=== PATIENT | male | born 1950 | race African-American/Black ===

== ENCOUNTER 2017-01-03 08:10 | Emergency (ER) | payer OTHER ==
[2017-01-03 08:16] VITALS: BMI 22.4
[2017-01-03] MEDS ORDERED: COREG TAB 12.5 MG PO ONE (08:45)
[2017-01-03] MEDS ORDERED: HYDROCHLOROTHIAZIDE 25 MG TAB PO ONE (08:46)
[2017-01-03] MEDS ORDERED: ZESTRIL TAB 20 MG PO ONE (08:46)
--- NOTE | 2017-01-03 08:58 | DR.GENAD ---
HPI - PCP Primary Care Physician: grant - HPI Comment HPI Comment: BLOOD PRESSURE ELEVATED. OUT OF BP MEDICATION. [employer] MED FOR BP TODAY IN THE DRUG STORE. NO FEVER. COUGH PRODUCTIVE WITH YELLOW SPUTUM. CHEST DISCOMFORT WITH DEEP BREATHING. - Complaint/Symptoms Chief Complaint Doctors Comments: COUGH, CONGESTION AND SOB TIMES 3 DAYS. Chief Complaint:: patient stated he has been hard to breath for the past couple of days . - Nurses notes reviewed Nurses Notes Review: Yes - Source History Provided: Patient - Mode of Arrival Mode of Arrival: Ambulatory - Timing Onset of Chief Complaint: 12/31/16 Came on: Suddenly - Duration Duration: Constant Duration: Days - Severity Severity: Moderate PMH - PMH Past Medical History: Yes Past Medical History: Hypertension Past Surgical History: No Surgical History: Ortho Surgery - Family History History of Family Medical Conditions: Yes Family Medical History: Diabetes Mellitus, Hypertension - Social History Does patient currently use any type of tobacco product: No Have you used tobacco products in the last 12 months: No Type of Tobacco Use: None Does any household member use tobacco: No Alcohol Use: None Do you use any recreational Drugs:: No Lives With: Family Lives Where: Home - infectious screening In the last 2 months have you had wt loss of >10#?: NO Have you had fever, night sweats or hemotysis?: No Have you traveled outside the country in the last 6 months?: No Isolation: Standard ROS - Review of Systems Constitutional: No Symptoms Reported Eyes: No Symptoms Reported ENTM: Nose Congestion. negative: Ear Pain, Nose Discharge Respiratoy: Productive Cough, Short of Breath. negative: Wheezing, Hemoptysis Cardiovascular: Chest Pain (ON DEEP BREATHING.) Gastrointestinal/Abdominal: No Symptoms Reported. negative: Abdominal Pain, Diarrhea, Nausea, Vomiting Genitourinary: No Symptoms Reported. negative: Dysuria, Frequency, Hematuria Neurological: No Symptoms Reported Musculoskeletal: No Symptoms Reported Integumentary: No Symptoms Reported Hematologic/Lymphatic: No Symptoms Reported Endocrine: No Symptoms Reported All Other Systems: Reviewed and Negative PE - Vital Signs Vitals: Temperature 97.7 F Pulse Rate [Left Brachial] 79 Pulse Rate 97 Respiratory Rate 16 Blood Pressure [Left Arm] 160/105 Blood Pressure [Right Arm] 197/115 Blood Pressure 196/117 O2 Sat by Pulse Oximetry 100 - General Limitations: No Limitations General Appearance: Alert - Head Head Exam: Normal Inspection - Eyes Eye exam: Normal Appearance - ENT ENT Exam: Normal External Ear Exam TM/Canal Exam: Bilateral Normal Nose Exam: Normal Nose Exam Throat Exam: Normal Inspection - Neck Neck Exam: Normal Inspection, Trachea Midline - Chest Chest Inspection: Symmetric Chest Wall Rise - Respiratory Respiratory Exam: Normal Lung Sounds Bilat Respiratory Exam: Bilateral Clear to Auscultation - Cardiovascular Cardiovascular Exam: Regular Rate, Normal Rhythm, Normal Heart Sounds - Abdominal Exam Abdominal Exam: Normal Bowel Sounds, Soft. negative: Tenderness - Extremities Extremities Exam: Normal Inspection - Back Back Exam: Normal Inspection - Neurologic Neurological Exam: Alert, Oriented X3 - Psychiatric Psychiatric Exam: Normal Affect, Normal Mood - Skin Skin Exam: Normal Color MDM - Differential Diagnosis Differential Diagnosis: BRONCHITIS, PNEUMONIA, HYPERTENSION Course - Treatment Treatment: SEE ORDERS. - Education/Counseling Education/Counseling: Patient, Education Educated On: Diagnosis, Needs for Follow Up ROR - XRAY XRAY Interpreted by: Radiologist XRAY Findings: REPORT DISCUSS WITH PATIENT. - Diagnosis Discharge Problem: Essential hypertension Acute bronchitis Qualifiers: Bronchitis organism: other organism Qualified Code(s): J20.8 - Acute bronchitis due to other specified organisms - Discharge Plan Disposition: 01 HOME, SELF-CARE Condition: Stable - Follow ups/Referrals Follow ups/Referrals: CAITLIN OBANDO [Primary Care Provider] - 3 days - Instructions Instructions: Acute Bronchitis, [id number], Hypertension, [id number] Additional Instructions: RETURN TO ED IF WORSE.
[2017-01-03] MEDS ORDERED: ATARAX TAB 25 MG PO ONE (10:59)
[2017-01-03] MEDS ORDERED: APRESOLINE TAB 25 MG PO ONE (11:05)
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
[2017-01-03 12:05] VITALS: BP 160/105
[2017-01-04] MEDS ORDERED: NORVASC TAB 10 MG PO ONE (11:00)
== END 2017-01-03 12:12 | disposition home or self-care (01) ==
LOC: ER 08:31
DX: J20.8 Acute bronchitis due to other specified organisms (principal); I10 Essential (primary) hypertension; I51.7 Cardiomegaly; J90 Pleural effusion, not elsewhere classified
CPT/HCPCS: 71010; 99282

== ENCOUNTER 2018-04-30 05:04 | Inpatient (IN) ==
--- NOTE | 2018-04-30 05:18 | DR.SOBA ---
HPI Time Seen Time Seen by Provider: 04/30/18 05:16 HPI Comment HPI Comment: PATIENT HAVE HAD PROGRESSIVE EXERSIONAL DYSPNEA FOR ONE WEEK. HE IS COUGHING BUT NO FEVER.3 DAYS AGO LOWER CHEST SUBSTERNAL AND EPIGASTRIC PAIN STARTED. TOOK IT GAS PAIN BUT IMPROVING. PATIENT IS WEAK AND DRAIN OF ENERGY. Complaints Chief Complaint Doctors Comments: INCREASING SOB AND CHEST PAIN, LOWER STERNUM AND EPIGASTRIC AREA. SOB WORSE THIS AM. HISTORY HYPERTENSION. OUT OF BP MED.IN ED, BP MARKEDLY ELEVATED. Reviewed Nurses Notes Reviewed: Yes Source History Provided: Patient Mode of Arrival Mode of Arrival: Ambulatory Duration Duration: Days Context Onset:: At Rest and With Light Exertion PE Risk Factors:: None History of:: CHF Currently on:: Neither Prehospital Care:: None Modifying Factors Worsens:: Exertion Improves:: Rest Associated Signs and Symptoms Associated Signs and Symptoms: Cough, Chest Pain and Leg Swelling If Chest Pain Quality: Sharp and Pleuritic Location: Right Lower Chest, Left Lower Chest and Substernal If Cough Cough: Productive and Yellow PMH PMH Past Medical History: Hypertension Past Surgical History: No Surgical History: Ortho Surgery Family History Family Medical History: Diabetes Mellitus and Hypertension Social History Do you use any recreational Drugs:: No ROS Review of Systems Constitutional: Weakness and Fatigue Eyes: No Symptoms Reported ENTM: No Symptoms Reported Respiratoy: Moist Cough and Short of Breath Cardiovascular: Chest Pain Gastrointestinal/Abdominal: No Symptoms Reported Genitourinary: No Symptoms Reported Neurological: Weakness Musculoskeletal: No Symptoms Reported Integumentary: No Symptoms Reported Hematologic/Lymphatic: No Symptoms Reported Endocrine: No Symptoms Reported Psychiatric: No Symptoms Reported All Other Systems: Reviewed and Negative PE Vital Signs Vitals: Temperature 97.5 F Pulse Rate [Left] 88 Pulse Rate 103 Respiratory Rate 20 Blood Pressure [Left Arm] 151/87 Blood Pressure [Right Arm] 197/115 Blood Pressure 191/106 O2 Sat by Pulse Oximetry 96 General Limitations: No Limitations General Appearance: Alert and In Distress Head Head Exam: Normal Inspection Eyes Eye exam: Normal Appearance ENT ENT Exam: Normal External Ear Exam Neck Neck Exam: Normal Inspection and Trachea Midline; negative Tenderness, Meningismus and Lymphadenopathy Chest Chest Inspection: Normal Inspection and Symmetric Chest Wall Rise Respiratory Respiratory Exam: Normal Lung Sounds Bilat Respiratory Exam: Bilateral: Clear to Auscultation, Bilateral: Rales and Bilateral: Rhonchi, Right: Rales and Lower: Rales and Lower: Rhonchi Cardiovascular Cardiovascular Exam: Regular Rate and Normal Rhythm Abdominal Exam Abdominal Exam: Normal Inspection, Normal Bowel Sounds and Soft; negative Tenderness Extremities Extremities Exam: Normal Inspection Back Back Exam: Normal Inspection Neurologic Neurological Exam: Alert and Oriented X3 Psychiatric Psychiatric Exam: Normal Affect and Normal Mood Skin Skin Exam: Warm, Dry, Intact and Normal Color MDM Differential Diagnosis Differential Diagnosis: Bronchitis, CHF, COPD, Mycardial Infarction, Pneumonia, Pneumothorax, Pulmonary embolism, Respiratory Insufficiency and URI COURSE Treatment Treatment: SEE ORDERS. Consultation Consultation Comments: DISCUSS PATIENT WITH DR. MENDOZA, HE WILL ADMIT PATIENT. Education/Counseling Education/Counseling: Patient Educated On: Diagnosis ROR Labs Reviewed Laboratory Results Reviewed?: Yes (LAB REPORT ON RECORD NOTED.) Result Diagrams: 04/30/18 05:30 04/30/18 05:30 Laboratory: WBC 6.1 X10^3/uL (3.6-10.0) 04/30/18 05:30 RBC 5.55 X10^6/uL (4.7-6.0) 04/30/18 05:30 Hgb 16.4 g/dL (13.5-18.0) 04/30/18 05:30 Hct 48.1 % (42.0-54.0) 04/30/18 05:30 MCV 86.8 fL (80.0-100.0) 04/30/18 05:30 MCH 29.5 pg (27.0-34.0) 04/30/18 05:30 MCHC 34.0 g/dL (33.0-35.0) 04/30/18 05:30 RDW 13.7 % (11.6-16.5) 04/30/18 05:30 Plt Count 191 X10^3/uL (150.0-450.0) 04/30/18 05:30 MPV 9.3 fL (7.4-11.0) 04/30/18 05:30 Neut % (Auto) 67.8 % (42.0-75.0) 04/30/18 05:30 Lymph % (Auto) 25.0 % (21.0-51.0) 04/30/18 05:30 [place] % (Auto) 5.0 % (0.0-13.0) 04/30/18 05:30 Eos % (Auto) 1.5 % (0.9-2.9) 04/30/18 05:30 Baso % (Auto) 0.7 % (0.2-1.0) 04/30/18 05:30 Neut # (Auto) 4.1 x10^3/uL (2.2-4.8) 04/30/18 05:30 Lymph # (Auto) 1.5 X10^3/uL (1.3-2.9) 04/30/18 05:30 [place] # (Auto) 0.3 x10^3/uL (0.3-0.8) 04/30/18 05:30 Eos # (Auto) 0.1 x10^3/uL (0.0-0.2) 04/30/18 05:30 Baso # (Auto) 0.0 X10^3/uL (0.0-0.1) 04/30/18 05:30 Absolute Nucleated RBC 0.1 /100WBC 04/30/18 05:30 D-Dimer 266 ng/mL (0-400) 04/30/18 05:30 Sample Site Lbra 04/30/18 05:47 ABG pH 7.460 (7.35-7.45) H 04/30/18 05:47 ABG pCO2 35.0 mmHg (35.0-45.0) 04/30/18 05:47 ABG pO2 77.0 mmHg (80.0-100.0) L 04/30/18 05:47 ABG HCO3 24.9 mmol/L (22-26) 04/30/18 05:47 ABG O2 Saturation 96.0 % (90-100) 04/30/18 05:47 ABG Base Excess 1.3 mmol/L (-2.0-2.0) 04/30/18 05:47 Shawn Test Na 04/30/18 05:47 A-a Gradient 29.0 mmHg 04/30/18 05:47 FiO2 21.0 04/30/18 05:47 Blood Gas Comments Andrew abg well-mtf 04/30/18 05:47 Sodium 140 mmol/L (136-145) 04/30/18 05:30 Corrected Sodium 140 mmol/L (136-145) 04/30/18 05:30 Potassium 4.1 mmol/L (3.5-5.1) 04/30/18 05:30 Chloride 106 mmol/L (98-107) 04/30/18 05:30 Carbon Dioxide 26.4 mmol/L (21-32) 04/30/18 05:30 BUN 20 mg/dL (7-18) H 04/30/18 05:30 Creatinine 1.49 mg/dL (0.70-1.30) H 04/30/18 05:30 Est GFR (MDRD) Af Amer > 60 (>60) 04/30/18 05:30 Est GFR (MDRD) Non-Af 50 (>60) L 04/30/18 05:30 Glucose 116 mg/dL (65-99) H 04/30/18 05:30 Lactic Acid 1.4 mmol/L (0.4-2.0) 04/30/18 06:20 Calcium 9.0 mg/dL (8.5-10.1) 04/30/18 05:30 Corrected Calcium 9.8 mg/dL (8.5-10.1) 04/30/18 05:30 Total Bilirubin 0.70 mg/dL (0.2-1.0) 04/30/18 05:30 AST 60 Units/L (15-37) H 04/30/18 05:30 ALT 123 Units/L (12-78) H 04/30/18 05:30 Alkaline Phosphatase 132 Units/L (46-116) H 04/30/18 05:30 Creatine Kinase 97 Units/L (39-308) 04/30/18 05:30 CK-MB (CK-2) 2.7 ng/mL (0-4.0) 04/30/18 05:30 CK/CKMB % Calc 2.8 % (<4) 04/30/18 05:30 Troponin I 0.09 ng/mL (0-1.5) 04/30/18 05:30 B-Natriuretic Peptide 534 pg/mL (0-79) H* 04/30/18 05:30 Total Protein 6.9 g/dL (6.4-8.2) 04/30/18 05:30 Albumin 3.0 g/dL (3.4-5.0) L 04/30/18 05:30 Globulin 3.9 g/dL (2.5-4.5) 04/30/18 05:30 Albumin/Globulin Ratio 0.8 Ratio (1.1-2.1) L 04/30/18 05:30 XRAY XRAY Interpreted by: Radiologist (REPORT NOTED.) XRAY Findings: DISCUSS REPRT ON RECORD WITH PATIENT. EKG Rate: 99 [place]: Normal Rhythm: NSR Hypertrophy: LAE and LVH ST: Lat and Nonsp
[2018-04-30] MEDS ORDERED: LASIX IVP ONE ×2 (05:23→05:29)
[2018-04-30] MEDS ORDERED: DUONEB 0.5 MG/3 MG NEB ONE (05:23)
[2018-04-30] MEDS ORDERED: DUONEB 0.5 MG/3 MG ONE (05:34)
[2018-04-30] MEDS ORDERED: NIFEDIPINE CAP 10 MG PO ONE (05:43)
[2018-04-30] MEDS ORDERED: NIFEDIPINE CAP 10 MG ONE (05:50)
[2018-04-30 05:52] LABS: BASOPHILS % (AUTO) 0.7 % (0.2-1.0); EOSINOPHILS # (AUTO) 0.1 x10^3/uL (0.0-0.2); EOSINOPHILS % (AUTO) 1.5 % (0.9-2.9); HEMATOCRIT 48.1 % (42.0-54.0); HEMOGLOBIN 16.4 g/dL (13.5-18.0); LYMPHOCYTES # (AUTO) 1.5 X10^3/uL (1.3-2.9); MEAN CORPUSCULAR HEMOGLOBIN 29.5 pg (27.0-34.0); MEAN CORPUSCULAR VOLUME 86.8 fL (80.0-100.0); MEAN PLATELET VOLUME 9.3 fL (7.4-11.0); MONOCYTES # (AUTO) 0.3 x10^3/uL (0.3-0.8); NEUTROPHILS # (AUTO) 4.1 x10^3/uL (2.2-4.8); NEUTROPHILS % (AUTO) 67.8 % (42.0-75.0); PLATELET COUNT 191 X10^3/uL (150.0-450.0); RED BLOOD COUNT 5.55 X10^6/uL (4.7-6.0); RED CELL DISTRIBUTION WIDTH 13.7 % (11.6-16.5); WHITE BLOOD COUNT 6.1 X10^3/uL (3.6-10.0)
[2018-04-30 06:00] LABS: ABG BASE EXCESS 1.3 mmol/L (-2.0-2.0); ABG HCO3 24.9 mmol/L (22-26)
[2018-04-30 06:07] LABS: BLOOD UREA NITROGEN 20 mg/dL (7-18); CARBON DIOXIDE 26.4 mmol/L (21-32); CHLORIDE 106 mmol/L (98-107); COR NA(FOR HYPERGLY) 140 mmol/L (136-145); CREATININE 1.49 mg/dL (0.70-1.30); SODIUM 140 mmol/L (136-145); TROPONIN I 0.09 ng/mL (0-1.5); eGFR NON BLACK RACES 50 (>60)
[2018-04-30 06:21] LABS: ALANINE AMINOTRANSFERASE 123 Units/L (12-78); ALKALINE PHOSPHATASE 132 Units/L (46-116); ASPARTATE AMINO TRANSFERASE 60 Units/L (15-37); CKMB % 2.8 % (<4); COR CA(FOR HYPOALB) 9.8 mg/dL (8.5-10.1); CREATINE KINASE 97 Units/L (39-308); CREATINE KINASE MB 2.7 ng/mL (0-4.0); TOTAL PROTEIN 6.9 g/dL (6.4-8.2)
--- NOTE | 2018-04-30 06:22 | RAD ---
History: Shortness of breath Study: Portable AP chest Comparison: January 03, 2017 Findings: The heart is mildly enlarged. The lungs are hyperinflated. The costophrenic angles are blunted. There are increased interstitial lung markings. There is an old fracture of the left mid clavicle. Impression: 1. CHF 2. Probable COPD Reported By:
[2018-04-30] MEDS ORDERED: ROCEPHIN VIAL 1 GRAM IVP ONE (06:29)
[2018-04-30] MEDS ORDERED: ROCEPHIN VIAL 1 GRAM ONE (06:32)
[2018-04-30] MEDS ORDERED: MORPHINE SULFATE INJ 2 MG INJ IVP PRN (07:56)
[2018-04-30] MEDS ORDERED: ZOFRAN INJ 4 MG VIAL IVP PRN (08:01)
[2018-04-30 09:02] LABS: CKMB % 2.6 % (<4); CREATINE KINASE MB 2.4 ng/mL (0-4.0); TROPONIN I 0.09 ng/mL (0-1.5)
[2018-04-30 09:51] LABS: AMYLASE 41 Units/L (25-115); LIPASE 90 Units/L (73-393)
[2018-04-30] MEDS: DUONEB 0.5 MG/3 MG NEB SCH ×4 (09:52→21:04)
[2018-04-30] MEDS: K-DUR TAB 20 MEQ PO SCH (09:55)
[2018-04-30] MEDS: ASPIRIN PO SCH (09:55)
[2018-04-30] MEDS: LOPRESSOR TAB 50 MG PO SCH ×2 (09:56→21:05)
[2018-04-30] MEDS: ZESTRIL TAB 10 MG PO SCH (09:56)
[2018-04-30] MEDS: PEPCID 20 MG IV PREMIX* 20 MG/50 ML BAG IV SCH ×2 (09:57→21:05)
[2018-04-30 10:58] VITALS: BMI 19.3
[2018-04-30 13:35] LABS: BILIRUBIN,URINE NEGATIVE (NEGATIVE); BLOOD/HEMOGLOBIN,URINE 4+ (NEGATIVE); GLUCOSE, URINE NEGATIVE (NEGATIVE); KETONES,URINE NEGATIVE (NEGATIVE); LEUKOCYTE ESTERASE ,URINE 1+ (NEGATIVE); NITRITES,URINE NEGATIVE (NEGATIVE); PROTEIN,URINE 2+ (NEGATIVE); UROBILINOGEN,URINE 2+ (NORMAL)
[2018-04-30 14:02] LABS: APPEARANCE,URINE SLIGHTLY HAZY (CLEAR); BACTERIA,URINE TRACE /HPF (NEGATIVE); COLOR,URINE YELLOW (YELLOW); MUCUS,URINE FEW /HPF (NEGATIVE); SQUAMOUS EPITHELIAL CELL,UR FEW /HPF (NEGATIVE)
[2018-04-30 15:13] LABS: CKMB % 2.4 % (<4); CREATINE KINASE MB 2.5 ng/mL (0-4.0); TROPONIN I 0.1 ng/mL (0-1.5)
[2018-04-30] MEDS ORDERED: APRESOLINE INJ 20 MG VIAL IVP PRN (17:50)
[2018-04-30] MEDS ORDERED: PHARMACY CONSULT - DOSE _____ XX SCH (18:00)
--- NOTE | 2018-04-30 18:10 | DR.H&P ---
H&P - History & Physical for Day of: H&P Date: 04/30/18 - Chief Complaint Chief Complaint: SOB - History of Present Illness History of Present Illness: 68 BM ER ADMISSION AFTER PRESENTING WITH CO UPPER ABDOMINAL PAIN AND SOB, WORSE OVER LAST 1-2 DAYS. PT HAS HX OF HTN, HAS TAKEN ANY MEDICATION IN SEVERAL MONTHS. PT IS OCCASSIONAL SMOKER, DENIES DRUG OR ETOH USE. PT DENIES HAY CARDIAC HISTORY. PT WAS HYPERTENSIVE ON PRESENTATION TO ER. PT CXR IN ER, ADMITTED FOR EVALUATION OF ACUTE ILLNESS [place]. - Past Medical History Past Medical History: Hypertension - Past Surgical History Surgical History: Ortho Surgery - Family History Family Medical History: Diabetes Mellitus, Hypertension - Social History Does patient currently use any type of tobacco product: Yes Have you used tobacco products in the last 12 months: Yes Type of Tobacco Use: Cigars Does any household member use tobacco: No Alcohol Use: Occasionally Drug Use: None - Medications Home Medications: No Known Drug Allergies Allergy (Verified 04/30/18 05:19) CONTINUE taking the following medications NK 04/30/18 [History] - Review of Systems Constitutional: Weakness Eyes: No Symptoms Reported ENT: No Symptoms Reported Respiratory: Shortness of Breath, SOB with Excertion Cardiovascular: denies: Chest Pain, Palpitations Gastrointestinal: Abdominal Pain (POINTING TO UPPER ABDOMEN) Musculoskeletal: No Symptoms Reported Skin: No Symptoms Reported Neurological: No Symptoms Reported. denies: Weakness, Confusion - Physical Exam Vital Signs: Temperature 98.0 F Pulse Rate [Left] 88 Pulse Rate 82 Respiratory Rate 20 Blood Pressure [Left Arm] 160/84 Blood Pressure [Right Arm] 197/115 Blood Pressure 191/106 O2 Sat by Pulse Oximetry 96 Oriented: Normal Eyes: Normal Ear: Normal Nose: Normal Throat: Normal Respiratory: RLL Diminished, LLL Diminished Cardiovascular: Normal : Normal Auscultation: Bowel Sounds: Normal Palpation: Normal Tenderness: Epigastric, Mild Skin: Normal Musculoskeletal: Normal Psychiatric: Normal Mood Description: Calm Speech Pattern: Clear, Appropriate - Assessment/Plan (1) SOB (shortness of breath) Status: Acute Plan: PT ADMITTED FOR SERIAL CE AND EKG. BP CONTROL, CONTINUOUS CARDIAC MONITORING. SUPPLEMENTAL O2, AM FLP. CTA, RESP CONSULT (2) Essential hypertension Status: Acute (3) Degenerative disc disease Status: Acute - Allergies Allergies/Adverse Reactions: Allergies Allergy/AdvReac Type Severity Reaction Status Date / Time No Known Drug Allergies Allergy Verified 04/30/18 05:19
[2018-04-30] MEDS ORDERED: CATAPRES TAB 0.1 MG ONE (18:13)
[2018-04-30] MEDS: CATAPRES TAB 0.1 MG PO SCH (18:15)
[2018-04-30] MEDS ORDERED: NS 500 ML IV 500 ML IV ONE (18:44)
[2018-04-30] MEDS: ATIVAN TAB 1 MG PO PRN (20:42)
[2018-04-30 20:52] LABS: CREATINE KINASE MB 2.1 ng/mL (0-4.0); TROPONIN I 0.1 ng/mL (0-1.5)
--- NOTE | 2018-04-30 23:27 | CT ---
CTA chest Indication: Shortness of breath Comparison: None Technique: CT images of the chest were obtained with contrast. Automatic exposure control was utilized. MIP images provided. Findings: Abdominal findings are reported separately. No acute osseous abnormality. The heart is mildly enlarged. No significant pericardial thickening or pericardial effusion. There is contrast reflux into the intrahepatic IVC and hepatic veins, suggesting right heart dysfunction. The thoracic aorta is not opacified, but grossly unremarkable for technique. No obvious intrathoracic adenopathy observed. No pulmonary arterial filling defect is identified. There are small layering bilateral pleural effusions, with passive atelectasis of the lower lobes. There is minimal ground-glass within the non atelectatic portions of the lower lobes. There is mild upper lobe predominant paraseptal emphysema. Interlobular septal thickening is also noted predominantly within the lung bases. The major airways are patent. Impression: Cardiomegaly with findings of CHF, including small bilateral pleural effusions and basilar septal thickening. Minimal bibasilar ground-glass is likely alveolar edema, but infectious infiltrate cannot be completely excluded. No evidence for PTE. Reported By:
--- NOTE | 2018-04-30 23:34 | CT ---
CT angiogram of the abdomen and pelvis Indication: Hypertension. Renal artery disease. Technique: CT images of the abdomen and pelvis were obtained without and with IV contrast. Automatic exposure control was utilized. MIP images provided. Comparison: None. Findings: CT chest is reported separately. No acute osseous abnormality. There is moderate diffuse aortoiliac atherosclerosis, without aneurysm, dissection, or flow limiting narrowing, aside from multifocal narrowing of the internal iliac artery branches. The celiac axis, SMA, bilateral renal arteries, and [place] are patent. Scattered small hypodensities within the liver cannot be definitively characterized, but are likely benign cysts. The remainder of the liver, gallbladder, spleen, stomach, duodenum, pancreas, adrenals, and kidneys demonstrate no significant abnormality. No bowel thickening or dilatation of the lower GI tract. Normal appendix is noted. The urinary bladder, prostate, and rectum are unremarkable. No free fluid or adenopathy. Impression: Moderate diffuse aortoiliac atherosclerosis, without aneurysm or dissection. Multifocal narrowing of the bilateral internal iliac artery branches. Otherwise, no significant narrowing. Reported By:
[2018-05-01] MEDS: CATAPRES TAB 0.1 MG PO SCH ×3 (00:18→05:12)
[2018-05-01] MEDS: XOPENEX 1.25 MG/3 ML NEBULE NEB SCH ×3 (00:53→18:45)
[2018-05-01] MEDS: ATIVAN TAB 1 MG PO PRN ×2 (05:06→12:52)
[2018-05-01 05:50] LABS: BASOPHILS # (AUTO) 0.1 X10^3/uL (0.0-0.1); BASOPHILS % (AUTO) 0.7 % (0.2-1.0); EOSINOPHILS # (AUTO) 0.1 x10^3/uL (0.0-0.2); EOSINOPHILS % (AUTO) 0.7 % (0.9-2.9); HEMATOCRIT 48.5 % (42.0-54.0); HEMOGLOBIN 16.4 g/dL (13.5-18.0); LYMPHOCYTES # (AUTO) 2.2 X10^3/uL (1.3-2.9); LYMPHOCYTES % (AUTO) 22.3 % (21.0-51.0); MEAN CORPUSCULAR HEMOGLOBIN 29.4 pg (27.0-34.0); MEAN CORPUSCULAR HGB CONC 33.7 g/dL (33.0-35.0); MEAN CORPUSCULAR VOLUME 87.3 fL (80.0-100.0); MEAN PLATELET VOLUME 9.5 fL (7.4-11.0); MONOCYTES # (AUTO) 0.8 x10^3/uL (0.3-0.8); MONOCYTES % (AUTO) 8.1 % (0.0-13.0); NEUTROPHILS # (AUTO) 6.6 x10^3/uL (2.2-4.8); NEUTROPHILS % (AUTO) 68.2 % (42.0-75.0); PLATELET COUNT 180 X10^3/uL (150.0-450.0); RED BLOOD COUNT 5.56 X10^6/uL (4.7-6.0); RED CELL DISTRIBUTION WIDTH 13.5 % (11.6-16.5); WHITE BLOOD COUNT 9.7 X10^3/uL (3.6-10.0)
[2018-05-01 06:11] LABS: ALBUMIN 2.7 g/dL (3.4-5.0); CALCIUM 8.5 mg/dL (8.5-10.1); CARBON DIOXIDE 24.2 mmol/L (21-32); CHOL/HDL RATIO 4.2 (0.0-5.0); COR CA(FOR HYPOALB) 9.5 mg/dL (8.5-10.1); CREATINE KINASE MB 2.1 ng/mL (0-4.0); CREATININE 1.65 mg/dL (0.70-1.30); MAGNESIUM 2.2 mg/dL (1.7-2.9); TOTAL PROTEIN 6.4 g/dL (6.4-8.2); TROPONIN I 0.07 ng/mL (0-1.5)
[2018-05-01] MEDS ORDERED: CATAPRES TAB 0.1 MG PO PRN (07:01)
[2018-05-01] MEDS: LOVENOX INJ 30 MG SYR SC SCH (09:25)
[2018-05-01] MEDS: K-DUR TAB 20 MEQ PO SCH (09:25)
[2018-05-01] MEDS: ASPIRIN PO SCH (09:25)
[2018-05-01] MEDS: PEPCID 20 MG IV PREMIX* 20 MG/50 ML BAG IV SCH (09:26)
[2018-05-01] MEDS: ZESTRIL TAB 10 MG PO SCH (09:26)
[2018-05-01] MEDS: LOPRESSOR TAB 50 MG PO SCH ×2 (09:26→20:38)
[2018-05-01] MEDS ORDERED: LASIX IVP NR (10:30)
[2018-05-01 11:54] LABS: CKMB % 1.7 % (<4); CREATINE KINASE MB 1.9 ng/mL (0-4.0); TROPONIN I 0.09 ng/mL (0-1.5)
--- NOTE | 2018-05-01 13:47 | RAD ---
History: Shortness of breath Exam: Portable chest Comparison: 01/03/2017 Technique: A portable AP chest was obtained Findings: The heart is mildly enlarged and more prominent. The pulmonary vessels are engorged centrally more prominent. There are hazy perihilar and bibasilar opacities which have increased . There is minimal blunting of the costophrenic sulci which is more apparent . There are postop changes seen along the lower cervical spine . There is metallic artifact projecting along the upper chest bilaterally which is unchanged. IMPRESSION: Mild cardiomegaly and mild pulmonary edema which is more prominent Small bibasilar pleural effusions. Reported By:
[2018-05-02] MEDS: XOPENEX 1.25 MG/3 ML NEBULE NEB SCH ×3 (00:45→11:32)
[2018-05-02] MEDS: ATIVAN TAB 1 MG PO PRN ×2 (01:39→09:00)
[2018-05-02 06:10] LABS: BASOPHILS % (AUTO) 0.4 % (0.2-1.0); EOSINOPHILS % (AUTO) 0.1 % (0.9-2.9); HEMATOCRIT 50.5 % (42.0-54.0); LYMPHOCYTES # (AUTO) 1.4 X10^3/uL (1.3-2.9); LYMPHOCYTES % (AUTO) 15.5 % (21.0-51.0); MEAN CORPUSCULAR HEMOGLOBIN 29.6 pg (27.0-34.0); MEAN CORPUSCULAR HGB CONC 33.8 g/dL (33.0-35.0); MEAN CORPUSCULAR VOLUME 87.7 fL (80.0-100.0); MEAN PLATELET VOLUME 9.9 fL (7.4-11.0); MONOCYTES # (AUTO) 0.8 x10^3/uL (0.3-0.8); MONOCYTES % (AUTO) 8.4 % (0.0-13.0); NEUTROPHILS # (AUTO) 6.9 x10^3/uL (2.2-4.8); NEUTROPHILS % (AUTO) 75.6 % (42.0-75.0); PLATELET COUNT 195 X10^3/uL (150.0-450.0); RED BLOOD COUNT 5.76 X10^6/uL (4.7-6.0); RED CELL DISTRIBUTION WIDTH 13.5 % (11.6-16.5); WHITE BLOOD COUNT 9.1 X10^3/uL (3.6-10.0)
[2018-05-02 06:18] LABS: ALBUMIN 2.9 g/dL (3.4-5.0); CALCIUM 9.2 mg/dL (8.5-10.1); CARBON DIOXIDE 25.3 mmol/L (21-32); COR CA(FOR HYPOALB) 10.1 mg/dL (8.5-10.1); CREATININE 1.59 mg/dL (0.70-1.30); TOTAL PROTEIN 6.8 g/dL (6.4-8.2)
[2018-05-02] MEDS: LOVENOX INJ 30 MG SYR SC SCH (08:29)
[2018-05-02] MEDS: LOPRESSOR TAB 50 MG PO SCH (08:30)
[2018-05-02] MEDS: ZESTRIL TAB 10 MG PO SCH (08:30)
[2018-05-02] MEDS: ASPIRIN PO SCH (08:31)
[2018-05-02] MEDS: K-DUR TAB 20 MEQ PO SCH (08:34)
[2018-05-02] MEDS ORDERED: PEPCID 20 MG IV PREMIX* 20 MG/50 ML BAG IV SCH (09:00)
[2018-05-02] MEDS ORDERED: LASIX IVP ONE (12:05)
[2018-05-02 13:22] VITALS: BP 164/88
== END 2018-05-02 14:20 | disposition short-term general hospital (02) | DRG 188 ==
LOC: MED/SURG 05:06 → ER 05:06 → OBSVTOIN 07:42 → MED/SURG 09:21
PROVIDERS: ADMIT Internal Medicine; ATTEND Internal Medicine
DX: I11.0 Hypertensive heart disease with heart failure; I50.9 Heart failure, unspecified; R10.13 Epigastric pain; R94.31 Abnormal electrocardiogram [ECG] [EKG]; R06.02 Shortness of breath; R60.0 Localized edema; R10.84 Generalized abdominal pain; R94.4 Abnormal results of kidney function studies; R07.89 Other chest pain; J90 Pleural effusion, not elsewhere classified; E78.2 Mixed hyperlipidemia
CPT/HCPCS: 36415; 36600; 71010; 71045; 71275; 74174; 80053; 80061; 81001; 82150; 82550; 82553; 82803; 83605; 83690; 83735; 83880; 84484; 85025; 85378; 87040; 93005; 94640; 94760; 96365; 96374; 96375; 99282; 99284; A4216; A4222; S0028; J0696; J1650; J1940; J2270; J2405; J7040; J7620

== ENCOUNTER 2018-05-25 10:07 | Observation (INO) ==
[2018-05-25 10:14] VITALS: BMI 20.3
--- NOTE | 2018-05-25 10:27 | DR.SOBA ---
HPI Time Seen Time Seen by Provider: 05/25/18 10:26 Primary Care Physician Primary Care Physician: KELLY HPI Comment HPI Comment: SYMPTOMS WORSE TODAY. HE IS WEAK AND FATIGUE. BP ELEVATED IN ED. HISTORY HYPERTENSION ON MEDICATION. COUGH NON PRODUCTIVE AND SOB EVEN AT REST. NO FEVER. Complaints Chief Complaint Doctors Comments: COUGH, SOB TIMES ONE WEEK. RECENT CARDIAC STENT (3 WEEKS AGO), Chief Complaint:: PT. C/O SHORTNESS OF BREATH X 1 WEEK. PT. HAS A NON PRODUCTIVE COUGH. DENIES PAIN. PT. STATES HE HAD A CARDIAC STENT PLACED IN [place], [place] ABOUT 2-3 WEEKS AGO. Reviewed Nurses Notes Reviewed: Yes Source History Provided: Patient Mode of Arrival Mode of Arrival: Ambulatory Timing Onset of Chief Complaint: 05/18/18 Duration Duration: Days Context Onset:: At Rest PE Risk Factors:: Recent Surgery (RECENT CARDIAC STENT.) History of:: None Currently on:: Neither Prehospital Care:: None Modifying Factors Worsens:: Exertion and Lying Flat Improves:: Sitting Up Associated Signs and Symptoms Associated Signs and Symptoms: Cough and Leg Swelling (LOWER EXT. EDEMA.) If Chest Pain Quality: Pleuritic If Cough Cough: Nonproductive PMH PMH Past Medical History: Yes Past Medical History: Hypertension Past Surgical History: Yes Surgical History: Angioplasty/Stents and Ortho Surgery Family History History of Family Medical Conditions: Yes Family Medical History: Diabetes Mellitus and Hypertension Social History Does patient currently use any type of tobacco product: Yes Have you used tobacco products in the last 12 months: Yes Type of Tobacco Use: Cigarettes Does any household member use tobacco: Yes Alcohol Use: None Do you use any recreational Drugs:: No Lives With: Alone Lives Where: Home infectious screening In the last 2 months have you had wt loss of >10#?: NO Have you had fever, night sweats or hemotysis?: No Have you traveled outside the country in the last 6 months?: No Isolation: Standard ROS Review of Systems Constitutional: Weakness and Fatigue Eyes: No Symptoms Reported ENTM: No Symptoms Reported Respiratoy: Non-Productive Cough and Short of Breath Cardiovascular: Edema and Other (PLEURITIC CHEST PAIN.) Gastrointestinal/Abdominal: No Symptoms Reported Genitourinary: No Symptoms Reported Neurological: No Symptoms Reported Musculoskeletal: No Symptoms Reported Integumentary: Other (LOWER EXT. EDEMA.) Hematologic/Lymphatic: No Symptoms Reported Endocrine: No Symptoms Reported Psychiatric: No Symptoms Reported All Other Systems: Reviewed and Negative PE Vital Signs Vitals: Temperature 98.0 F Pulse Rate [Right Brachial] 82 Pulse Rate [Left Brachial] 88 Pulse Rate [Apical] 70 Pulse Rate 92 Respiratory Rate 20 Blood Pressure [Left Arm] 159/108 Blood Pressure [Right Arm] 137/78 Blood Pressure 113/89 O2 Sat by Pulse Oximetry 100 General Limitations: No Limitations General Appearance: Alert and In Distress Head Head Exam: Normal Inspection Eyes Eye exam: Normal Appearance ENT ENT Exam: Normal External Ear Exam Neck Neck Exam: Normal Inspection Chest Chest Inspection: Normal Inspection Respiratory Respiratory Exam: Respiratory Distress Respiratory Exam: Bilateral: Clear to Auscultation, Bilateral: Wheezing and Bilateral: Rhonchi and Lower: Wheezing and Lower: Rhonchi Cardiovascular Cardiovascular Exam: Regular Rate and Normal Rhythm Abdominal Exam Abdominal Exam: Normal Inspection, Normal Bowel Sounds and Soft Extremities Extremities Exam: Normal Inspection and Edema Back Back Exam: Normal Inspection Neurologic Neurological Exam: Alert, Oriented X3 and CN II-XII Intact; negative Motor Sensory Deficit Psychiatric Psychiatric Exam: Normal Affect and Normal Mood Skin Skin Exam: Warm, Dry, Intact and Normal Color MDM Differential Diagnosis Differential Diagnosis: Bronchitis, CHF, COPD, Hypertensive Emergency, Mycardial Infarction, Pneumonia, Pneumothorax, Pulmonary embolism, Respiratory Insufficiency, Sinusitis and URI COURSE Treatment Treatment: SEE ORDERS. Consultation Consultation Comments: DISCUSS PATIENT WITH DR. DAIGLE. HE WILL ADMIT PATIENT. Education/Counseling Education/Counseling: Patient Educated On: Diagnosis ROR Labs Reviewed Laboratory Results Reviewed?: Yes Result Diagrams: 05/27/18 02:59 05/27/18 02:59 Laboratory: WBC 8.3 X10^3/uL (3.6-10.0) 05/27/18 02:59 RBC 5.40 X10^6/uL (4.7-6.0) 05/27/18 02:59 Hgb 15.7 g/dL (13.5-18.0) 05/27/18 02:59 Hct 46.2 % (42.0-54.0) 05/27/18 02:59 MCV 85.6 fL (80.0-100.0) 05/27/18 02:59 MCH 29.0 pg (27.0-34.0) 05/27/18 02:59 MCHC 33.9 g/dL (33.0-35.0) 05/27/18 02:59 RDW 13.5 % (11.6-16.5) 05/27/18 02:59 Plt Count 174 X10^3/uL (150.0-450.0) 05/27/18 02:59 MPV 9.0 fL (7.4-11.0) 05/27/18 02:59 Neut % (Auto) 67.3 % (42.0-75.0) 05/27/18 02:59 Lymph % (Auto) 21.9 % (21.0-51.0) 05/27/18 02:59 [place] % (Auto) 7.7 % (0.0-13.0) 05/27/18 02:59 Eos % (Auto) 2.0 % (0.9-2.9) 05/27/18 02:59 Baso % (Auto) 1.1 % (0.2-1.0) H 05/27/18 02:59 Neut # (Auto) 5.6 x10^3/uL (2.2-4.8) H 05/27/18 02:59 Lymph # (Auto) 1.8 X10^3/uL (1.3-2.9) 05/27/18 02:59 [place] # (Auto) 0.6 x10^3/uL (0.3-0.8) 05/27/18 02:59 Eos # (Auto) 0.2 x10^3/uL (0.0-0.2) 05/27/18 02:59 Baso # (Auto) 0.1 X10^3/uL (0.0-0.1) 05/27/18 02:59 Absolute Nucleated RBC 0.0 /100WBC 05/27/18 02:59 Sodium 141 mmol/L (136-145) 05/27/18 02:59 Corrected Sodium TNP 05/27/18 02:59 Potassium 3.8 mmol/L (3.5-5.1) 05/27/18 02:59 Chloride 104 mmol/L (98-107) 05/27/18 02:59 Carbon Dioxide 30.0 mmol/L (21-32) 05/27/18 02:59 BUN 24 mg/dL (7-18) H 05/27/18 02:59 Creatinine 1.75 mg/dL (0.70-1.30) H 05/27/18 02:59 Est GFR (MDRD) Af Amer 50 (>60) L 05/27/18 02:59 Est GFR (MDRD) Non-Af 42 (>60) L 05/27/18 02:59 Glucose 98 mg/dL (65-99) 05/27/18 02:59 Calcium 8.8 mg/dL (8.5-10.1) 05/27/18 02:59 Corrected Calcium 10.0 mg/dL (8.5-10.1) 05/27/18 02:59 Magnesium 2.0 mg/dL (1.7-2.9) 05/26/18 04:15 Total Bilirubin 1.10 mg/dL (0.2-1.0) H 05/27/18 02:59 AST 16 Units/L (15-37) 05/27/18 02:59 ALT 28 Units/L (12-78) 05/27/18 02:59 Alkaline Phosphatase 97 Units/L (46-116) 05/27/18 02:59 Creatine Kinase 134 Units/L (39-308) 05/27/18 08:37 CK-MB (CK-2) 1.0 ng/mL (0-4.0) 05/27/18 08:37 CK/CKMB % Calc 0.8 % (<4) 05/27/18 08:37 Troponin I 0.08 ng/mL (0-1.5) 05/27/18 08:37 B-Natriuretic Peptide 972 pg/mL (0-79) H* 05/25/18 10:35 Total Protein 6.3 g/dL (6.4-8.2) L 05/27/18 02:59 Albumin 2.5 g/dL (3.4-5.0) L 05/27/18 02:59 Globulin 3.8 g/dL (2.5-4.5) 05/27/18 02:59 Albumin/Globulin Ratio 0.7 Ratio (1.1-2.1) L 05/27/18 02:59 Triglycerides 60 mg/dL (0-150) 05/26/18 04:15 Cholesterol 142 mg/dL (0-200) 05/26/18 04:15 LDL Cholesterol, Calc 97 mg/dL (0-100) 05/26/18 04:15 HDL Cholesterol 33 mg/dL (40-60) L 05/26/18 04:15 Cholesterol/HDL Ratio 4.3 (0.0-5.0) 05/26/18 04:15 Specimen Type Clean catch urine 05/25/18 18:00 Urine Color Yellow (YELLOW) 05/25/18 18:00 Urine Appearance Clear (CLEAR) 05/25/18 18:00 Urine pH 7.0 (5.0 - 8.0) 05/25/18 18:00 Ur Specific [place] 1.005 (1.000-1.030) 05/25/18 18:00 Urine Protein Negative (NEGATIVE) 05/25/18 18:00 Urine Glucose (UA) Negative (NEGATIVE) 05/25/18 18:00 Urine Ketones Negative (NEGATIVE) 05/25/18 18:00 Urine Occult Blood 2+ (NEGATIVE) 05/25/18 18:00 Urine Nitrite Negative (NEGATIVE) 05/25/18 18:00 Urine Bilirubin Negative (NEGATIVE) 05/25/18 18:00 Urine Urobilinogen Normal (NORMAL) 05/25/18 18:00 Ur Leukocyte Esterase Negative (NEGATIVE) 05/25/18 18:00 Urine RBC 5-10 /HPF (NONE SEEN) 05/25/18 18:00 Urine WBC 0-2 /HPF (NONE SEEN) 05/25/18 18:00 Ur Squamous Epith Cells Rare /HPF (NEGATIVE) 05/25/18 18:00 Urine Bacteria Negative /HPF (NEGATIVE) 05/25/18 18:00 Ur Culture Indicated? No/not indicated 05/25/18 18:00 XRAY XRAY Interpreted by: Radiologist XRAY Findings: REPORT ON RECORD NOTED AND DISCUSS WITH PATIENT. EKG Rate: 69 [place]: Normal Rhythm: NSR Block: None Hypertrophy: LAE and LVH ST: Normal Diagnosis Discharge Problem: Chest pain, Shortness of breath Instructions Instructions: Personal Hygiene How to Take Your Blood Pressure, [id number] Bleeding Precautions When on Anticoagulant Therapy, Pediatric Form - Blood Pressure Record Sheet Hand Washing, [id number] Hypertension, [id number] Physical Activity With Heart Disease Heart Failure, [id number] Preventing Heart Failure Living With Heart Failure Heart Failure Exacerbation Managing Your Hypertension Cooking With Less Salt Chest Wall Pain
[2018-05-25] MEDS ORDERED: CATAPRES TAB 0.1 MG PO ONE ×2 (10:32→12:13)
[2018-05-25] MEDS ORDERED: PEPCID 20 MG IV PREMIX* 20 MG/50 ML BAG IV ONE ×2 (10:35→10:55)
[2018-05-25] MEDS ORDERED: ASPIRIN 81 MG CHEWTAB PO ONE (10:35)
[2018-05-25 10:45] LABS: BASOPHILS % (AUTO) 0.6 % (0.2-1.0); EOSINOPHILS # (AUTO) 0.2 x10^3/uL (0.0-0.2); EOSINOPHILS % (AUTO) 2.7 % (0.9-2.9); HEMATOCRIT 47.8 % (42.0-54.0); HEMOGLOBIN 16.1 g/dL (13.5-18.0); LYMPHOCYTES # (AUTO) 1.6 X10^3/uL (1.3-2.9); LYMPHOCYTES % (AUTO) 24.8 % (21.0-51.0); MEAN CORPUSCULAR HEMOGLOBIN 29.1 pg (27.0-34.0); MEAN CORPUSCULAR HGB CONC 33.8 g/dL (33.0-35.0); MEAN CORPUSCULAR VOLUME 86.2 fL (80.0-100.0); MEAN PLATELET VOLUME 9.1 fL (7.4-11.0); MONOCYTES # (AUTO) 0.3 x10^3/uL (0.3-0.8); MONOCYTES % (AUTO) 5.4 % (0.0-13.0); NEUTROPHILS # (AUTO) 4.2 x10^3/uL (2.2-4.8); NEUTROPHILS % (AUTO) 66.5 % (42.0-75.0); PLATELET COUNT 194 X10^3/uL (150.0-450.0); RED BLOOD COUNT 5.54 X10^6/uL (4.7-6.0); RED CELL DISTRIBUTION WIDTH 13.7 % (11.6-16.5); WHITE BLOOD COUNT 6.3 X10^3/uL (3.6-10.0)
[2018-05-25] MEDS ORDERED: ASPIRIN 81 MG CHEWTAB ONE (10:55)
[2018-05-25] MEDS ORDERED: CATAPRES TAB 0.1 MG ONE ×2 (10:55→12:14)
[2018-05-25 11:04] LABS: BLOOD UREA NITROGEN 20 mg/dL (7-18); CALCIUM 8.9 mg/dL (8.5-10.1); CARBON DIOXIDE 27.3 mmol/L (21-32); CHLORIDE 104 mmol/L (98-107); COR NA(FOR HYPERGLY) 140 mmol/L (136-145); CREATININE 1.46 mg/dL (0.70-1.30); SODIUM 140 mmol/L (136-145); TROPONIN I 0.07 ng/mL (0-1.5); eGFR NON BLACK RACES 51 (>60)
[2018-05-25 11:09] LABS: ALANINE AMINOTRANSFERASE 44 Units/L (12-78); ALKALINE PHOSPHATASE 117 Units/L (46-116); ASPARTATE AMINO TRANSFERASE 17 Units/L (15-37); CKMB % 3.4 % (<4); COR CA(FOR HYPOALB) 9.7 mg/dL (8.5-10.1); CREATINE KINASE 70 Units/L (39-308); CREATINE KINASE MB 2.4 ng/mL (0-4.0); TOTAL PROTEIN 7.1 g/dL (6.4-8.2)
[2018-05-25] MEDS ORDERED: LASIX IVP ONE ×2 (11:27→11:33)
--- NOTE | 2018-05-25 13:21 | RAD ---
Examination: AP chest History: Recent heart catheterization, SOB Comparison 05/21/2018 Findings: Continued cardiac enlargement of moderate degree. Central pulmonary vascular congestion with diffuse interstitial prominence throughout the lungs. There is no focal consolidation, pneumothorax or large pleural effusion. Impression: Stable cardiac enlargement. Improved aeration of the lungs with decreasing pulmonary edema. The lungs are not yet completely clear. Continued follow-up suggested to establish baseline. Reported By:
[2018-05-25 13:36] LABS: CKMB % 2.6 % (<4); CREATINE KINASE MB 2.2 ng/mL (0-4.0); TROPONIN I 0.08 ng/mL (0-1.5)
[2018-05-25 18:12] LABS: BILIRUBIN,URINE NEGATIVE (NEGATIVE); BLOOD/HEMOGLOBIN,URINE 2+ (NEGATIVE); GLUCOSE, URINE NEGATIVE (NEGATIVE); KETONES,URINE NEGATIVE (NEGATIVE); LEUKOCYTE ESTERASE ,URINE NEGATIVE (NEGATIVE); NITRITES,URINE NEGATIVE (NEGATIVE); PROTEIN,URINE NEGATIVE (NEGATIVE); UROBILINOGEN,URINE NORMAL (NORMAL)
[2018-05-25 18:18] LABS: APPEARANCE,URINE CLEAR (CLEAR); COLOR,URINE YELLOW (YELLOW)
[2018-05-25 18:19] LABS: BACTERIA,URINE NEGATIVE /HPF (NEGATIVE); SQUAMOUS EPITHELIAL CELL,UR RARE /HPF (NEGATIVE)
[2018-05-25 18:41] LABS: CKMB % 2.9 % (<4); TROPONIN I 0.09 ng/mL (0-1.5)
[2018-05-25] MEDS ORDERED: ZESTRIL TAB 20 MG ONE (20:05)
[2018-05-25] MEDS: ZESTRIL TAB 20 MG PO SCH (20:10)
[2018-05-25] MEDS: ZANAFLEX PO SCH (20:11)
[2018-05-25] MEDS: PRAVACHOL PO SCH (20:11)
[2018-05-25] MEDS: NEURONTIN CAP 300 MG PO SCH (21:03)
[2018-05-26 00:24] LABS: CKMB % 2.5 % (<4); CREATINE KINASE MB 1.7 ng/mL (0-4.0); TROPONIN I 0.09 ng/mL (0-1.5)
[2018-05-26] MEDS ORDERED: CATAPRES TAB 0.1 MG ONE (03:49)
[2018-05-26] MEDS: CATAPRES TAB 0.1 MG PO PRN ×2 (03:59→11:30)
[2018-05-26] MEDS ORDERED: MILK OF MAGNESIA PO PRN (04:36)
[2018-05-26] MEDS ORDERED: COLACE CAP 100 MG PO PRN (04:36)
[2018-05-26] MEDS ORDERED: MILK OF MAGNESIA ONE (04:38)
[2018-05-26] MEDS ORDERED: COLACE CAP 100 MG PO ONE (04:39)
[2018-05-26 05:18] LABS: BASOPHILS % (AUTO) 0.6 % (0.2-1.0); EOSINOPHILS # (AUTO) 0.3 x10^3/uL (0.0-0.2); EOSINOPHILS % (AUTO) 3.4 % (0.9-2.9); HEMATOCRIT 47.7 % (42.0-54.0); LYMPHOCYTES # (AUTO) 1.8 X10^3/uL (1.3-2.9); LYMPHOCYTES % (AUTO) 24.8 % (21.0-51.0); MEAN CORPUSCULAR HEMOGLOBIN 29.2 pg (27.0-34.0); MEAN CORPUSCULAR HGB CONC 33.5 g/dL (33.0-35.0); MEAN PLATELET VOLUME 9.3 fL (7.4-11.0); MONOCYTES # (AUTO) 0.4 x10^3/uL (0.3-0.8); MONOCYTES % (AUTO) 5.5 % (0.0-13.0); NEUTROPHILS # (AUTO) 4.8 x10^3/uL (2.2-4.8); NEUTROPHILS % (AUTO) 65.7 % (42.0-75.0); PLATELET COUNT 193 X10^3/uL (150.0-450.0); RED BLOOD COUNT 5.48 X10^6/uL (4.7-6.0); RED CELL DISTRIBUTION WIDTH 13.6 % (11.6-16.5); WHITE BLOOD COUNT 7.4 X10^3/uL (3.6-10.0)
[2018-05-26 05:33] LABS: ALANINE AMINOTRANSFERASE 40 Units/L (12-78); ALBUMIN 2.8 g/dL (3.4-5.0); ALKALINE PHOSPHATASE 108 Units/L (46-116); ASPARTATE AMINO TRANSFERASE 20 Units/L (15-37); BLOOD UREA NITROGEN 20 mg/dL (7-18); CALCIUM 8.9 mg/dL (8.5-10.1); CARBON DIOXIDE 27.6 mmol/L (21-32); CHLORIDE 106 mmol/L (98-107); CHOL/HDL RATIO 4.3 (0.0-5.0); CHOLESTEROL 142 mg/dL (0-200); COR CA(FOR HYPOALB) 9.9 mg/dL (8.5-10.1); COR NA(FOR HYPERGLY) 142 mmol/L (136-145); CREATININE 1.49 mg/dL (0.70-1.30); HDL CHOLESTEROL 33 mg/dL (40-60); SODIUM 142 mmol/L (136-145); TOTAL PROTEIN 6.6 g/dL (6.4-8.2); TRIGLYCERIDES 60 mg/dL (0-150); eGFR NON BLACK RACES 50 (>60)
[2018-05-26] MEDS ORDERED: MORPHINE SULFATE INJ 2 MG INJ ONE (06:00)
[2018-05-26] MEDS: MORPHINE SULFATE INJ 2 MG INJ IVP ONE ×2 (06:01→06:10)
[2018-05-26] MEDS: NEURONTIN CAP 300 MG PO SCH ×3 (06:02→21:28)
[2018-05-26] MEDS ORDERED: VALIUM PO PRN (06:42)
[2018-05-26] MEDS ORDERED: APRESOLINE INJ 20 MG VIAL IVP PRN (06:42)
--- NOTE | 2018-05-26 06:47 | RAD ---
HISTORY: Shortness of breath Study: Chest AP portable Comparison: 05/25/2018, 05/01/2018 Findings: The heart is enlarged. The nataliia are prominent and now indistinct and the interstitium has become more prominent compared to the prior examinations. This suggests on set of congestive heart failure in the form of interstitial edema. No alveolar edema, alveolar infiltrates, or pleural effusions are identified. The bony thorax is unremarkable. IMPRESSION: Moderate cardiomegaly now with recurrent interstitial pulmonary edema Reported By:
[2018-05-26] MEDS ORDERED: VALIUM ONE (06:48)
[2018-05-26] MEDS ORDERED: APRESOLINE INJ 20 MG VIAL ONE (06:49)
[2018-05-26] MEDS ORDERED: ZESTRIL TAB 20 MG ONE ×2 (09:16→19:26)
[2018-05-26] MEDS: LASIX IVP SCH ×2 (09:24→20:03)
[2018-05-26] MEDS: ZESTRIL TAB 20 MG PO SCH ×2 (09:25→20:03)
[2018-05-26] MEDS: PLAVIX PO SCH (09:26)
[2018-05-26] MEDS: ZANAFLEX PO SCH ×2 (09:26→20:04)
[2018-05-26 09:37] LABS: CREATINE KINASE MB 1.7 ng/mL (0-4.0); TROPONIN I 0.08 ng/mL (0-1.5)
[2018-05-26 15:25] LABS: CKMB % 1.3 % (<4); CREATINE KINASE MB 1.3 ng/mL (0-4.0); TROPONIN I 0.13 ng/mL (0-1.5)
[2018-05-26] MEDS: PRAVACHOL PO SCH (20:03)
[2018-05-26 21:27] LABS: CKMB % 0.9 % (<4); TROPONIN I 0.13 ng/mL (0-1.5)
[2018-05-27 03:14] LABS: BASOPHILS # (AUTO) 0.1 X10^3/uL (0.0-0.1); BASOPHILS % (AUTO) 1.1 % (0.2-1.0); EOSINOPHILS # (AUTO) 0.2 x10^3/uL (0.0-0.2); HEMATOCRIT 46.2 % (42.0-54.0); HEMOGLOBIN 15.7 g/dL (13.5-18.0); LYMPHOCYTES # (AUTO) 1.8 X10^3/uL (1.3-2.9); LYMPHOCYTES % (AUTO) 21.9 % (21.0-51.0); MEAN CORPUSCULAR HGB CONC 33.9 g/dL (33.0-35.0); MEAN CORPUSCULAR VOLUME 85.6 fL (80.0-100.0); MONOCYTES # (AUTO) 0.6 x10^3/uL (0.3-0.8); MONOCYTES % (AUTO) 7.7 % (0.0-13.0); NEUTROPHILS # (AUTO) 5.6 x10^3/uL (2.2-4.8); NEUTROPHILS % (AUTO) 67.3 % (42.0-75.0); PLATELET COUNT 174 X10^3/uL (150.0-450.0); RED CELL DISTRIBUTION WIDTH 13.5 % (11.6-16.5); WHITE BLOOD COUNT 8.3 X10^3/uL (3.6-10.0)
[2018-05-27 03:21] LABS: ALANINE AMINOTRANSFERASE 28 Units/L (12-78); ALBUMIN 2.5 g/dL (3.4-5.0); ALKALINE PHOSPHATASE 97 Units/L (46-116); ASPARTATE AMINO TRANSFERASE 16 Units/L (15-37); BLOOD UREA NITROGEN 24 mg/dL (7-18); CALCIUM 8.8 mg/dL (8.5-10.1); CHLORIDE 104 mmol/L (98-107); CREATININE 1.75 mg/dL (0.70-1.30); SODIUM 141 mmol/L (136-145); TOTAL PROTEIN 6.3 g/dL (6.4-8.2); eGFR NON BLACK RACES 42 (>60)
[2018-05-27 03:36] LABS: CKMB % 0.8 % (<4); TROPONIN I 0.1 ng/mL (0-1.5)
[2018-05-27] MEDS: NEURONTIN CAP 300 MG PO SCH ×2 (05:01→14:30)
[2018-05-27] MEDS ORDERED: ZESTRIL TAB 20 MG ONE (08:51)
--- NOTE | 2018-05-27 08:55 | RAD ---
History: Shortness of breath Study: AP chest Comparison: Yesterday Findings: The heart remains mildly enlarged with a tortuous aorta. Since yesterday there has been resolution of interstitial pulmonary edema. The lungs are hyperinflated overall. There is no significant effusion. Impression: Resolution of interstitial pulmonary edema and vascular congestion with unchanged mild cardiomegaly Reported By:
[2018-05-27 09:10] LABS: CKMB % 0.8 % (<4); TROPONIN I 0.08 ng/mL (0-1.5)
[2018-05-27] MEDS: ZESTRIL TAB 20 MG PO SCH (09:54)
[2018-05-27] MEDS: ZANAFLEX PO SCH (09:54)
[2018-05-27] MEDS: PLAVIX PO SCH (09:55)
[2018-05-27 15:38] LABS: CKMB % 1.1 % (<4); CREATINE KINASE MB 1.3 ng/mL (0-4.0); TROPONIN I 0.08 ng/mL (0-1.5)
[2018-05-27 17:14] VITALS: BP 134/78
--- NOTE | 2018-06-18 18:46 | DR.H&P ---
H&P - History & Physical for Day of: H&P Date: 05/25/18 - Chief Complaint Chief Complaint: SOB - History of Present Illness History of Present Illness: 68BM ER ADMISSION AFTER PRESENTING WITH CO SOB, SYMPTOMS WORSE TODAY. HE IS WEAK AND FATIGUE. BP ELEVATED IN ED. HISTORY HYPERTENSION ON MEDICATION. COUGH NON PRODUCTIVE AND SOB EVEN AT REST. NO FEVER. - Past Medical History Past Medical History: Hypertension - Past Surgical History Surgical History: Angioplasty/Stents, Ortho Surgery - Family History Family Medical History: Diabetes Mellitus, Hypertension - Social History Does patient currently use any type of tobacco product: Yes Have you used tobacco products in the last 12 months: Yes Type of Tobacco Use: Cigarettes Does any household member use tobacco: Yes Alcohol Use: None Drug Use: None - Medications Home Medications: No Known Drug Allergies Allergy (Verified 05/25/18 15:54) CONTINUE taking the following medications clopidogrel 75 mg PO DAILY 05/25/18 [History] gabapentin 300 mg PO TID 05/25/18 [History] tizanidine 4 mg PO BID 05/25/18 [History] New Prescriptions metoprolol tartrate 25 mg PO BID #60 tab 05/27/18 [Rx] - Review of Systems Constitutional: Weakness Eyes: No Symptoms Reported ENT: No Symptoms Reported Respiratory: Cough, Shortness of Breath Cardiovascular: No Symptoms Reported Gastrointestinal: No Symptoms Reported Genitourinary: No Symptoms Reported Musculoskeletal: Back Pain Skin: No Symptoms Reported Neurological: No Symptoms Reported - Physical Exam Vital Signs: Temperature 97.9 F Pulse Rate [Right Brachial] 79 Pulse Rate [Left Brachial] 88 Pulse Rate [Apical] 70 Pulse Rate 92 Respiratory Rate 18 Blood Pressure [Left Arm] 159/108 Blood Pressure [Right Arm] 134/78 Blood Pressure 113/89 O2 Sat by Pulse Oximetry 98 Oriented: Normal Eyes: Normal Ear: Normal Nose: Normal Throat: Normal Respiratory: Rhonchi Throughout, RLL Diminished, LLL Diminished Cardiovascular: Normal : Normal Auscultation: Bowel Sounds: Normal Palpation: Normal Tenderness: Normal Skin: Normal Musculoskeletal: Back:Lumbar Psychiatric: Normal Affect: Anxious Speech Pattern: Clear, Appropriate - Assessment/Plan (1) Congestive heart failure Status: Chronic Plan: ADMIT, CE AND EKG. IV LASIX, BP CONTROL. ASPIRIN, PLAVIX. VERIFY HOME MEDICATION (2) CAD (coronary artery disease) Status: Acute (3) COPD (chronic obstructive pulmonary disease) with chronic bronchitis Status: Chronic (4) Degenerative disc disease Status: Chronic (5) Essential hypertension Status: Chronic - Allergies Allergies/Adverse Reactions: Allergies Allergy/AdvReac Type Severity Reaction Status Date / Time No Known Drug Allergies Allergy Verified 05/25/18 15:54
--- NOTE | 2018-06-18 18:49 | PCM.PROG ---
Progress Note - Progress Note for Day of Date of Exam: 05/26/18 - Subjective Subjective: 68BM ADMITTED ON 05/25 WITH SOB DUE TO CHF EXACERBATION. PT RECENTLY HAD STENT PLACEMENT AND STARTED ON PLAVIX AND STATIN. PT CO INCREASED SOB OVER LAST WEEK. PT HAD IV LASIX WITH STRICT I&OS AND SUPPEMENTAL O2, BP CONTROL XRAY THIS AM -Moderate cardiomegaly now with recurrent interstitial pulmonary edema. PLAN TO CONTINUE DIURETICS, REPEAT AM LABS CXR - Past Medical Family Social History Past Med/Fam/Surg Hx: No changes since H&P Allergies: Allergies No Known Drug Allergies Allergy (Verified 05/25/18 15:54) - Review of Systems ROS: No change since H&P - Vital Signs and I&O's Vital Signs: Temperature 97.9 F Pulse Rate [Right Brachial] 79 Pulse Rate [Left Brachial] 88 Pulse Rate [Apical] 70 Pulse Rate 92 Respiratory Rate 18 Blood Pressure [Left Arm] 159/108 Blood Pressure [Right Arm] 134/78 Blood Pressure 113/89 O2 Sat by Pulse Oximetry 98 - Physical Exam Oriented: Normal Eyes: Normal Ear: Normal Nose: Normal Throat: Normal Respiratory: Diminished Cardiovascular: Normal : Normal Auscultation: Bowel Sounds: Normal Tenderness: Normal Skin: Normal Musculoskeletal: Back:Lumbar Psychiatric: Normal Affect: Anxious Speech Pattern: Clear, Appropriate - Laboratory and Diagnostics Result Diagrams: 05/27/18 02:59 05/27/18 02:59 Labs: Laboratory WBC 8.3 X10^3/uL (3.6-10.0) 05/27/18 02:59 RBC 5.40 X10^6/uL (4.7-6.0) 05/27/18 02:59 Hgb 15.7 g/dL (13.5-18.0) 05/27/18 02:59 Hct 46.2 % (42.0-54.0) 05/27/18 02:59 MCV 85.6 fL (80.0-100.0) 05/27/18 02:59 MCH 29.0 pg (27.0-34.0) 05/27/18 02:59 MCHC 33.9 g/dL (33.0-35.0) 05/27/18 02:59 RDW 13.5 % (11.6-16.5) 05/27/18 02:59 Plt Count 174 X10^3/uL (150.0-450.0) 05/27/18 02:59 MPV 9.0 fL (7.4-11.0) 05/27/18 02:59 Neut % (Auto) 67.3 % (42.0-75.0) 05/27/18 02:59 Lymph % (Auto) 21.9 % (21.0-51.0) 05/27/18 02:59 [place] % (Auto) 7.7 % (0.0-13.0) 05/27/18 02:59 Eos % (Auto) 2.0 % (0.9-2.9) 05/27/18 02:59 Baso % (Auto) 1.1 % (0.2-1.0) H 05/27/18 02:59 Neut # (Auto) 5.6 x10^3/uL (2.2-4.8) H 05/27/18 02:59 Lymph # (Auto) 1.8 X10^3/uL (1.3-2.9) 05/27/18 02:59 [place] # (Auto) 0.6 x10^3/uL (0.3-0.8) 05/27/18 02:59 Eos # (Auto) 0.2 x10^3/uL (0.0-0.2) 05/27/18 02:59 Baso # (Auto) 0.1 X10^3/uL (0.0-0.1) 05/27/18 02:59 Absolute Nucleated RBC 0.0 /100WBC 05/27/18 02:59 Sodium 141 mmol/L (136-145) 05/27/18 02:59 Corrected Sodium TNP 05/27/18 02:59 Potassium 3.8 mmol/L (3.5-5.1) 05/27/18 02:59 Chloride 104 mmol/L (98-107) 05/27/18 02:59 Carbon Dioxide 30.0 mmol/L (21-32) 05/27/18 02:59 BUN 24 mg/dL (7-18) H 05/27/18 02:59 Creatinine 1.75 mg/dL (0.70-1.30) H 05/27/18 02:59 Est GFR (MDRD) Af Amer 50 (>60) L 05/27/18 02:59 Est GFR (MDRD) Non-Af 42 (>60) L 05/27/18 02:59 Glucose 98 mg/dL (65-99) 05/27/18 02:59 Calcium 8.8 mg/dL (8.5-10.1) 05/27/18 02:59 Corrected Calcium 10.0 mg/dL (8.5-10.1) 05/27/18 02:59 Magnesium 2.0 mg/dL (1.7-2.9) 05/26/18 04:15 Total Bilirubin 1.10 mg/dL (0.2-1.0) H 05/27/18 02:59 AST 16 Units/L (15-37) 05/27/18 02:59 ALT 28 Units/L (12-78) 05/27/18 02:59 Alkaline Phosphatase 97 Units/L (46-116) 05/27/18 02:59 Creatine Kinase 124 Units/L (39-308) 05/27/18 14:49 CK-MB (CK-2) 1.3 ng/mL (0-4.0) 05/27/18 14:49 CK/CKMB % Calc 1.1 % (<4) 05/27/18 14:49 Troponin I 0.08 ng/mL (0-1.5) 05/27/18 14:49 B-Natriuretic Peptide 972 pg/mL (0-79) H* 05/25/18 10:35 Total Protein 6.3 g/dL (6.4-8.2) L 05/27/18 02:59 Albumin 2.5 g/dL (3.4-5.0) L 05/27/18 02:59 Globulin 3.8 g/dL (2.5-4.5) 05/27/18 02:59 Albumin/Globulin Ratio 0.7 Ratio (1.1-2.1) L 05/27/18 02:59 Triglycerides 60 mg/dL (0-150) 05/26/18 04:15 Cholesterol 142 mg/dL (0-200) 05/26/18 04:15 LDL Cholesterol, Calc 97 mg/dL (0-100) 05/26/18 04:15 HDL Cholesterol 33 mg/dL (40-60) L 05/26/18 04:15 Cholesterol/HDL Ratio 4.3 (0.0-5.0) 05/26/18 04:15 Specimen Type Clean catch urine 05/25/18 18:00 Urine Color Yellow (YELLOW) 05/25/18 18:00 Urine Appearance Clear (CLEAR) 05/25/18 18:00 Urine pH 7.0 (5.0 - 8.0) 05/25/18 18:00 Ur Specific [place] 1.005 (1.000-1.030) 05/25/18 18:00 Urine Protein Negative (NEGATIVE) 05/25/18 18:00 Urine Glucose (UA) Negative (NEGATIVE) 05/25/18 18:00 Urine Ketones Negative (NEGATIVE) 05/25/18 18:00 Urine Occult Blood 2+ (NEGATIVE) 05/25/18 18:00 Urine Nitrite Negative (NEGATIVE) 05/25/18 18:00 Urine Bilirubin Negative (NEGATIVE) 05/25/18 18:00 Urine Urobilinogen Normal (NORMAL) 05/25/18 18:00 Ur Leukocyte Esterase Negative (NEGATIVE) 05/25/18 18:00 Urine RBC 5-10 /HPF (NONE SEEN) 05/25/18 18:00 Urine WBC 0-2 /HPF (NONE SEEN) 05/25/18 18:00 Ur Squamous Epith Cells Rare /HPF (NEGATIVE) 05/25/18 18:00 Urine Bacteria Negative /HPF (NEGATIVE) 05/25/18 18:00 Ur Culture Indicated? No/not indicated 05/25/18 18:00 - Plan (1) Congestive heart failure Status: Chronic Plan: CE AND EKG, SUPPLEMENTAL O2, RESP THERAPY. IV LASIX, BP CONTROL. ASPIRIN, PLAVIX. VERIFY HOME MEDICATION (2) CAD (coronary artery disease) Status: Acute (3) COPD (chronic obstructive pulmonary disease) with chronic bronchitis Status: Chronic (4) Degenerative disc disease Status: Chronic (5) Essential hypertension Status: Chronic
== END 2018-05-27 16:20 | disposition home or self-care (01) ==
LOC: ER 10:11 → MED/SURG 10:11
PROVIDERS: ADMIT Internal Medicine; ATTEND Internal Medicine
DX: I50.9 Heart failure, unspecified; J44.9 Chronic obstructive pulmonary disease, unspecified; R94.31 Abnormal electrocardiogram [ECG] [EKG]; R94.4 Abnormal results of kidney function studies; R06.02 Shortness of breath; Z95.818 Presence of other cardiac implants and grafts; R26.89 Other abnormalities of gait and mobility; I25.10 Atherosclerotic heart disease of native coronary artery without angina pectoris; I11.0 Hypertensive heart disease with heart failure; Z98.890 Other specified postprocedural states; R53.83 Other fatigue; R10.13 Epigastric pain; R53.1 Weakness
CPT/HCPCS: 36415; 71010; 71045; 80053; 80061; 81001; 82550; 82553; 83735; 83880; 84484; 85025; 93005; 94760; 96374; 96375; 97116; 97163; 97166; 99284; A4216; A4222; S0028; G0378; J0360; J1940; J2270

== ENCOUNTER 2018-06-04 05:13 | Inpatient (IN) ==
[2018-06-04] MEDS ORDERED: ATIVAN TAB 0.5 MG PO ONE (06:03)
[2018-06-04] MEDS ORDERED: ATIVAN TAB 0.5 MG ONE (06:07)
[2018-06-04 06:18] LABS: BASOPHILS # (AUTO) 0.1 X10^3/uL (0.0-0.1); BASOPHILS % (AUTO) 0.8 % (0.2-1.0); EOSINOPHILS # (AUTO) 0.1 x10^3/uL (0.0-0.2); EOSINOPHILS % (AUTO) 1.6 % (0.9-2.9); HEMATOCRIT 48.8 % (42.0-54.0); LYMPHOCYTES # (AUTO) 1.7 X10^3/uL (1.3-2.9); LYMPHOCYTES % (AUTO) 20.5 % (21.0-51.0); MEAN CORPUSCULAR HEMOGLOBIN 28.9 pg (27.0-34.0); MEAN CORPUSCULAR HGB CONC 32.8 g/dL (33.0-35.0); MEAN CORPUSCULAR VOLUME 88.1 fL (80.0-100.0); MEAN PLATELET VOLUME 9.1 fL (7.4-11.0); MONOCYTES # (AUTO) 0.6 x10^3/uL (0.3-0.8); NEUTROPHILS # (AUTO) 5.7 x10^3/uL (2.2-4.8); NEUTROPHILS % (AUTO) 70.1 % (42.0-75.0); PLATELET COUNT 216 X10^3/uL (150.0-450.0); RED BLOOD COUNT 5.53 X10^6/uL (4.7-6.0); RED CELL DISTRIBUTION WIDTH 13.8 % (11.6-16.5); WHITE BLOOD COUNT 8.1 X10^3/uL (3.6-10.0)
[2018-06-04 06:34] LABS: BLOOD UREA NITROGEN 24 mg/dL (7-18); CALCIUM 8.7 mg/dL (8.5-10.1); CARBON DIOXIDE 27.8 mmol/L (21-32); CHLORIDE 106 mmol/L (98-107); COR NA(FOR HYPERGLY) 141 mmol/L (136-145); CREATININE 1.48 mg/dL (0.70-1.30); SODIUM 140 mmol/L (136-145); TROPONIN I 0.08 ng/mL (0-1.5); eGFR NON BLACK RACES 51 (>60)
[2018-06-04 06:38] LABS: ALANINE AMINOTRANSFERASE 196 Units/L (12-78); ALBUMIN 2.9 g/dL (3.4-5.0); ALKALINE PHOSPHATASE 152 Units/L (46-116); ASPARTATE AMINO TRANSFERASE 96 Units/L (15-37); CKMB % 3.7 % (<4); COR CA(FOR HYPOALB) 9.6 mg/dL (8.5-10.1); CREATINE KINASE 57 Units/L (39-308); CREATINE KINASE MB 2.1 ng/mL (0-4.0); TOTAL PROTEIN 6.7 g/dL (6.4-8.2)
--- NOTE | 2018-06-04 06:44 | DR.SOBA ---
HPI Time Seen Time Seen by Provider: 06/04/18 05:48 Primary Care Physician Primary Care Physician: DR. PAK Complaints Chief Complaint Doctors Comments: Patient presents with complaint of dyspnea, just can not get his breath. He is very anxious. Admits to having a stent place two weeks ago. Denies prior history of heart disease. Denies cigarettes. Chief Complaint:: PT STATES HE IS HAVING A HARD TIME BREATHING. STATES HE FEELS TIGHT. PT STATES HE WAS JUST HERE IN THE HOSPITAL ABOUT A WEEK AGO WITH THIS SAME THING. STATES HE GOT BETTER BUT WAS NEVER TOLD WHAT WAS WRONG. Source History Provided: Patient Mode of Arrival Mode of Arrival: Ambulatory Timing Onset of Chief Complaint: 06/04/18 PMH PMH Past Medical History: Yes Past Medical History: Hypertension Past Surgical History: Yes Surgical History: Angioplasty/Stents and Ortho Surgery Past Surgical History Comment: NECK SURGERY Family History History of Family Medical Conditions: Yes Family Medical History: Diabetes Mellitus and Hypertension Social History Type of Tobacco Use: Cigarettes Alcohol Use: None Do you use any recreational Drugs:: No Lives With: Alone Lives Where: Home infectious screening In the last 2 months have you had wt loss of >10#?: NO Have you had fever, night sweats or hemotysis?: No Have you traveled outside the country in the last 6 months?: No Isolation: Standard PE Vital Signs Vitals: Temperature 97.6 F Pulse Rate [Left Brachial] 59 Pulse Rate 80 Respiratory Rate 20 Blood Pressure [Left Arm] 109/66 Blood Pressure [Right Arm] 175/105 Blood Pressure 169/94 O2 Sat by Pulse Oximetry 100 General Limitations: No Limitations General Appearance: Alert, In No Apparent Distress and Anxious Head Head Exam: Normal Inspection, Atraumatic and Normocephalic Eyes Eye exam: Normal Appearance, PERRL and EOMI ENT ENT Exam: Normal Exam, Normal Oropharynx and Normal External Ear Exam Neck Neck Exam: Normal Inspection and Full ROM Chest Chest Inspection: Normal Inspection and Symmetric Chest Wall Rise Respiratory Respiratory Exam: Normal Lung Sounds Bilat Respiratory Exam: Bilateral: Clear to Auscultation Cardiovascular Cardiovascular Exam: Regular Rate and Normal Rhythm Abdominal Exam Abdominal Exam: Normal Inspection and Normal Bowel Sounds Extremities Extremities Exam: Normal Inspection and Full ROM Back Back Exam: Normal Inspection and Full ROM Neurologic Neurological Exam: Alert, Oriented X3 and CN II-XII Intact Psychiatric Psychiatric Exam: Normal Affect and Normal Mood Skin Skin Exam: Warm, Dry and Intact COURSE Consultation Called: 07:00 Consultation Comments: Dr. Pak agreed to admit for further evaluation and treatment ROR Labs Reviewed Result Diagrams: 06/06/18 04:46 06/06/18 04:46 Laboratory: 06/04/18 07:29 Blood Blood Culture - Preliminary 06/04/18 07:23 Blood Blood Culture - Preliminary 06/04/18 07:33 Sputum - Expectorated Sputum Sputum Culture - Final 06/04/18 07:33 Sputum - Expectorated Sputum - Final WBC 14.9 X10^3/uL (3.6-10.0) H 06/06/18 04:46 RBC 5.01 X10^6/uL (4.7-6.0) 06/06/18 04:46 Hgb 14.4 g/dL (13.5-18.0) 06/06/18 04:46 Hct 43.6 % (42.0-54.0) 06/06/18 04:46 MCV 87.1 fL (80.0-100.0) 06/06/18 04:46 MCH 28.7 pg (27.0-34.0) 06/06/18 04:46 MCHC 32.9 g/dL (33.0-35.0) L 06/06/18 04:46 RDW 13.6 % (11.6-16.5) 06/06/18 04:46 Plt Count 222 X10^3/uL (150.0-450.0) 06/06/18 04:46 MPV 9.5 fL (7.4-11.0) 06/06/18 04:46 Neut % (Auto) 83.3 % (42.0-75.0) H 06/06/18 04:46 Lymph % (Auto) 9.6 % (21.0-51.0) L 06/06/18 04:46 [place] % (Auto) 6.5 % (0.0-13.0) 06/06/18 04:46 Eos % (Auto) 0.1 % (0.9-2.9) L 06/06/18 04:46 Baso % (Auto) 0.5 % (0.2-1.0) 06/06/18 04:46 Neut # (Auto) 12.4 x10^3/uL (2.2-4.8) H 06/06/18 04:46 Lymph # (Auto) 1.4 X10^3/uL (1.3-2.9) 06/06/18 04:46 [place] # (Auto) 1.0 x10^3/uL (0.3-0.8) H 06/06/18 04:46 Eos # (Auto) 0.0 x10^3/uL (0.0-0.2) 06/06/18 04:46 Baso # (Auto) 0.1 X10^3/uL (0.0-0.1) 06/06/18 04:46 Absolute Nucleated RBC 0.0 /100WBC 06/06/18 04:46 D-Dimer 347 ng/mL (0-400) 06/04/18 06:10 Sample Site Lr 06/05/18 04:45 ABG pH 7.510 (7.35-7.45) H 06/05/18 04:45 ABG pCO2 26.0 mmHg (35.0-45.0) L 06/05/18 04:45 ABG pO2 89.0 mmHg (80.0-100.0) 06/05/18 04:45 ABG HCO3 20.7 mmol/L (22-26) L 06/05/18 04:45 ABG O2 Saturation 98.0 % (90-100) 06/05/18 04:45 ABG Base Excess -1.1 mmol/L (-2.0-2.0) 06/05/18 04:45 Shawn Test Pos 06/05/18 04:45 A-a Gradient 164.0 mmHg 06/05/18 04:45 FiO2 40.0 06/05/18 04:45 Blood Gas Comments Andrew well ae 06/05/18 04:45 Sodium 142 mmol/L (136-145) 06/06/18 04:46 Corrected Sodium 143 mmol/L (136-145) 06/06/18 04:46 Potassium 4.0 mmol/L (3.5-5.1) 06/06/18 04:46 Chloride 107 mmol/L (98-107) 06/06/18 04:46 Carbon Dioxide 27.7 mmol/L (21-32) 06/06/18 04:46 BUN 35 mg/dL (7-18) H 06/06/18 04:46 Creatinine 1.57 mg/dL (0.70-1.30) H 06/06/18 04:46 Est GFR (MDRD) Af Amer 57 (>60) L 06/06/18 04:46 Est GFR (MDRD) Non-Af 47 (>60) L 06/06/18 04:46 Glucose 129 mg/dL (65-99) H 06/06/18 04:46 Lactic Acid 1.8 mmol/L (0.4-2.0) 06/04/18 07:23 Calcium 8.3 mg/dL (8.5-10.1) L 06/06/18 04:46 Corrected Calcium 9.7 mg/dL (8.5-10.1) 06/06/18 04:46 Total Bilirubin 1.30 mg/dL (0.2-1.0) H 06/06/18 04:46 AST 25 Units/L (15-37) 06/06/18 04:46 ALT 103 Units/L (12-78) H 06/06/18 04:46 Alkaline Phosphatase 101 Units/L (46-116) 06/06/18 04:46 Creatine Kinase 57 Units/L (39-308) 06/04/18 06:10 CK-MB (CK-2) 2.1 ng/mL (0-4.0) 06/04/18 06:10 CK/CKMB % Calc 3.7 % (<4) 06/04/18 06:10 Troponin I 0.08 ng/mL (0-1.5) 06/04/18 06:10 Total Protein 5.8 g/dL (6.4-8.2) L 06/06/18 04:46 Albumin 2.3 g/dL (3.4-5.0) L 06/06/18 04:46 Globulin 3.5 g/dL (2.5-4.5) 06/06/18 04:46 Albumin/Globulin Ratio 0.7 Ratio (1.1-2.1) L 06/06/18 04:46 Amylase 35 Units/L (25-115) 06/04/18 06:10 Lipase 93 Units/L (73-393) 06/04/18 06:10 Specimen Type Clean catch urine 06/04/18 07:03 Urine Color Yellow (YELLOW) 06/04/18 07:03 Urine Appearance Slightly hazy (CLEAR) 06/04/18 07:03 Urine pH 5.0 (5.0 - 8.0) 06/04/18 07:03 Ur Specific [place] 1.015 (1.000-1.030) 06/04/18 07:03 Urine Protein 3+ (NEGATIVE) 06/04/18 07:03 Urine Glucose (UA) Negative (NEGATIVE) 06/04/18 07:03 Urine Ketones Negative (NEGATIVE) 06/04/18 07:03 Urine Occult Blood 3+ (NEGATIVE) 06/04/18 07:03 Urine Nitrite Negative (NEGATIVE) 06/04/18 07:03 Urine Bilirubin Negative (NEGATIVE) 06/04/18 07:03 Urine Urobilinogen 2+ (NORMAL) 06/04/18 07:03 Ur Leukocyte Esterase 1+ (NEGATIVE) 06/04/18 07:03 Urine RBC 5-10 /HPF (NONE SEEN) 06/04/18 07:03 Urine WBC 5-10 /HPF (NONE SEEN) 06/04/18 07:03 Ur Squamous Epith Cells Few /HPF (NEGATIVE) 06/04/18 07:03 Urine Bacteria Trace /HPF (NEGATIVE) 06/04/18 07:03 Hyaline Casts Few /LPF (NEGATIVE) 06/04/18 07:03 Ur Culture Indicated? No/not indicated 06/04/18 07:03 Diagnosis Discharge Problem: RLL pneumonia Qualifiers: Pneumonia type: due to unspecified organism Qualified Code(s): J18.1 - Lobar pneumonia, unspecified organism ADDITIONAL NOTES Additional Notes Additional Notes: Patient admitted with Dx of RLL pneumonia to Dr. Pak
--- NOTE | 2018-06-04 06:48 | RAD ---
HISTORY: Shortness of breath Study: Chest AP portable Comparison: 05/27/2018 Findings: The heart remains enlarged. No definite congestive heart failure is noted. The lungs are mildly hyperinflated. Right lower lobe infiltrate is present consistent with pneumonia. The remainder of the lung mike appear clear. Mild interstitial lung changes are present diffusely. No pleural effusions are identified. The bony thorax is unremarkable. IMPRESSION: Right lower lobe infiltrate consistent with pneumonia Continued cardiomegaly without congestive heart failure Interstitial lung changes Reported By:
[2018-06-04 07:36] LABS: BILIRUBIN,URINE NEGATIVE (NEGATIVE); BLOOD/HEMOGLOBIN,URINE 3+ (NEGATIVE); GLUCOSE, URINE NEGATIVE (NEGATIVE); KETONES,URINE NEGATIVE (NEGATIVE); LEUKOCYTE ESTERASE ,URINE 1+ (NEGATIVE); NITRITES,URINE NEGATIVE (NEGATIVE); PROTEIN,URINE 3+ (NEGATIVE); UROBILINOGEN,URINE 2+ (NORMAL)
[2018-06-04] MEDS ORDERED: TUSSIONEX PENNKINETIC SUSP PO PRN ×2 (07:43)
[2018-06-04] MEDS ORDERED: TYGACIL 50 MG VIAL 100 MG in NS 100 ML IV 100 ML IV ONE (07:43)
[2018-06-04 07:45] LABS: COLOR,URINE YELLOW (YELLOW)
[2018-06-04] MEDS ORDERED: NS 1/2 1000 ML IV 1,000 ML IV ONE ×2 (07:46→19:35)
[2018-06-04] MEDS ORDERED: NS 1/2 1000 ML IV 1,000 ML IV SCH (08:00)
[2018-06-04 08:05] LABS: APPEARANCE,URINE SLIGHTLY HAZY (CLEAR); BACTERIA,URINE TRACE /HPF (NEGATIVE); SQUAMOUS EPITHELIAL CELL,UR FEW /HPF (NEGATIVE)
[2018-06-04 08:06] LABS: HYALINE CASTS, URINE FEW /LPF (NEGATIVE)
[2018-06-04] MEDS: NS 1/2 1000 ML IV 1,000 ML IV SCH ×3 (08:07→21:44)
[2018-06-04] MEDS: PULMICORT NEB TX 0.5 MG NEB SCH ×2 (08:45→20:41)
[2018-06-04] MEDS: ROBITUSSIN DM PO SCH ×4 (10:31→20:04)
[2018-06-04 10:48] VITALS: BMI 19.0
[2018-06-04] MEDS ORDERED: ZESTRIL TAB 20 MG ONE (10:58)
[2018-06-04] MEDS: ZANAFLEX PO SCH ×2 (11:14→20:04)
[2018-06-04] MEDS: LOPRESSOR TAB 25 MG PO SCH ×2 (11:14→20:04)
[2018-06-04] MEDS: PRAVACHOL PO SCH ×2 (11:14→20:04)
[2018-06-04] MEDS: ZESTRIL TAB 20 MG PO SCH (11:16)
[2018-06-04] MEDS: PLAVIX PO SCH (11:16)
[2018-06-04] MEDS: ASPIRIN 81 MG CHEWTAB PO SCH (11:17)
[2018-06-04] MEDS: DUONEB 0.5 MG/3 MG NEB SCH ×3 (11:59→20:41)
--- NOTE | 2018-06-04 13:34 | DR.H&P ---
H&P - History & Physical for Day of: H&P Date: 06/04/18 - Chief Complaint Chief Complaint: SOB, COUGH - History of Present Illness History of Present Illness: 68BM ER ADMISSION AFTER PRESENTING WITH CO SOB AND COUGH. PT HAD CXR IN ER WITH POSSIBLE PNEUMONIA. PT HAS PMH OF CAD AND CHF, PT WAS RECENTLY IN [facility] WITH CHF EXACERBATION. PT STATES HE HAD NOT HAD HOSPITAL FOLLOW UP AT THIS TIME. PT ADMITTED FOR TREATMENT AND EVALUATION OF SOB, PNEU MONIA VS CHF - Past Medical History Past Medical History: Arthritis, CHF, Coronary Artery Disease, Hypertension - Past Surgical History Surgical History: Angioplasty/Stents, Ortho Surgery - Family History Family Medical History: Diabetes Mellitus, Hypertension - Social History Does patient currently use any type of tobacco product: Yes Have you used tobacco products in the last 12 months: Yes Type of Tobacco Use: Cigarettes Alcohol Use: Occasionally Drug Use: None - Medications Home Medications: No Known Drug Allergies Allergy (Verified 05/25/18 15:54) CONTINUE taking the following medications aspirin 81 mg PO DAILY 06/04/18 [History] lisinopril 20 mg PO DAILY 06/04/18 [History] pravastatin 40 mg PO QHS 06/04/18 [History] - Review of Systems Constitutional: Weakness Eyes: No Symptoms Reported ENT: No Symptoms Reported Respiratory: Cough, Shortness of Breath, SOB with Excertion Cardiovascular: No Symptoms Reported Gastrointestinal: No Symptoms Reported Genitourinary: No Symptoms Reported Musculoskeletal: No Symptoms Reported Skin: No Symptoms Reported Neurological: No Symptoms Reported - Physical Exam Vital Signs: Temperature 97.6 F Pulse Rate [Left Brachial] 86 Pulse Rate 86 Respiratory Rate 20 Blood Pressure [Left Arm] 198/122 Blood Pressure [Right Arm] 175/105 Blood Pressure 169/94 O2 Sat by Pulse Oximetry 97 Oriented: Normal Eyes: Normal Ear: Normal Nose: Normal Throat: Normal Respiratory: RLL Diminished, LLL Diminished Cardiovascular: Normal Auscultation: Bowel Sounds: Normal Palpation: Normal Tenderness: Normal Skin: Normal Musculoskeletal: Back:Lumbar Psychiatric: Anxiety Affect: Anxious Speech Pattern: Clear, Appropriate - Assessment/Plan (1) RLL pneumonia Qualifiers: Pneumonia type: due to unspecified organism Qualified Code(s): J18.1 - Lobar pneumonia, unspecified organism Status: Acute Plan: ADMIT, PNEUMONIA PROTOCOL, GENTLE HYDRATION. ENCOURAGE RESP THERAPY, SUPPLEMENTAL O2. CT CHEST WITH CONTRAST IN THE AM, ELEVATED LFT'S WILL OBTAIN LIVER US. RESUME STATIN, PLAVIX, BP CONTROL. BLOOD AND SPUTUM CULTURES ON ADMISSION. 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
[2018-06-04] MEDS: NEURONTIN CAP 300 MG PO SCH ×2 (13:38→21:43)
[2018-06-04] MEDS: MORPHINE SULFATE INJ 2 MG INJ IVP PRN ×2 (13:38→20:05)
[2018-06-04 13:46] LABS: AMYLASE 35 Units/L (25-115); LIPASE 93 Units/L (73-393)
--- NOTE | 2018-06-04 15:37 | US ---
Exam: Limited abdominal ultrasound History: 68-year-old male with abdominal pain and abnormal liver function tests. Comparison: CT of the abdomen/pelvis from 04/30/2018. Findings: Liver is normal in size and echotexture with no focal intrahepatic abnormality seen. Portal vein is patent with normal hepatopetal flow. Gallbladder is normal with no cholelithiasis, gallbladder wall thickening, or localized tenderness. Common bile duct measures 2 mm in diameter. The right kidney is 10.2 cm in length. No hydronephrosis, echogenic calculi, or renal mass is seen on the right. Abdominal aorta is unremarkable. Impression: Unremarkable ultrasound of the right upper abdominal quadrant. Specifically, no evidence of cholelithiasis Reported By:
[2018-06-04] MEDS ORDERED: APRESOLINE INJ 20 MG VIAL IVP PRN (17:29)
[2018-06-04 17:55] LABS: ABG BASE EXCESS -2.2 mmol/L (-2.0-2.0); ABG HCO3 20.1 mmol/L (22-26)
[2018-06-04 17:57] LABS: ABG ALLEN TEST POS
[2018-06-04] MEDS: TYGACIL 50 MG VIAL 50 MG in NS 100 ML IV 100 ML IV SCH (17:58)
[2018-06-04] MEDS: NORVASC TAB 5 MG PO SCH (20:03)
[2018-06-04] MEDS: LOVENOX INJ 40 MG SYR SC SCH (20:04)
[2018-06-04] MEDS: MILK OF MAGNESIA PO SCH (20:04)
[2018-06-04 21:09] LABS: ABG BASE EXCESS -2.8 mmol/L (-2.0-2.0); ABG HCO3 19.9 mmol/L (22-26)
[2018-06-04 21:10] LABS: ABG ALLEN TEST POS
[2018-06-05] MEDS: TYGACIL 50 MG VIAL 50 MG in NS 100 ML IV 100 ML IV SCH ×2 (04:47→17:13)
[2018-06-05 04:53] LABS: ABG ALLEN TEST POS; ABG BASE EXCESS -1.1 mmol/L (-2.0-2.0); ABG HCO3 20.7 mmol/L (22-26)
[2018-06-05] MEDS: MILK OF MAGNESIA PO SCH ×3 (04:58→20:20)
[2018-06-05] MEDS: ROBITUSSIN DM PO SCH ×5 (04:59→20:20)
[2018-06-05 05:21] LABS: BASOPHILS % (AUTO) 0.2 % (0.2-1.0); HEMATOCRIT 47.6 % (42.0-54.0); LYMPHOCYTES % (AUTO) 6.1 % (21.0-51.0); MEAN CORPUSCULAR HEMOGLOBIN 29.1 pg (27.0-34.0); MEAN CORPUSCULAR HGB CONC 33.7 g/dL (33.0-35.0); MEAN CORPUSCULAR VOLUME 86.4 fL (80.0-100.0); MEAN PLATELET VOLUME 9.8 fL (7.4-11.0); MONOCYTES # (AUTO) 0.9 x10^3/uL (0.3-0.8); MONOCYTES % (AUTO) 5.3 % (0.0-13.0); NEUTROPHILS # (AUTO) 14.9 x10^3/uL (2.2-4.8); NEUTROPHILS % (AUTO) 88.4 % (42.0-75.0); PLATELET COUNT 237 X10^3/uL (150.0-450.0); RED BLOOD COUNT 5.52 X10^6/uL (4.7-6.0); RED CELL DISTRIBUTION WIDTH 13.6 % (11.6-16.5); WHITE BLOOD COUNT 16.9 X10^3/uL (3.6-10.0)
[2018-06-05 05:43] LABS: ALANINE AMINOTRANSFERASE 169 Units/L (12-78); ALBUMIN 2.7 g/dL (3.4-5.0); ALKALINE PHOSPHATASE 129 Units/L (46-116); ASPARTATE AMINO TRANSFERASE 49 Units/L (15-37); BLOOD UREA NITROGEN 29 mg/dL (7-18); CALCIUM 8.7 mg/dL (8.5-10.1); CARBON DIOXIDE 21.3 mmol/L (21-32); CHLORIDE 108 mmol/L (98-107); COR CA(FOR HYPOALB) 9.7 mg/dL (8.5-10.1); COR NA(FOR HYPERGLY) 144 mmol/L (136-145); CREATININE 1.43 mg/dL (0.70-1.30); SODIUM 143 mmol/L (136-145); TOTAL PROTEIN 6.4 g/dL (6.4-8.2); eGFR NON BLACK RACES 53 (>60)
[2018-06-05] MEDS: NEURONTIN CAP 300 MG PO SCH ×3 (06:39→21:09)
[2018-06-05] MEDS ORDERED: ZESTRIL TAB 20 MG ONE (07:21)
[2018-06-05] MEDS ORDERED: NS 250 ML IV 250 ML IV ONE (08:22)
[2018-06-05] MEDS: PLAVIX PO SCH (08:48)
[2018-06-05] MEDS: ASPIRIN 81 MG CHEWTAB PO SCH (08:48)
[2018-06-05] MEDS: NORVASC TAB 5 MG PO SCH (08:49)
[2018-06-05] MEDS: ZANAFLEX PO SCH ×2 (08:49→20:20)
[2018-06-05] MEDS: LOPRESSOR TAB 25 MG PO SCH ×2 (08:49→20:20)
[2018-06-05] MEDS: ZESTRIL TAB 20 MG PO SCH (08:49)
[2018-06-05] MEDS: PULMICORT NEB TX 0.5 MG NEB SCH ×2 (08:53→20:29)
[2018-06-05] MEDS: DUONEB 0.5 MG/3 MG NEB SCH ×4 (08:53→20:29)
[2018-06-05] MEDS: LOVENOX INJ 40 MG SYR SC SCH (09:20)
--- NOTE | 2018-06-05 09:38 | CT ---
HISTORY: Pneumonia, shortness of breath Study: CT chest with contrast Comparison: 04/30/2018 Technique: Axial post-contrast images with coronal and sagittal reformats. Dose reduction procedures were used with mA/kv adjusted for body size. Findings: Examination of the mediastinum demonstrated no definite evidence for mediastinal masses, enlarged mediastinal adenopathy, enlarged hilar adenopathy., or aortic abnormality. Bilateral small pleural effusions are present. The heart is enlarged. No chest wall or axillary abnormality is identified. Those portions of the upper abdominal organs visualized were within normal limits. Examination of the lung mike demonstrated patchy ground-glass infiltrates i involving to some extent all lung mike. Findings would seem most consistent with multifocal bronchopneumonia. The infiltrates are better demonstrated on CT than on the recent chest x-ray. No definite nodules, masses, bronchiectasis or peribronchial thickening is identified. IMPRESSION: Findings most consistent with multifocal bronchopneumonia with some involvement of all lung mike but most prominent in the right upper and right lower lobes. Mild cardiomegaly Bilateral small pleural effusions Reported By:
[2018-06-05] MEDS: NS 1/2 1000 ML IV 1,000 ML IV SCH (12:36)
[2018-06-05] MEDS: LASIX IVP SCH ×2 (14:03→20:19)
[2018-06-05] MEDS ORDERED: LEVAQUIN PREMIX IV 500 MG 500 MG/100 ML BAG IV ONE (18:06)
--- NOTE | 2018-06-05 18:13 | PCM.PROG ---
Progress Note - Progress Note for Day of Date of Exam: 06/05/18 - Subjective Subjective: 68BM ER ADMISSION ON 06/04 WITH SOB, PT HAD CT CHEST THIS AM WITH MULTI-FOCAL PNEUMONIA. PT CURRENTLY ON RESPIRATORY TREATMENTS, SUPPLEMENTAL O2, STARTED ON LEVAQUIN AND ROCEPHIN. PT HAD SMALL PLEURAL EFFUSION ON CT, GIVEN LASIX 20MG IV BID X2. SPUTUM COLLECTED IS PENDING, WILL CONTINUE AM LABS AND BP CONTROL - Past Medical Family Social History Past Med/Fam/Surg Hx: No changes since H&P Allergies: Allergies No Known Drug Allergies Allergy (Verified 05/25/18 15:54) - Review of Systems ROS: No change since H&P - Vital Signs and I&O's Vital Signs: Temperature 98.2 F Pulse Rate [Left Brachial] 89 Pulse Rate 76 Respiratory Rate 20 Blood Pressure [Left Arm] 143/80 Blood Pressure [Right Arm] 175/105 Blood Pressure 169/94 O2 Sat by Pulse Oximetry 98 Intake and Output: Intake & Output 06/03/18 06/04/18 06/05/18 06/06/18 11:59 11:59 11:59 11:59 Intake Total 360 / 360 360 / 360 Output Total 900 / 900 400 / 400 Balance -540 / -540 -40 / -40 - Physical Exam Oriented: Normal Eyes: Normal Ear: Normal Nose: Normal Throat: Normal Respiratory: Diminished, Rhonchi Cardiovascular: Normal Auscultation: Bowel Sounds: Normal Tenderness: Normal Skin: Normal Musculoskeletal: Back:Lumbar Psychiatric: Anxiety Affect: Anxious Speech Pattern: Delayed - Laboratory and Diagnostics Result Diagrams: 06/05/18 04:25 06/05/18 04:25 Labs: 06/04/18 07:33 Sputum - Expectorated Sputum Sputum Culture - Preliminary 06/04/18 07:33 Sputum - Expectorated Sputum - Final Laboratory WBC 16.9 X10^3/uL (3.6-10.0) H D 06/05/18 04:25 RBC 5.52 X10^6/uL (4.7-6.0) 06/05/18 04:25 Hgb 16.0 g/dL (13.5-18.0) 06/05/18 04:25 Hct 47.6 % (42.0-54.0) 06/05/18 04:25 MCV 86.4 fL (80.0-100.0) 06/05/18 04:25 MCH 29.1 pg (27.0-34.0) 06/05/18 04:25 MCHC 33.7 g/dL (33.0-35.0) 06/05/18 04:25 RDW 13.6 % (11.6-16.5) 06/05/18 04:25 Plt Count 237 X10^3/uL (150.0-450.0) 06/05/18 04:25 MPV 9.8 fL (7.4-11.0) 06/05/18 04:25 Neut % (Auto) 88.4 % (42.0-75.0) H 06/05/18 04:25 Lymph % (Auto) 6.1 % (21.0-51.0) L 06/05/18 04:25 [place] % (Auto) 5.3 % (0.0-13.0) 06/05/18 04:25 Eos % (Auto) 0.0 % (0.9-2.9) L 06/05/18 04:25 Baso % (Auto) 0.2 % (0.2-1.0) 06/05/18 04:25 Neut # (Auto) 14.9 x10^3/uL (2.2-4.8) H 06/05/18 04:25 Lymph # (Auto) 1.0 X10^3/uL (1.3-2.9) L 06/05/18 04:25 [place] # (Auto) 0.9 x10^3/uL (0.3-0.8) H 06/05/18 04:25 Eos # (Auto) 0.0 x10^3/uL (0.0-0.2) 06/05/18 04:25 Baso # (Auto) 0.0 X10^3/uL (0.0-0.1) 06/05/18 04:25 Absolute Nucleated RBC 0.1 /100WBC 06/05/18 04:25 D-Dimer 347 ng/mL (0-400) 06/04/18 06:10 Sample Site Lr 06/05/18 04:45 ABG pH 7.510 (7.35-7.45) H 06/05/18 04:45 ABG pCO2 26.0 mmHg (35.0-45.0) L 06/05/18 04:45 ABG pO2 89.0 mmHg (80.0-100.0) 06/05/18 04:45 ABG HCO3 20.7 mmol/L (22-26) L 06/05/18 04:45 ABG O2 Saturation 98.0 % (90-100) 06/05/18 04:45 ABG Base Excess -1.1 mmol/L (-2.0-2.0) 06/05/18 04:45 Shawn Test Pos 06/05/18 04:45 A-a Gradient 164.0 mmHg 06/05/18 04:45 FiO2 40.0 06/05/18 04:45 Blood Gas Comments Andrew well ae 06/05/18 04:45 Sodium 143 mmol/L (136-145) 06/05/18 04:25 Corrected Sodium 144 mmol/L (136-145) 06/05/18 04:25 Potassium 4.0 mmol/L (3.5-5.1) 06/05/18 04:25 Chloride 108 mmol/L (98-107) H 06/05/18 04:25 Carbon Dioxide 21.3 mmol/L (21-32) 06/05/18 04:25 BUN 29 mg/dL (7-18) H 06/05/18 04:25 Creatinine 1.43 mg/dL (0.70-1.30) H 06/05/18 04:25 Est GFR (MDRD) Af Amer > 60 (>60) 06/05/18 04:25 Est GFR (MDRD) Non-Af 53 (>60) L 06/05/18 04:25 Glucose 153 mg/dL (65-99) H 06/05/18 04:25 Lactic Acid 1.8 mmol/L (0.4-2.0) 06/04/18 07:23 Calcium 8.7 mg/dL (8.5-10.1) 06/05/18 04:25 Corrected Calcium 9.7 mg/dL (8.5-10.1) 06/05/18 04:25 Total Bilirubin 1.30 mg/dL (0.2-1.0) H 06/05/18 04:25 AST 49 Units/L (15-37) H 06/05/18 04:25 ALT 169 Units/L (12-78) H 06/05/18 04:25 Alkaline Phosphatase 129 Units/L (46-116) H 06/05/18 04:25 Creatine Kinase 57 Units/L (39-308) 06/04/18 06:10 CK-MB (CK-2) 2.1 ng/mL (0-4.0) 06/04/18 06:10 CK/CKMB % Calc 3.7 % (<4) 06/04/18 06:10 Troponin I 0.08 ng/mL (0-1.5) 06/04/18 06:10 Total Protein 6.4 g/dL (6.4-8.2) 06/05/18 04:25 Albumin 2.7 g/dL (3.4-5.0) L 06/05/18 04:25 Globulin 3.7 g/dL (2.5-4.5) 06/05/18 04:25 Albumin/Globulin Ratio 0.7 Ratio (1.1-2.1) L 06/05/18 04:25 Amylase 35 Units/L (25-115) 06/04/18 06:10 Lipase 93 Units/L (73-393) 06/04/18 06:10 Specimen Type Clean catch urine 06/04/18 07:03 Urine Color Yellow (YELLOW) 06/04/18 07:03 Urine Appearance Slightly hazy (CLEAR) 06/04/18 07:03 Urine pH 5.0 (5.0 - 8.0) 06/04/18 07:03 Ur Specific [place] 1.015 (1.000-1.030) 06/04/18 07:03 Urine Protein 3+ (NEGATIVE) 06/04/18 07:03 Urine Glucose (UA) Negative (NEGATIVE) 06/04/18 07:03 Urine Ketones Negative (NEGATIVE) 06/04/18 07:03 Urine Occult Blood 3+ (NEGATIVE) 06/04/18 07:03 Urine Nitrite Negative (NEGATIVE) 06/04/18 07:03 Urine Bilirubin Negative (NEGATIVE) 06/04/18 07:03 Urine Urobilinogen 2+ (NORMAL) 06/04/18 07:03 Ur Leukocyte Esterase 1+ (NEGATIVE) 06/04/18 07:03 Urine RBC 5-10 /HPF (NONE SEEN) 06/04/18 07:03 Urine WBC 5-10 /HPF (NONE SEEN) 06/04/18 07:03 Ur Squamous Epith Cells Few /HPF (NEGATIVE) 06/04/18 07:03 Urine Bacteria Trace /HPF (NEGATIVE) 06/04/18 07:03 Hyaline Casts Few /LPF (NEGATIVE) 06/04/18 07:03 Ur Culture Indicated? No/not indicated 06/04/18 07:03 - Plan (1) RLL pneumonia Status: Acute Qualifiers: Pneumonia type: due to unspecified organism Qualified Code(s): J18.1 - Lobar pneumonia, unspecified organism Plan: CONTINUE PNEUMONIA PROTOCOL, GENTLE HYDRATION. ENCOURAGE RESP THERAPY, SUPPLEMENTAL O2. CT CHEST THIS AM, ON LEVAQUIN AND ROCEPHIN IV. CONTINUE STATIN, PLAVIX, BP CONTROL. LIVER US WITHOUT ACUTE FINDINGS. BLOOD AND SPUTUM CULTURES ON ADMISSION. (2) CAD (coronary artery disease) Status: Acute (3) Shortness of breath Status: Acute (4) COPD (chronic obstructive pulmonary disease) with chronic bronchitis Status: Chronic (5) Congestive heart failure Status: Chronic (6) Degenerative disc disease Status: Chronic (7) Essential hypertension Status: Chronic
[2018-06-05] MEDS: ROCEPHIN VIAL 1 GRAM IVP SCH (18:25)
[2018-06-05] MEDS: PRAVACHOL PO SCH (20:19)
[2018-06-06] MEDS: NS 1/2 1000 ML IV 1,000 ML IV SCH ×2 (03:10→17:17)
[2018-06-06] MEDS: NEURONTIN CAP 300 MG PO SCH ×3 (05:03→21:00)
[2018-06-06] MEDS: TYGACIL 50 MG VIAL 50 MG in NS 100 ML IV 100 ML IV SCH ×2 (05:03→17:17)
[2018-06-06 05:19] LABS: BASOPHILS # (AUTO) 0.1 X10^3/uL (0.0-0.1); BASOPHILS % (AUTO) 0.5 % (0.2-1.0); EOSINOPHILS % (AUTO) 0.1 % (0.9-2.9); HEMATOCRIT 43.6 % (42.0-54.0); HEMOGLOBIN 14.4 g/dL (13.5-18.0); LYMPHOCYTES # (AUTO) 1.4 X10^3/uL (1.3-2.9); LYMPHOCYTES % (AUTO) 9.6 % (21.0-51.0); MEAN CORPUSCULAR HEMOGLOBIN 28.7 pg (27.0-34.0); MEAN CORPUSCULAR HGB CONC 32.9 g/dL (33.0-35.0); MEAN CORPUSCULAR VOLUME 87.1 fL (80.0-100.0); MEAN PLATELET VOLUME 9.5 fL (7.4-11.0); MONOCYTES % (AUTO) 6.5 % (0.0-13.0); NEUTROPHILS # (AUTO) 12.4 x10^3/uL (2.2-4.8); NEUTROPHILS % (AUTO) 83.3 % (42.0-75.0); PLATELET COUNT 222 X10^3/uL (150.0-450.0); RED BLOOD COUNT 5.01 X10^6/uL (4.7-6.0); RED CELL DISTRIBUTION WIDTH 13.6 % (11.6-16.5); WHITE BLOOD COUNT 14.9 X10^3/uL (3.6-10.0)
[2018-06-06 05:33] LABS: ALBUMIN 2.3 g/dL (3.4-5.0); CALCIUM 8.3 mg/dL (8.5-10.1); CARBON DIOXIDE 27.7 mmol/L (21-32); COR CA(FOR HYPOALB) 9.7 mg/dL (8.5-10.1); CREATININE 1.57 mg/dL (0.70-1.30); TOTAL PROTEIN 5.8 g/dL (6.4-8.2)
[2018-06-06] MEDS ORDERED: ZESTRIL TAB 20 MG ONE (08:09)
[2018-06-06] MEDS: PULMICORT NEB TX 0.5 MG NEB SCH ×2 (08:47→20:29)
[2018-06-06] MEDS: DUONEB 0.5 MG/3 MG NEB SCH ×4 (08:47→20:29)
[2018-06-06] MEDS: LOVENOX INJ 40 MG SYR SC SCH (08:56)
[2018-06-06] MEDS: NORVASC TAB 5 MG PO SCH (08:57)
[2018-06-06] MEDS: ROCEPHIN VIAL 1 GRAM IVP SCH (08:57)
[2018-06-06] MEDS: ZANAFLEX PO SCH ×2 (08:57→20:35)
[2018-06-06] MEDS: ZESTRIL TAB 20 MG PO SCH (08:57)
[2018-06-06] MEDS: LOPRESSOR TAB 25 MG PO SCH ×2 (08:57→20:35)
[2018-06-06] MEDS: ASPIRIN 81 MG CHEWTAB PO SCH (08:57)
[2018-06-06] MEDS: PLAVIX PO SCH (08:57)
[2018-06-06] MEDS: MILK OF MAGNESIA PO SCH ×2 (08:57→20:35)
[2018-06-06] MEDS: ROBITUSSIN DM PO SCH ×4 (08:57→20:36)
[2018-06-06] MEDS: DIFLUCAN 200 MG IV PREMIX* 200 MG/100 ML BAG IV SCH (10:59)
[2018-06-06] MEDS: PROTONIX INJ 40 MG VIAL IVP SCH (10:59)
--- NOTE | 2018-06-06 13:37 | PCM.PROG ---
Progress Note - Progress Note for Day of Date of Exam: 06/06/18 - Subjective Subjective: 68BM ER ADMISSION ON 06/04 WITH SOB, PT HAD CT CHEST THIS AM WITH MULTI-FOCAL PNEUMONIA. PT CURRENTLY ON RESPIRATORY TREATMENTS, SUPPLEMENTAL O2, ON LEVAQUIN AND ROCEPHIN. PT HAD SMALL PLEURAL EFFUSION ON CT, GIVEN LASIX 20MG IV BID X2, WITH INCREASED URINE OUTPT AND REPORTS IMPROVING SOB THIS AM.SPUTUM COLLECTED ON ADMISSION, WILL CONTINUE AM LABS, CXR AND BP CONTROL - Past Medical Family Social History Past Med/Fam/Surg Hx: No changes since H&P Allergies: Allergies No Known Drug Allergies Allergy (Verified 05/25/18 15:54) - Review of Systems ROS: No change since H&P - Vital Signs and I&O's Vital Signs: Temperature 97.7 F Pulse Rate [Left Brachial] 62 Pulse Rate 55 Respiratory Rate 20 Blood Pressure [Left Arm] 106/63 Blood Pressure [Right Arm] 175/105 Blood Pressure 169/94 O2 Sat by Pulse Oximetry 98 Intake and Output: Intake & Output 06/04/18 06/05/18 06/06/18 06/07/18 11:59 11:59 11:59 11:59 Intake Total 360 / 360 1200 / 1200 Output Total 900 / 900 2550 / 2550 Balance -540 / -540 -1350 / -1350 - Physical Exam Oriented: Normal Eyes: Normal Ear: Normal Nose: Normal Throat: Normal Respiratory: Diminished, Rhonchi Cardiovascular: Normal Auscultation: Bowel Sounds: Normal Tenderness: Normal Skin: Normal Musculoskeletal: Back:Lumbar Psychiatric: Anxiety Affect: Anxious Speech Pattern: Delayed - Laboratory and Diagnostics Result Diagrams: 06/06/18 04:46 06/06/18 04:46 Labs: 06/04/18 07:29 Blood Blood Culture - Preliminary 06/04/18 07:23 Blood Blood Culture - Preliminary 06/04/18 07:33 Sputum - Expectorated Sputum Sputum Culture - Final 06/04/18 07:33 Sputum - Expectorated Sputum - Final Laboratory WBC 14.9 X10^3/uL (3.6-10.0) H 06/06/18 04:46 RBC 5.01 X10^6/uL (4.7-6.0) 06/06/18 04:46 Hgb 14.4 g/dL (13.5-18.0) 06/06/18 04:46 Hct 43.6 % (42.0-54.0) 06/06/18 04:46 MCV 87.1 fL (80.0-100.0) 06/06/18 04:46 MCH 28.7 pg (27.0-34.0) 06/06/18 04:46 MCHC 32.9 g/dL (33.0-35.0) L 06/06/18 04:46 RDW 13.6 % (11.6-16.5) 06/06/18 04:46 Plt Count 222 X10^3/uL (150.0-450.0) 06/06/18 04:46 MPV 9.5 fL (7.4-11.0) 06/06/18 04:46 Neut % (Auto) 83.3 % (42.0-75.0) H 06/06/18 04:46 Lymph % (Auto) 9.6 % (21.0-51.0) L 06/06/18 04:46 [place] % (Auto) 6.5 % (0.0-13.0) 06/06/18 04:46 Eos % (Auto) 0.1 % (0.9-2.9) L 06/06/18 04:46 Baso % (Auto) 0.5 % (0.2-1.0) 06/06/18 04:46 Neut # (Auto) 12.4 x10^3/uL (2.2-4.8) H 06/06/18 04:46 Lymph # (Auto) 1.4 X10^3/uL (1.3-2.9) 06/06/18 04:46 [place] # (Auto) 1.0 x10^3/uL (0.3-0.8) H 06/06/18 04:46 Eos # (Auto) 0.0 x10^3/uL (0.0-0.2) 06/06/18 04:46 Baso # (Auto) 0.1 X10^3/uL (0.0-0.1) 06/06/18 04:46 Absolute Nucleated RBC 0.0 /100WBC 06/06/18 04:46 D-Dimer 347 ng/mL (0-400) 06/04/18 06:10 Sample Site Lr 03/14/19 04:45 ABG pH 7.510 (7.35-7.45) H 06/05/18 04:45 ABG pCO2 26.0 mmHg (35.0-45.0) L 06/05/18 04:45 ABG pO2 89.0 mmHg (80.0-100.0) 06/05/18 04:45 ABG HCO3 20.7 mmol/L (22-26) L 06/05/18 04:45 ABG O2 Saturation 98.0 % (90-100) 06/05/18 04:45 ABG Base Excess -1.1 mmol/L (-2.0-2.0) 06/05/18 04:45 Shawn Test Pos 06/05/18 04:45 A-a Gradient 164.0 mmHg 06/05/18 04:45 FiO2 40.0 06/05/18 04:45 Blood Gas Comments Andrew well ae 06/05/18 04:45 Sodium 142 mmol/L (136-145) 06/06/18 04:46 Corrected Sodium 143 mmol/L (136-145) 06/06/18 04:46 Potassium 4.0 mmol/L (3.5-5.1) 06/06/18 04:46 Chloride 107 mmol/L (98-107) 06/06/18 04:46 Carbon Dioxide 27.7 mmol/L (21-32) 06/06/18 04:46 BUN 35 mg/dL (7-18) H 06/06/18 04:46 Creatinine 1.57 mg/dL (0.70-1.30) H 06/06/18 04:46 Est GFR (MDRD) Af Amer 57 (>60) L 06/06/18 04:46 Est GFR (MDRD) Non-Af 47 (>60) L 06/06/18 04:46 Glucose 129 mg/dL (65-99) H 06/06/18 04:46 Lactic Acid 1.8 mmol/L (0.4-2.0) 06/04/18 07:23 Calcium 8.3 mg/dL (8.5-10.1) L 06/06/18 04:46 Corrected Calcium 9.7 mg/dL (8.5-10.1) 06/06/18 04:46 Total Bilirubin 1.30 mg/dL (0.2-1.0) H 06/06/18 04:46 AST 25 Units/L (15-37) 06/06/18 04:46 ALT 103 Units/L (12-78) H 06/06/18 04:46 Alkaline Phosphatase 101 Units/L (46-116) 06/06/18 04:46 Creatine Kinase 57 Units/L (39-308) 06/04/18 06:10 CK-MB (CK-2) 2.1 ng/mL (0-4.0) 06/04/18 06:10 CK/CKMB % Calc 3.7 % (<4) 06/04/18 06:10 Troponin I 0.08 ng/mL (0-1.5) 06/04/18 06:10 Total Protein 5.8 g/dL (6.4-8.2) L 06/06/18 04:46 Albumin 2.3 g/dL (3.4-5.0) L 06/06/18 04:46 Globulin 3.5 g/dL (2.5-4.5) 06/06/18 04:46 Albumin/Globulin Ratio 0.7 Ratio (1.1-2.1) L 06/06/18 04:46 Amylase 35 Units/L (25-115) 06/04/18 06:10 Lipase 93 Units/L (73-393) 06/04/18 06:10 Specimen Type Clean catch urine 06/04/18 07:03 Urine Color Yellow (YELLOW) 06/04/18 07:03 Urine Appearance Slightly hazy (CLEAR) 06/04/18 07:03 Urine pH 5.0 (5.0 - 8.0) 06/04/18 07:03 Ur Specific [place] 1.015 (1.000-1.030) 06/04/18 07:03 Urine Protein 3+ (NEGATIVE) 06/04/18 07:03 Urine Glucose (UA) Negative (NEGATIVE) 06/04/18 07:03 Urine Ketones Negative (NEGATIVE) 06/04/18 07:03 Urine Occult Blood 3+ (NEGATIVE) 06/04/18 07:03 Urine Nitrite Negative (NEGATIVE) 06/04/18 07:03 Urine Bilirubin Negative (NEGATIVE) 06/04/18 07:03 Urine Urobilinogen 2+ (NORMAL) 06/04/18 07:03 Ur Leukocyte Esterase 1+ (NEGATIVE) 06/04/18 07:03 Urine RBC 5-10 /HPF (NONE SEEN) 06/04/18 07:03 Urine WBC 5-10 /HPF (NONE SEEN) 06/04/18 07:03 Ur Squamous Epith Cells Few /HPF (NEGATIVE) 06/04/18 07:03 Urine Bacteria Trace /HPF (NEGATIVE) 06/04/18 07:03 Hyaline Casts Few /LPF (NEGATIVE) 06/04/18 07:03 Ur Culture Indicated? No/not indicated 06/04/18 07:03 - Plan (1) RLL pneumonia Status: Acute Qualifiers: Pneumonia type: due to unspecified organism Qualified Code(s): J18.1 - Lobar pneumonia, unspecified organism Plan: CONTINUE PNEUMONIA PROTOCOL, GENTLE HYDRATION. ENCOURAGE RESP THERAPY, SUPPLEMENTAL O2. CT CHEST ON 06/05, ON LEVAQUIN AND ROCEPHIN IV. CONTINUE STATIN, PLAVIX, BP CONTROL. LIVER US WITHOUT ACUTE FINDINGS. BLOOD AND SPUTUM CULTURES ON ADMISSION. (2) CAD (coronary artery disease) Status: Acute (3) Shortness of breath Status: Acute (4) COPD (chronic obstructive pulmonary disease) with chronic bronchitis Status: Chronic (5) Congestive heart failure Status: Chronic (6) Degenerative disc disease Status: Chronic (7) Essential hypertension Status: Chronic
[2018-06-06] MEDS ORDERED: NS 1/2 1000 ML IV 1,000 ML ONE (17:04)
[2018-06-06] MEDS: PRAVACHOL PO SCH (20:35)
[2018-06-07 05:32] LABS: BASOPHILS % (AUTO) 0.3 % (0.2-1.0); EOSINOPHILS # (AUTO) 0.1 x10^3/uL (0.0-0.2); EOSINOPHILS % (AUTO) 0.9 % (0.9-2.9); HEMATOCRIT 44.1 % (42.0-54.0); HEMOGLOBIN 14.6 g/dL (13.5-18.0); LYMPHOCYTES # (AUTO) 1.4 X10^3/uL (1.3-2.9); LYMPHOCYTES % (AUTO) 13.7 % (21.0-51.0); MEAN CORPUSCULAR HEMOGLOBIN 28.9 pg (27.0-34.0); MEAN CORPUSCULAR HGB CONC 33.1 g/dL (33.0-35.0); MEAN CORPUSCULAR VOLUME 87.4 fL (80.0-100.0); MEAN PLATELET VOLUME 9.7 fL (7.4-11.0); MONOCYTES # (AUTO) 0.5 x10^3/uL (0.3-0.8); MONOCYTES % (AUTO) 5.1 % (0.0-13.0); NEUTROPHILS # (AUTO) 8.2 x10^3/uL (2.2-4.8); PLATELET COUNT 215 X10^3/uL (150.0-450.0); RED BLOOD COUNT 5.05 X10^6/uL (4.7-6.0); RED CELL DISTRIBUTION WIDTH 13.6 % (11.6-16.5); WHITE BLOOD COUNT 10.2 X10^3/uL (3.6-10.0)
[2018-06-07 05:43] LABS: ALANINE AMINOTRANSFERASE 83 Units/L (12-78); ALBUMIN 2.3 g/dL (3.4-5.0); ALKALINE PHOSPHATASE 106 Units/L (46-116); ASPARTATE AMINO TRANSFERASE 22 Units/L (15-37); BLOOD UREA NITROGEN 35 mg/dL (7-18); CALCIUM 8.5 mg/dL (8.5-10.1); CARBON DIOXIDE 28.3 mmol/L (21-32); CHLORIDE 106 mmol/L (98-107); COR CA(FOR HYPOALB) 9.9 mg/dL (8.5-10.1); SODIUM 141 mmol/L (136-145); TOTAL PROTEIN 5.9 g/dL (6.4-8.2); eGFR NON BLACK RACES 50 (>60)
[2018-06-07] MEDS: TYGACIL 50 MG VIAL 50 MG in NS 100 ML IV 100 ML IV SCH ×2 (06:29→17:34)
[2018-06-07] MEDS: NEURONTIN CAP 300 MG PO SCH ×3 (06:29→21:14)
[2018-06-07] MEDS: NS 1/2 1000 ML IV 1,000 ML IV SCH ×2 (06:30→20:00)
[2018-06-07] MEDS ORDERED: ZESTRIL TAB 20 MG ONE (08:18)
[2018-06-07] MEDS: ASPIRIN 81 MG CHEWTAB PO SCH (08:38)
[2018-06-07] MEDS: DIFLUCAN 200 MG IV PREMIX* 200 MG/100 ML BAG IV SCH (08:39)
[2018-06-07] MEDS: LOVENOX INJ 40 MG SYR SC SCH (08:40)
[2018-06-07] MEDS: MILK OF MAGNESIA PO SCH ×3 (08:40→21:15)
[2018-06-07] MEDS: PLAVIX PO SCH (08:40)
[2018-06-07] MEDS: LOPRESSOR TAB 25 MG PO SCH ×2 (08:40→21:14)
[2018-06-07] MEDS: ZESTRIL TAB 20 MG PO SCH (08:41)
[2018-06-07] MEDS: ROBITUSSIN DM PO SCH ×4 (08:41→21:14)
[2018-06-07] MEDS: PROTONIX INJ 40 MG VIAL IVP SCH (08:41)
[2018-06-07] MEDS: ZANAFLEX PO SCH ×2 (08:41→21:14)
[2018-06-07] MEDS: ROCEPHIN VIAL 1 GRAM IVP SCH (08:41)
[2018-06-07] MEDS: NORVASC TAB 5 MG PO SCH (08:41)
[2018-06-07] MEDS: DUONEB 0.5 MG/3 MG NEB SCH ×4 (09:55→20:25)
[2018-06-07] MEDS: PULMICORT NEB TX 0.5 MG NEB SCH ×2 (09:55→20:25)
--- NOTE | 2018-06-07 17:59 | RAD ---
Examination: Portable AP chest History: Pneumonia Comparison 06/04/2018 Findings: Continued cardiomegaly. Improved aeration of the lungs with decreasing infiltrates and congestion. Increased linear densities remain in the left lower lobe consistent with residual infiltrate or atelectasis. No new abnormality is demonstrated. Impression: Significant improvement since 06/04/2018. Residual cardiac enlargement and small areas of residual infiltrate left lower lobe. Reported By:
[2018-06-07] MEDS: PRAVACHOL PO SCH (21:14)
[2018-06-08 04:53] LABS: BASOPHILS # (AUTO) 0.1 X10^3/uL (0.0-0.1); BASOPHILS % (AUTO) 0.6 % (0.2-1.0); EOSINOPHILS # (AUTO) 0.1 x10^3/uL (0.0-0.2); EOSINOPHILS % (AUTO) 1.2 % (0.9-2.9); HEMATOCRIT 43.8 % (42.0-54.0); HEMOGLOBIN 14.7 g/dL (13.5-18.0); LYMPHOCYTES # (AUTO) 1.4 X10^3/uL (1.3-2.9); MEAN CORPUSCULAR HGB CONC 33.6 g/dL (33.0-35.0); MEAN CORPUSCULAR VOLUME 86.3 fL (80.0-100.0); MEAN PLATELET VOLUME 9.8 fL (7.4-11.0); MONOCYTES # (AUTO) 0.4 x10^3/uL (0.3-0.8); MONOCYTES % (AUTO) 4.5 % (0.0-13.0); NEUTROPHILS # (AUTO) 6.7 x10^3/uL (2.2-4.8); NEUTROPHILS % (AUTO) 77.7 % (42.0-75.0); PLATELET COUNT 219 X10^3/uL (150.0-450.0); RED BLOOD COUNT 5.07 X10^6/uL (4.7-6.0); RED CELL DISTRIBUTION WIDTH 13.6 % (11.6-16.5); WHITE BLOOD COUNT 8.6 X10^3/uL (3.6-10.0)
[2018-06-08 05:05] LABS: ALANINE AMINOTRANSFERASE 65 Units/L (12-78); ALBUMIN 2.2 g/dL (3.4-5.0); ALKALINE PHOSPHATASE 100 Units/L (46-116); ASPARTATE AMINO TRANSFERASE 16 Units/L (15-37); BLOOD UREA NITROGEN 32 mg/dL (7-18); CALCIUM 8.4 mg/dL (8.5-10.1); CARBON DIOXIDE 25.9 mmol/L (21-32); CHLORIDE 105 mmol/L (98-107); COR CA(FOR HYPOALB) 9.8 mg/dL (8.5-10.1); CREATININE 1.51 mg/dL (0.70-1.30); SODIUM 139 mmol/L (136-145); TOTAL PROTEIN 5.8 g/dL (6.4-8.2); eGFR NON BLACK RACES 49 (>60)
[2018-06-08] MEDS: TYGACIL 50 MG VIAL 50 MG in NS 100 ML IV 100 ML IV SCH ×2 (05:41→17:42)
[2018-06-08] MEDS: NEURONTIN CAP 300 MG PO SCH ×3 (05:41→21:00)
--- NOTE | 2018-06-08 07:43 | RAD ---
HISTORY: No bone Study: Single-view chest Comparison: Yesterday Findings: The trachea is midline. The cardiac silhouette is stable. The lungs demonstrate interval development of airspace disease in the right upper lobe. The remainder of the lungs appear clear on today's exam.. The bony thorax is unremarkable. IMPRESSION: 1. Developing right upper lobe infiltrate as above. Remainder of the lungs are clear on today's exam. Reported By:
[2018-06-08] MEDS: DUONEB 0.5 MG/3 MG NEB SCH ×4 (08:07→21:04)
[2018-06-08] MEDS: PULMICORT NEB TX 0.5 MG NEB SCH ×2 (08:07→21:04)
[2018-06-08] MEDS ORDERED: NS 1/2 1000 ML IV 1,000 ML ONE (09:17)
[2018-06-08] MEDS ORDERED: ZESTRIL TAB 20 MG ONE (09:20)
[2018-06-08] MEDS: ASPIRIN 81 MG CHEWTAB PO SCH (10:02)
[2018-06-08] MEDS: DIFLUCAN 200 MG IV PREMIX* 200 MG/100 ML BAG IV SCH (10:02)
[2018-06-08] MEDS: LOPRESSOR TAB 25 MG PO SCH ×2 (10:03→20:54)
[2018-06-08] MEDS: LOVENOX INJ 40 MG SYR SC SCH (10:03)
[2018-06-08] MEDS: MILK OF MAGNESIA PO SCH ×2 (10:03→20:54)
[2018-06-08] MEDS: NORVASC TAB 5 MG PO SCH (10:04)
[2018-06-08] MEDS: PLAVIX PO SCH (10:04)
[2018-06-08] MEDS: PROTONIX INJ 40 MG VIAL IVP SCH (10:04)
[2018-06-08] MEDS: ROBITUSSIN DM PO SCH ×4 (10:05→20:55)
[2018-06-08] MEDS: ROCEPHIN VIAL 1 GRAM IVP SCH (10:05)
[2018-06-08] MEDS: ZESTRIL TAB 20 MG PO SCH (10:05)
[2018-06-08] MEDS: ZANAFLEX PO SCH ×2 (10:05→20:53)
[2018-06-08] MEDS: NS 1/2 1000 ML IV 1,000 ML IV SCH (10:05)
[2018-06-08] MEDS: PRAVACHOL PO SCH (20:53)
[2018-06-09 05:16] LABS: BASOPHILS # (AUTO) 0.1 X10^3/uL (0.0-0.1); BASOPHILS % (AUTO) 1.1 % (0.2-1.0); EOSINOPHILS # (AUTO) 0.1 x10^3/uL (0.0-0.2); EOSINOPHILS % (AUTO) 1.9 % (0.9-2.9); HEMATOCRIT 44.1 % (42.0-54.0); HEMOGLOBIN 14.8 g/dL (13.5-18.0); LYMPHOCYTES # (AUTO) 1.7 X10^3/uL (1.3-2.9); LYMPHOCYTES % (AUTO) 25.1 % (21.0-51.0); MEAN CORPUSCULAR HGB CONC 33.6 g/dL (33.0-35.0); MEAN CORPUSCULAR VOLUME 86.4 fL (80.0-100.0); MEAN PLATELET VOLUME 9.8 fL (7.4-11.0); MONOCYTES # (AUTO) 0.4 x10^3/uL (0.3-0.8); MONOCYTES % (AUTO) 5.1 % (0.0-13.0); NEUTROPHILS # (AUTO) 4.5 x10^3/uL (2.2-4.8); NEUTROPHILS % (AUTO) 66.8 % (42.0-75.0); PLATELET COUNT 220 X10^3/uL (150.0-450.0); RED BLOOD COUNT 5.11 X10^6/uL (4.7-6.0); RED CELL DISTRIBUTION WIDTH 13.6 % (11.6-16.5); WHITE BLOOD COUNT 6.8 X10^3/uL (3.6-10.0)
[2018-06-09 05:34] LABS: ALANINE AMINOTRANSFERASE 53 Units/L (12-78); ALBUMIN 2.2 g/dL (3.4-5.0); ALKALINE PHOSPHATASE 98 Units/L (46-116); ASPARTATE AMINO TRANSFERASE 15 Units/L (15-37); BLOOD UREA NITROGEN 30 mg/dL (7-18); CALCIUM 8.1 mg/dL (8.5-10.1); CARBON DIOXIDE 25.3 mmol/L (21-32); CHLORIDE 105 mmol/L (98-107); COR CA(FOR HYPOALB) 9.5 mg/dL (8.5-10.1); CREATININE 1.39 mg/dL (0.70-1.30); SODIUM 138 mmol/L (136-145); TOTAL PROTEIN 5.8 g/dL (6.4-8.2); eGFR NON BLACK RACES 54 (>60)
[2018-06-09] MEDS: TYGACIL 50 MG VIAL 50 MG in NS 100 ML IV 100 ML IV SCH (05:46)
[2018-06-09] MEDS: NEURONTIN CAP 300 MG PO SCH ×2 (05:46→14:25)
[2018-06-09] MEDS: PULMICORT NEB TX 0.5 MG NEB SCH (08:06)
[2018-06-09] MEDS: DUONEB 0.5 MG/3 MG NEB SCH ×2 (08:06→12:13)
[2018-06-09] MEDS ORDERED: ZESTRIL TAB 20 MG ONE (08:33)
[2018-06-09] MEDS: DIFLUCAN 200 MG IV PREMIX* 200 MG/100 ML BAG IV SCH (08:37)
[2018-06-09] MEDS: NORVASC TAB 5 MG PO SCH (08:38)
[2018-06-09] MEDS: ROBITUSSIN DM PO SCH ×3 (08:38→14:20)
[2018-06-09] MEDS: LOPRESSOR TAB 25 MG PO SCH (08:38)
[2018-06-09] MEDS: ZANAFLEX PO SCH (08:38)
[2018-06-09] MEDS: PROTONIX INJ 40 MG VIAL IVP SCH (08:38)
[2018-06-09] MEDS: ROCEPHIN VIAL 1 GRAM IVP SCH (08:39)
[2018-06-09] MEDS: MILK OF MAGNESIA PO SCH ×2 (08:39→08:49)
[2018-06-09] MEDS: ZESTRIL TAB 20 MG PO SCH (08:39)
[2018-06-09] MEDS: ASPIRIN 81 MG CHEWTAB PO SCH (08:39)
[2018-06-09] MEDS: PLAVIX PO SCH (08:43)
[2018-06-09] MEDS: LOVENOX INJ 40 MG SYR SC SCH (08:43)
[2018-06-09] MEDS: NS 1/2 1000 ML IV 1,000 ML IV SCH (08:46)
--- NOTE | 2018-06-09 11:15 | RAD ---
History: Shortness of breath and chest tightness for 2 weeks Study: PA and lateral chest Comparison: Yesterday Findings: There is mild airspace disease persistent in the right upper lobe. The left lung overall is clear. The heart is prominent and the aorta is tortuous. The costophrenic angles are blunted. Impression: 1. Mild cardiomegaly and tiny bilateral pleural effusions 2. Persistent mild infiltrate in the right upper lobe Reported By:
[2018-06-09 12:50] VITALS: BP 132/80
== END 2018-06-09 14:55 | disposition home or self-care (01) | DRG 195 ==
LOC: ER 05:15 → MED/SURG 05:15 → OBSVTOIN 07:48 → MED/SURG 08:38
PROVIDERS: ADMIT Internal Medicine; ATTEND Internal Medicine
DX: R53.1 Weakness; E87.6 Hypokalemia; R06.02 Shortness of breath; E11.65 Type 2 diabetes mellitus with hyperglycemia; E86.0 Dehydration; J44.9 Chronic obstructive pulmonary disease, unspecified; R94.31 Abnormal electrocardiogram [ECG] [EKG]; I11.0 Hypertensive heart disease with heart failure; J18.8 Other pneumonia, unspecified organism; R94.4 Abnormal results of kidney function studies; I25.10 Atherosclerotic heart disease of native coronary artery without angina pectoris; I50.9 Heart failure, unspecified
CPT/HCPCS: 36415; 36600; 71010; 71020; 71045; 71046; 71260; 76705; 80053; 81001; 82150; 82550; 82553; 82803; 83605; 83690; 84484; 85025; 85378; 87040; 87070; 87205; 93005; 94640; 94760; 96365; 99231; 99284; A4222; C9113; J0360; J0696; J1450; J1650; J1940; J1956; J2270; J3243; J7050; J7620; J7626

== ENCOUNTER 2018-08-29 14:37 | Inpatient (IN) ==
[2018-08-29] MEDS ORDERED: DUONEB 0.5 MG/3 MG ONE ×2 (14:59→17:14)
[2018-08-29] MEDS ORDERED: DUONEB 0.5 MG/3 MG NEB ONE ×2 (15:00→17:14)
[2018-08-29 15:57] LABS: ABG ALLEN TEST POS; ABG BASE EXCESS 0.2 mmol/L (-2.0-2.0); ABG HCO3 22.3 mmol/L (22-26)
[2018-08-29 16:05] LABS: BASOPHILS # (AUTO) 0.1 X10^3/uL (0.0-0.1); BASOPHILS % (AUTO) 0.7 % (0.2-1.0); EOSINOPHILS % (AUTO) 0.6 % (0.9-2.9); HEMATOCRIT 45.7 % (42.0-54.0); HEMOGLOBIN 15.2 g/dL (13.5-18.0); LYMPHOCYTES # (AUTO) 1.9 X10^3/uL (1.3-2.9); LYMPHOCYTES % (AUTO) 23.7 % (21.0-51.0); MEAN CORPUSCULAR HEMOGLOBIN 28.4 pg (27.0-34.0); MEAN CORPUSCULAR HGB CONC 33.4 g/dL (33.0-35.0); MONOCYTES # (AUTO) 0.5 x10^3/uL (0.3-0.8); MONOCYTES % (AUTO) 6.6 % (0.0-13.0); NEUTROPHILS # (AUTO) 5.5 x10^3/uL (2.2-4.8); NEUTROPHILS % (AUTO) 68.4 % (42.0-75.0); PLATELET COUNT 189 X10^3/uL (150.0-450.0); RED BLOOD COUNT 5.38 X10^6/uL (4.7-6.0); RED CELL DISTRIBUTION WIDTH 15.3 % (11.6-16.5); WHITE BLOOD COUNT 8.1 X10^3/uL (3.6-10.0)
[2018-08-29 16:07] LABS: ALANINE AMINOTRANSFERASE 43 Units/L (12-78); ALBUMIN 2.9 g/dL (3.4-5.0); ALKALINE PHOSPHATASE 102 Units/L (46-116); ASPARTATE AMINO TRANSFERASE 21 Units/L (15-37); BLOOD UREA NITROGEN 19 mg/dL (7-18); CALCIUM 9.1 mg/dL (8.5-10.1); CARBON DIOXIDE 24.9 mmol/L (21-32); CHLORIDE 105 mmol/L (98-107); COR NA(FOR HYPERGLY) 140 mmol/L (136-145); CREATININE 1.28 mg/dL (0.70-1.30); SODIUM 139 mmol/L (136-145); TOTAL PROTEIN 6.7 g/dL (6.4-8.2); eGFR NON BLACK RACES 60 (>60)
[2018-08-29] MEDS ORDERED: CATAPRES TAB 0.1 MG PO ONE ×2 (16:18→18:17)
[2018-08-29] MEDS ORDERED: CATAPRES TAB 0.1 MG ONE ×2 (16:19→18:18)
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
[2018-08-29 16:49] LABS: BILIRUBIN,URINE NEGATIVE (NEGATIVE); BLOOD/HEMOGLOBIN,URINE 3+ (NEGATIVE); GLUCOSE, URINE NEGATIVE (NEGATIVE); KETONES,URINE NEGATIVE (NEGATIVE); LEUKOCYTE ESTERASE ,URINE 2+ (NEGATIVE); NITRITES,URINE NEGATIVE (NEGATIVE); PROTEIN,URINE 4+ (NEGATIVE); UROBILINOGEN,URINE 1+ (NORMAL)
[2018-08-29 16:51] LABS: APPEARANCE,URINE CLEAR (CLEAR); COLOR,URINE YELLOW (YELLOW)
[2018-08-29 17:13] LABS: BACTERIA,URINE NEGATIVE /HPF (NEGATIVE); RBC,URINE 0-2 /HPF (NONE SEEN); SQUAMOUS EPITHELIAL CELL,UR RARE /HPF (NEGATIVE)
[2018-08-29 17:24] LABS: CKMB % 2.8 % (<4); CREATINE KINASE MB 1.9 ng/mL (0-4.0); TROPONIN I 0.09 ng/mL (0-1.5)
--- NOTE | 2018-08-29 18:01 | CT ---
Exam: CTA of the chest History: 68-year-old male with shortness of breath. Comparison: Previous chest CT with contrast from 06/05/2018. Technique: Axial imaging was performed through the thorax following administration of intravenous contrast. Sagittal and coronal reformations were generated. In addition, MIPS imaging was also performed. Automated exposure control techniques were used for this exam. Findings: The pulmonary arteries opacify in a homogeneous manner with no evidence of intraluminal filling defects or obstruction to flow of contrast to suggest the presence of pulmonary emboli. The heart is enlarged. No pericardial effusion is seen. Thoracic aorta is normal with no aneurysmal dilatation identified. No hilar or mediastinal lymphadenopathy. Small bilateral pleural effusions are again seen. Patchy ground-glass infiltrates are again seen in the right middle lobe and lower lobes bilaterally. However the involvement is less extensive than was noted on the study from 06/05/2018. No definite pulmonary nodules are identified though the right lower lobe infiltrate has a reticular nodular appearance. Scattered bullous changes are noted bilaterally. Hyperinflation is present consistent with underlying COPD. Visualized aspect of the upper abdomen is unremarkable. On the bone windows, no specific abnormality is seen. Impression: 1. No CT evidence of pulmonary emboli. 2. Findings consistent with multifocal pneumonia, primarily involving the right middle lobe and lower lobes bilaterally. Overall however these findings appear less extensive than was noted on the study from 06/05/2018. 3. Small bilateral pleural effusions Reported By:
--- NOTE | 2018-08-29 18:30 | DR.GENAD ---
HPI Time Seen Time Seen by Provider: 08/29/18 15:23 PCP Primary Care Physician: anna HPI Comment HPI Comment: History of COPD worse today. Uses duo nebs. Complaint/Symptoms Chief Complaint Doctors Comments: Dyspnea, worse today, history of COPD, Mild Pulmonary edema, Chronic cardiomegaly Chief Complaint:: patient stated he has been short of breatn for several months but today it has been worse. Self Treatment fo Chief Complaint: pt out of his meds Source History Provided: Patient Mode of Arrival Mode of Arrival: Wheelchair Timing Onset of Chief Complaint: 06/24/18 PMH PMH Past Medical History: Yes Past Medical History: Hypertension Past Surgical History: Yes Surgical History: Angioplasty/Stents and Ortho Surgery Family History History of Family Medical Conditions: Yes Family Medical History: Diabetes Mellitus and Hypertension Social History Does patient currently use any type of tobacco product: No Have you used tobacco products in the last 12 months: No Type of Tobacco Use: None Does any household member use tobacco: No Alcohol Use: None Do you use any recreational Drugs:: No Lives With: Family Lives Where: Home infectious screening In the last 2 months have you had wt loss of >10#?: NO Have you had fever, night sweats or hemotysis?: No Have you traveled outside the country in the last 6 months?: No Isolation: Standard ROS Review of Systems Constitutional: No Symptoms Reported Eyes: No Symptoms Reported ENTM: No Symptoms Reported Respiratoy: See HPI, Non-Productive Cough and Short of Breath Cardiovascular: No Symptoms Reported Gastrointestinal/Abdominal: No Symptoms Reported Neurological: No Symptoms Reported Musculoskeletal: No Symptoms Reported Integumentary: No Symptoms Reported Hematologic/Lymphatic: No Symptoms Reported Endocrine: No Symptoms Reported All Other Systems: Reviewed and Negative PE Vital Signs Vitals: Temperature 97.7 F Pulse Rate [Left Radial] 107 Pulse Rate 72 Respiratory Rate 31 Blood Pressure [Left Arm] 179/103 Blood Pressure [Right Arm] 153/85 Blood Pressure 141/90 O2 Sat by Pulse Oximetry 100 General Limitations: No Limitations General Appearance: Alert and Anxious Head Head Exam: Normal Inspection, Atraumatic and Normocephalic Eyes Eye exam: Normal Appearance, PERRL and EOMI ENT ENT Exam: Normal Exam, Normal Oropharynx and Normal External Ear Exam External Ear Exam: Normal External Inspection TM/Canal Exam: Bilateral: Normal Nose Exam: Normal Nose Exam Mouth Exam: Normal Inspection Throat Exam: Normal Inspection Neck Neck Exam: Normal Inspection and Full ROM Chest Chest Inspection: Normal Inspection and Symmetric Chest Wall Rise Respiratory Respiratory Exam: Accessory Muscle Use and Prolonged Expiratory Phase Respiratory Exam: Bilateral: Wheezing, Bilateral: Rhonchi and Bilateral: Decreased Breath Sounds Cardiovascular Cardiovascular Exam: Regular Rate Abdominal Exam Abdominal Exam: Normal Inspection, Normal Bowel Sounds and Soft Extremities Extremities Exam: Normal Inspection and Full ROM Back Back Exam: Normal Inspection Neurologic Neurological Exam: Alert, Oriented X3 and CN II-XII Intact Psychiatric Psychiatric Exam: Normal Affect and Normal Mood Skin Skin Exam: Warm, Dry and Intact MDM Differential Diagnosis Differential Diagnosis: copd, pneumonia,Pulmnary embolus COURSE Treatment Treatment: Duo Neb, normal saline, solu medrol Consultation Called: 18:20 Consultation Comments: Dr. Thurston agreed to admit for further treatment and evaluztion ROR Labs Reviewed Laboratory Results Reviewed?: Yes Result Diagrams: 08/31/18 03:10 08/31/18 03:10 Laboratory: 08/29/18 19:04 Blood Blood Culture - Preliminary 08/29/18 18:58 Blood Blood Culture - Preliminary WBC 9.4 X10^3/uL (3.6-10.0) 08/31/18 03:10 RBC 5.27 X10^6/uL (4.7-6.0) 08/31/18 03:10 Hgb 15.1 g/dL (13.5-18.0) 08/31/18 03:10 Hct 45.3 % (42.0-54.0) 08/31/18 03:10 MCV 85.9 fL (80.0-100.0) 08/31/18 03:10 MCH 28.6 pg (27.0-34.0) 08/31/18 03:10 MCHC 33.3 g/dL (33.0-35.0) 08/31/18 03:10 RDW 15.4 % (11.6-16.5) 08/31/18 03:10 Plt Count 198 X10^3/uL (150.0-450.0) 08/31/18 03:10 Plt Count Comment Adequate (ADEQUATE) 08/31/18 03:10 MPV 9.3 fL (7.4-11.0) 08/31/18 03:10 Neut % (Auto) 93.1 % (42.0-75.0) H 08/31/18 03:10 Lymph % (Auto) 4.7 % (21.0-51.0) L 08/31/18 03:10 [place] % (Auto) 2.0 % (0.0-13.0) 08/31/18 03:10 Eos % (Auto) 0.1 % (0.9-2.9) L 08/31/18 03:10 Baso % (Auto) 0.1 % (0.2-1.0) L 08/31/18 03:10 Neut # (Auto) 8.7 x10^3/uL (2.2-4.8) H 08/31/18 03:10 Lymph # (Auto) 0.4 X10^3/uL (1.3-2.9) L 08/31/18 03:10 [place] # (Auto) 0.2 x10^3/uL (0.3-0.8) L 08/31/18 03:10 Eos # (Auto) 0.0 x10^3/uL (0.0-0.2) 08/31/18 03:10 Baso # (Auto) 0.0 X10^3/uL (0.0-0.1) 08/31/18 03:10 Absolute Nucleated RBC 0.1 /100WBC 08/31/18 03:10 Total Counted 100 08/31/18 03:10 Neutrophils % (Manual) 93 % (39-76) H 08/31/18 03:10 Lymphocytes % (Manual) 6 % (13-43) L 08/31/18 03:10 Monocytes % (Manual) 1 % (4-9) L 08/31/18 03:10 Plt Morphology Comment Normal (NORMAL) 08/31/18 03:10 RBC Morphology Normal (NORMAL) 08/31/18 03:10 D-Dimer 574 ng/mL (0-400) H* 08/29/18 15:45 Sample Site Rr 08/29/18 15:47 ABG pH 7.510 (7.35-7.45) H 08/29/18 15:47 ABG pCO2 28.0 mmHg (35.0-45.0) L 08/29/18 15:47 ABG pO2 84.0 mmHg (80.0-100.0) 08/29/18 15:47 ABG HCO3 22.3 mmol/L (22-26) 08/29/18 15:47 ABG O2 Saturation 97.0 % (90-100) 08/29/18 15:47 ABG Base Excess 0.2 mmol/L (-2.0-2.0) 08/29/18 15:47 Shawn Test Pos 08/29/18 15:47 A-a Gradient 81.0 mmHg 08/29/18 15:47 FiO2 28.0 08/29/18 15:47 Blood Gas Comments Andrew well cb 08/29/18 15:47 Sodium 140 mmol/L (136-145) 08/31/18 03:10 Corrected Sodium 141 mmol/L (136-145) 08/31/18 03:10 Potassium 4.0 mmol/L (3.5-5.1) 08/31/18 03:10 Chloride 104 mmol/L (98-107) 08/31/18 03:10 Carbon Dioxide 29.8 mmol/L (21-32) 08/31/18 03:10 BUN 25 mg/dL (7-18) H 08/31/18 03:10 Creatinine 1.49 mg/dL (0.70-1.30) H 08/31/18 03:10 Est GFR (MDRD) Af Amer > 60 (>60) 08/31/18 03:10 Est GFR (MDRD) Non-Af 50 (>60) L 08/31/18 03:10 Glucose 131 mg/dL (65-99) H 08/31/18 03:10 Calcium 8.8 mg/dL (8.5-10.1) 08/31/18 03:10 Corrected Calcium 9.9 mg/dL (8.5-10.1) 08/31/18 03:10 Total Bilirubin 0.60 mg/dL (0.2-1.0) 08/31/18 03:10 AST 18 Units/L (15-37) 08/31/18 03:10 ALT 33 Units/L (12-78) 08/31/18 03:10 Alkaline Phosphatase 86 Units/L (46-116) 08/31/18 03:10 Creatine Kinase 88 Units/L (39-308) 08/31/18 03:10 CK-MB (CK-2) 1.4 ng/mL (0-4.0) 08/31/18 03:10 CK/CKMB % Calc 1.6 % (<4) 08/31/18 03:10 Troponin I 0.07 ng/mL (0-1.5) 08/31/18 03:10 Total Protein 6.3 g/dL (6.4-8.2) L 08/31/18 03:10 Albumin 2.6 g/dL (3.4-5.0) L 08/31/18 03:10 Globulin 3.7 g/dL (2.5-4.5) 08/31/18 03:10 Albumin/Globulin Ratio 0.7 Ratio (1.1-2.1) L 08/31/18 03:10 Specimen Type Catherized urine 08/29/18 22:00 Urine Color Pale yellow (YELLOW) 08/29/18 22:00 Urine Appearance Clear (CLEAR) 08/29/18 22:00 Urine pH 8.0 (5.0 - 8.0) 08/29/18 22:00 Ur Specific White 1.010 (1.000-1.030) 08/29/18 22:00 Urine Protein 2+ (NEGATIVE) 08/29/18 22:00 Urine Glucose (UA) Negative (NEGATIVE) 08/29/18 22:00 Urine Ketones 1+ (NEGATIVE) 08/29/18 22:00 Urine Occult Blood 3+ (NEGATIVE) 08/29/18 22:00 Urine Nitrite Negative (NEGATIVE) 08/29/18 22:00 Urine Bilirubin Negative (NEGATIVE) 08/29/18 22:00 Urine Urobilinogen Normal (NORMAL) 08/29/18 22:00 Ur Leukocyte Esterase 1+ (NEGATIVE) 08/29/18 22:00 Urine RBC 5-10 /HPF (NONE SEEN) 08/29/18 22:00 Urine WBC 0-2 /HPF (NONE SEEN) 08/29/18 22:00 Ur Squamous Epith Cells Rare /HPF (NEGATIVE) 08/29/18 22:00 Urine Bacteria Negative /HPF (NEGATIVE) 08/29/18 22:00 Ur Culture Indicated? No/not indicated 08/29/18 22:00 Other Results Comments: Acute abdomen: PA chest radiograph demonstrates chronic cardiomegaly with chronic prominence interstitium and perihilar lung markings with mild pulmonary edema and small bilateral effusions, left greater than right. No pneumothorax. Pulmonary vascularity is normal. Gas and stool are seen throughout the colon. CTA: Findings consistent with multifocal pneumonia, primarily involving the right middle lobe and lower lobes bilaterally. Overall however, these findings appear less extensive than was noted on the study from 06/05/18. XRAY XRAY Interpreted by: Radiologist Opioid Opioid Risk Tool Total: 0 Total Score Risk Category: Low Risk Copyright: Ron HANKS predicting aberrant behaviors Diagnosis Discharge Problem: Right lower lobe pneumonia
[2018-08-29] MEDS ORDERED: NS 1/2 1000 ML IV 1,000 ML ONE (18:38)
[2018-08-29] MEDS: LEVAQUIN PREMIX IV 750 MG 750 MG/150 ML BAG IV SCH (18:40)
[2018-08-29] MEDS: NS 1/2 1000 ML IV 1,000 ML IV SCH (18:40)
[2018-08-29] MEDS ORDERED: TUSSIONEX PENNKINETIC SUSP PO PRN (18:40)
[2018-08-29] MEDS ORDERED: PROVENTIL NEB TX 0.083% 2.5MG/ 3ML IN PRN (18:46)
[2018-08-29] MEDS ORDERED: [UNRECOGNIZED DRUG - OTHER] NEB PRN (18:49)
[2018-08-29] MEDS ORDERED: PRAVACHOL PO SCH (19:00)
[2018-08-29] MEDS ORDERED: NS 1/2 1000 ML IV 1,000 ML IV SCH (19:00)
[2018-08-29] MEDS ORDERED: HYDROCHLOROTHIAZIDE 12.5 MG CAP PO SCH (19:00)
[2018-08-29] MEDS ORDERED: APRESOLINE INJ 20 MG VIAL IVP PRN (19:21)
[2018-08-29] MEDS: PROVENTIL NEB TX 0.083% 2.5MG/ 3ML IN PRN (20:40)
[2018-08-29] MEDS ORDERED: SALINE 3% 15 ML NEB TX NEB ONE (20:41)
[2018-08-29] MEDS ORDERED: ROBITUSSIN DM PO SCH (21:00)
[2018-08-29] MEDS ORDERED: LOPRESSOR TAB 25 MG PO SCH (21:00)
[2018-08-29] MEDS ORDERED: ZANAFLEX PO SCH (21:00)
[2018-08-29 21:41] LABS: CKMB % 2.6 % (<4); CREATINE KINASE MB 2.1 ng/mL (0-4.0); TROPONIN I 0.11 ng/mL (0-1.5)
[2018-08-29] MEDS ORDERED: CATAPRES TAB 0.1 MG PO PRN (21:51)
[2018-08-29] MEDS ORDERED: NEURONTIN CAP 300 MG PO SCH (22:00)
[2018-08-29] MEDS: MORPHINE SULFATE INJ 2 MG INJ IVP PRN (22:15)
[2018-08-29 22:35] LABS: BILIRUBIN,URINE NEGATIVE (NEGATIVE); BLOOD/HEMOGLOBIN,URINE 3+ (NEGATIVE); GLUCOSE, URINE NEGATIVE (NEGATIVE); KETONES,URINE 1+ (NEGATIVE); LEUKOCYTE ESTERASE ,URINE 1+ (NEGATIVE); NITRITES,URINE NEGATIVE (NEGATIVE); PROTEIN,URINE 2+ (NEGATIVE); UROBILINOGEN,URINE NORMAL (NORMAL)
[2018-08-29 22:43] LABS: APPEARANCE,URINE CLEAR (CLEAR); COLOR,URINE PALE YELLOW (YELLOW)
[2018-08-29 22:44] LABS: BACTERIA,URINE NEGATIVE /HPF (NEGATIVE); SQUAMOUS EPITHELIAL CELL,UR RARE /HPF (NEGATIVE)
[2018-08-29 22:45] VITALS: BMI 18.3
[2018-08-30] MEDS: PROVENTIL NEB TX 0.083% 2.5MG/ 3ML IN PRN ×4 (01:47→20:41)
[2018-08-30 03:23] LABS: CKMB % 2.5 % (<4); CREATINE KINASE MB 2.1 ng/mL (0-4.0); TROPONIN I 0.11 ng/mL (0-1.5)
[2018-08-30] MEDS: MORPHINE SULFATE INJ 2 MG INJ IVP PRN (07:51)
[2018-08-30] MEDS: LEVAQUIN PREMIX IV 750 MG 750 MG/150 ML BAG IV SCH ×2 (08:01→21:32)
[2018-08-30] MEDS: VSL#3 PO SCH (08:01)
[2018-08-30] MEDS ORDERED: PLAVIX PO SCH (09:00)
[2018-08-30] MEDS ORDERED: ZESTRIL TAB 20 MG PO SCH (09:00)
[2018-08-30] MEDS ORDERED: ASPIRIN 81 MG CHEWTAB PO SCH (09:00)
[2018-08-30] MEDS ORDERED: LASIX IVP ONE (09:56)
[2018-08-30] MEDS ORDERED: PEPCID 20 MG IV PREMIX* 20 MG/50 ML BAG ONE (09:57)
[2018-08-30] MEDS ORDERED: PLAVIX ONE (09:57)
[2018-08-30] MEDS ORDERED: SOLU-Medrol 40 MG VIAL ONE (09:57)
[2018-08-30] MEDS: PEPCID 20 MG IV PREMIX* 20 MG/50 ML BAG IV SCH ×2 (10:09→21:34)
[2018-08-30] MEDS: SOLU-Medrol 125 MG VIAL IVP SCH ×3 (10:09→23:08)
[2018-08-30] MEDS: LASIX IVP SCH ×2 (10:10→21:33)
[2018-08-30] MEDS: PLAVIX PO SCH (10:10)
[2018-08-30 10:31] LABS: CKMB % 2.1 % (<4); CREATINE KINASE MB 1.7 ng/mL (0-4.0); TROPONIN I 0.11 ng/mL (0-1.5)
--- NOTE | 2018-08-30 11:14 | DR.H&P ---
H&P - History & Physical for Day of: H&P Date: 08/29/18 - Chief Complaint Chief Complaint: SOB, COUGH, WHEEZING - History of Present Illness History of Present Illness: 68 WM ER ADMISSION WITH CO INCREASED SOB, WHEEZING WORSE OVER THIS PAST WEEK. PT HAS HX OF COPD, CHF, CAD WITH STENT PLACEMENT ~5 MOS AGO. PT DENIES ANY CHEST PAIN OR LOWER EXTREMITY SWELLING. PT CO MILDLY PRODUCTIVE COUGH. PT HAD CT CHEST IN ER REVEALING BILATERAL PNEUMONIA AND PLEURAL EFFUSION. PT ADMITTED TO ICU SERIAL CE, EKGS AND RESP TREATMENT. - Past Medical History Past Medical History: CHF, COPD, Coronary Artery Disease, Hypertension - Past Surgical History Surgical History: Angioplasty/Stents, Ortho Surgery - Family History Family Medical History: Diabetes Mellitus, Cancer, Hypertension - Social History Does patient currently use any type of tobacco product: No Have you used tobacco products in the last 12 months: No Type of Tobacco Use: Cigarettes How many years tobacco product used: 20 Does any household member use tobacco: No Alcohol Use: Occasionally Drug Use: None - Medications Home Medications: No Known Drug Allergies Allergy (Verified 08/29/18 14:49) CONTINUE taking the following medications NK 08/29/18 [History] - Review of Systems Constitutional: Weakness Eyes: No Symptoms Reported ENT: No Symptoms Reported Respiratory: Cough, Shortness of Breath, SOB with Excertion, Wheezing Cardiovascular: denies: Chest Pain, Edema Gastrointestinal: No Symptoms Reported Musculoskeletal: Back Pain Skin: No Symptoms Reported Neurological: No Symptoms Reported - Physical Exam Vital Signs: Temperature 98.0 F Pulse Rate [Left Radial] 107 Pulse Rate 95 Respiratory Rate 26 Blood Pressure [Left Arm] 179/103 Blood Pressure [Right Arm] 153/85 Blood Pressure 146/79 O2 Sat by Pulse Oximetry 98 Oriented: Normal Eyes: Normal Ear: Normal Nose: Normal Throat: Normal Respiratory: Wheezes Throughout (EXPIRATORY WHEEZES), RLL Diminished, LLL Diminished Cardiovascular: Normal. negative: Edema : Normal Auscultation: Bowel Sounds: Normal Palpation: Normal Tenderness: Normal Skin: Normal Musculoskeletal: Back:Lumbar Psychiatric: Anxiety Affect: Anxious Speech Pattern: Clear, Appropriate - Assessment/Plan (1) Bilateral pneumonia Status: Acute Plan: ADMIT ICU, SERIAL CE AND EKG. CTA CHEST IN ER PRIOR TO ADMISSION, HTN CONTROL. SUPPLEMENTAL O2, RESP THERAPY, ALEXANDER WITH STRICT I&OS. IV ATBX THERAPY, REPEAT AM CXR, VERIFY HOME MEDICATIONS. ABG ON ADMISSION (2) CAD (coronary artery disease) Status: Acute (3) Congestive heart failure Status: Chronic (4) Degenerative disc disease Status: Chronic (5) COPD (chronic obstructive pulmonary disease) with chronic bronchitis Status: Chronic - Allergies Allergies/Adverse Reactions: Allergies Allergy/AdvReac Type Severity Reaction Status Date / Time No Known Drug Allergies Allergy Verified 08/29/18 14:49
--- NOTE | 2018-08-30 11:21 | PCM.PROG ---
Progress Note - Progress Note for Day of Date of Exam: 08/30/18 - Subjective Subjective: 68WM ER ADMISSION ON 08/29 WITH INCREASED SOB, COPD EXACERBATION, PNEUMONIA AND PLEURAL EFFUSIONS. PT HAD HAD SERIAL CE AND EKG. PT DENIES ANY CHEST PAIN NOW OR PRIOR TO ADMISSION. PT BP STABLE THIS AM, CURRENTLY ON IV ATBX THERAPY. WE ADDED LASIX IV, SOLU MEDROL AND RESUMED LISINOPRIL, PLAVIX AND METOPROLOL. PT CONTINUES WITH BILATERAL DIMINISHED LUNG BASES AND DIFFUSE EXPIRATORY WHEEZES. PT ENCOURAGE TO HYDRATION AND PULMONARY TOILETING. - Past Medical Family Social History Past Med/Fam/Surg Hx: No changes since H&P Allergies: Allergies No Known Drug Allergies Allergy (Verified 08/29/18 14:49) - Review of Systems ROS: No change since H&P - Vital Signs and I&O's Vital Signs: Temperature 98.0 F Pulse Rate [Left Radial] 107 Pulse Rate 97 Respiratory Rate 36 Blood Pressure [Left Arm] 179/103 Blood Pressure [Right Arm] 153/85 Blood Pressure 146/79 O2 Sat by Pulse Oximetry 97 Intake and Output: Intake & Output 08/27/18 08/28/18 08/29/18 08/30/18 11:59 11:59 11:59 11:59 Intake Total 1499 / 1499 Output Total 1050 / 1050 Balance 449 / 449 - Physical Exam Oriented: Normal Eyes: Normal Ear: Normal Nose: Normal Throat: Normal Respiratory: Diminished, Wheezes Cardiovascular: Normal. negative: Edema : Normal Auscultation: Bowel Sounds: Normal Tenderness: Normal Skin: Normal Musculoskeletal: Back:Lumbar Psychiatric: Anxiety Affect: Anxious Speech Pattern: Clear, Appropriate - Laboratory and Diagnostics Result Diagrams: 08/29/18 15:45 08/29/18 15:45 Labs: Laboratory WBC 8.1 X10^3/uL (3.6-10.0) 08/29/18 15:45 RBC 5.38 X10^6/uL (4.7-6.0) 08/29/18 15:45 Hgb 15.2 g/dL (13.5-18.0) 08/29/18 15:45 Hct 45.7 % (42.0-54.0) 08/29/18 15:45 MCV 85.0 fL (80.0-100.0) 08/29/18 15:45 MCH 28.4 pg (27.0-34.0) 08/29/18 15:45 MCHC 33.4 g/dL (33.0-35.0) 08/29/18 15:45 RDW 15.3 % (11.6-16.5) 08/29/18 15:45 Plt Count 189 X10^3/uL (150.0-450.0) 08/29/18 15:45 MPV 9.0 fL (7.4-11.0) 08/29/18 15:45 Neut % (Auto) 68.4 % (42.0-75.0) 08/29/18 15:45 Lymph % (Auto) 23.7 % (21.0-51.0) 08/29/18 15:45 [place] % (Auto) 6.6 % (0.0-13.0) 08/29/18 15:45 Eos % (Auto) 0.6 % (0.9-2.9) L 08/29/18 15:45 Baso % (Auto) 0.7 % (0.2-1.0) 08/29/18 15:45 Neut # (Auto) 5.5 x10^3/uL (2.2-4.8) H 08/29/18 15:45 Lymph # (Auto) 1.9 X10^3/uL (1.3-2.9) 08/29/18 15:45 [place] # (Auto) 0.5 x10^3/uL (0.3-0.8) 08/29/18 15:45 Eos # (Auto) 0.0 x10^3/uL (0.0-0.2) 08/29/18 15:45 Baso # (Auto) 0.1 X10^3/uL (0.0-0.1) 08/29/18 15:45 Absolute Nucleated RBC 0.0 /100WBC 08/29/18 15:45 D-Dimer 574 ng/mL (0-400) H* 08/29/18 15:45 Sample Site Rr 08/29/18 15:47 ABG pH 7.510 (7.35-7.45) H 08/29/18 15:47 ABG pCO2 28.0 mmHg (35.0-45.0) L 08/29/18 15:47 ABG pO2 84.0 mmHg (80.0-100.0) 08/29/18 15:47 ABG HCO3 22.3 mmol/L (22-26) 08/29/18 15:47 ABG O2 Saturation 97.0 % (90-100) 08/29/18 15:47 ABG Base Excess 0.2 mmol/L (-2.0-2.0) 08/29/18 15:47 Shawn Test Pos 08/29/18 15:47 A-a Gradient 81.0 mmHg 08/29/18 15:47 FiO2 28.0 08/29/18 15:47 Blood Gas Comments Andrew well cb 08/29/18 15:47 Sodium 139 mmol/L (136-145) 08/29/18 15:45 Corrected Sodium 140 mmol/L (136-145) 08/29/18 15:45 Potassium 4.5 mmol/L (3.5-5.1) 08/29/18 15:45 Chloride 105 mmol/L (98-107) 08/29/18 15:45 Carbon Dioxide 24.9 mmol/L (21-32) 08/29/18 15:45 BUN 19 mg/dL (7-18) H 08/29/18 15:45 Creatinine 1.28 mg/dL (0.70-1.30) 08/29/18 15:45 Est GFR (MDRD) Af Amer > 60 (>60) 08/29/18 15:45 Est GFR (MDRD) Non-Af 60 (>60) 08/29/18 15:45 Glucose 135 mg/dL (65-99) H 08/29/18 15:45 Calcium 9.1 mg/dL (8.5-10.1) 08/29/18 15:45 Corrected Calcium 10.0 mg/dL (8.5-10.1) 08/29/18 15:45 Total Bilirubin 0.80 mg/dL (0.2-1.0) 08/29/18 15:45 AST 21 Units/L (15-37) 08/29/18 15:45 ALT 43 Units/L (12-78) 08/29/18 15:45 Alkaline Phosphatase 102 Units/L (46-116) 08/29/18 15:45 Creatine Kinase 83 Units/L (39-308) 08/30/18 09:29 CK-MB (CK-2) 1.7 ng/mL (0-4.0) 08/30/18 09:29 CK/CKMB % Calc 2.1 % (<4) 08/30/18 09:29 Troponin I 0.11 ng/mL (0-1.5) 08/30/18 09:29 Total Protein 6.7 g/dL (6.4-8.2) 08/29/18 15:45 Albumin 2.9 g/dL (3.4-5.0) L 08/29/18 15:45 Globulin 3.8 g/dL (2.5-4.5) 08/29/18 15:45 Albumin/Globulin Ratio 0.8 Ratio (1.1-2.1) L 08/29/18 15:45 Specimen Type Catherized urine 08/29/18 22:00 Urine Color Pale yellow (YELLOW) 08/29/18 22:00 Urine Appearance Clear (CLEAR) 08/29/18 22:00 Urine pH 8.0 (5.0 - 8.0) 08/29/18 22:00 Ur Specific [place] 1.010 (1.000-1.030) 08/29/18 22:00 Urine Protein 2+ (NEGATIVE) 08/29/18 22:00 Urine Glucose (UA) Negative (NEGATIVE) 08/29/18 22:00 Urine Ketones 1+ (NEGATIVE) 08/29/18 22:00 Urine Occult Blood 3+ (NEGATIVE) 08/29/18 22:00 Urine Nitrite Negative (NEGATIVE) 08/29/18 22:00 Urine Bilirubin Negative (NEGATIVE) 08/29/18 22:00 Urine Urobilinogen Normal (NORMAL) 08/29/18 22:00 Ur Leukocyte Esterase 1+ (NEGATIVE) 08/29/18 22:00 Urine RBC 5-10 /HPF (NONE SEEN) 08/29/18 22:00 Urine WBC 0-2 /HPF (NONE SEEN) 08/29/18 22:00 Ur Squamous Epith Cells Rare /HPF (NEGATIVE) 08/29/18 22:00 Urine Bacteria Negative /HPF (NEGATIVE) 08/29/18 22:00 Ur Culture Indicated? No/not indicated 08/29/18 22:00 - Plan (1) Bilateral pneumonia Status: Acute Plan: ICU, SERIAL CE AND EKG. CTA CHEST IN ER PRIOR TO ADMISSION, HTN CONTROL. SUPPLEMENTAL O2, RESP THERAPY, ALEXANDER WITH STRICT I&OS. IV ATBX THERAPY, REPEAT AM CXR, RESUME HOME MEDICATION INCLUDING PLAVIX AND STATIN THERAPY (2) CAD (coronary artery disease) Status: Acute Plan: CE, EKG, SUPPLEMENTAL O2. BP CONTROL, STRICT I&OS. IV LASIX (3) Congestive heart failure Status: Chronic (4) Degenerative disc disease Status: Chronic (5) COPD (chronic obstructive pulmonary disease) with chronic bronchitis Status: Chronic
[2018-08-30] MEDS: LOPRESSOR TAB 25 MG PO SCH ×2 (11:49→21:33)
[2018-08-30] MEDS: ZESTRIL TAB 10 MG PO SCH (11:49)
[2018-08-30] MEDS: NEURONTIN CAP 100 MG PO SCH ×2 (13:00→23:07)
[2018-08-30 15:57] LABS: CKMB % 1.8 % (<4); CREATINE KINASE MB 1.7 ng/mL (0-4.0); TROPONIN I 0.09 ng/mL (0-1.5)
[2018-08-30] MEDS ORDERED: MAALOX or MYLANTA PO PRN (19:13)
[2018-08-30] MEDS: NS 1/2 1000 ML IV 1,000 ML IV SCH ×2 (19:45→23:00)
[2018-08-30] MEDS: CRESTOR TAB 10 MG PO SCH (21:33)
[2018-08-30 22:21] LABS: CKMB % 1.8 % (<4); CREATINE KINASE MB 1.7 ng/mL (0-4.0); TROPONIN I 0.08 ng/mL (0-1.5)
[2018-08-31] MEDS: PROVENTIL NEB TX 0.083% 2.5MG/ 3ML IN PRN ×6 (02:15→23:30)
[2018-08-31 03:25] LABS: BASOPHILS % (AUTO) 0.1 % (0.2-1.0); EOSINOPHILS % (AUTO) 0.1 % (0.9-2.9); HEMATOCRIT 45.3 % (42.0-54.0); HEMOGLOBIN 15.1 g/dL (13.5-18.0); LYMPHOCYTES # (AUTO) 0.4 X10^3/uL (1.3-2.9); LYMPHOCYTES % (AUTO) 4.7 % (21.0-51.0); MEAN CORPUSCULAR HEMOGLOBIN 28.6 pg (27.0-34.0); MEAN CORPUSCULAR HGB CONC 33.3 g/dL (33.0-35.0); MEAN CORPUSCULAR VOLUME 85.9 fL (80.0-100.0); MEAN PLATELET VOLUME 9.3 fL (7.4-11.0); MONOCYTES # (AUTO) 0.2 x10^3/uL (0.3-0.8); NEUTROPHILS # (AUTO) 8.7 x10^3/uL (2.2-4.8); NEUTROPHILS % (AUTO) 93.1 % (42.0-75.0); PLATELET COUNT 198 X10^3/uL (150.0-450.0); RED BLOOD COUNT 5.27 X10^6/uL (4.7-6.0); RED CELL DISTRIBUTION WIDTH 15.4 % (11.6-16.5); WHITE BLOOD COUNT 9.4 X10^3/uL (3.6-10.0)
[2018-08-31 03:44] LABS: ALANINE AMINOTRANSFERASE 33 Units/L (12-78); ALBUMIN 2.6 g/dL (3.4-5.0); ALKALINE PHOSPHATASE 86 Units/L (46-116); ASPARTATE AMINO TRANSFERASE 18 Units/L (15-37); BLOOD UREA NITROGEN 25 mg/dL (7-18); CALCIUM 8.8 mg/dL (8.5-10.1); CARBON DIOXIDE 29.8 mmol/L (21-32); CHLORIDE 104 mmol/L (98-107); CKMB % 1.6 % (<4); COR CA(FOR HYPOALB) 9.9 mg/dL (8.5-10.1); COR NA(FOR HYPERGLY) 141 mmol/L (136-145); CREATINE KINASE 88 Units/L (39-308); CREATINE KINASE MB 1.4 ng/mL (0-4.0); CREATININE 1.49 mg/dL (0.70-1.30); SODIUM 140 mmol/L (136-145); TOTAL PROTEIN 6.3 g/dL (6.4-8.2); TROPONIN I 0.07 ng/mL (0-1.5); eGFR NON BLACK RACES 50 (>60)
[2018-08-31 04:08] LABS: PLATELET MORPHOLOGY COMMENT NORMAL (NORMAL)
[2018-08-31] MEDS: NS 1/2 1000 ML IV 1,000 ML IV SCH ×2 (05:05→21:29)
[2018-08-31] MEDS ORDERED: NS 1/2 1000 ML IV 1,000 ML ONE ×2 (05:10→20:03)
[2018-08-31] MEDS: NEURONTIN CAP 100 MG PO SCH ×3 (06:04→21:31)
[2018-08-31] MEDS: SOLU-Medrol 125 MG VIAL IVP SCH ×3 (06:04→21:33)
[2018-08-31] MEDS: VSL#3 PO SCH (08:45)
[2018-08-31] MEDS: LEVAQUIN PREMIX IV 750 MG 750 MG/150 ML BAG IV SCH (08:45)
[2018-08-31] MEDS: PEPCID 20 MG IV PREMIX* 20 MG/50 ML BAG IV SCH ×2 (08:45→21:33)
[2018-08-31] MEDS: PLAVIX PO SCH (08:45)
[2018-08-31] MEDS: LOPRESSOR TAB 25 MG PO SCH ×2 (08:45→21:37)
[2018-08-31] MEDS: ZESTRIL TAB 10 MG PO SCH (08:46)
[2018-08-31] MEDS: COLACE CAP 100 MG PO SCH (21:32)
[2018-08-31] MEDS: CRESTOR TAB 10 MG PO SCH (21:32)
[2018-08-31] MEDS: MILK OF MAGNESIA PO SCH (21:33)
[2018-08-31] MEDS ORDERED: PHARMACY CONSULT - DOSE _____ XX SCH (23:00)
[2018-08-31] MEDS: LOVENOX INJ 40 MG SYR SC SCH (23:06)
[2018-09-01] MEDS: NS 1/2 1000 ML IV 1,000 ML IV SCH (04:42)
[2018-09-01 05:18] LABS: BASOPHILS # (AUTO) 0.1 X10^3/uL (0.0-0.1); BASOPHILS % (AUTO) 0.4 % (0.2-1.0); HEMATOCRIT 42.4 % (42.0-54.0); HEMOGLOBIN 13.9 g/dL (13.5-18.0); LYMPHOCYTES # (AUTO) 0.7 X10^3/uL (1.3-2.9); LYMPHOCYTES % (AUTO) 4.9 % (21.0-51.0); MEAN CORPUSCULAR HEMOGLOBIN 28.4 pg (27.0-34.0); MEAN CORPUSCULAR HGB CONC 32.8 g/dL (33.0-35.0); MEAN CORPUSCULAR VOLUME 86.3 fL (80.0-100.0); MEAN PLATELET VOLUME 9.7 fL (7.4-11.0); MONOCYTES # (AUTO) 0.3 x10^3/uL (0.3-0.8); MONOCYTES % (AUTO) 2.5 % (0.0-13.0); NEUTROPHILS # (AUTO) 12.6 x10^3/uL (2.2-4.8); NEUTROPHILS % (AUTO) 92.2 % (42.0-75.0); PLATELET COUNT 210 X10^3/uL (150.0-450.0); RED BLOOD COUNT 4.91 X10^6/uL (4.7-6.0); RED CELL DISTRIBUTION WIDTH 15.2 % (11.6-16.5); WHITE BLOOD COUNT 13.6 X10^3/uL (3.6-10.0)
[2018-09-01 05:30] LABS: ALANINE AMINOTRANSFERASE 40 Units/L (12-78); ALBUMIN 2.4 g/dL (3.4-5.0); ALKALINE PHOSPHATASE 84 Units/L (46-116); ASPARTATE AMINO TRANSFERASE 33 Units/L (15-37); BLOOD UREA NITROGEN 27 mg/dL (7-18); CALCIUM 8.7 mg/dL (8.5-10.1); CARBON DIOXIDE 27.6 mmol/L (21-32); CHLORIDE 106 mmol/L (98-107); COR NA(FOR HYPERGLY) 142 mmol/L (136-145); CREATININE 1.37 mg/dL (0.70-1.30); SODIUM 141 mmol/L (136-145); TOTAL PROTEIN 5.8 g/dL (6.4-8.2); eGFR NON BLACK RACES 55 (>60)
[2018-09-01 05:38] LABS: BAND NEUTROPHILS % 2 % (0-10); PLATELET MORPHOLOGY COMMENT NORMAL (NORMAL)
[2018-09-01] MEDS: PROVENTIL NEB TX 0.083% 2.5MG/ 3ML IN PRN ×5 (05:39→20:11)
--- NOTE | 2018-09-01 06:10 | RAD ---
HISTORY: Follow-up pneumonia Study: Chest PA and lateral Comparison: 06/09/2018, 08/29/2018 CT chest Findings: The heart is mildly enlarged. No congestive heart failure is noted. The nataliia are normal. The aorta is calcified. The lungs are hyperinflated. No acute infiltrates are identified. No definite pleural effusions are identified. The bony thorax is unremarkable. IMPRESSION: Continued cardiomegaly without congestive heart failure Lungs hyperinflated but clear Reported By:
[2018-09-01] MEDS: SOLU-Medrol 125 MG VIAL IVP SCH (06:17)
[2018-09-01] MEDS: NEURONTIN CAP 100 MG PO SCH ×3 (06:17→21:16)
[2018-09-01] MEDS: PEPCID 20 MG IV PREMIX* 20 MG/50 ML BAG IV SCH ×2 (09:36→20:49)
[2018-09-01] MEDS: LEVAQUIN PREMIX IV 750 MG 750 MG/150 ML BAG IV SCH (09:36)
[2018-09-01] MEDS: PLAVIX PO SCH (09:37)
[2018-09-01] MEDS: LOPRESSOR TAB 25 MG PO SCH ×2 (09:37→20:49)
[2018-09-01] MEDS: MILK OF MAGNESIA PO SCH ×3 (09:38→20:57)
[2018-09-01] MEDS: ZESTRIL TAB 10 MG PO SCH (09:38)
[2018-09-01] MEDS: VSL#3 PO SCH (10:26)
--- NOTE | 2018-09-01 17:33 | PCM.PROG ---
Progress Note - Progress Note for Day of Date of Exam: 08/31/18 - Subjective Subjective: 68WM ER ADMISSION ON 08/29 WITH INCREASED SOB, COPD EXACERBATION, PNEUMONIA AND PLEURAL EFFUSIONS. PT HAD HAD SERIAL CE AND EKG. PT DENIES ANY CHEST PAIN NOW OR PRIOR TO ADMISSION. PT BP STABLE THIS AM, CURRENTLY ON IV ATBX THERAPY. TROPONIN 0.07, BUN 25, CREAT 1.49. DC IV LASIX WITH REPEAT CXR IN THE AM. - Past Medical Family Social History Past Med/Fam/Surg Hx: No changes since H&P Allergies: Allergies No Known Drug Allergies Allergy (Verified 08/29/18 14:49) - Review of Systems ROS: No change since H&P - Vital Signs and I&O's Vital Signs: Temperature 98.4 F Pulse Rate [Left Radial] 83 Pulse Rate 79 Respiratory Rate 20 Blood Pressure [Left Arm] 119/62 Blood Pressure [Right Arm] 145/85 Blood Pressure 141/90 O2 Sat by Pulse Oximetry 98 Intake and Output: Intake & Output 08/30/18 08/31/18 09/01/18 09/02/18 11:59 11:59 11:59 11:59 Intake Total 1499 / 1499 3042 / 3042 1460 / 1460 840 / 840 Output Total 1050 / 1050 3850 / 3850 1350 / 1350 Balance 449 / 449 -808 / -808 110 / 110 840 / 840 - Physical Exam Oriented: Normal Eyes: Normal Ear: Normal Nose: Normal Throat: Normal Respiratory: Diminished, Wheezes Cardiovascular: Normal. negative: Edema : Normal Auscultation: Bowel Sounds: Normal Tenderness: Normal Skin: Normal Musculoskeletal: Back:Lumbar Psychiatric: Anxiety Affect: Anxious Speech Pattern: Clear, Appropriate - Laboratory and Diagnostics Result Diagrams: 09/01/18 04:33 09/01/18 04:33 Labs: 08/29/18 19:04 Blood Blood Culture - Preliminary 08/29/18 18:58 Blood Blood Culture - Preliminary Laboratory WBC 13.6 X10^3/uL (3.6-10.0) H 09/01/18 04:33 RBC 4.91 X10^6/uL (4.7-6.0) 09/01/18 04:33 Hgb 13.9 g/dL (13.5-18.0) 09/01/18 04:33 Hct 42.4 % (42.0-54.0) 09/01/18 04:33 MCV 86.3 fL (80.0-100.0) 09/01/18 04:33 MCH 28.4 pg (27.0-34.0) 09/01/18 04:33 MCHC 32.8 g/dL (33.0-35.0) L 09/01/18 04:33 RDW 15.2 % (11.6-16.5) 09/01/18 04:33 Plt Count 210 X10^3/uL (150.0-450.0) 09/01/18 04:33 Plt Count Comment Adequate (ADEQUATE) 09/01/18 04:33 MPV 9.7 fL (7.4-11.0) 09/01/18 04:33 Neut % (Auto) 92.2 % (42.0-75.0) H 09/01/18 04:33 Lymph % (Auto) 4.9 % (21.0-51.0) L 09/01/18 04:33 [place] % (Auto) 2.5 % (0.0-13.0) 09/01/18 04:33 Eos % (Auto) 0.0 % (0.9-2.9) L 09/01/18 04:33 Baso % (Auto) 0.4 % (0.2-1.0) 09/01/18 04:33 Neut # (Auto) 12.6 x10^3/uL (2.2-4.8) H 09/01/18 04:33 Lymph # (Auto) 0.7 X10^3/uL (1.3-2.9) L 09/01/18 04:33 [place] # (Auto) 0.3 x10^3/uL (0.3-0.8) 09/01/18 04:33 Eos # (Auto) 0.0 x10^3/uL (0.0-0.2) 09/01/18 04:33 Baso # (Auto) 0.1 X10^3/uL (0.0-0.1) 09/01/18 04:33 Absolute Nucleated RBC 0.0 /100WBC 09/01/18 04:33 Total Counted 100 09/01/18 04:33 Neutrophils % (Manual) 90 % (39-76) H 09/01/18 04:33 Band Neutrophils % 2 % (0-10) 09/01/18 04:33 Lymphocytes % (Manual) 6 % (13-43) L 09/01/18 04:33 Monocytes % (Manual) 2 % (4-9) L 09/01/18 04:33 Plt Morphology Comment Normal (NORMAL) 09/01/18 04:33 RBC Morphology Normal (NORMAL) 09/01/18 04:33 D-Dimer 574 ng/mL (0-400) H* 08/29/18 15:45 Sample Site Rr 08/29/18 15:47 ABG pH 7.510 (7.35-7.45) H 08/29/18 15:47 ABG pCO2 28.0 mmHg (35.0-45.0) L 08/29/18 15:47 ABG pO2 84.0 mmHg (80.0-100.0) 08/29/18 15:47 ABG HCO3 22.3 mmol/L (22-26) 08/29/18 15:47 ABG O2 Saturation 97.0 % (90-100) 08/29/18 15:47 ABG Base Excess 0.2 mmol/L (-2.0-2.0) 08/29/18 15:47 Shawn Test Pos 08/29/18 15:47 A-a Gradient 81.0 mmHg 08/29/18 15:47 FiO2 28.0 08/29/18 15:47 Blood Gas Comments Andrew well cb 08/29/18 15:47 Sodium 141 mmol/L (136-145) 09/01/18 04:33 Corrected Sodium 142 mmol/L (136-145) 09/01/18 04:33 Potassium 3.9 mmol/L (3.5-5.1) 09/01/18 04:33 Chloride 106 mmol/L (98-107) 09/01/18 04:33 Carbon Dioxide 27.6 mmol/L (21-32) 09/01/18 04:33 BUN 27 mg/dL (7-18) H 09/01/18 04:33 Creatinine 1.37 mg/dL (0.70-1.30) H 09/01/18 04:33 Est GFR (MDRD) Af Amer > 60 (>60) 09/01/18 04:33 Est GFR (MDRD) Non-Af 55 (>60) L 09/01/18 04:33 Glucose 123 mg/dL (65-99) H 09/01/18 04:33 Calcium 8.7 mg/dL (8.5-10.1) 09/01/18 04:33 Corrected Calcium 10.0 mg/dL (8.5-10.1) 09/01/18 04:33 Total Bilirubin 0.40 mg/dL (0.2-1.0) 09/01/18 04:33 AST 33 Units/L (15-37) 09/01/18 04:33 ALT 40 Units/L (12-78) 09/01/18 04:33 Alkaline Phosphatase 84 Units/L (46-116) 09/01/18 04:33 Creatine Kinase 88 Units/L (39-308) 08/31/18 03:10 CK-MB (CK-2) 1.4 ng/mL (0-4.0) 08/31/18 03:10 CK/CKMB % Calc 1.6 % (<4) 08/31/18 03:10 Troponin I 0.07 ng/mL (0-1.5) 08/31/18 03:10 Total Protein 5.8 g/dL (6.4-8.2) L 09/01/18 04:33 Albumin 2.4 g/dL (3.4-5.0) L 09/01/18 04:33 Globulin 3.4 g/dL (2.5-4.5) 09/01/18 04:33 Albumin/Globulin Ratio 0.7 Ratio (1.1-2.1) L 09/01/18 04:33 Specimen Type Catherized urine 08/29/18 22:00 Urine Color Pale yellow (YELLOW) 08/29/18 22:00 Urine Appearance Clear (CLEAR) 08/29/18 22:00 Urine pH 8.0 (5.0 - 8.0) 08/29/18 22:00 Ur Specific [place] 1.010 (1.000-1.030) 08/29/18 22:00 Urine Protein 2+ (NEGATIVE) 08/29/18 22:00 Urine Glucose (UA) Negative (NEGATIVE) 08/29/18 22:00 Urine Ketones 1+ (NEGATIVE) 08/29/18 22:00 Urine Occult Blood 3+ (NEGATIVE) 08/29/18 22:00 Urine Nitrite Negative (NEGATIVE) 08/29/18 22:00 Urine Bilirubin Negative (NEGATIVE) 08/29/18 22:00 Urine Urobilinogen Normal (NORMAL) 08/29/18 22:00 Ur Leukocyte Esterase 1+ (NEGATIVE) 08/29/18 22:00 Urine RBC 5-10 /HPF (NONE SEEN) 08/29/18 22:00 Urine WBC 0-2 /HPF (NONE SEEN) 08/29/18 22:00 Ur Squamous Epith Cells Rare /HPF (NEGATIVE) 08/29/18 22:00 Urine Bacteria Negative /HPF (NEGATIVE) 08/29/18 22:00 Ur Culture Indicated? No/not indicated 08/29/18 22:00 - Plan (1) Bilateral pneumonia Status: Acute Plan: SERIAL CE AND EKG WITH IMPROVING TROPONIN. CTA CHEST IN ER PRIOR TO ADMISSION WITHOUT PE, HTN CONTROL. SUPPLEMENTAL O2, RESP THERAPY, ALEXANDER WITH STRICT I&OS. IMPROVED SOB WITH LASIX TREATMENT. IV ATBX THERAPY, REPEAT AM CXR, RESUME HOME MEDICATION INCLUDING PLAVIX AND STATIN THERAPY (2) CAD (coronary artery disease) Status: Acute Plan: CE, EKG, SUPPLEMENTAL O2. BP CONTROL, STRICT I&OS. IV LASIX (3) Congestive heart failure Status: Chronic (4) Degenerative disc disease Status: Chronic (5) COPD (chronic obstructive pulmonary disease) with chronic bronchitis Status: Chronic
--- NOTE | 2018-09-01 17:36 | PCM.PROG ---
Progress Note - Progress Note for Day of Date of Exam: 09/01/18 - Subjective Subjective: 68WM ER ADMISSION ON 08/29 WITH INCREASED SOB, COPD EXACERBATION, PNEUMONIA AND PLEURAL EFFUSIONS. PT HAD HAD SERIAL CE AND EKG. PT DENIES ANY CHEST PAIN NOW OR PRIOR TO ADMISSION. PT BP STABLE THIS AM, CURRENTLY ON IV ATBX THERAPY. BUN 27, CREAT 1.37. STARTED ON PO LASIX THIS AM. PT CHEST XRAY WITH IMPROVING VASCULAR CONGESTION. - Past Medical Family Social History Past Med/Fam/Surg Hx: No changes since H&P Allergies: Allergies No Known Drug Allergies Allergy (Verified 08/29/18 14:49) - Review of Systems ROS: No change since H&P - Vital Signs and I&O's Vital Signs: Temperature 98.4 F Pulse Rate [Left Radial] 83 Pulse Rate 79 Respiratory Rate 20 Blood Pressure [Left Arm] 119/62 Blood Pressure [Right Arm] 145/85 Blood Pressure 141/90 O2 Sat by Pulse Oximetry 98 Intake and Output: Intake & Output 08/30/18 08/31/18 09/01/18 09/02/18 11:59 11:59 11:59 11:59 Intake Total 1499 / 1499 3042 / 3042 1460 / 1460 840 / 840 Output Total 1050 / 1050 3850 / 3850 1350 / 1350 Balance 449 / 449 -808 / -808 110 / 110 840 / 840 - Physical Exam Oriented: Normal Eyes: Normal Ear: Normal Nose: Normal Throat: Normal Respiratory: Diminished, Wheezes Cardiovascular: Normal. negative: Edema : Normal Auscultation: Bowel Sounds: Normal Tenderness: Normal Skin: Normal Musculoskeletal: Back:Lumbar Psychiatric: Anxiety Affect: Anxious Speech Pattern: Clear, Appropriate - Laboratory and Diagnostics Result Diagrams: 09/01/18 04:33 09/01/18 04:33 Labs: 08/29/18 19:04 Blood Blood Culture - Preliminary 08/29/18 18:58 Blood Blood Culture - Preliminary Laboratory WBC 13.6 X10^3/uL (3.6-10.0) H 09/01/18 04:33 RBC 4.91 X10^6/uL (4.7-6.0) 09/01/18 04:33 Hgb 13.9 g/dL (13.5-18.0) 09/01/18 04:33 Hct 42.4 % (42.0-54.0) 09/01/18 04:33 MCV 86.3 fL (80.0-100.0) 09/01/18 04:33 MCH 28.4 pg (27.0-34.0) 09/01/18 04:33 MCHC 32.8 g/dL (33.0-35.0) L 09/01/18 04:33 RDW 15.2 % (11.6-16.5) 09/01/18 04:33 Plt Count 210 X10^3/uL (150.0-450.0) 09/01/18 04:33 Plt Count Comment Adequate (ADEQUATE) 09/01/18 04:33 MPV 9.7 fL (7.4-11.0) 09/01/18 04:33 Neut % (Auto) 92.2 % (42.0-75.0) H 09/01/18 04:33 Lymph % (Auto) 4.9 % (21.0-51.0) L 09/01/18 04:33 [place] % (Auto) 2.5 % (0.0-13.0) 09/01/18 04:33 Eos % (Auto) 0.0 % (0.9-2.9) L 09/01/18 04:33 Baso % (Auto) 0.4 % (0.2-1.0) 09/01/18 04:33 Neut # (Auto) 12.6 x10^3/uL (2.2-4.8) H 09/01/18 04:33 Lymph # (Auto) 0.7 X10^3/uL (1.3-2.9) L 09/01/18 04:33 [place] # (Auto) 0.3 x10^3/uL (0.3-0.8) 09/01/18 04:33 Eos # (Auto) 0.0 x10^3/uL (0.0-0.2) 09/01/18 04:33 Baso # (Auto) 0.1 X10^3/uL (0.0-0.1) 09/01/18 04:33 Absolute Nucleated RBC 0.0 /100WBC 09/01/18 04:33 Total Counted 100 09/01/18 04:33 Neutrophils % (Manual) 90 % (39-76) H 09/01/18 04:33 Band Neutrophils % 2 % (0-10) 09/01/18 04:33 Lymphocytes % (Manual) 6 % (13-43) L 09/01/18 04:33 Monocytes % (Manual) 2 % (4-9) L 09/01/18 04:33 Plt Morphology Comment Normal (NORMAL) 09/01/18 04:33 RBC Morphology Normal (NORMAL) 09/01/18 04:33 D-Dimer 574 ng/mL (0-400) H* 08/29/18 15:45 Sample Site Rr 08/29/18 15:47 ABG pH 7.510 (7.35-7.45) H 08/29/18 15:47 ABG pCO2 28.0 mmHg (35.0-45.0) L 08/29/18 15:47 ABG pO2 84.0 mmHg (80.0-100.0) 08/29/18 15:47 ABG HCO3 22.3 mmol/L (22-26) 08/29/18 15:47 ABG O2 Saturation 97.0 % (90-100) 08/29/18 15:47 ABG Base Excess 0.2 mmol/L (-2.0-2.0) 08/29/18 15:47 Shawn Test Pos 08/29/18 15:47 A-a Gradient 81.0 mmHg 08/29/18 15:47 FiO2 28.0 08/29/18 15:47 Blood Gas Comments Andrew well cb 08/29/18 15:47 Sodium 141 mmol/L (136-145) 09/01/18 04:33 Corrected Sodium 142 mmol/L (136-145) 09/01/18 04:33 Potassium 3.9 mmol/L (3.5-5.1) 09/01/18 04:33 Chloride 106 mmol/L (98-107) 09/01/18 04:33 Carbon Dioxide 27.6 mmol/L (21-32) 09/01/18 04:33 BUN 27 mg/dL (7-18) H 09/01/18 04:33 Creatinine 1.37 mg/dL (0.70-1.30) H 09/01/18 04:33 Est GFR (MDRD) Af Amer > 60 (>60) 09/01/18 04:33 Est GFR (MDRD) Non-Af 55 (>60) L 09/01/18 04:33 Glucose 123 mg/dL (65-99) H 09/01/18 04:33 Calcium 8.7 mg/dL (8.5-10.1) 09/01/18 04:33 Corrected Calcium 10.0 mg/dL (8.5-10.1) 09/01/18 04:33 Total Bilirubin 0.40 mg/dL (0.2-1.0) 09/01/18 04:33 AST 33 Units/L (15-37) 09/01/18 04:33 ALT 40 Units/L (12-78) 09/01/18 04:33 Alkaline Phosphatase 84 Units/L (46-116) 09/01/18 04:33 Creatine Kinase 88 Units/L (39-308) 08/31/18 03:10 CK-MB (CK-2) 1.4 ng/mL (0-4.0) 08/31/18 03:10 CK/CKMB % Calc 1.6 % (<4) 08/31/18 03:10 Troponin I 0.07 ng/mL (0-1.5) 08/31/18 03:10 Total Protein 5.8 g/dL (6.4-8.2) L 09/01/18 04:33 Albumin 2.4 g/dL (3.4-5.0) L 09/01/18 04:33 Globulin 3.4 g/dL (2.5-4.5) 09/01/18 04:33 Albumin/Globulin Ratio 0.7 Ratio (1.1-2.1) L 09/01/18 04:33 Specimen Type Catherized urine 08/29/18 22:00 Urine Color Pale yellow (YELLOW) 08/29/18 22:00 Urine Appearance Clear (CLEAR) 08/29/18 22:00 Urine pH 8.0 (5.0 - 8.0) 08/29/18 22:00 Ur Specific [place] 1.010 (1.000-1.030) 08/29/18 22:00 Urine Protein 2+ (NEGATIVE) 08/29/18 22:00 Urine Glucose (UA) Negative (NEGATIVE) 08/29/18 22:00 Urine Ketones 1+ (NEGATIVE) 08/29/18 22:00 Urine Occult Blood 3+ (NEGATIVE) 08/29/18 22:00 Urine Nitrite Negative (NEGATIVE) 08/29/18 22:00 Urine Bilirubin Negative (NEGATIVE) 08/29/18 22:00 Urine Urobilinogen Normal (NORMAL) 08/29/18 22:00 Ur Leukocyte Esterase 1+ (NEGATIVE) 08/29/18 22:00 Urine RBC 5-10 /HPF (NONE SEEN) 08/29/18 22:00 Urine WBC 0-2 /HPF (NONE SEEN) 08/29/18 22:00 Ur Squamous Epith Cells Rare /HPF (NEGATIVE) 08/29/18 22:00 Urine Bacteria Negative /HPF (NEGATIVE) 08/29/18 22:00 Ur Culture Indicated? No/not indicated 08/29/18 22:00 - Plan (1) Bilateral pneumonia Status: Acute Plan: SERIAL CE AND EKG WITH IMPROVING TROPONIN. CTA CHEST IN ER PRIOR TO ADMISSION WITHOUT PE, HTN CONTROL. SUPPLEMENTAL O2, RESP THERAPY, ALEXANDER WITH STRICT I&OS. IMPROVED SOB WITH LASIX TREATMENT. IV ATBX THERAPY, REPEAT AM CXR, RESUME HOME MEDICATION INCLUDING PLAVIX AND STATIN THERAPY (2) CAD (coronary artery disease) Status: Acute Plan: CE, EKG, SUPPLEMENTAL O2. BP CONTROL, STRICT I&OS. LASIX (3) Congestive heart failure Status: Chronic (4) Degenerative disc disease Status: Chronic (5) COPD (chronic obstructive pulmonary disease) with chronic bronchitis Status: Chronic
[2018-09-01] MEDS: CRESTOR TAB 10 MG PO SCH (20:48)
[2018-09-01] MEDS: COLACE CAP 100 MG PO SCH (20:48)
[2018-09-01] MEDS: LOVENOX INJ 40 MG SYR SC SCH (20:57)
[2018-09-02 05:20] LABS: BASOPHILS % (AUTO) 0.2 % (0.2-1.0); EOSINOPHILS % (AUTO) 0.1 % (0.9-2.9); HEMATOCRIT 44.9 % (42.0-54.0); HEMOGLOBIN 14.8 g/dL (13.5-18.0); LYMPHOCYTES # (AUTO) 1.6 X10^3/uL (1.3-2.9); LYMPHOCYTES % (AUTO) 14.5 % (21.0-51.0); MEAN CORPUSCULAR HEMOGLOBIN 28.6 pg (27.0-34.0); MEAN CORPUSCULAR VOLUME 86.5 fL (80.0-100.0); MEAN PLATELET VOLUME 9.1 fL (7.4-11.0); MONOCYTES # (AUTO) 0.5 x10^3/uL (0.3-0.8); MONOCYTES % (AUTO) 4.9 % (0.0-13.0); NEUTROPHILS # (AUTO) 8.9 x10^3/uL (2.2-4.8); NEUTROPHILS % (AUTO) 80.3 % (42.0-75.0); PLATELET COUNT 234 X10^3/uL (150.0-450.0); RED BLOOD COUNT 5.19 X10^6/uL (4.7-6.0); RED CELL DISTRIBUTION WIDTH 15.6 % (11.6-16.5); WHITE BLOOD COUNT 11.1 X10^3/uL (3.6-10.0)
[2018-09-02] MEDS ORDERED: NS 1/2 1000 ML IV 1,000 ML ONE (05:24)
[2018-09-02 05:27] LABS: ALANINE AMINOTRANSFERASE 76 Units/L (12-78); ALBUMIN 2.4 g/dL (3.4-5.0); ALKALINE PHOSPHATASE 80 Units/L (46-116); ASPARTATE AMINO TRANSFERASE 46 Units/L (15-37); BLOOD UREA NITROGEN 24 mg/dL (7-18); CALCIUM 8.6 mg/dL (8.5-10.1); CARBON DIOXIDE 28.6 mmol/L (21-32); CHLORIDE 107 mmol/L (98-107); COR CA(FOR HYPOALB) 9.9 mg/dL (8.5-10.1); COR NA(FOR HYPERGLY) 142 mmol/L (136-145); CREATININE 1.37 mg/dL (0.70-1.30); SODIUM 142 mmol/L (136-145); TOTAL PROTEIN 5.8 g/dL (6.4-8.2); eGFR NON BLACK RACES 55 (>60)
[2018-09-02] MEDS: NEURONTIN CAP 100 MG PO SCH ×2 (05:33→14:44)
[2018-09-02] MEDS: NS 1/2 1000 ML IV 1,000 ML IV SCH ×2 (05:33→07:18)
[2018-09-02] MEDS ORDERED: POTASSIUM CHL 40 MEQ/NS 0.45% 500 ML IV PRN (05:48)
[2018-09-02] MEDS ORDERED: POTASSIUM CHL 60 MEQ/NS 0.45% 500 ML IV PRN (05:48)
[2018-09-02] MEDS ORDERED: MAGNESIUM SULFATE 1 GRAM/100 mL PREMIX 1 GM/100 ML BAG IV PRN (05:48)
[2018-09-02] MEDS ORDERED: KLOR-CON PO PRN (05:48)
[2018-09-02] MEDS ORDERED: MICRO K EXTEN CAP 10 MEQ PO PRN (05:48)
[2018-09-02] MEDS ORDERED: K-DUR TAB 20 MEQ PO PRN (05:48)
[2018-09-02] MEDS ORDERED: POTASSIUM CHLORIDE LIQ 20 MEQ UDC PO PRN (05:48)
[2018-09-02] MEDS ORDERED: K-RIDER 10 MEQ/NS 100 ML 10 MEQ/100 ML BAG IV PRN (05:48)
[2018-09-02] MEDS ORDERED: LASIX PO SCH (09:00)
[2018-09-02] MEDS: LEVAQUIN PREMIX IV 750 MG 750 MG/150 ML BAG IV SCH (09:24)
[2018-09-02] MEDS: PEPCID 20 MG IV PREMIX* 20 MG/50 ML BAG IV SCH (09:25)
[2018-09-02] MEDS: MILK OF MAGNESIA PO SCH (09:25)
[2018-09-02] MEDS: LOPRESSOR TAB 25 MG PO SCH (09:25)
[2018-09-02] MEDS: PLAVIX PO SCH (09:25)
[2018-09-02] MEDS: VSL#3 PO SCH (09:26)
[2018-09-02] MEDS: ZESTRIL TAB 10 MG PO SCH (09:26)
[2018-09-02] MEDS ORDERED: LASIX IVP SCH (10:00)
[2018-09-02] MEDS: PROVENTIL NEB TX 0.083% 2.5MG/ 3ML IN PRN (11:16)
[2018-09-02 14:48] VITALS: BP 139/68
== END 2018-09-02 15:45 | disposition home or self-care (01) | DRG 194 ==
LOC: ER 14:49 → ICU 18:33 → MED/SURG 08-31 09:50
PROVIDERS: ADMIT Obstetrics & Gynecology Obstetrics; ATTEND Internal Medicine
DX: R94.31 Abnormal electrocardiogram [ECG] [EKG]; R26.9 Unspecified abnormalities of gait and mobility; M19.90 Unspecified osteoarthritis, unspecified site; J90 Pleural effusion, not elsewhere classified; I10 Essential (primary) hypertension; R94.39 Abnormal result of other cardiovascular function study; J18.9 Pneumonia, unspecified organism; J44.1 Chronic obstructive pulmonary disease with (acute) exacerbation; I25.10 Atherosclerotic heart disease of native coronary artery without angina pectoris; K59.00 Constipation, unspecified; R82.998 Other abnormal findings in urine
CPT/HCPCS: 36415; 36600; 71020; 71046; 71275; 74022; 80053; 81001; 82550; 82553; 82803; 83735; 84484; 85025; 85378; 87040; 93005; 93306; 94640; 97162; 97165; 99284; A4222; S0028; J0360; J1650; J1940; J1956; J2270; J2920; J2930; J7613; J7620

== ENCOUNTER 2018-12-09 17:07 | Inpatient (IN) ==
--- NOTE | 2018-12-09 17:21 | DR.SOBA ---
HPI Time Seen Time Seen by Provider: 12/09/18 17:19 HPI Comment HPI Comment: PATIENT IS 68YR OLD MALE IN THE MERGENCY ROOM WITH INCREASE SOB, LOWER EXTREMITY EDEMA ND CHEST PAIN TIGHTNESS TIMES 2 DAYS. WORSE TODAYCHEST TIGHTNESS NON RADIATING. SYMTOMS WORSE WITH EXERTION. NO FEVER. SAW JUNIOR ACCOUNTANT MARIYA. TOLD TO COME TO ER F ENERGY.IF SYMPTOMS GOT WORSE. TODAY, HE WAS NOT ABLE TO SLEEP IN THE RECLINNER AT HOME. HE IS WEAK AND DRAIN OF ENERGY. Complaints Chief Complaint Doctors Comments: INCREASING SOB, LOWER EXTREMITY TIMES 2 DAYS. Reviewed Nurses Notes Reviewed: Yes Source History Provided: Patient Mode of Arrival Mode of Arrival: Wheelchair Duration Duration: Days Context Onset:: At Rest PE Risk Factors:: None History of:: CHF Currently on:: Neither Prehospital Care:: None Modifying Factors Worsens:: Exertion Improves:: Sitting Up Associated Signs and Symptoms Associated Signs and Symptoms: Cough and Chest Pain If Chest Pain Quality: Sharp Location: Substernal (SHARP PAIN.) If Cough Cough: Productive Other History Other History: CAD, S/P STENT. PMH PMH Past Medical History: Hypertension Past Surgical History: Yes Surgical History: Angioplasty/Stents and Ortho Surgery Family History Family Medical History: Diabetes Mellitus and Hypertension Social History Do you use any recreational Drugs:: No ROS Review of Systems Constitutional: See HPI, Weakness and Fatigue; negative Fever Eyes: No Symptoms Reported and See HPI; negative Eye Pain, Blurred Vision, Tearing, Photophobia and Diplopia ENTM: See HPI and Nose Congestion; negative Ear Pain, Nose Discharge and Throat Pain Respiratoy: See HPI, Productive Cough, Short of Breath and Wheezing Cardiovascular: See HPI, Chest Pain and Edema Gastrointestinal/Abdominal: See HPI and Nausea; negative Abdominal Pain, C onstipation, Diarrhea and Vomiting Genitourinary: No Symptoms Reported and See HPI; negative Dysuria, Frequency and Hematuria Neurological: No Symptoms Reported, See HPI, Headache, Weakness and Dizziness Musculoskeletal: No Symptoms Reported and See HPI; negative Back Pain and Muscle Pain Integumentary: No Symptoms Reported and See HPI; negative Change in Color, Rash and Juandice Hematologic/Lymphatic: See HPI, Easy Bleeding and Easy Bruising; negative Swollen Glands Endocrine: See HPI; negative Increased Thirst, Increased Urine and Decreased Appetite Psychiatric: No Symptoms Reported and See HPI All Other Systems: Reviewed and Negative PE Vital Signs Vitals: Temperature 97.9 F Pulse Rate [Apical] 88 Pulse Rate 76 Respiratory Rate 24 Blood Pressure [Left Arm] 133/88 Blood Pressure [Right Arm] 145/78 Blood Pressure 169/98 O2 Sat by Pulse Oximetry 100 General Limitations: No Limitations General Appearance: Alert and In No Apparent Distress Head Head Exam: Normal Inspection Eyes Eye exam: Normal Appearance ENT ENT Exam: Normal Exam Neck Neck Exam: Normal Inspection Chest Chest Inspection: Normal Inspection Respiratory Respiratory Exam: Normal Lung Sounds Bilat Respiratory Exam: Bilateral: Clear to Auscultation Cardiovascular Cardiovascular Exam: Regular Rate and Normal Rhythm Abdominal Exam Abdominal Exam: Normal Inspection, Normal Bowel Sounds and Soft Extremities Extremities Exam: Normal Inspection Back Back Exam: Normal Inspection Neurologic Neurological Exam: Alert and Oriented X3 Psychiatric Psychiatric Exam: Normal Affect and Normal Mood Skin Skin Exam: Warm, Dry, Intact and Normal Color MDM Differential Diagnosis Differential Diagnosis: CHF, Dysrhythmia, Hypertensive Emergency, Hyponatremia, Mycardial Infarction, Pneumonia, Pneumothorax, Pulmonary embolism and Respiratory Insufficiency COURSE Treatment Treatment: SEE ORDERS. DUO NEB 0.5MG/3MG, LASIX 40MG IV. Reevaluation 1st: Improved (SOB SLIGHTLY DECREASE. ) Consultation Consultation Comments: DISCUSSED PATIENT WITH DR. MENDOZA, HE WILL ADMIT PATIENT. Education/Counseling Education/Counseling: Patient Educated On: Diagnosis and Needs for Follow Up ROR Labs Reviewed Laboratory Results Reviewed?: Yes Result Diagrams: 12/10/18 05:31 12/10/18 05:31 Laboratory: WBC 6.6 X10^3/uL (3.6-10.0) 12/10/18 05:31 RBC 5.16 X10^6/uL (4.7-6.0) 12/10/18 05:31 Hgb 14.1 g/dL (13.5-18.0) 12/10/18 05:31 Hct 42.9 % (42.0-54.0) 12/10/18 05:31 MCV 83.1 fL (80.0-100.0) 12/10/18 05:31 MCH 27.4 pg (27.0-34.0) 12/10/18 05:31 MCHC 32.9 g/dL (33.0-35.0) L 12/10/18 05:31 RDW 15.2 % (11.6-16.5) 12/10/18 05:31 Plt Count 205 X10^3/uL (150.0-450.0) 12/10/18 05:31 MPV 9.0 fL (7.4-11.0) 12/10/18 05:31 Neut % (Auto) 64.1 % (42.0-75.0) 12/10/18 05:31 Lymph % (Auto) 25.1 % (21.0-51.0) 12/10/18 05:31 [place] % (Auto) 8.9 % (0.0-13.0) 12/10/18 05:31 Eos % (Auto) 1.2 % (0.9-2.9) 12/10/18 05:31 Baso % (Auto) 0.7 % (0.2-1.0) 12/10/18 05:31 Neut # (Auto) 4.2 x10^3/uL (2.2-4.8) 12/10/18 05:31 Lymph # (Auto) 1.7 X10^3/uL (1.3-2.9) 12/10/18 05:31 [place] # (Auto) 0.6 x10^3/uL (0.3-0.8) 12/10/18 05:31 Eos # (Auto) 0.1 x10^3/uL (0.0-0.2) 12/10/18 05:31 Baso # (Auto) 0.0 X10^3/uL (0.0-0.1) 12/10/18 05:31 Absolute Nucleated RBC 0.0 /100WBC 12/10/18 05:31 PT 15.0 SECONDS (11.8-14.3) 12/10/18 05:31 INR Target Range - 12/10/18 05:31 INR 1.23 (0.8-1.3) 12/10/18 05:31 APTT 31.2 SECONDS (22.9-36.5) 12/10/18 05:31 PTT Comment - 12/10/18 05:31 D-Dimer 398 ng/mL (0-400) 12/09/18 17:38 Sample Site Rrad 12/10/18 05:59 ABG pH 7.410 (7.35-7.45) 12/10/18 05:59 ABG pCO2 48.0 mmHg (35.0-45.0) H 12/10/18 05:59 ABG pO2 167.0 mmHg (80.0-100.0) H 12/10/18 05:59 ABG HCO3 30.4 mmol/L (22-26) H* 12/10/18 05:59 ABG O2 Saturation 100.0 % (90-100) 12/10/18 05:59 ABG Base Excess 4.8 mmol/L (-2.0-2.0) H 12/10/18 05:59 Shawn Test Pos 12/10/18 05:59 A-a Gradient Not Reportable 12/10/18 05:59 FiO2 28 12/10/18 05:59 Blood Gas Comments Andrew abg well-mtf 12/10/18 05:59 Sodium 143 mmol/L (136-145) 12/10/18 05:31 Corrected Sodium TNP 12/10/18 05:31 Potassium 3.8 mmol/L (3.5-5.1) 12/10/18 05:31 Chloride 106 mmol/L (98-107) 12/10/18 05:31 Carbon Dioxide 29.1 mmol/L (21-32) 12/10/18 05:31 BUN 26 mg/dL (7-18) H 12/10/18 05:31 Creatinine 1.81 mg/dL (0.70-1.30) H 12/10/18 05:31 Est GFR (MDRD) Af Amer 48 (>60) L 12/10/18 05:31 Est GFR (MDRD) Non-Af 40 (>60) L 12/10/18 05:31 Glucose 95 mg/dL (65-99) 12/10/18 05:31 Calcium 8.7 mg/dL (8.5-10.1) 12/10/18 05:31 Corrected Calcium 9.7 mg/dL (8.5-10.1) 12/10/18 05:31 Magnesium 2.1 mg/dL (1.7-2.9) 12/10/18 05:31 Total Bilirubin 1.20 mg/dL (0.2-1.0) H 12/10/18 05:31 AST 17 Units/L (15-37) 12/10/18 05:31 ALT 37 Units/L (12-78) 12/10/18 05:31 Alkaline Phosphatase 102 Units/L (46-116) 12/10/18 05:31 Creatine Kinase 59 Units/L (39-308) 12/10/18 05:31 CK-MB (CK-2) 1.1 ng/mL (0-4.0) 12/10/18 05:31 CK/CKMB % Calc 1.9 % (<4) 12/10/18 05:31 Troponin I 0.06 ng/mL (0-1.5) 12/10/18 05:31 B-Natriuretic Peptide 1850 pg/mL (0-79) H* 12/09/18 17:38 Total Protein 6.4 g/dL (6.4-8.2) 12/10/18 05:31 Albumin 2.8 g/dL (3.4-5.0) L 12/10/18 05:31 Globulin 3.6 g/dL (2.5-4.5) 12/10/18 05:31 Albumin/Globulin Ratio 0.8 Ratio (1.1-2.1) L 12/10/18 05:31 Specimen Type Random urine 12/09/18 19:58 Urine Color Yellow (YELLOW) 12/09/18 19:58 Urine Appearance Clear (CLEAR) 12/09/18 19:58 Urine pH 6.5 (5.0 - 8.0) 12/09/18 19:58 Ur Specific [place] 1.010 (1.000-1.030) 12/09/18 19:58 Urine Protein Negative (NEGATIVE) 12/09/18 19:58 Urine Glucose (UA) Negative (NEGATIVE) 12/09/18 19:58 Urine Ketones Negative (NEGATIVE) 12/09/18 19:58 Urine Occult Blood 1+ (NEGATIVE) 12/09/18 19:58 Urine Nitrite Negative (NEGATIVE) 12/09/18 19:58 Urine Bilirubin Negative (NEGATIVE) 12/09/18 19:58 Urine Urobilinogen Normal (NORMAL) 12/09/18 19:58 Ur Leukocyte Esterase Negative (NEGATIVE) 12/09/18 19:58 Urine RBC 0-2 /HPF (0-3) 12/09/18 19:58 Urine WBC None seen /HPF (0-5) 12/09/18 19:58 Ur Squamous Epith Cells Negative /HPF (NEGATIVE) 12/09/18 19:58 Urine Bacteria Negative /HPF (NEGATIVE) 12/09/18 19:58 Ur Culture Indicated? No/not indicated 12/09/18 19:58 XRAY XRAY Interpreted by: Radiologist XRAY Findings: REPORT NOTED AND DISCUSSED WITH PATIENT. EKG Rate: 79 [place]: Normal Rhythm: NSR and PVCs Block: None Hypertrophy: LAE and LVH ST: Nonsp Opioid Opioid Risk Tool Age (Gil box if 16-45): No History of Preadolescent Sexual Abuse: No Total: 0 Total Score Risk Category: Low Risk Copyright: [facility] predicting aberrant behaviors Diagnosis Discharge Problem: Acute respiratory distress, Chest tightness CHF (congestive heart failure) Qualifiers: Heart failure type: combined systolic and diastolic Heart failure chronicity: acute on chronic Qualified Code(s): I50.43 - Acute on chronic combined systolic (congestive) and diastolic (congestive) heart failure Edema Qualifiers: Edema type: localized Qualified Code(s): R60.0 - Localized edema Instructions Forms: Excuse From Work
[2018-12-09] MEDS ORDERED: DUONEB 0.5 MG/3 MG NEB ONE (17:28)
[2018-12-09] MEDS ORDERED: DUONEB 0.5 MG/3 MG ONE (17:28)
[2018-12-09 17:47] LABS: BASOPHILS # (AUTO) 0.1 X10^3/uL (0.0-0.1); EOSINOPHILS % (AUTO) 0.6 % (0.9-2.9); HEMATOCRIT 39.1 % (42.0-54.0); LYMPHOCYTES # (AUTO) 1.2 X10^3/uL (1.3-2.9); LYMPHOCYTES % (AUTO) 17.2 % (21.0-51.0); MEAN CORPUSCULAR HEMOGLOBIN 27.5 pg (27.0-34.0); MEAN CORPUSCULAR HGB CONC 33.3 g/dL (33.0-35.0); MEAN CORPUSCULAR VOLUME 82.5 fL (80.0-100.0); MEAN PLATELET VOLUME 8.7 fL (7.4-11.0); MONOCYTES # (AUTO) 0.5 x10^3/uL (0.3-0.8); MONOCYTES % (AUTO) 7.1 % (0.0-13.0); NEUTROPHILS # (AUTO) 5.3 x10^3/uL (2.2-4.8); NEUTROPHILS % (AUTO) 74.1 % (42.0-75.0); PLATELET COUNT 196 X10^3/uL (150.0-450.0); RED BLOOD COUNT 4.74 X10^6/uL (4.7-6.0); RED CELL DISTRIBUTION WIDTH 15.1 % (11.6-16.5); WHITE BLOOD COUNT 7.1 X10^3/uL (3.6-10.0)
--- NOTE | 2018-12-09 17:54 | RAD ---
Exam: Portable chest History: 68-year-old male with shortness of breath. Comparison: Previous chest radiograph from 11/12/2018. Findings: Mild cardiomegaly is again seen. No significant vascular congestion however. Lungs are clear with no infiltrate or significant effusion on either side. Metallic artifact projects over the right upper chest. Bony thorax is unremarkable. Impression: Mild cardiomegaly. However no acute superimposed abnormality is seen on this exam Reported By:
[2018-12-09 18:04] LABS: CALCIUM 8.4 mg/dL (8.5-10.1); CARBON DIOXIDE 24.4 mmol/L (21-32); CREATININE 1.71 mg/dL (0.70-1.30); TROPONIN I 0.06 ng/mL (0-1.5)
[2018-12-09 18:08] LABS: ALBUMIN 2.7 g/dL (3.4-5.0); CKMB % 2.4 % (<4); COR CA(FOR HYPOALB) 9.4 mg/dL (8.5-10.1); CREATINE KINASE MB 1.5 ng/mL (0-4.0); TOTAL PROTEIN 6.1 g/dL (6.4-8.2)
[2018-12-09] MEDS ORDERED: LASIX IVP ONE ×2 (18:40→18:52)
[2018-12-09 20:11] LABS: BILIRUBIN,URINE NEGATIVE (NEGATIVE); BLOOD/HEMOGLOBIN,URINE 1+ (NEGATIVE); GLUCOSE, URINE NEGATIVE (NEGATIVE); KETONES,URINE NEGATIVE (NEGATIVE); LEUKOCYTE ESTERASE ,URINE NEGATIVE (NEGATIVE); NITRITES,URINE NEGATIVE (NEGATIVE); PH,URINE 6.5 (5.0 - 8.0); PROTEIN,URINE NEGATIVE (NEGATIVE); UROBILINOGEN,URINE NORMAL (NORMAL)
[2018-12-09 20:14] LABS: ABG BASE EXCESS 3.5 mmol/L (-2.0-2.0); ABG HCO3 24.7 mmol/L (22-26)
[2018-12-09 20:15] LABS: ABG ALLEN TEST POS
[2018-12-09 20:18] LABS: APPEARANCE,URINE CLEAR (CLEAR); BACTERIA,URINE NEGATIVE /HPF (NEGATIVE); COLOR,URINE YELLOW (YELLOW); RBC,URINE 0-2 /HPF (0-3); SQUAMOUS EPITHELIAL CELL,UR NEGATIVE /HPF (NEGATIVE)
[2018-12-09] MEDS ORDERED: LASIX IVP SCH (21:00)
[2018-12-09] MEDS ORDERED: LASIX ONE (21:10)
[2018-12-09] MEDS: ZANAFLEX PO SCH (22:30)
[2018-12-09] MEDS: LASIX IVP SCH (22:49)
[2018-12-09 23:18] VITALS: BMI 19.5
[2018-12-09] MEDS ORDERED: DUONEB 0.5 MG/3 MG NEB PRN (23:34)
[2018-12-10 06:02] LABS: ABG BASE EXCESS 4.8 mmol/L (-2.0-2.0)
[2018-12-10 06:03] LABS: ABG ALLEN TEST POS; ABG HCO3 30.4 mmol/L (22-26); FRACTIONATED INSPIRED OXYGEN 28
[2018-12-10 06:16] LABS: BASOPHILS % (AUTO) 0.7 % (0.2-1.0); EOSINOPHILS # (AUTO) 0.1 x10^3/uL (0.0-0.2); EOSINOPHILS % (AUTO) 1.2 % (0.9-2.9); HEMATOCRIT 42.9 % (42.0-54.0); HEMOGLOBIN 14.1 g/dL (13.5-18.0); LYMPHOCYTES # (AUTO) 1.7 X10^3/uL (1.3-2.9); LYMPHOCYTES % (AUTO) 25.1 % (21.0-51.0); MEAN CORPUSCULAR HEMOGLOBIN 27.4 pg (27.0-34.0); MEAN CORPUSCULAR HGB CONC 32.9 g/dL (33.0-35.0); MEAN CORPUSCULAR VOLUME 83.1 fL (80.0-100.0); MONOCYTES # (AUTO) 0.6 x10^3/uL (0.3-0.8); MONOCYTES % (AUTO) 8.9 % (0.0-13.0); NEUTROPHILS # (AUTO) 4.2 x10^3/uL (2.2-4.8); NEUTROPHILS % (AUTO) 64.1 % (42.0-75.0); PLATELET COUNT 205 X10^3/uL (150.0-450.0); RED BLOOD COUNT 5.16 X10^6/uL (4.7-6.0); RED CELL DISTRIBUTION WIDTH 15.2 % (11.6-16.5); WHITE BLOOD COUNT 6.6 X10^3/uL (3.6-10.0)
[2018-12-10 06:41] LABS: ALANINE AMINOTRANSFERASE 37 Units/L (12-78); ALBUMIN 2.8 g/dL (3.4-5.0); ALKALINE PHOSPHATASE 102 Units/L (46-116); ASPARTATE AMINO TRANSFERASE 17 Units/L (15-37); BLOOD UREA NITROGEN 26 mg/dL (7-18); CALCIUM 8.7 mg/dL (8.5-10.1); CARBON DIOXIDE 29.1 mmol/L (21-32); CHLORIDE 106 mmol/L (98-107); CKMB % 2.6 % (<4); COR CA(FOR HYPOALB) 9.7 mg/dL (8.5-10.1); CREATINE KINASE 55 Units/L (39-308); CREATINE KINASE MB 1.4 ng/mL (0-4.0); CREATININE 1.81 mg/dL (0.70-1.30); MAGNESIUM 2.1 mg/dL (1.7-2.9); SODIUM 143 mmol/L (136-145); TOTAL PROTEIN 6.4 g/dL (6.4-8.2); TROPONIN I 0.06 ng/mL (0-1.5); eGFR NON BLACK RACES 40 (>60)
[2018-12-10] MEDS ORDERED: PHARMACY CONSULT - DOSE _____ XX SCH (08:00)
[2018-12-10] MEDS: ASPIRIN EC 81 MG PO SCH (08:23)
[2018-12-10] MEDS: K-DUR TAB 20 MEQ PO SCH (08:23)
[2018-12-10] MEDS: PLAVIX PO SCH (08:25)
[2018-12-10] MEDS: ZANAFLEX PO SCH ×2 (08:37→21:05)
[2018-12-10 08:41] LABS: CKMB % 1.9 % (<4); CREATINE KINASE MB 1.1 ng/mL (0-4.0); TROPONIN I 0.06 ng/mL (0-1.5)
[2018-12-10] MEDS: COREG TAB 6.25 MG PO SCH ×2 (08:45→21:05)
[2018-12-10] MEDS: NS 1000 ML 1,000 ML IV SCH (08:48)
[2018-12-10] MEDS ORDERED: FLUTICASONE FUROATE 100 MCG IN SCH (09:00)
[2018-12-10] MEDS: PULMICORT NEB TX 0.5 MG NEB SCH ×2 (09:15→21:36)
[2018-12-10] MEDS: FLOMAX PO SCH (10:34)
[2018-12-10] MEDS: LOVENOX INJ 30 MG SYR SC SCH (10:35)
[2018-12-10] MEDS: PROTONIX INJ 40 MG VIAL IVP SCH (10:35)
[2018-12-10] MEDS: SOLU-Medrol 125 MG VIAL IVP SCH ×3 (11:13→21:07)
[2018-12-10] MEDS: LASIX IVP SCH ×2 (11:13→21:07)
--- NOTE | 2018-12-10 15:57 | DR.H&P ---
H&P - History & Physical for Day of: H&P Date: 12/09/18 - Chief Complaint Chief Complaint: SOB, LEG SWELLING - History of Present Illness History of Present Illness: PATIENT IS 68YR OLD MALE IN THE MERGENCY ROOM WITH INCREASE SOB, LOWER EXTREMITY EDEMA ND CHEST PAIN TIGHTNESS TIMES 2 DAYS. WORSE TODAYCHEST TIGHTNESS NON RADIATING. SYMTOMS WORSE WITH EXERTION. NO FEVER. 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 TOLD TO COME TO ER F ENERGY.IF SYMPTOMS GOT WORSE. TODAY, HE WAS NOT ABLE TO SLEEP IN THE RECLINNER AT HOME. HE IS WEAK AND DRAIN OF ENERGY. - Past Medical History Past Medical History: Hypertension - Past Surgical History Surgical History: Angioplasty/Stents, Ortho Surgery - Family History Family Medical History: Diabetes Mellitus, Hypertension - Social History Does patient currently use any type of tobacco product: Yes Have you used tobacco products in the last 12 months: Yes Type of Tobacco Use: Cigarettes Does any household member use tobacco: No Alcohol Use: Occasionally Drug Use: Marijuana - Medications Home Medications: No Known Drug Allergies Allergy (Verified 08/29/18 14:49) CONTINUE taking the following medications fluticasone furoate [Arnuity Ellipta] 100 mcg INHALATION DAILY 12/09/18 [History] tizanidine 4 mg PO BID 12/09/18 [History] - Review of Systems Constitutional: Weakness Eyes: No Symptoms Reported ENT: No Symptoms Reported Respiratory: Shortness of Breath, SOB with Excertion Gastrointestinal: No Symptoms Reported Genitourinary: No Symptoms Reported Musculoskeletal: Leg Pain Skin: No Symptoms Reported Neurological: No Symptoms Reported - Physical Exam Vital Signs: Temperature 97.9 F Pulse Rate [Apical] 80 Pulse Rate 76 Respiratory Rate 24 Blood Pressure [Left Arm] 157/98 Blood Pressure [Right Arm] 145/78 Blood Pressure 169/98 O2 Sat by Pulse Oximetry 100 Oriented: Normal Eyes: Normal Ear: Normal Nose: Normal Throat: Normal Respiratory: RML Diminished, RLL Diminished, LML Diminished, LLL Diminished Cardiovascular: Normal, Edema : Normal Auscultation: Bowel Sounds: Normal Palpation: Normal Tenderness: Normal Skin: Normal Musculoskeletal: Right, Left, Leg, Back:Lumbar, Tender Psychiatric: Anxiety Affect: Anxious Speech Pattern: Clear, Appropriate - Assessment/Plan (1) Acute respiratory distress Status: Acute Plan: ADMIT ICU, SERIAL CE AND EKG. CHEST XRAY ON ADMISSION, STRICT I & OS. ADMISSION LABS CBC CMP UA, ABG. IV LASIX, SUPPLEMENTAL O2, IV ATBX (2) CHF (congestive heart failure) Qualifiers: Heart failure type: combined systolic and diastolic Heart failure chronicity: acute on chronic Qualified Code(s): I50.43 - Acute on chronic combined systolic (congestive) and diastolic (congestive) heart failure Status: Acute (3) CAD (coronary artery disease) Status: Acute (4) Essential hypertension Status: Chronic (5) Degenerative disc disease Status: Chronic (6) COPD (chronic obstructive pulmonary disease) with chronic bronchitis Status: Chronic - Allergies Allergies/Adverse Reactions: Allergies Allergy/AdvReac Type Severity Reaction Status Date / Time No Known Drug Allergies Allergy Verified 08/29/18 14:49
[2018-12-11 06:07] LABS: BASOPHILS % (AUTO) 0.2 % (0.2-1.0); LYMPHOCYTES # (AUTO) 0.6 X10^3/uL (1.3-2.9); LYMPHOCYTES % (AUTO) 11.7 % (21.0-51.0); MEAN CORPUSCULAR HEMOGLOBIN 27.4 pg (27.0-34.0); MEAN CORPUSCULAR HGB CONC 33.3 g/dL (33.0-35.0); MEAN CORPUSCULAR VOLUME 82.2 fL (80.0-100.0); MEAN PLATELET VOLUME 9.2 fL (7.4-11.0); MONOCYTES # (AUTO) 0.1 x10^3/uL (0.3-0.8); MONOCYTES % (AUTO) 1.4 % (0.0-13.0); NEUTROPHILS # (AUTO) 4.2 x10^3/uL (2.2-4.8); NEUTROPHILS % (AUTO) 86.7 % (42.0-75.0); PLATELET COUNT 203 X10^3/uL (150.0-450.0); RED BLOOD COUNT 4.74 X10^6/uL (4.7-6.0); WHITE BLOOD COUNT 4.9 X10^3/uL (3.6-10.0)
[2018-12-11 07:05] LABS: ALANINE AMINOTRANSFERASE 27 Units/L (12-78); ALBUMIN 2.6 g/dL (3.4-5.0); ALKALINE PHOSPHATASE 92 Units/L (46-116); ASPARTATE AMINO TRANSFERASE 13 Units/L (15-37); BLOOD UREA NITROGEN 27 mg/dL (7-18); CALCIUM 8.4 mg/dL (8.5-10.1); CARBON DIOXIDE 25.3 mmol/L (21-32); COR CA(FOR HYPOALB) 9.5 mg/dL (8.5-10.1); CREATININE 1.49 mg/dL (0.70-1.30); eGFR NON BLACK RACES 50 (>60)
[2018-12-11 07:28] LABS: CHLORIDE 104 mmol/L (98-107); COR NA(FOR HYPERGLY) 140 mmol/L (136-145); SODIUM 139 mmol/L (136-145)
[2018-12-11] MEDS: PULMICORT NEB TX 0.5 MG NEB SCH ×2 (08:27→20:09)
[2018-12-11] MEDS: ZANAFLEX PO SCH ×2 (08:53→20:37)
[2018-12-11] MEDS: PLAVIX PO SCH (08:53)
[2018-12-11] MEDS: LOVENOX INJ 30 MG SYR SC SCH (08:53)
[2018-12-11] MEDS: COREG TAB 6.25 MG PO SCH (08:54)
[2018-12-11] MEDS: FLOMAX PO SCH (08:54)
[2018-12-11] MEDS: ASPIRIN EC 81 MG PO SCH (08:55)
[2018-12-11] MEDS: K-DUR TAB 20 MEQ PO SCH ×2 (08:57→10:08)
[2018-12-11] MEDS: K-DUR TAB 20 MEQ PO PRN (09:00)
[2018-12-11] MEDS: PROTONIX INJ 40 MG VIAL IVP SCH (09:02)
[2018-12-11] MEDS: LASIX IVP SCH ×2 (09:02→20:43)
--- NOTE | 2018-12-11 09:17 | RAD ---
History: Shortness of breath Study: Portable AP chest Comparison: December 09, 2018 Findings: There is unchanged mild to moderate cardiomegaly with a tortuous aorta. The lungs are hyper inflated. There is no edema or effusion. Impression: Cardiomegaly and COPD Reported By:
[2018-12-11] MEDS ORDERED: MICRO K EXTEN CAP 10 MEQ PO PRN (10:07)
[2018-12-11] MEDS ORDERED: K-RIDER 10 MEQ/NS 100 ML 10 MEQ/100 ML BAG IV PRN (10:07)
[2018-12-11] MEDS ORDERED: POTASSIUM CHLORIDE LIQ 20 MEQ UDC PO PRN (10:07)
[2018-12-11] MEDS ORDERED: POTASSIUM CHL 60 MEQ/NS 0.45% 500 ML IV PRN (10:07)
[2018-12-11] MEDS ORDERED: KLOR-CON PO PRN (10:07)
[2018-12-11] MEDS ORDERED: POTASSIUM CHL 40 MEQ/NS 0.45% 500 ML IV PRN (10:07)
[2018-12-11 10:45] LABS: CKMB % 2.4 % (<4); CREATINE KINASE MB 1.2 ng/mL (0-4.0); TROPONIN I 0.04 ng/mL (0-1.5)
[2018-12-11] MEDS: NS 1000 ML 1,000 ML IV SCH (12:45)
--- NOTE | 2018-12-11 13:18 | PCM.PROG ---
Progress Note - Progress Note for Day of Date of Exam: 12/10/18 - Subjective Subjective: 68BM ER ADMISSION AFTER PRESENTING WITH CO BILATERAL LOWER LEG SWELLING AND INCREASES SOB. PT HAS PMH OF CAD AND CHF. PT REPORTS HE WAS TAKING PRESCRIPTION MEDICATIONS BUT RAN OUT. PT HAD STENT PLACEMENT PER DR SERVIN AT [facility] LESS THAN ONE YEAR AGO. PT WAS STARTED ON IV LASIX ON ADMISSION WITH BP AND ANTICOAGULANT THERAPY. PT BUN 26. CREAT 1.81 THIS AM. PT CE STABLE, WILL REPEAT AM ABG AND 4TH SET CE. PT REPORTS FEELING SOME IMPROVEMENT IN SOB, BUT CONTINUES WITH BILATERAL LOWER EXTREMITY EDEMA, IVF INCREASED TO 50CC/HR AND PT ENCOURAGED TO KEEP LOWER EXTREMITIES ELEVATED. - Past Medical Family Social History Allergies: Allergies No Known Drug Allergies Allergy (Verified 08/29/18 14:49) - Review of Systems ROS: No change since H&P - Vital Signs and I&O's Vital Signs: Temperature 98.6 F Pulse Rate [Apical] 78 Pulse Rate 82 Respiratory Rate 21 Blood Pressure [Left Arm] 166/93 Blood Pressure [Right Arm] 145/78 Blood Pressure 169/98 O2 Sat by Pulse Oximetry 99 Intake and Output: Intake & Output 12/09/18 12/10/18 12/11/18 12/12/18 11:59 11:59 11:59 11:59 Intake Total 2345 / 2345 Output Total 1775 / 1775 2280 / 2280 800 / 800 Balance -1775 / -1775 65 / 65 -800 / -800 - Physical Exam Oriented: Normal Eyes: Normal Ear: Normal Nose: Normal Throat: Normal Respiratory: Diminished, Wheezes Cardiovascular: Normal, Edema : Normal Auscultation: Bowel Sounds: Normal Tenderness: Normal Skin: Normal Musculoskeletal: Right, Left, Leg, Back:Lumbar, Tender Psychiatric: Anxiety Affect: Anxious Speech Pattern: Clear, Appropriate - Laboratory and Diagnostics Result Diagrams: 12/11/18 04:42 12/11/18 04:42 Labs: Laboratory WBC 4.9 X10^3/uL (3.6-10.0) 12/11/18 04:42 RBC 4.74 X10^6/uL (4.7-6.0) 12/11/18 04:42 Hgb 13.0 g/dL (13.5-18.0) L 12/11/18 04:42 Hct 39.0 % (42.0-54.0) L 12/11/18 04:42 MCV 82.2 fL (80.0-100.0) 12/11/18 04:42 MCH 27.4 pg (27.0-34.0) 12/11/18 04:42 MCHC 33.3 g/dL (33.0-35.0) 12/11/18 04:42 RDW 15.0 % (11.6-16.5) 12/11/18 04:42 Plt Count 203 X10^3/uL (150.0-450.0) 12/11/18 04:42 MPV 9.2 fL (7.4-11.0) 12/11/18 04:42 Neut % (Auto) 86.7 % (42.0-75.0) H 12/11/18 04:42 Lymph % (Auto) 11.7 % (21.0-51.0) L 12/11/18 04:42 [place] % (Auto) 1.4 % (0.0-13.0) 12/11/18 04:42 Eos % (Auto) 0.0 % (0.9-2.9) L 12/11/18 04:42 Baso % (Auto) 0.2 % (0.2-1.0) 12/11/18 04:42 Neut # (Auto) 4.2 x10^3/uL (2.2-4.8) 12/11/18 04:42 Lymph # (Auto) 0.6 X10^3/uL (1.3-2.9) L 12/11/18 04:42 [place] # (Auto) 0.1 x10^3/uL (0.3-0.8) L 12/11/18 04:42 Eos # (Auto) 0.0 x10^3/uL (0.0-0.2) 12/11/18 04:42 Baso # (Auto) 0.0 X10^3/uL (0.0-0.1) 12/11/18 04:42 Absolute Nucleated RBC 0.0 /100WBC 12/11/18 04:42 PT 15.0 SECONDS (11.8-14.3) 12/10/18 05:31 INR Target Range - 12/10/18 05:31 INR 1.23 (0.8-1.3) 12/10/18 05:31 APTT 31.2 SECONDS (22.9-36.5) 12/10/18 05:31 PTT Comment - 12/10/18 05:31 D-Dimer 398 ng/mL (0-400) 12/09/18 17:38 Sample Site Rrad 12/10/18 05:59 ABG pH 7.410 (7.35-7.45) 12/10/18 05:59 ABG pCO2 48.0 mmHg (35.0-45.0) H 12/10/18 05:59 ABG pO2 167.0 mmHg (80.0-100.0) H 12/10/18 05:59 ABG HCO3 30.4 mmol/L (22-26) H* 12/10/18 05:59 ABG O2 Saturation 100.0 % (90-100) 12/10/18 05:59 ABG Base Excess 4.8 mmol/L (-2.0-2.0) H 12/10/18 05:59 Shawn Test Pos 12/10/18 05:59 A-a Gradient Not Reportable 12/10/18 05:59 FiO2 28 12/10/18 05:59 Blood Gas Comments Andrew abg well-mtf 12/10/18 05:59 Sodium 139 mmol/L (136-145) 12/11/18 04:42 Corrected Sodium 140 mmol/L (136-145) 12/11/18 04:42 Potassium 3.4 mmol/L (3.5-5.1) L 12/11/18 04:42 Chloride 104 mmol/L (98-107) 12/11/18 04:42 Carbon Dioxide 25.3 mmol/L (21-32) 12/11/18 04:42 BUN 27 mg/dL (7-18) H 12/11/18 04:42 Creatinine 1.49 mg/dL (0.70-1.30) H 12/11/18 04:42 Est GFR (MDRD) Af Amer > 60 (>60) 12/11/18 04:42 Est GFR (MDRD) Non-Af 50 (>60) L 12/11/18 04:42 Glucose 121 mg/dL (65-99) H 12/11/18 04:42 Calcium 8.4 mg/dL (8.5-10.1) L 12/11/18 04:42 Corrected Calcium 9.5 mg/dL (8.5-10.1) 12/11/18 04:42 Magnesium 2.0 mg/dL (1.7-2.9) 12/11/18 09:55 Total Bilirubin 0.60 mg/dL (0.2-1.0) 12/11/18 04:42 AST 13 Units/L (15-37) L 12/11/18 04:42 ALT 27 Units/L (12-78) 12/11/18 04:42 Alkaline Phosphatase 92 Units/L (46-116) 12/11/18 04:42 Creatine Kinase 50 Units/L (39-308) 12/11/18 09:55 CK-MB (CK-2) 1.2 ng/mL (0-4.0) 12/11/18 09:55 CK/CKMB % Calc 2.4 % (<4) 12/11/18 09:55 Troponin I 0.04 ng/mL (0-1.5) 12/11/18 09:55 B-Natriuretic Peptide 1850 pg/mL (0-79) H* 12/09/18 17:38 Total Protein 6.0 g/dL (6.4-8.2) L 12/11/18 04:42 Albumin 2.6 g/dL (3.4-5.0) L 12/11/18 04:42 Globulin 3.4 g/dL (2.5-4.5) 12/11/18 04:42 Albumin/Globulin Ratio 0.8 Ratio (1.1-2.1) L 12/11/18 04:42 Specimen Type Random urine 12/09/18 19:58 Urine Color Yellow (YELLOW) 12/09/18 19:58 Urine Appearance Clear (CLEAR) 12/09/18 19:58 Urine pH 6.5 (5.0 - 8.0) 12/09/18 19:58 Ur Specific [place] 1.010 (1.000-1.030) 12/09/18 19:58 Urine Protein Negative (NEGATIVE) 12/09/18 19:58 Urine Glucose (UA) Negative (NEGATIVE) 12/09/18 19:58 Urine Ketones Negative (NEGATIVE) 12/09/18 19:58 Urine Occult Blood 1+ (NEGATIVE) 12/09/18 19:58 Urine Nitrite Negative (NEGATIVE) 12/09/18 19:58 Urine Bilirubin Negative (NEGATIVE) 12/09/18 19:58 Urine Urobilinogen Normal (NORMAL) 12/09/18 19:58 Ur Leukocyte Esterase Negative (NEGATIVE) 12/09/18 19:58 Urine RBC 0-2 /HPF (0-3) 12/09/18 19:58 Urine WBC None seen /HPF (0-5) 12/09/18 19:58 Ur Squamous Epith Cells Negative /HPF (NEGATIVE) 12/09/18 19:58 Urine Bacteria Negative /HPF (NEGATIVE) 12/09/18 19:58 Ur Culture Indicated? No/not indicated 12/09/18 19:58 - Plan (1) Acute respiratory distress Status: Acute Plan: SERIAL CE AND EKG ON ADMISSION. REPEAT AM CXR, STRICT I & OS. AM LABS, ABG. IV LASIX, SUPPLEMENTAL O2, IV ATBX (2) CHF (congestive heart failure) Status: Acute Qualifiers: Heart failure type: combined systolic and diastolic Heart failure chronicity: acute on chronic Qualified Code(s): I50.43 - Acute on chronic combined systolic (congestive) and diastolic (congestive) heart failure (3) CAD (coronary artery disease) Status: Acute (4) Essential hypertension Status: Chronic (5) Degenerative disc disease Status: Chronic (6) COPD (chronic obstructive pulmonary disease) with chronic bronchitis Status: Chronic
--- NOTE | 2018-12-11 13:26 | PCM.PROG ---
Progress Note - Progress Note for Day of Date of Exam: 12/11/18 - Subjective Subjective: 68BM ER ADMISSION AFTER PRESENTING WITH CO BILATERAL LOWER LEG SWELLING AND INCREASES SOB. PT HAS PMH OF CAD AND CHF. PT REPORTS HE WAS TAKING PRESCRIPTION MEDICATIONS BUT RAN OUT. PT HAD STENT PLACEMENT PER DR SERVIN AT [facility] LESS THAN ONE YEAR AGO. PT WAS STARTED ON IV LASIX ON ADMISSION WITH BP AND ANTICOAGULANT THERAPY. PT CONTINUES WITH SOB, WORSE ON EXERTION. PT CONTINUES WITH BILATERAL LOWER EXTREMITY EDEMA. PT CO CHEST PAIN THIS AM STATES FEELS LIKE INDIGESTION FROM [place]UEL AT BREAKFAST. GI COCKTAIL ORDERED WITH REPEAT SET CE. PT HAS HAD INCREASED URINE OUTPUT WITH IV LASIX. BUN 27, CREAT 1.49. - Past Medical Family Social History Past Med/Fam/Surg Hx: No changes since H&P Allergies: Allergies No Known Drug Allergies Allergy (Verified 08/29/18 14:49) - Review of Systems ROS: No change since H&P - Vital Signs and I&O's Vital Signs: Temperature 98.6 F Pulse Rate [Apical] 78 Pulse Rate 82 Respiratory Rate 21 Blood Pressure [Left Arm] 166/93 Blood Pressure [Right Arm] 145/78 Blood Pressure 169/98 O2 Sat by Pulse Oximetry 99 Intake and Output: Intake & Output 12/09/18 12/10/18 12/11/18 12/12/18 11:59 11:59 11:59 11:59 Intake Total 2345 / 2345 Output Total 1775 / 1775 2280 / 2280 800 / 800 Balance -1775 / -1775 65 / 65 -800 / -800 - Physical Exam Oriented: Normal Eyes: Normal Ear: Normal Nose: Normal Throat: Normal Respiratory: Diminished, Wheezes Cardiovascular: Normal, Edema : Normal Auscultation: Bowel Sounds: Normal Tenderness: Normal Skin: Normal Musculoskeletal: Right, Left, Leg, Back:Lumbar, Tender Psychiatric: Anxiety Affect: Anxious Speech Pattern: Clear, Appropriate - Laboratory and Diagnostics Result Diagrams: 12/11/18 04:42 12/11/18 04:42 Labs: Laboratory WBC 4.9 X10^3/uL (3.6-10.0) 12/11/18 04:42 RBC 4.74 X10^6/uL (4.7-6.0) 12/11/18 04:42 Hgb 13.0 g/dL (13.5-18.0) L 12/11/18 04:42 Hct 39.0 % (42.0-54.0) L 12/11/18 04:42 MCV 82.2 fL (80.0-100.0) 12/11/18 04:42 MCH 27.4 pg (27.0-34.0) 12/11/18 04:42 MCHC 33.3 g/dL (33.0-35.0) 12/11/18 04:42 RDW 15.0 % (11.6-16.5) 12/11/18 04:42 Plt Count 203 X10^3/uL (150.0-450.0) 12/11/18 04:42 MPV 9.2 fL (7.4-11.0) 12/11/18 04:42 Neut % (Auto) 86.7 % (42.0-75.0) H 12/11/18 04:42 Lymph % (Auto) 11.7 % (21.0-51.0) L 12/11/18 04:42 [place] % (Auto) 1.4 % (0.0-13.0) 12/11/18 04:42 Eos % (Auto) 0.0 % (0.9-2.9) L 12/11/18 04:42 Baso % (Auto) 0.2 % (0.2-1.0) 12/11/18 04:42 Neut # (Auto) 4.2 x10^3/uL (2.2-4.8) 12/11/18 04:42 Lymph # (Auto) 0.6 X10^3/uL (1.3-2.9) L 12/11/18 04:42 [place] # (Auto) 0.1 x10^3/uL (0.3-0.8) L 12/11/18 04:42 Eos # (Auto) 0.0 x10^3/uL (0.0-0.2) 12/11/18 04:42 Baso # (Auto) 0.0 X10^3/uL (0.0-0.1) 12/11/18 04:42 Absolute Nucleated RBC 0.0 /100WBC 12/11/18 04:42 PT 15.0 SECONDS (11.8-14.3) 12/10/18 05:31 INR Target Range - 12/10/18 05:31 INR 1.23 (0.8-1.3) 12/10/18 05:31 APTT 31.2 SECONDS (22.9-36.5) 12/10/18 05:31 PTT Comment - 12/10/18 05:31 D-Dimer 398 ng/mL (0-400) 12/09/18 17:38 Sample Site Rrad 12/10/18 05:59 ABG pH 7.410 (7.35-7.45) 12/10/18 05:59 ABG pCO2 48.0 mmHg (35.0-45.0) H 12/10/18 05:59 ABG pO2 167.0 mmHg (80.0-100.0) H 12/10/18 05:59 ABG HCO3 30.4 mmol/L (22-26) H* 12/10/18 05:59 ABG O2 Saturation 100.0 % (90-100) 12/10/18 05:59 ABG Base Excess 4.8 mmol/L (-2.0-2.0) H 12/10/18 05:59 Shawn Test Pos 12/10/18 05:59 A-a Gradient Not Reportable 12/10/18 05:59 FiO2 28 12/10/18 05:59 Blood Gas Comments Andrew abg well-mtf 12/10/18 05:59 Sodium 139 mmol/L (136-145) 12/11/18 04:42 Corrected Sodium 140 mmol/L (136-145) 12/11/18 04:42 Potassium 3.4 mmol/L (3.5-5.1) L 12/11/18 04:42 Chloride 104 mmol/L (98-107) 12/11/18 04:42 Carbon Dioxide 25.3 mmol/L (21-32) 12/11/18 04:42 BUN 27 mg/dL (7-18) H 12/11/18 04:42 Creatinine 1.49 mg/dL (0.70-1.30) H 12/11/18 04:42 Est GFR (MDRD) Af Amer > 60 (>60) 12/11/18 04:42 Est GFR (MDRD) Non-Af 50 (>60) L 12/11/18 04:42 Glucose 121 mg/dL (65-99) H 12/11/18 04:42 Calcium 8.4 mg/dL (8.5-10.1) L 12/11/18 04:42 Corrected Calcium 9.5 mg/dL (8.5-10.1) 12/11/18 04:42 Magnesium 2.0 mg/dL (1.7-2.9) 12/11/18 09:55 Total Bilirubin 0.60 mg/dL (0.2-1.0) 12/11/18 04:42 AST 13 Units/L (15-37) L 12/11/18 04:42 ALT 27 Units/L (12-78) 12/11/18 04:42 Alkaline Phosphatase 92 Units/L (46-116) 12/11/18 04:42 Creatine Kinase 50 Units/L (39-308) 12/11/18 09:55 CK-MB (CK-2) 1.2 ng/mL (0-4.0) 12/11/18 09:55 CK/CKMB % Calc 2.4 % (<4) 12/11/18 09:55 Troponin I 0.04 ng/mL (0-1.5) 12/11/18 09:55 B-Natriuretic Peptide 1850 pg/mL (0-79) H* 12/09/18 17:38 Total Protein 6.0 g/dL (6.4-8.2) L 12/11/18 04:42 Albumin 2.6 g/dL (3.4-5.0) L 12/11/18 04:42 Globulin 3.4 g/dL (2.5-4.5) 12/11/18 04:42 Albumin/Globulin Ratio 0.8 Ratio (1.1-2.1) L 12/11/18 04:42 Specimen Type Random urine 12/09/18 19:58 Urine Color Yellow (YELLOW) 12/09/18 19:58 Urine Appearance Clear (CLEAR) 12/09/18 19:58 Urine pH 6.5 (5.0 - 8.0) 12/09/18 19:58 Ur Specific [place] 1.010 (1.000-1.030) 12/09/18 19:58 Urine Protein Negative (NEGATIVE) 12/09/18 19:58 Urine Glucose (UA) Negative (NEGATIVE) 12/09/18 19:58 Urine Ketones Negative (NEGATIVE) 12/09/18 19:58 Urine Occult Blood 1+ (NEGATIVE) 12/09/18 19:58 Urine Nitrite Negative (NEGATIVE) 12/09/18 19:58 Urine Bilirubin Negative (NEGATIVE) 12/09/18 19:58 Urine Urobilinogen Normal (NORMAL) 12/09/18 19:58 Ur Leukocyte Esterase Negative (NEGATIVE) 12/09/18 19:58 Urine RBC 0-2 /HPF (0-3) 12/09/18 19:58 Urine WBC None seen /HPF (0-5) 12/09/18 19:58 Ur Squamous Epith Cells Negative /HPF (NEGATIVE) 12/09/18 19:58 Urine Bacteria Negative /HPF (NEGATIVE) 12/09/18 19:58 Ur Culture Indicated? No/not indicated 12/09/18 19:58 - Plan (1) Acute respiratory distress Status: Acute Plan: SERIAL CE AND EKG ON ADMISSION, REPEAT CE THIS AM. REPEAT CXR THIS AM, STRICT I & OS. AM LABS, ABG. IV LASIX, SUPPLEMENTAL O2, IV ATBX (2) CHF (congestive heart failure) Status: Acute Qualifiers: Heart failure type: combined systolic and diastolic Heart failure chronicity: acute on chronic Qualified Code(s): I50.43 - Acute on chronic combined systolic (congestive) and diastolic (congestive) heart failure (3) CAD (coronary artery disease) Status: Acute (4) Essential hypertension Status: Chronic (5) Degenerative disc disease Status: Chronic (6) COPD (chronic obstructive pulmonary disease) with chronic bronchitis Status: Chronic (7) GERD (gastroesophageal reflux disease) Status: Acute Plan: GI COCKTAIL PRN
[2018-12-11] MEDS: NEURONTIN CAP 300 MG PO SCH ×2 (17:59→23:12)
[2018-12-11] MEDS ORDERED: COLACE CAP 100 MG PO PRN (20:04)
[2018-12-11] MEDS: COREG TAB 12.5 MG PO SCH (20:38)
[2018-12-11] MEDS: ENTRESTO 24/26 MG TAB PO SCH (20:46)
[2018-12-12 05:25] LABS: BASOPHILS % (AUTO) 0.3 % (0.2-1.0); EOSINOPHILS # (AUTO) 0.1 x10^3/uL (0.0-0.2); EOSINOPHILS % (AUTO) 0.8 % (0.9-2.9); HEMATOCRIT 41.4 % (42.0-54.0); HEMOGLOBIN 13.9 g/dL (13.5-18.0); LYMPHOCYTES # (AUTO) 1.9 X10^3/uL (1.3-2.9); LYMPHOCYTES % (AUTO) 19.3 % (21.0-51.0); MEAN CORPUSCULAR HEMOGLOBIN 27.5 pg (27.0-34.0); MEAN CORPUSCULAR HGB CONC 33.5 g/dL (33.0-35.0); MEAN CORPUSCULAR VOLUME 82.2 fL (80.0-100.0); MEAN PLATELET VOLUME 9.1 fL (7.4-11.0); MONOCYTES # (AUTO) 0.6 x10^3/uL (0.3-0.8); MONOCYTES % (AUTO) 5.9 % (0.0-13.0); NEUTROPHILS # (AUTO) 7.4 x10^3/uL (2.2-4.8); NEUTROPHILS % (AUTO) 73.7 % (42.0-75.0); PLATELET COUNT 224 X10^3/uL (150.0-450.0); RED BLOOD COUNT 5.04 X10^6/uL (4.7-6.0)
[2018-12-12] MEDS: NS 1000 ML 1,000 ML IV SCH ×2 (05:26→17:39)
[2018-12-12] MEDS: NEURONTIN CAP 300 MG PO SCH ×3 (05:30→22:48)
[2018-12-12 05:38] LABS: ALANINE AMINOTRANSFERASE 25 Units/L (12-78); ALBUMIN 2.7 g/dL (3.4-5.0); ALKALINE PHOSPHATASE 98 Units/L (46-116); ASPARTATE AMINO TRANSFERASE 14 Units/L (15-37); BLOOD UREA NITROGEN 28 mg/dL (7-18); CALCIUM 8.4 mg/dL (8.5-10.1); CARBON DIOXIDE 25.3 mmol/L (21-32); CHLORIDE 105 mmol/L (98-107); COR CA(FOR HYPOALB) 9.4 mg/dL (8.5-10.1); COR NA(FOR HYPERGLY) 141 mmol/L (136-145); CREATININE 1.44 mg/dL (0.70-1.30); SODIUM 141 mmol/L (136-145); TOTAL PROTEIN 6.4 g/dL (6.4-8.2); eGFR NON BLACK RACES 52 (>60)
[2018-12-12] MEDS: PULMICORT NEB TX 0.5 MG NEB SCH ×2 (08:14→20:36)
[2018-12-12] MEDS: ASPIRIN EC 81 MG PO SCH (09:06)
[2018-12-12] MEDS: PLAVIX PO SCH (09:07)
[2018-12-12] MEDS: ZANAFLEX PO SCH ×2 (09:07→20:03)
[2018-12-12] MEDS: FLOMAX PO SCH (09:07)
[2018-12-12] MEDS: COREG TAB 12.5 MG PO SCH ×2 (09:08→20:02)
[2018-12-12] MEDS: K-DUR TAB 20 MEQ PO SCH ×2 (09:08→15:21)
[2018-12-12] MEDS: PROTONIX INJ 40 MG VIAL IVP SCH (09:14)
[2018-12-12] MEDS: LASIX IVP SCH ×2 (09:14→20:03)
[2018-12-12] MEDS: LOVENOX INJ 30 MG SYR SC SCH (09:15)
[2018-12-12] MEDS: ENTRESTO 24/26 MG TAB PO SCH ×2 (10:00→20:03)
[2018-12-12] MEDS: K-DUR TAB 20 MEQ PO PRN (15:22)
[2018-12-12 15:50] LABS: ABG ALLEN TEST POS; ABG BASE EXCESS 6.3 mmol/L (-2.0-2.0); ABG HCO3 30.6 mmol/L (22-26)
[2018-12-13 05:31] LABS: BASOPHILS % (AUTO) 0.6 % (0.2-1.0); EOSINOPHILS # (AUTO) 0.3 x10^3/uL (0.0-0.2); EOSINOPHILS % (AUTO) 4.6 % (0.9-2.9); HEMATOCRIT 39.8 % (42.0-54.0); HEMOGLOBIN 13.3 g/dL (13.5-18.0); LYMPHOCYTES % (AUTO) 31.7 % (21.0-51.0); MEAN CORPUSCULAR HEMOGLOBIN 27.6 pg (27.0-34.0); MEAN CORPUSCULAR HGB CONC 33.5 g/dL (33.0-35.0); MEAN CORPUSCULAR VOLUME 82.3 fL (80.0-100.0); MEAN PLATELET VOLUME 8.9 fL (7.4-11.0); MONOCYTES # (AUTO) 0.4 x10^3/uL (0.3-0.8); MONOCYTES % (AUTO) 6.3 % (0.0-13.0); NEUTROPHILS # (AUTO) 3.5 x10^3/uL (2.2-4.8); NEUTROPHILS % (AUTO) 56.8 % (42.0-75.0); PLATELET COUNT 217 X10^3/uL (150.0-450.0); RED BLOOD COUNT 4.83 X10^6/uL (4.7-6.0); WHITE BLOOD COUNT 6.2 X10^3/uL (3.6-10.0)
[2018-12-13 05:48] LABS: ALANINE AMINOTRANSFERASE 19 Units/L (12-78); ALBUMIN 2.3 g/dL (3.4-5.0); ALKALINE PHOSPHATASE 89 Units/L (46-116); ASPARTATE AMINO TRANSFERASE 9 Units/L (15-37); BLOOD UREA NITROGEN 22 mg/dL (7-18); CALCIUM 7.8 mg/dL (8.5-10.1); CARBON DIOXIDE 30.8 mmol/L (21-32); CHLORIDE 105 mmol/L (98-107); COR CA(FOR HYPOALB) 9.2 mg/dL (8.5-10.1); CREATININE 1.38 mg/dL (0.70-1.30); SODIUM 142 mmol/L (136-145); TOTAL PROTEIN 5.7 g/dL (6.4-8.2); eGFR NON BLACK RACES 55 (>60)
[2018-12-13] MEDS: NEURONTIN CAP 300 MG PO SCH ×3 (06:47→21:10)
[2018-12-13] MEDS: PULMICORT NEB TX 0.5 MG NEB SCH ×2 (08:07→20:56)
[2018-12-13] MEDS: ENTRESTO 24/26 MG TAB PO SCH ×2 (08:28→20:41)
[2018-12-13] MEDS: ASPIRIN EC 81 MG PO SCH (08:35)
[2018-12-13] MEDS: ZANAFLEX PO SCH ×2 (08:35→20:40)
[2018-12-13] MEDS: FLOMAX PO SCH (08:36)
[2018-12-13] MEDS: COREG TAB 12.5 MG PO SCH ×2 (08:36→20:41)
[2018-12-13] MEDS: LOVENOX INJ 30 MG SYR SC SCH (08:46)
[2018-12-13] MEDS: PLAVIX PO SCH (08:47)
[2018-12-13] MEDS: LASIX IVP SCH ×3 (08:48→20:43)
[2018-12-13] MEDS: PROTONIX INJ 40 MG VIAL IVP SCH (08:49)
[2018-12-13] MEDS: K-DUR TAB 20 MEQ PO SCH (09:42)
[2018-12-13] MEDS: K-DUR TAB 20 MEQ PO PRN ×2 (09:43→20:39)
[2018-12-13] MEDS ORDERED: COREG TAB 12.5 MG PO ONE (10:20)
[2018-12-13] MEDS: ALBUMIN HUMAN 25%- 100 ML 100 ML IV SCH ×3 (10:39→20:45)
[2018-12-13] MEDS: NS 1000 ML 1,000 ML IV SCH ×2 (13:50→21:00)
[2018-12-13] MEDS: MAGNESIUM SULFATE 1 GRAM/100 mL PREMIX 1 GM/100 ML BAG IV PRN (23:58)
[2018-12-14] MEDS: MAGNESIUM SULFATE 1 GRAM/100 mL PREMIX 1 GM/100 ML BAG IV PRN (02:44)
--- NOTE | 2018-12-14 04:55 | RAD ---
Chest, 1 view Indication: CHF, respiratory distress Comparison: 12/11/2018 Findings: The right lung base is partially obscured by overlying EKG leads. Cardiac silhouette enlargement is unchanged. There is mild bibasilar predominant edema with small left-sided pleural effusion. No dense infiltrates. Stable metallic densities overlie the upper chest. Impression: Cardiomegaly with mild edema, small left pleural effusion. Reported By:
[2018-12-14 05:21] LABS: BASOPHILS % (AUTO) 0.4 % (0.2-1.0); EOSINOPHILS # (AUTO) 0.2 x10^3/uL (0.0-0.2); EOSINOPHILS % (AUTO) 3.9 % (0.9-2.9); HEMATOCRIT 38.3 % (42.0-54.0); HEMOGLOBIN 12.7 g/dL (13.5-18.0); LYMPHOCYTES # (AUTO) 2.2 X10^3/uL (1.3-2.9); LYMPHOCYTES % (AUTO) 34.9 % (21.0-51.0); MEAN CORPUSCULAR HEMOGLOBIN 27.4 pg (27.0-34.0); MEAN CORPUSCULAR HGB CONC 33.1 g/dL (33.0-35.0); MEAN CORPUSCULAR VOLUME 82.8 fL (80.0-100.0); MONOCYTES # (AUTO) 0.5 x10^3/uL (0.3-0.8); MONOCYTES % (AUTO) 8.6 % (0.0-13.0); NEUTROPHILS # (AUTO) 3.2 x10^3/uL (2.2-4.8); NEUTROPHILS % (AUTO) 52.2 % (42.0-75.0); PLATELET COUNT 210 X10^3/uL (150.0-450.0); RED BLOOD COUNT 4.62 X10^6/uL (4.7-6.0); RED CELL DISTRIBUTION WIDTH 14.9 % (11.6-16.5); WHITE BLOOD COUNT 6.2 X10^3/uL (3.6-10.0)
[2018-12-14] MEDS: NEURONTIN CAP 300 MG PO SCH ×3 (05:21→21:05)
[2018-12-14 05:34] LABS: ALANINE AMINOTRANSFERASE 15 Units/L (12-78); ALBUMIN 3.2 g/dL (3.4-5.0); ALKALINE PHOSPHATASE 90 Units/L (46-116); ASPARTATE AMINO TRANSFERASE 8 Units/L (15-37); BLOOD UREA NITROGEN 19 mg/dL (7-18); CALCIUM 8.2 mg/dL (8.5-10.1); CARBON DIOXIDE 33.3 mmol/L (21-32); CHLORIDE 104 mmol/L (98-107); COR CA(FOR HYPOALB) 8.8 mg/dL (8.5-10.1); CREATININE 1.44 mg/dL (0.70-1.30); MAGNESIUM 2.4 mg/dL (1.7-2.9); SODIUM 142 mmol/L (136-145); eGFR NON BLACK RACES 52 (>60)
[2018-12-14] MEDS: PULMICORT NEB TX 0.5 MG NEB SCH ×2 (08:30→21:00)
[2018-12-14] MEDS: ALBUMIN HUMAN 25%- 100 ML 100 ML IV SCH ×2 (09:01→20:53)
[2018-12-14] MEDS: K-DUR TAB 20 MEQ PO SCH (09:20)
[2018-12-14] MEDS: K-DUR TAB 20 MEQ PO PRN ×3 (09:20→17:00)
[2018-12-14] MEDS: ASPIRIN EC 81 MG PO SCH (09:28)
[2018-12-14] MEDS: PLAVIX PO SCH (09:29)
[2018-12-14] MEDS: FLOMAX PO SCH (09:29)
[2018-12-14] MEDS: COREG TAB 12.5 MG PO SCH ×2 (09:29→20:54)
[2018-12-14] MEDS: ZANAFLEX PO SCH ×2 (09:29→20:55)
[2018-12-14] MEDS: LASIX IVP SCH ×2 (09:32→20:55)
[2018-12-14] MEDS: PROTONIX INJ 40 MG VIAL IVP SCH (09:32)
[2018-12-14] MEDS: LOVENOX INJ 30 MG SYR SC SCH (09:32)
[2018-12-14] MEDS: ENTRESTO 24/26 MG TAB PO SCH ×2 (09:32→20:55)
[2018-12-15] MEDS: NS 1000 ML 1,000 ML IV SCH ×3 (04:32→20:16)
[2018-12-15 04:37] LABS: BASOPHILS # (AUTO) 0.1 X10^3/uL (0.0-0.1); BASOPHILS % (AUTO) 1.1 % (0.2-1.0); EOSINOPHILS # (AUTO) 0.3 x10^3/uL (0.0-0.2); EOSINOPHILS % (AUTO) 4.6 % (0.9-2.9); HEMATOCRIT 36.8 % (42.0-54.0); LYMPHOCYTES # (AUTO) 1.8 X10^3/uL (1.3-2.9); LYMPHOCYTES % (AUTO) 31.7 % (21.0-51.0); MEAN CORPUSCULAR HEMOGLOBIN 27.2 pg (27.0-34.0); MEAN CORPUSCULAR HGB CONC 32.6 g/dL (33.0-35.0); MEAN CORPUSCULAR VOLUME 83.3 fL (80.0-100.0); MONOCYTES # (AUTO) 0.5 x10^3/uL (0.3-0.8); MONOCYTES % (AUTO) 8.2 % (0.0-13.0); NEUTROPHILS # (AUTO) 3.2 x10^3/uL (2.2-4.8); NEUTROPHILS % (AUTO) 54.4 % (42.0-75.0); PLATELET COUNT 191 X10^3/uL (150.0-450.0); RED BLOOD COUNT 4.42 X10^6/uL (4.7-6.0); RED CELL DISTRIBUTION WIDTH 14.7 % (11.6-16.5); WHITE BLOOD COUNT 5.8 X10^3/uL (3.6-10.0)
[2018-12-15 04:49] LABS: ALANINE AMINOTRANSFERASE 13 Units/L (12-78); ALBUMIN 3.6 g/dL (3.4-5.0); ALKALINE PHOSPHATASE 76 Units/L (46-116); ASPARTATE AMINO TRANSFERASE 7 Units/L (15-37); BLOOD UREA NITROGEN 23 mg/dL (7-18); CALCIUM 8.5 mg/dL (8.5-10.1); CARBON DIOXIDE 32.1 mmol/L (21-32); CHLORIDE 105 mmol/L (98-107); COR NA(FOR HYPERGLY) 141 mmol/L (136-145); CREATININE 1.33 mg/dL (0.70-1.30); SODIUM 141 mmol/L (136-145); TOTAL PROTEIN 6.3 g/dL (6.4-8.2); eGFR NON BLACK RACES 57 (>60)
[2018-12-15] MEDS: NEURONTIN CAP 300 MG PO SCH ×3 (05:43→21:50)
[2018-12-15] MEDS: K-DUR TAB 20 MEQ PO PRN (05:44)
[2018-12-15] MEDS: ALBUMIN HUMAN 25%- 100 ML 100 ML IV SCH (08:02)
[2018-12-15] MEDS: COREG TAB 12.5 MG PO SCH ×2 (08:03→21:50)
[2018-12-15] MEDS: ASPIRIN EC 81 MG PO SCH (08:03)
[2018-12-15] MEDS: FLOMAX PO SCH (08:04)
[2018-12-15] MEDS: ENTRESTO 24/26 MG TAB PO SCH ×2 (08:04→21:50)
[2018-12-15] MEDS: LASIX IVP SCH ×2 (08:05→21:50)
[2018-12-15] MEDS: K-DUR TAB 20 MEQ PO SCH (08:05)
[2018-12-15] MEDS: PROTONIX INJ 40 MG VIAL IVP SCH (08:06)
[2018-12-15] MEDS: LOVENOX INJ 30 MG SYR SC SCH (08:06)
[2018-12-15] MEDS: PLAVIX PO SCH (08:06)
[2018-12-15] MEDS: ZANAFLEX PO SCH ×2 (08:07→21:50)
[2018-12-15 09:29] LABS: AMYLASE 67 Units/L (25-115); LIPASE 174 Units/L (73-393)
[2018-12-15] MEDS: CARAFATE ORAL SUSP PO SCH ×3 (10:57→21:51)
[2018-12-15] MEDS: DUONEB 0.5 MG/3 MG NEB SCH ×4 (11:30→20:05)
[2018-12-15] MEDS: PULMICORT NEB TX 0.5 MG NEB SCH ×2 (11:30→20:05)
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
[2018-12-16 04:54] LABS: BASOPHILS # (AUTO) 0.1 X10^3/uL (0.0-0.1); BASOPHILS % (AUTO) 1.4 % (0.2-1.0); EOSINOPHILS # (AUTO) 0.3 x10^3/uL (0.0-0.2); EOSINOPHILS % (AUTO) 5.5 % (0.9-2.9); HEMATOCRIT 37.9 % (42.0-54.0); HEMOGLOBIN 12.4 g/dL (13.5-18.0); LYMPHOCYTES # (AUTO) 2.1 X10^3/uL (1.3-2.9); LYMPHOCYTES % (AUTO) 34.9 % (21.0-51.0); MEAN CORPUSCULAR HGB CONC 32.7 g/dL (33.0-35.0); MEAN CORPUSCULAR VOLUME 82.4 fL (80.0-100.0); MEAN PLATELET VOLUME 8.9 fL (7.4-11.0); MONOCYTES # (AUTO) 0.5 x10^3/uL (0.3-0.8); MONOCYTES % (AUTO) 8.7 % (0.0-13.0); NEUTROPHILS # (AUTO) 2.9 x10^3/uL (2.2-4.8); NEUTROPHILS % (AUTO) 49.5 % (42.0-75.0); PLATELET COUNT 213 X10^3/uL (150.0-450.0); RED CELL DISTRIBUTION WIDTH 15.1 % (11.6-16.5); WHITE BLOOD COUNT 5.9 X10^3/uL (3.6-10.0)
[2018-12-16] MEDS: NS 1000 ML 1,000 ML IV SCH (05:05)
[2018-12-16 05:07] LABS: ALANINE AMINOTRANSFERASE 12 Units/L (12-78); ALBUMIN 3.8 g/dL (3.4-5.0); ALKALINE PHOSPHATASE 74 Units/L (46-116); ASPARTATE AMINO TRANSFERASE 8 Units/L (15-37); BLOOD UREA NITROGEN 27 mg/dL (7-18); CALCIUM 8.9 mg/dL (8.5-10.1); CHLORIDE 104 mmol/L (98-107); CREATININE 1.38 mg/dL (0.70-1.30); SODIUM 140 mmol/L (136-145); TOTAL PROTEIN 6.5 g/dL (6.4-8.2); eGFR NON BLACK RACES 55 (>60)
[2018-12-16] MEDS: NEURONTIN CAP 300 MG PO SCH (05:33)
[2018-12-16] MEDS: CARAFATE ORAL SUSP PO SCH (05:33)
[2018-12-16] MEDS: PULMICORT NEB TX 0.5 MG NEB SCH (08:51)
[2018-12-16] MEDS: DUONEB 0.5 MG/3 MG NEB SCH (08:51)
[2018-12-16] MEDS: ASPIRIN EC 81 MG PO SCH (09:22)
[2018-12-16] MEDS: COREG TAB 12.5 MG PO SCH (09:23)
[2018-12-16] MEDS: LASIX IVP SCH (09:23)
[2018-12-16] MEDS: ENTRESTO 24/26 MG TAB PO SCH (09:23)
[2018-12-16] MEDS: FLOMAX PO SCH (09:23)
[2018-12-16] MEDS: K-DUR TAB 20 MEQ PO SCH (09:23)
[2018-12-16] MEDS: LOVENOX INJ 30 MG SYR SC SCH (09:24)
[2018-12-16] MEDS: PLAVIX PO SCH (09:24)
[2018-12-16] MEDS: ZANAFLEX PO SCH (09:25)
[2018-12-16] MEDS: PROTONIX INJ 40 MG VIAL IVP SCH (09:25)
[2018-12-16 10:36] VITALS: BP 146/69
== END 2018-12-16 11:13 | disposition home or self-care (01) | DRG 293 ==
LOC: ER 17:08 → ICU 20:39
PROVIDERS: ADMIT Internal Medicine; ATTEND Internal Medicine
DX: I25.10 Atherosclerotic heart disease of native coronary artery without angina pectoris; R07.89 Other chest pain; I11.0 Hypertensive heart disease with heart failure; J44.9 Chronic obstructive pulmonary disease, unspecified; R06.03 Acute respiratory distress; I50.43 Acute on chronic combined systolic (congestive) and diastolic (congestive) heart failure; R26.89 Other abnormalities of gait and mobility; R60.0 Localized edema; K21.9 Gastro-esophageal reflux disease without esophagitis
CPT/HCPCS: 36415; 36600; 71010; 71045; 71250; 80053; 81001; 82150; 82550; 82553; 82803; 83690; 83735; 83880; 84132; 84484; 85025; 85378; 85610; 85730; 87338; 93005; 94640; 96365; 96374; 97110; 97116; 97162; 97165; 97535; 99285; A4222; C9113; P9047; J1650; J1940; J2930; J3475; J7030; J7620; J7626

== ENCOUNTER 2018-12-31 16:47 | Observation (INO) ==
[2018-12-31] MEDS ORDERED: DUONEB 0.5 MG/3 MG NEB ONE (17:14)
[2018-12-31] MEDS ORDERED: LASIX IVP ONE ×2 (17:15→17:42)
[2018-12-31 17:22] LABS: BASOPHILS # (AUTO) 0.1 X10^3/uL (0.0-0.1); BASOPHILS % (AUTO) 0.9 % (0.2-1.0); EOSINOPHILS # (AUTO) 0.1 x10^3/uL (0.0-0.2); EOSINOPHILS % (AUTO) 1.1 % (0.9-2.9); HEMATOCRIT 39.9 % (42.0-54.0); HEMOGLOBIN 13.3 g/dL (13.5-18.0); LYMPHOCYTES # (AUTO) 1.6 X10^3/uL (1.3-2.9); MEAN CORPUSCULAR HEMOGLOBIN 27.1 pg (27.0-34.0); MEAN CORPUSCULAR HGB CONC 33.2 g/dL (33.0-35.0); MEAN CORPUSCULAR VOLUME 81.6 fL (80.0-100.0); MEAN PLATELET VOLUME 8.7 fL (7.4-11.0); MONOCYTES # (AUTO) 0.4 x10^3/uL (0.3-0.8); NEUTROPHILS # (AUTO) 4.3 x10^3/uL (2.2-4.8); PLATELET COUNT 199 X10^3/uL (150.0-450.0); RED CELL DISTRIBUTION WIDTH 15.6 % (11.6-16.5); WHITE BLOOD COUNT 6.4 X10^3/uL (3.6-10.0)
--- NOTE | 2018-12-31 17:23 | DR.SOBA ---
HPI Time Seen Time Seen by Provider: 12/31/18 17:02 Primary Care Physician Primary Care Physician: KELLY GERBER Complaints Chief Complaint Doctors Comments: 68yo male presented for SOB. Pt reports having intermittent episodes of SOB for the past 6mo and has had similar episodes of LE swelling. Today pt reports worsening LE swelling and ROY and orthopnea. He reports CP and heaviness that radiates to his back. His pain is 4/10. Denies any shearing pain, n/v/diaphoresis. Pt is on HCTZ. Chief Complaint:: PT STATES " I HAVE BEEN SOB FOR 6 MONTHS AND MY FEET IS SWELLING ".BR Self Treatment fo Chief Complaint: PT C/O DYPSNEA ON EXERTION, LUNGS CLEAR , NON-PITTING EDEMA NOTED TO PTS LOWER EXT'S ..BR Reviewed Nurses Notes Reviewed: Yes Source History Provided: Patient Mode of Arrival Mode of Arrival: Wheelchair Timing Onset of Chief Complaint: 07/22/18 Duration Duration: Days Context Onset:: At Rest and With Light Exertion History of:: COPD and CHF Modifying Factors Worsens:: Exertion Improves:: Sitting Up Associated Signs and Symptoms Associated Signs and Symptoms: Chest Pain and Anxiety; denies Fever, Wheeze and Cough If Chest Pain Quality: Heavy Location: Substernal If Cough Cough: None PMH PMH Past Medical History: Yes Past Medical History: Hypertension Past Medical History Comment: COPD, CHF, Past Surgical History: Yes Surgical History: Angioplasty/Stents and Ortho Surgery Family History History of Family Medical Conditions: Yes Family Medical History: Diabetes Mellitus and Hypertension Social History Does patient currently use any type of tobacco product: No Have you used tobacco products in the last 12 months: No Type of Tobacco Use: None Does any household member use tobacco: No Alcohol Use: None Do you use any recreational Drugs:: No Lives With: Family Lives Where: Home infectious screening In the last 2 months have you had wt loss of >10#?: NO Have you had fever, night sweats or hemotysis?: No Have you traveled outside the country in the last 6 months?: No Isolation: Standard ROS Review of Systems Constitutional: negative Chills, Fever, Weakness and Loss of Appetite Eyes: negative Blurred Vision ENTM: negative Nose Congestion Respiratoy: Short of Breath; negative Non-Productive Cough and Wheezing Cardiovascular: Chest Pain and Edema; negative Palpitations Gastrointestinal/Abdominal: negative Abdominal Pain, Nausea and Vomiting Genitourinary: negative Dysuria and Hematuria Neurological: negative Numbness and Weakness Musculoskeletal: Back Pain; negative Joint Swelling and Muscle Pain Integumentary: negative Rash Hematologic/Lymphatic: negative Blood Clots Endocrine: negative Decreased Appetite Psychiatric: Anxiety All Other Systems: Reviewed and Negative PE Vital Signs Vitals: Temperature 98.0 F Pulse Rate 76 Respiratory Rate 18 Blood Pressure [Left Arm] 147/83 Blood Pressure [Right Arm] 145/78 Blood Pressure 166/94 O2 Sat by Pulse Oximetry 98 General Limitations: No Limitations Head Head Exam: Normal Inspection, Atraumatic and Normocephalic Eyes Eye exam: Normal Appearance, PERRL and EOMI; negative Scleral Icterus ENT ENT Exam: Normal Exam, Normal Oropharynx, Normal External Ear Exam and Mucous Membranes Moist Neck Neck Exam: Normal Inspection and Full ROM; negative Tenderness Chest Chest Inspection: Normal Inspection and Symmetric Chest Wall Rise; negative Tenderness Respiratory Respiratory Exam: Normal Lung Sounds Bilat; negative Prolonged Expiratory Phase and Respiratory Distress Respiratory Exam: Bilateral: Clear to Auscultation Cardiovascular Cardiovascular Exam: Regular Rate, Normal Rhythm and Tachycardia Abdominal Exam Abdominal Exam: Soft; negative Tenderness Extremities Extremities Exam: Normal Inspection, Full ROM, Normal Capillary Refill and Edema (BLE 1+); negative Tenderness and Joint Swelling Neurologic Neurological Exam: Alert, Oriented X3, Normal Gait and Reflexes Normal; negative Motor Sensory Deficit Psychiatric Psychiatric Exam: Anxious Skin Skin Exam: Warm, Dry, Intact and Normal Color; negative Rash MDM Additional Information Obtained Additional Information Obtained From: Old Records Differential Diagnosis Differential Diagnosis: Anxiety, CHF and COPD Differential Diagnosis Comment:: SOB COURSE Reevaluation 1st: Unchanged (Pt still sob and roy. d/w pt lab and imaging results. Will consult hospitalist for admission.) Consultation Consultation Comments: Spoke to Dr. Thurston and will admit and see in hospital. Education/Counseling Education/Counseling: Patient, Education and Counseling Educated On: Treatment, Diagnosis, Prognosis and Needs for Follow Up ROR Labs Reviewed Laboratory Results Reviewed?: Yes Result Diagrams: 12/31/18 17:12 12/31/18 17:12 Laboratory: WBC 6.4 X10^3/uL (3.6-10.0) 12/31/18 17:12 RBC 4.90 X10^6/uL (4.7-6.0) 12/31/18 17:12 Hgb 13.3 g/dL (13.5-18.0) L 12/31/18 17:12 Hct 39.9 % (42.0-54.0) L 12/31/18 17:12 MCV 81.6 fL (80.0-100.0) 12/31/18 17:12 MCH 27.1 pg (27.0-34.0) 12/31/18 17:12 MCHC 33.2 g/dL (33.0-35.0) 12/31/18 17:12 RDW 15.6 % (11.6-16.5) 12/31/18 17:12 Plt Count 199 X10^3/uL (150.0-450.0) 12/31/18 17:12 MPV 8.7 fL (7.4-11.0) 12/31/18 17:12 Neut % (Auto) 67.0 % (42.0-75.0) 12/31/18 17:12 Lymph % (Auto) 25.0 % (21.0-51.0) 12/31/18 17:12 [place] % (Auto) 6.0 % (0.0-13.0) 12/31/18 17:12 Eos % (Auto) 1.1 % (0.9-2.9) 12/31/18 17:12 Baso % (Auto) 0.9 % (0.2-1.0) 12/31/18 17:12 Neut # (Auto) 4.3 x10^3/uL (2.2-4.8) 12/31/18 17:12 Lymph # (Auto) 1.6 X10^3/uL (1.3-2.9) 12/31/18 17:12 [place] # (Auto) 0.4 x10^3/uL (0.3-0.8) 12/31/18 17:12 Eos # (Auto) 0.1 x10^3/uL (0.0-0.2) 12/31/18 17:12 Baso # (Auto) 0.1 X10^3/uL (0.0-0.1) 12/31/18 17:12 Absolute Nucleated RBC 0.1 /100WBC 12/31/18 17:12 Sodium 142 mmol/L (136-145) 12/31/18 17:12 Corrected Sodium TNP 12/31/18 17:12 Potassium 3.6 mmol/L (3.5-5.1) 12/31/18 17:12 Chloride 106 mmol/L (98-107) 12/31/18 17:12 Carbon Dioxide 28.8 mmol/L (21-32) 12/31/18 17:12 BUN 23 mg/dL (7-18) H 12/31/18 17:12 Creatinine 1.42 mg/dL (0.70-1.30) H 12/31/18 17:12 Est GFR (MDRD) Af Amer > 60 (>60) 12/31/18 17:12 Est GFR (MDRD) Non-Af 53 (>60) L 12/31/18 17:12 Glucose 92 mg/dL (65-99) 12/31/18 17:12 Calcium 8.8 mg/dL (8.5-10.1) 12/31/18 17:12 Troponin I 0.03 ng/mL (0-1.5) 12/31/18 17:12 B-Natriuretic Peptide 3060 pg/mL (0-79) H* 12/31/18 17:12 Other Results Comments: CBC Hb 13.3 BMP Cr 1.42 BUN 23 BNP 3060 XRAY XRAY Interpreted by: Radiologist XRAY Findings: CXR: CM, pulmonary edema EKG Rate: 71 [place]: Normal Rhythm: NSR Block: None Hypertrophy: LVH ST: Normal Opioid Opioid Risk Tool Age (Gil box if 16-45): No History of Preadolescent Sexual Abuse: No Total: 0 Total Score Risk Category: Low Risk Copyright: [facility] predicting aberrant behaviors Diagnosis Discharge Problem: CKD (chronic kidney disease) stage 3, GFR 30-59 ml/min Acute exacerbation of congestive heart failure Qualifiers: Heart failure type: combined systolic and diastolic Qualified Code(s): I50.43 - Acute on chronic combined systolic (congestive) and diastolic (congestive) heart failure COPD (chronic obstructive pulmonary disease) Qualifiers: COPD type: unspecified COPD Qualified Code(s): J44.9 - Chronic obstructive pulmonary disease, unspecified Instructions Forms: Excuse From Work Patient Portal ADDITIONAL NOTES Additional Notes Additional Notes: I have personally reviewed your medications, lab results, imaging and time was spent discussion results. Patient educated on their health issue. They verbalized their understanding and agreed with plan of care. Condition: Fair Disposition: Admission
[2018-12-31 17:26] LABS: BLOOD UREA NITROGEN 23 mg/dL (7-18); CALCIUM 8.8 mg/dL (8.5-10.1); CARBON DIOXIDE 28.8 mmol/L (21-32); CHLORIDE 106 mmol/L (98-107); CREATININE 1.42 mg/dL (0.70-1.30); SODIUM 142 mmol/L (136-145); eGFR NON BLACK RACES 53 (>60)
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
[2018-12-31] MEDS ORDERED: DUONEB 0.5 MG/3 MG ONE (17:40)
[2018-12-31] MEDS ORDERED: RESTORIL CAP 15 MG PO PRN (20:16)
[2018-12-31 20:44] VITALS: BMI 18.8
[2018-12-31] MEDS: LOPRESSOR TAB 25 MG PO SCH (21:31)
[2018-12-31] MEDS: NEURONTIN CAP 300 MG PO SCH (21:31)
[2018-12-31] MEDS: LASIX IVP SCH (21:32)
[2018-12-31] MEDS: PRAVACHOL PO SCH (21:32)
[2019-01-01 05:17] LABS: BASOPHILS # (AUTO) 0.1 X10^3/uL (0.0-0.1); EOSINOPHILS # (AUTO) 0.1 x10^3/uL (0.0-0.2); EOSINOPHILS % (AUTO) 1.9 % (0.9-2.9); HEMATOCRIT 43.7 % (42.0-54.0); HEMOGLOBIN 14.5 g/dL (13.5-18.0); LYMPHOCYTES # (AUTO) 1.6 X10^3/uL (1.3-2.9); LYMPHOCYTES % (AUTO) 21.9 % (21.0-51.0); MEAN CORPUSCULAR HEMOGLOBIN 27.3 pg (27.0-34.0); MEAN CORPUSCULAR HGB CONC 33.2 g/dL (33.0-35.0); MEAN CORPUSCULAR VOLUME 82.1 fL (80.0-100.0); MEAN PLATELET VOLUME 9.6 fL (7.4-11.0); MONOCYTES # (AUTO) 0.6 x10^3/uL (0.3-0.8); MONOCYTES % (AUTO) 8.2 % (0.0-13.0); PLATELET COUNT 185 X10^3/uL (150.0-450.0); RED BLOOD COUNT 5.31 X10^6/uL (4.7-6.0); RED CELL DISTRIBUTION WIDTH 15.1 % (11.6-16.5); WHITE BLOOD COUNT 7.5 X10^3/uL (3.6-10.0)
[2019-01-01 05:33] LABS: ALANINE AMINOTRANSFERASE 42 Units/L (12-78); ALBUMIN 3.5 g/dL (3.4-5.0); ALKALINE PHOSPHATASE 114 Units/L (46-116); ASPARTATE AMINO TRANSFERASE 22 Units/L (15-37); BLOOD UREA NITROGEN 21 mg/dL (7-18); CARBON DIOXIDE 32.5 mmol/L (21-32); CHLORIDE 106 mmol/L (98-107); CREATININE 1.49 mg/dL (0.70-1.30); SODIUM 145 mmol/L (136-145); eGFR NON BLACK RACES 50 (>60)
[2019-01-01] MEDS ORDERED: K-DUR TAB 20 MEQ PO PRN (05:44)
[2019-01-01] MEDS ORDERED: POTASSIUM CHLORIDE LIQ 20 MEQ UDC PO PRN (05:44)
[2019-01-01] MEDS ORDERED: POTASSIUM CHL 40 MEQ/NS 0.45% 500 ML IV PRN (05:44)
[2019-01-01] MEDS ORDERED: POTASSIUM CHL 60 MEQ/NS 0.45% 500 ML IV PRN (05:44)
[2019-01-01] MEDS ORDERED: MICRO K EXTEN CAP 10 MEQ PO PRN (05:44)
[2019-01-01] MEDS ORDERED: K-RIDER 10 MEQ/NS 100 ML 10 MEQ/100 ML BAG IV PRN (05:44)
[2019-01-01] MEDS: NEURONTIN CAP 300 MG PO SCH ×3 (06:06→21:00)
[2019-01-01] MEDS ORDERED: LASIX IVP ONE (06:12)
[2019-01-01] MEDS: KLOR-CON PO PRN (06:27)
[2019-01-01] MEDS ORDERED: LASIX IVP SCH (07:00)
[2019-01-01] MEDS ORDERED: ZESTRIL TAB 20 MG PO SCH (09:00)
[2019-01-01] MEDS: ASPIRIN EC 81 MG PO SCH (09:11)
[2019-01-01] MEDS: HYDROCHLOROTHIAZIDE 25 MG TAB PO SCH (09:11)
[2019-01-01] MEDS: LASIX IVP SCH ×2 (09:12→20:55)
[2019-01-01] MEDS: LOPRESSOR TAB 25 MG PO SCH ×2 (09:12→20:55)
[2019-01-01] MEDS ORDERED: NS 250 ML IV 250 ML IV ONE (09:18)
[2019-01-01] MEDS: MAGNESIUM SULFATE 1 GRAM/100 mL PREMIX 1 GM/100 ML BAG IV PRN ×2 (09:23→10:51)
[2019-01-01 10:05] LABS: CKMB % 1.6 % (<4); CREATINE KINASE MB < 1.0 ng/mL (0-4.0); TROPONIN I 0.03 ng/mL (0-1.5)
[2019-01-01 10:28] LABS: CREATINE KINASE 61 Units/L (39-308)
[2019-01-01] MEDS: LOVENOX INJ 40 MG SYR SC SCH (10:51)
[2019-01-01] MEDS: DUONEB 0.5 MG/3 MG NEB PRN (11:55)
[2019-01-01 15:54] LABS: CKMB % 2.6 % (<4); CREATINE KINASE 39 Units/L (39-308); CREATINE KINASE MB < 1.0 ng/mL (0-4.0); TROPONIN I 0.06 ng/mL (0-1.5)
--- NOTE | 2019-01-01 17:53 | DR.H&P ---
H&P - History & Physical for Day of: H&P Date: 12/31/18 - History of Present Illness History of Present Illness: 68yo male presented for SOB. Pt reports having intermittent episodes of SOB for the past 6mo and has had similar episodes of LE swelling. Today pt reports worsening LE swelling and LEDESMA and orthopnea. He reports CP and heaviness that radiates to his back. His pain is 4/10. Denies any shearing pain, n/v/diaphoresis. Pt is on HCTZ. - Past Medical History Past Medical History: CHF, COPD, Coronary Artery Disease, Hypertension - Past Surgical History Surgical History: Angioplasty/Stents, Ortho Surgery - Family History Family Medical History: Diabetes Mellitus, Hypertension - Social History Does patient currently use any type of tobacco product: Yes Have you used tobacco products in the last 12 months: Yes Type of Tobacco Use: Cigarettes Does any household member use tobacco: No Alcohol Use: Occasionally Drug Use: Marijuana - Medications Home Medications: No Known Drug Allergies Allergy (Verified 12/31/18 16:56) CONTINUE taking the following medications aspirin [Aspir-81] 81 mg PO DAILY 12/31/18 [History] gabapentin [Neurontin] 300 mg PO TID 12/31/18 [History] hydrochlorothiazide 25 mg PO DAILY 12/31/18 [History] lisinopril 20 mg PO DAILY 12/31/18 [History] metoprolol tartrate 25 mg PO BID 12/31/18 [History] pravastatin 40 mg PO HS 12/31/18 [History] sumatriptan succinate 50 mg PO PRN PRN 12/31/18 [History] tizanidine 4 mg PO PRN PRN 12/31/18 [History] - Review of Systems Constitutional: Weakness Eyes: No Symptoms Reported ENT: No Symptoms Reported Respiratory: Shortness of Breath, SOB with Excertion Cardiovascular: No Symptoms Reported Gastrointestinal: No Symptoms Reported Genitourinary: No Symptoms Reported Musculoskeletal: Back Pain Skin: No Symptoms Reported Neurological: Weakness - Physical Exam Vital Signs: Temperature 97.6 F Pulse Rate [Left Brachial] 71 Pulse Rate 63 Respiratory Rate 20 Blood Pressure [Left Arm] 154/98 Blood Pressure [Right Arm] 145/78 Blood Pressure 166/94 O2 Sat by Pulse Oximetry 99 Oriented: Normal Eyes: Normal Ear: Normal Nose: Normal Throat: Normal Respiratory: Wheezes Throughout, RML Diminished, RLL Diminished, LML Diminished, LLL Diminished Cardiovascular: Edema (+2 BILATERAL LOWER EXTREMITY EDEMA) Auscultation: Bowel Sounds: Normal Palpation: Normal Tenderness: Epigastric, Mild Skin: Normal Musculoskeletal: Back:Lumbar Psychiatric: Anxiety Affect: Anxious Speech Pattern: Clear, Appropriate - Assessment/Plan (1) CHF (congestive heart failure) Status: Acute Plan: ADMIT, SERIAL CE. EKG, STRICT I&OS. SUPPLEMENTAL O2, RESP CONSULT. BP CONTROL, IV LASIX, BB (2) COPD (chronic obstructive pulmonary disease) Qualifiers: COPD type: unspecified COPD Qualified Code(s): J44.9 - Chronic obstructive pulmonary disease, unspecified Status: Acute (3) CAD (coronary artery disease) Status: Acute (4) Essential hypertension Status: Chronic - Allergies Allergies/Adverse Reactions: Allergies Allergy/AdvReac Type Severity Reaction Status Date / Time No Known Drug Allergies Allergy Verified 12/31/18 16:56
--- NOTE | 2019-01-01 17:56 | PCM.PROG ---
Progress Note - Progress Note for Day of Date of Exam: 01/01/19 - Subjective Subjective: 68 BM ER ADMISSION WITH DX OF SOB, LOWER EXTREMITY EDEMA. PT HAD CXR REVEALING VASCULAR CONGESTION, CHF. PT WAS GIVEN IV LASIX AND ADMISSION, SERIAL CE AND EKGS. PT CONTINUES WITH +2BILATER LE EDEMA AND BILATERAL DIMINISHED LUNG SOUNDS. PT BUN 21, CREAT 1.45, K+3.3. PT WAS PREVIOUSLY ON ENTRESTO FOR CHF MANAGEMENT AND DID NOT REPORT TAKING ON HOME MEDICATION, WE D/C LISINOPRIL AND ORDERED RESTART DATE ON ENTRESTO. PLAN REPEAT AM LABS AND CXR, REPEAT CE. - Past Medical Family Social History Past Med/Fam/Surg Hx: No changes since H&P Allergies: Allergies No Known Drug Allergies Allergy (Verified 12/31/18 16:56) - Review of Systems ROS: No change since H&P - Vital Signs and I&O's Vital Signs: Temperature 97.6 F Pulse Rate [Left Brachial] 71 Pulse Rate 63 Respiratory Rate 20 Blood Pressure [Left Arm] 154/98 Blood Pressure [Right Arm] 145/78 Blood Pressure 166/94 O2 Sat by Pulse Oximetry 99 Intake and Output: Intake & Output 12/30/18 12/31/18 01/01/19 01/02/19 11:59 11:59 11:59 11:59 Intake Total 360 / 360 480 / 480 Output Total 2950 / 2950 1950 / 1950 Balance -2590 / -2590 -1470 / -1470 - Physical Exam Oriented: Normal Eyes: Normal Ear: Normal Nose: Normal Throat: Normal Respiratory: Diminished, Wheezes Cardiovascular: Edema (+2 BILATERAL LOWER EXTREMITY EDEMA) Auscultation: Bowel Sounds: Normal Tenderness: Epigastric, Mild Skin: Normal Musculoskeletal: Back:Lumbar Psychiatric: Anxiety Affect: Anxious Speech Pattern: Clear, Appropriate - Laboratory and Diagnostics Result Diagrams: 01/01/19 04:48 01/01/19 08:45 Labs: Laboratory WBC 7.5 X10^3/uL (3.6-10.0) 01/01/19 04:48 RBC 5.31 X10^6/uL (4.7-6.0) 01/01/19 04:48 Hgb 14.5 g/dL (13.5-18.0) 01/01/19 04:48 Hct 43.7 % (42.0-54.0) 01/01/19 04:48 MCV 82.1 fL (80.0-100.0) 01/01/19 04:48 MCH 27.3 pg (27.0-34.0) 01/01/19 04:48 MCHC 33.2 g/dL (33.0-35.0) 01/01/19 04:48 RDW 15.1 % (11.6-16.5) 01/01/19 04:48 Plt Count 185 X10^3/uL (150.0-450.0) 01/01/19 04:48 MPV 9.6 fL (7.4-11.0) 01/01/19 04:48 Neut % (Auto) 67.0 % (42.0-75.0) 01/01/19 04:48 Lymph % (Auto) 21.9 % (21.0-51.0) 01/01/19 04:48 [place] % (Auto) 8.2 % (0.0-13.0) 01/01/19 04:48 Eos % (Auto) 1.9 % (0.9-2.9) 01/01/19 04:48 Baso % (Auto) 1.0 % (0.2-1.0) 01/01/19 04:48 Neut # (Auto) 5.0 x10^3/uL (2.2-4.8) H 01/01/19 04:48 Lymph # (Auto) 1.6 X10^3/uL (1.3-2.9) 01/01/19 04:48 [place] # (Auto) 0.6 x10^3/uL (0.3-0.8) 01/01/19 04:48 Eos # (Auto) 0.1 x10^3/uL (0.0-0.2) 01/01/19 04:48 Baso # (Auto) 0.1 X10^3/uL (0.0-0.1) 01/01/19 04:48 Absolute Nucleated RBC 0.1 /100WBC 01/01/19 04:48 Sodium 145 mmol/L (136-145) 01/01/19 04:48 Corrected Sodium TNP 01/01/19 04:48 Potassium 3.6 mmol/L (3.5-5.1) 01/01/19 08:45 Chloride 106 mmol/L (98-107) 01/01/19 04:48 Carbon Dioxide 32.5 mmol/L (21-32) H 01/01/19 04:48 BUN 21 mg/dL (7-18) H 01/01/19 04:48 Creatinine 1.49 mg/dL (0.70-1.30) H 01/01/19 04:48 Est GFR (MDRD) Af Amer > 60 (>60) 01/01/19 04:48 Est GFR (MDRD) Non-Af 50 (>60) L 01/01/19 04:48 Glucose 87 mg/dL (65-99) 01/01/19 04:48 Calcium 9.0 mg/dL (8.5-10.1) 01/01/19 04:48 Corrected Calcium TNP 01/01/19 04:48 Magnesium 1.8 mg/dL (1.7-2.9) 01/01/19 04:48 Total Bilirubin 1.50 mg/dL (0.2-1.0) H 01/01/19 04:48 AST 22 Units/L (15-37) 01/01/19 04:48 ALT 42 Units/L (12-78) 01/01/19 04:48 Alkaline Phosphatase 114 Units/L (46-116) 01/01/19 04:48 Creatine Kinase 39 Units/L (39-308) 01/01/19 15:27 CK-MB (CK-2) < 1.0 ng/mL (0-4.0) 01/01/19 15:27 CK/CKMB % Calc 2.6 % (<4) 01/01/19 15:27 Troponin I 0.06 ng/mL (0-1.5) 01/01/19 15:27 B-Natriuretic Peptide 3060 pg/mL (0-79) H* 12/31/18 17:12 Total Protein 7.0 g/dL (6.4-8.2) 01/01/19 04:48 Albumin 3.5 g/dL (3.4-5.0) 01/01/19 04:48 Globulin 3.5 g/dL (2.5-4.5) 01/01/19 04:48 Albumin/Globulin Ratio 1.0 Ratio (1.1-2.1) L 01/01/19 04:48 - Plan (1) CHF (congestive heart failure) Status: Acute Plan: SERIAL CE. EKG, STRICT I&OS. SUPPLEMENTAL O2, RESP CONSULT. BP CONTROL, IV LASIX, BB (2) COPD (chronic obstructive pulmonary disease) Status: Acute Qualifiers: COPD type: unspecified COPD Qualified Code(s): J44.9 - Chronic obstructive pulmonary disease, unspecified (3) CAD (coronary artery disease) Status: Acute (4) Essential hypertension Status: Chronic
[2019-01-01] MEDS: PRAVACHOL PO SCH (20:56)
[2019-01-01 22:00] LABS: CKMB % 2.7 % (<4); CREATINE KINASE 37 Units/L (39-308); CREATINE KINASE MB < 1.0 ng/mL (0-4.0); TROPONIN I 0.08 ng/mL (0-1.5)
[2019-01-02 05:16] LABS: BASOPHILS % (AUTO) 0.7 % (0.2-1.0); EOSINOPHILS # (AUTO) 0.2 x10^3/uL (0.0-0.2); EOSINOPHILS % (AUTO) 3.6 % (0.9-2.9); HEMATOCRIT 43.2 % (42.0-54.0); HEMOGLOBIN 14.3 g/dL (13.5-18.0); LYMPHOCYTES # (AUTO) 1.9 X10^3/uL (1.3-2.9); LYMPHOCYTES % (AUTO) 29.8 % (21.0-51.0); MEAN CORPUSCULAR HEMOGLOBIN 26.9 pg (27.0-34.0); MEAN CORPUSCULAR VOLUME 81.4 fL (80.0-100.0); MEAN PLATELET VOLUME 9.3 fL (7.4-11.0); MONOCYTES # (AUTO) 0.6 x10^3/uL (0.3-0.8); MONOCYTES % (AUTO) 10.1 % (0.0-13.0); NEUTROPHILS # (AUTO) 3.5 x10^3/uL (2.2-4.8); NEUTROPHILS % (AUTO) 55.8 % (42.0-75.0); PLATELET COUNT 217 X10^3/uL (150.0-450.0); RED BLOOD COUNT 5.31 X10^6/uL (4.7-6.0); RED CELL DISTRIBUTION WIDTH 15.6 % (11.6-16.5); WHITE BLOOD COUNT 6.3 X10^3/uL (3.6-10.0)
[2019-01-02 05:28] LABS: ALANINE AMINOTRANSFERASE 31 Units/L (12-78); ALBUMIN 3.3 g/dL (3.4-5.0); ALKALINE PHOSPHATASE 104 Units/L (46-116); ASPARTATE AMINO TRANSFERASE 11 Units/L (15-37); BLOOD UREA NITROGEN 24 mg/dL (7-18); CHLORIDE 104 mmol/L (98-107); COR CA(FOR HYPOALB) 9.6 mg/dL (8.5-10.1); CREATININE 1.77 mg/dL (0.70-1.30); MAGNESIUM 2.1 mg/dL (1.7-2.9); SODIUM 146 mmol/L (136-145); TOTAL PROTEIN 6.8 g/dL (6.4-8.2); eGFR NON BLACK RACES 41 (>60)
[2019-01-02] MEDS: NEURONTIN CAP 300 MG PO SCH ×2 (05:36→15:15)
[2019-01-02] MEDS: KLOR-CON PO PRN (06:25)
[2019-01-02] MEDS: DUONEB 0.5 MG/3 MG NEB PRN (07:00)
[2019-01-02] MEDS ORDERED: ENTRESTO 24/26 MG TAB PO SCH (09:00)
[2019-01-02] MEDS: ASPIRIN EC 81 MG PO SCH (09:47)
[2019-01-02] MEDS: LOVENOX INJ 40 MG SYR SC SCH (09:47)
[2019-01-02] MEDS: HYDROCHLOROTHIAZIDE 25 MG TAB PO SCH (09:48)
[2019-01-02] MEDS: LOPRESSOR TAB 25 MG PO SCH (09:48)
[2019-01-02] MEDS: LASIX IVP SCH (09:51)
[2019-01-02] MEDS ORDERED: NS 1000 ML 1,000 ML IV SCH (10:00)
[2019-01-02 10:02] LABS: CKMB % 2.4 % (<4); CREATINE KINASE 42 Units/L (39-308); CREATINE KINASE MB < 1.0 ng/mL (0-4.0); TROPONIN I 0.04 ng/mL (0-1.5)
[2019-01-02 12:27] LABS: ABG BASE EXCESS 12.1 mmol/L (-2.0-2.0)
--- NOTE | 2019-01-02 12:27 | RAD ---
Examination: Portable AP chest History: SOB Comparison 12/31/2018 Findings: Continued cardiomegaly/LVH. The lungs are clear. There is no evidence for CHF or pneumonia. There are postsurgical and posttraumatic changes in the neck and left clavicle. Impression: No acute disease. Reported By:
[2019-01-02 12:28] LABS: ABG ALLEN TEST POS; ABG HCO3 33.9 mmol/L (22-26)
[2019-01-02 16:03] VITALS: BP 152/85
[2019-01-02] MEDS ORDERED: LASIX IVP SCH (21:00)
== END 2019-01-02 16:15 | disposition home or self-care (01) ==
LOC: MED/SURG 16:47 → ER 16:47 → MED/SURG 19:13
PROVIDERS: ADMIT Obstetrics & Gynecology Obstetrics; ATTEND Internal Medicine
DX: E11.22 Type 2 diabetes mellitus with diabetic chronic kidney disease; R94.4 Abnormal results of kidney function studies; R60.0 Localized edema; R07.89 Other chest pain; R06.02 Shortness of breath; I13.0 Hypertensive heart and chronic kidney disease with heart failure and stage 1 through stage 4 chronic kidney disease, or unspecified chronic kidney disease; I25.10 Atherosclerotic heart disease of native coronary artery without angina pectoris; I50.43 Acute on chronic combined systolic (congestive) and diastolic (congestive) heart failure; J44.9 Chronic obstructive pulmonary disease, unspecified; N18.3 Chronic kidney disease, stage 3 (moderate); E26.89 Other hyperaldosteronism
CPT/HCPCS: 36415; 36600; 71010; 71045; 80048; 80053; 82550; 82553; 82803; 83735; 83880; 84132; 84484; 85025; 93005; 94640; 94760; 96365; 96367; 96372; 96374; 97110; 97116; 97162; 97165; 99284; A4222; G0378; J1650; J1940; J3475; J7030; J7050; J7620

== ENCOUNTER 2019-03-19 11:30 | Observation (INO) ==
[2019-03-19] MEDS ORDERED: LASIX IVP ONE ×2 (13:05→13:44)
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
[2019-03-19 13:16] LABS: BASOPHILS % (AUTO) 0.8 % (0.2-1.0); EOSINOPHILS # (AUTO) 0.2 x10^3/uL (0.0-0.2); EOSINOPHILS % (AUTO) 2.8 % (0.9-2.9); HEMATOCRIT 44.4 % (42.0-54.0); HEMOGLOBIN 14.7 g/dL (13.5-18.0); LYMPHOCYTES # (AUTO) 1.9 X10^3/uL (1.3-2.9); LYMPHOCYTES % (AUTO) 31.7 % (21.0-51.0); MEAN CORPUSCULAR HEMOGLOBIN 26.6 pg (27.0-34.0); MEAN CORPUSCULAR HGB CONC 33.2 g/dL (33.0-35.0); MEAN PLATELET VOLUME 8.7 fL (7.4-11.0); MONOCYTES # (AUTO) 0.5 x10^3/uL (0.3-0.8); MONOCYTES % (AUTO) 7.5 % (0.0-13.0); NEUTROPHILS # (AUTO) 3.5 x10^3/uL (2.2-4.8); NEUTROPHILS % (AUTO) 57.2 % (42.0-75.0); PLATELET COUNT 200 X10^3/uL (150.0-450.0); RED BLOOD COUNT 5.54 X10^6/uL (4.7-6.0); RED CELL DISTRIBUTION WIDTH 18.5 % (11.6-16.5); WHITE BLOOD COUNT 6.1 X10^3/uL (3.6-10.0)
--- NOTE | 2019-03-19 13:28 | RAD ---
HISTORYShortness of breathSTUDYPortable upright AP chestCOMPARISONSeptember 2018 and December 31FINDINGSThe lungs are hyperinflated and grossly clear. The heart is enlarged as before. There is no edema or effusion evident. No significant bony abnormality is demonstrated.IMPRESSIONProbable COPD. Chronic cardiomegaly. No definite acute disease.Electronically signed by: MARCIN MERA (Mar 19, 2019 13:26:46)
[2019-03-19 13:32] LABS: BLOOD UREA NITROGEN 25 mg/dL (7-18); CALCIUM 8.9 mg/dL (8.5-10.1); CARBON DIOXIDE 29.3 mmol/L (21-32); CHLORIDE 105 mmol/L (98-107); CREATININE 1.45 mg/dL (0.70-1.30); SODIUM 141 mmol/L (136-145); TROPONIN I 0.09 ng/mL (0-1.5); eGFR NON BLACK RACES 52 (>60)
[2019-03-19 13:37] LABS: ALANINE AMINOTRANSFERASE 58 Units/L (12-78); ALBUMIN 3.3 g/dL (3.4-5.0); ALKALINE PHOSPHATASE 115 Units/L (46-116); ASPARTATE AMINO TRANSFERASE 31 Units/L (15-37); CKMB % 3.6 % (<4); COR CA(FOR HYPOALB) 9.5 mg/dL (8.5-10.1); CREATINE KINASE 59 Units/L (39-308); CREATINE KINASE MB 2.1 ng/mL (0-4.0); TOTAL PROTEIN 7.4 g/dL (6.4-8.2)
[2019-03-19 18:37] LABS: CKMB % 2.9 % (<4); CREATINE KINASE MB 1.6 ng/mL (0-4.0); TROPONIN I 0.09 ng/mL (0-1.5)
[2019-03-19] MEDS ORDERED: ZANAFLEX PO PRN ×2 (19:28→20:59)
[2019-03-19] MEDS: ENTRESTO 24/26 MG TAB PO SCH (20:23)
[2019-03-19] MEDS: MICRO K EXTEN CAP 10 MEQ PO SCH (20:23)
[2019-03-19] MEDS: PRAVACHOL PO SCH (20:23)
[2019-03-19] MEDS: LOPRESSOR TAB 25 MG PO SCH (20:23)
[2019-03-19] MEDS: NEURONTIN CAP 300 MG PO SCH (21:13)
[2019-03-19 21:23] VITALS: BMI 18.4
[2019-03-19 23:17] LABS: CKMB % 2.4 % (<4); CREATINE KINASE MB 1.7 ng/mL (0-4.0); TROPONIN I 0.09 ng/mL (0-1.5)
[2019-03-20 00:36] LABS: BILIRUBIN,URINE NEGATIVE (NEGATIVE); BLOOD/HEMOGLOBIN,URINE 2+ (NEGATIVE); GLUCOSE, URINE NEGATIVE (NEGATIVE); KETONES,URINE NEGATIVE (NEGATIVE); LEUKOCYTE ESTERASE ,URINE 1+ (NEGATIVE); NITRITES,URINE NEGATIVE (NEGATIVE); PH,URINE 6.5 (5.0 - 8.0); PROTEIN,URINE 2+ (NEGATIVE); UROBILINOGEN,URINE 2+ (NORMAL)
[2019-03-20 00:40] LABS: APPEARANCE,URINE CLEAR (CLEAR); COLOR,URINE YELLOW (YELLOW)
[2019-03-20 00:41] LABS: BACTERIA,URINE NEGATIVE /HPF (NEGATIVE); SQUAMOUS EPITHELIAL CELL,UR FEW /HPF (NEGATIVE)
[2019-03-20] MEDS: NEURONTIN CAP 300 MG PO SCH ×3 (05:03→21:11)
[2019-03-20 05:21] LABS: BASOPHILS % (AUTO) 0.9 % (0.2-1.0); EOSINOPHILS # (AUTO) 0.2 x10^3/uL (0.0-0.2); EOSINOPHILS % (AUTO) 4.4 % (0.9-2.9); HEMATOCRIT 42.4 % (42.0-54.0); HEMOGLOBIN 14.1 g/dL (13.5-18.0); LYMPHOCYTES # (AUTO) 1.9 X10^3/uL (1.3-2.9); LYMPHOCYTES % (AUTO) 39.9 % (21.0-51.0); MEAN CORPUSCULAR HEMOGLOBIN 26.7 pg (27.0-34.0); MEAN CORPUSCULAR HGB CONC 33.3 g/dL (33.0-35.0); MEAN CORPUSCULAR VOLUME 80.2 fL (80.0-100.0); MEAN PLATELET VOLUME 9.5 fL (7.4-11.0); MONOCYTES # (AUTO) 0.3 x10^3/uL (0.3-0.8); MONOCYTES % (AUTO) 7.3 % (0.0-13.0); NEUTROPHILS # (AUTO) 2.3 x10^3/uL (2.2-4.8); NEUTROPHILS % (AUTO) 47.5 % (42.0-75.0); PLATELET COUNT 186 X10^3/uL (150.0-450.0); RED BLOOD COUNT 5.28 X10^6/uL (4.7-6.0); RED CELL DISTRIBUTION WIDTH 18.7 % (11.6-16.5); WHITE BLOOD COUNT 4.8 X10^3/uL (3.6-10.0)
[2019-03-20 05:56] LABS: ALBUMIN 2.9 g/dL (3.4-5.0); CALCIUM 8.3 mg/dL (8.5-10.1); CARBON DIOXIDE 27.4 mmol/L (21-32); CKMB % 3.4 % (<4); COR CA(FOR HYPOALB) 9.2 mg/dL (8.5-10.1); CREATINE KINASE MB 1.7 ng/mL (0-4.0); CREATININE 1.51 mg/dL (0.70-1.30); MAGNESIUM 1.9 mg/dL (1.7-2.9); TOTAL PROTEIN 6.5 g/dL (6.4-8.2); TROPONIN I 0.06 ng/mL (0-1.5)
[2019-03-20] MEDS: LOPRESSOR TAB 25 MG PO SCH ×2 (08:24→21:11)
[2019-03-20] MEDS: ASPIRIN EC 81 MG PO SCH (08:24)
[2019-03-20] MEDS: MICRO K EXTEN CAP 10 MEQ PO SCH ×2 (08:24→21:11)
[2019-03-20] MEDS: ENTRESTO 24/26 MG TAB PO SCH ×2 (08:25→21:11)
--- NOTE | 2019-03-20 08:37 | DR.H&P ---
H&P - History & Physical for Day of: H&P Date: 03/19/19 - Chief Complaint Chief Complaint: SOB - History of Present Illness History of Present Illness: 68BM ER ADMISSION WITH CO SOB, WORSE OVER PAST WEEK. PT HAS PMH OF CHF, CAD, COPD, HTN AND HAS BEEN OUT OF MEDICATION. PT CO INCREASED SOB, WHEEZING, LEDESMA. PT ADMITTED WITH SERIAL CE AND EKGS. IV LASIX FOR CHF EXACERBATION. - Past Medical History Past Medical History: Coronary Artery Disease, Hypertension, COPD, CHF - Past Surgical History Surgical History: Angioplasty/Stents, Ortho Surgery - Family History Family Medical History: Diabetes Mellitus, Hypertension - Social History Does patient currently use any type of tobacco product: Yes Have you used tobacco products in the last 12 months: Yes Type of Tobacco Use: Cigarettes Does any household member use tobacco: No Alcohol Use: Occasionally Drug Use: Marijuana - Medications Home Medications: No Known Drug Allergies Allergy (Verified 12/31/18 16:56) - Review of Systems Constitutional: Weakness Eyes: No Symptoms Reported ENT: No Symptoms Reported Respiratory: Shortness of Breath, SOB with Excertion, Wheezing Cardiovascular: No Symptoms Reported Gastrointestinal: Abdominal Pain Genitourinary: No Symptoms Reported Musculoskeletal: No Symptoms Reported Skin: No Symptoms Reported Neurological: No Symptoms Reported - Physical Exam Vital Signs: Temperature 98.3 F Pulse Rate [Left Radial] 73 Pulse Rate 100 Respiratory Rate 18 Blood Pressure [Left Arm] 142/90 Blood Pressure 193/115 O2 Sat by Pulse Oximetry 95 Oriented: Normal, Person Ear: Normal Nose: Normal Throat: Normal Respiratory: Wheezes Throughout, RLL Diminished, LLL Diminished Cardiovascular: Normal, Edema (+1 BILATERAL LE EDEMA) : Normal Auscultation: Bowel Sounds: Normal Tenderness: Epigastric, Mild Skin: Normal Musculoskeletal: Normal Psychiatric: Normal Mood Description: Calm Speech Pattern: Clear, Appropriate - Assessment/Plan (1) SOB (shortness of breath) Status: Acute Plan: ADMIT, SERIAL CE AND EKG. ABG ON ADMISSION, STRICT I&OS. IV LASIX, RESP CONSULT. SPUTUM CULTURE. RESUME HOME MEDICATION, AM CXR, SUPPLEMENTAL O2 (2) Acute exacerbation of congestive heart failure Status: Acute (3) CAD (coronary artery disease) Status: Acute (4) CHF (congestive heart failure) Status: Acute (5) COPD (chronic obstructive pulmonary disease) Status: Acute (6) GERD (gastroesophageal reflux disease) Status: Acute - Allergies Allergies/Adverse Reactions: Allergies Allergy/AdvReac Type Severity Reaction Status Date / Time No Known Drug Allergies Allergy Verified 12/31/18 16:56
[2019-03-20] MEDS: SOLU-Medrol 40 MG VIAL IVP SCH ×3 (10:00→21:12)
[2019-03-20] MEDS: ROCEPHIN VIAL 1 GRAM 1 G in NS 100 ML IV + SPIKE MINIBAG* 100 ML IV SCH ×2 (10:00→10:05)
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
[2019-03-20] MEDS: LOVENOX INJ 40 MG SYR SC SCH (10:07)
[2019-03-20] MEDS ORDERED: NS 500 ML IV 500 ML IV ONE (10:10)
[2019-03-20] MEDS: PULMICORT NEB TX 0.5 MG NEB SCH ×2 (10:25→20:50)
[2019-03-20 10:27] LABS: ABG ALLEN TEST POS; ABG BASE EXCESS 3.8 mmol/L (-2.0-2.0); ABG HCO3 29.7 mmol/L (22-26)
[2019-03-20 12:27] LABS: CKMB % 2.7 % (<4); CREATINE KINASE MB 1.4 ng/mL (0-4.0); TROPONIN I 0.06 ng/mL (0-1.5)
[2019-03-20] MEDS: PRAVACHOL PO SCH (21:11)
[2019-03-21] MEDS: NEURONTIN CAP 300 MG PO SCH ×3 (05:56→21:07)
[2019-03-21 06:07] LABS: BASOPHILS % (AUTO) 0.1 % (0.2-1.0); HEMATOCRIT 43.7 % (42.0-54.0); HEMOGLOBIN 14.4 g/dL (13.5-18.0); LYMPHOCYTES # (AUTO) 0.9 X10^3/uL (1.3-2.9); MEAN CORPUSCULAR VOLUME 81.8 fL (80.0-100.0); MEAN PLATELET VOLUME 9.7 fL (7.4-11.0); MONOCYTES # (AUTO) 0.3 x10^3/uL (0.3-0.8); MONOCYTES % (AUTO) 3.3 % (0.0-13.0); NEUTROPHILS # (AUTO) 8.1 x10^3/uL (2.2-4.8); NEUTROPHILS % (AUTO) 86.6 % (42.0-75.0); PLATELET COUNT 203 X10^3/uL (150.0-450.0); RED BLOOD COUNT 5.35 X10^6/uL (4.7-6.0); RED CELL DISTRIBUTION WIDTH 18.5 % (11.6-16.5); WHITE BLOOD COUNT 9.4 X10^3/uL (3.6-10.0)
[2019-03-21 06:24] LABS: ALBUMIN 2.9 g/dL (3.4-5.0); CALCIUM 8.9 mg/dL (8.5-10.1); CARBON DIOXIDE 25.3 mmol/L (21-32); COR CA(FOR HYPOALB) 9.8 mg/dL (8.5-10.1); CREATININE 1.59 mg/dL (0.70-1.30); TOTAL PROTEIN 6.7 g/dL (6.4-8.2)
[2019-03-21] MEDS: LOPRESSOR TAB 25 MG PO SCH ×2 (09:19→20:07)
[2019-03-21] MEDS: ASPIRIN EC 81 MG PO SCH (09:19)
[2019-03-21] MEDS: ROCEPHIN VIAL 1 GRAM 1 G in NS 100 ML IV + SPIKE MINIBAG* 100 ML IV SCH (09:19)
[2019-03-21] MEDS: ENTRESTO 24/26 MG TAB PO SCH ×2 (09:19→20:06)
[2019-03-21] MEDS: MICRO K EXTEN CAP 10 MEQ PO SCH ×2 (09:20→20:09)
[2019-03-21] MEDS: LOVENOX INJ 40 MG SYR SC SCH (09:20)
[2019-03-21] MEDS: PULMICORT NEB TX 0.5 MG NEB SCH ×2 (09:51→20:44)
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
[2019-03-21] MEDS: LASIX PO SCH ×2 (10:20→20:07)
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
[2019-03-21] MEDS: ALDACTONE TAB 25 MG PO SCH (14:30)
[2019-03-21] MEDS: PRAVACHOL PO SCH (20:07)
[2019-03-21] MEDS ORDERED: MAALOX or MYLANTA PO PRN (20:38)
[2019-03-22] MEDS: NEURONTIN CAP 300 MG PO SCH ×3 (05:05→21:07)
[2019-03-22 06:13] LABS: BASOPHILS % (AUTO) 0.4 % (0.2-1.0); EOSINOPHILS # (AUTO) 0.1 x10^3/uL (0.0-0.2); EOSINOPHILS % (AUTO) 1.2 % (0.9-2.9); HEMATOCRIT 43.6 % (42.0-54.0); HEMOGLOBIN 14.7 g/dL (13.5-18.0); LYMPHOCYTES # (AUTO) 2.5 X10^3/uL (1.3-2.9); LYMPHOCYTES % (AUTO) 24.4 % (21.0-51.0); MEAN CORPUSCULAR HEMOGLOBIN 27.4 pg (27.0-34.0); MEAN CORPUSCULAR HGB CONC 33.7 g/dL (33.0-35.0); MEAN CORPUSCULAR VOLUME 81.2 fL (80.0-100.0); MEAN PLATELET VOLUME 9.6 fL (7.4-11.0); MONOCYTES # (AUTO) 0.4 x10^3/uL (0.3-0.8); MONOCYTES % (AUTO) 4.1 % (0.0-13.0); NEUTROPHILS # (AUTO) 7.2 x10^3/uL (2.2-4.8); NEUTROPHILS % (AUTO) 69.9 % (42.0-75.0); PLATELET COUNT 209 X10^3/uL (150.0-450.0); RED BLOOD COUNT 5.36 X10^6/uL (4.7-6.0); RED CELL DISTRIBUTION WIDTH 18.8 % (11.6-16.5); WHITE BLOOD COUNT 10.4 X10^3/uL (3.6-10.0)
[2019-03-22 06:17] LABS: BLOOD UREA NITROGEN 19 mg/dL (7-18); CALCIUM 8.4 mg/dL (8.5-10.1); CHLORIDE 107 mmol/L (98-107); CREATININE 1.45 mg/dL (0.70-1.30); SODIUM 141 mmol/L (136-145); eGFR NON BLACK RACES 52 (>60)
[2019-03-22] MEDS: LASIX PO SCH ×2 (08:54→20:47)
[2019-03-22] MEDS: ROCEPHIN VIAL 1 GRAM 1 G in NS 100 ML IV + SPIKE MINIBAG* 100 ML IV SCH (08:54)
[2019-03-22] MEDS: ASPIRIN EC 81 MG PO SCH (08:54)
[2019-03-22] MEDS: ALDACTONE TAB 25 MG PO SCH (08:55)
[2019-03-22] MEDS: LOPRESSOR TAB 25 MG PO SCH ×2 (08:55→20:47)
[2019-03-22] MEDS: MICRO K EXTEN CAP 10 MEQ PO SCH ×2 (08:55→20:47)
[2019-03-22] MEDS: LOVENOX INJ 40 MG SYR SC SCH (08:55)
[2019-03-22] MEDS: PULMICORT NEB TX 0.5 MG NEB SCH ×2 (09:29→20:46)
--- NOTE | 2019-03-22 10:31 | PCM.PROG ---
Progress Note Progress Note for Day of Date of Exam: 03/22/19 Subjective Subjective: Patient seen this AM, reports breathing has worsened over night. He could not sleep well because of increase SOB. He states yesterday afternoon he was able to ambulate to the bathroom but now he gets very short of breath and has to sit down. He is currently on room air with sats > 90%. He has dilated cardiomyopathy with low EF 20-25%, leg edema has resolved. Lung exam significant for decreased air entry, no crackles or wheezing. CXR yesterday with no acute changes, no effusions. Continue home dose Lasix 20 mg BID. Continue Rocephin for COPD, will add prednisone. Past Medical Family Social History Past Med/Fam/Surg Hx: No changes since H&P Allergies: Allergies No Known Drug Allergies Allergy (Verified 12/31/18 16:56) Review of Systems ROS: No change since H&P Vital Signs and I&O's Vital Signs: Temperature 98.3 F Pulse Rate [Left Radial] 79 Pulse Rate 74 Respiratory Rate 21 Blood Pressure [Left Arm] 162/91 Blood Pressure 193/115 O2 Sat by Pulse Oximetry 98 Intake and Output: Intake & Output 03/19/19 03/20/19 03/21/19 03/22/19 23:59 23:59 23:59 23:59 Intake Total 246 / 246 2830 / 2830 830 / 830 210 / 210 Output Total 1800 / 1800 1150 / 1150 0 / 0 1075 / 1075 Balance -1554 / -1554 1680 / 1680 830 / 830 -865 / -865 Physical Exam Oriented: Normal Ear: Normal Nose: Normal Throat: Normal Respiratory: Diminished Cardiovascular: Normal Auscultation: Bowel Sounds: Normal Tenderness: Normal Skin: Normal Musculoskeletal: Normal Psychiatric: Normal Mood Description: Calm Speech Pattern: Clear and Appropriate Laboratory and Diagnostics Result Diagrams: 03/22/19 05:25 03/22/19 05:25 Labs: Laboratory WBC 10.4 X10^3/uL (3.6-10.0) H 03/22/19 05:25 RBC 5.36 X10^6/uL (4.7-6.0) 03/22/19 05:25 Hgb 14.7 g/dL (13.5-18.0) 03/22/19 05:25 Hct 43.6 % (42.0-54.0) 03/22/19 05:25 MCV 81.2 fL (80.0-100.0) 03/22/19 05:25 MCH 27.4 pg (27.0-34.0) 03/22/19 05:25 MCHC 33.7 g/dL (33.0-35.0) 03/22/19 05:25 RDW 18.8 % (11.6-16.5) H 03/22/19 05:25 Plt Count 209 X10^3/uL (150.0-450.0) 03/22/19 05:25 MPV 9.6 fL (7.4-11.0) 03/22/19 05:25 Neut % (Auto) 69.9 % (42.0-75.0) 03/22/19 05:25 Lymph % (Auto) 24.4 % (21.0-51.0) 03/22/19 05:25 [place] % (Auto) 4.1 % (0.0-13.0) 03/22/19 05:25 Eos % (Auto) 1.2 % (0.9-2.9) 03/22/19 05:25 Baso % (Auto) 0.4 % (0.2-1.0) 03/22/19 05:25 Neut # (Auto) 7.2 x10^3/uL (2.2-4.8) H 03/22/19 05:25 Lymph # (Auto) 2.5 X10^3/uL (1.3-2.9) 03/22/19 05:25 [place] # (Auto) 0.4 x10^3/uL (0.3-0.8) 03/22/19 05:25 Eos # (Auto) 0.1 x10^3/uL (0.0-0.2) 03/22/19 05:25 Baso # (Auto) 0.0 X10^3/uL (0.0-0.1) 03/22/19 05:25 Absolute Nucleated RBC 0.1 /100WBC 03/22/19 05:25 Sample Site Rr 03/20/19 10:20 ABG pH 7.390 (7.35-7.45) 03/20/19 10:20 ABG pCO2 49.0 mmHg (35.0-45.0) H 03/20/19 10:20 ABG pO2 70.0 mmHg (80.0-100.0) L 03/20/19 10:20 ABG HCO3 29.7 mmol/L (22-26) H 03/20/19 10:20 ABG O2 Saturation 94.0 % (90-100) 03/20/19 10:20 ABG Base Excess 3.8 mmol/L (-2.0-2.0) H 03/20/19 10:20 Shawn Test Pos 03/20/19 10:20 A-a Gradient 18.0 mmHg 03/20/19 10:20 FiO2 21.0 03/20/19 10:20 Blood Gas Comments Pt [email or web address] 03/20/19 10:20 Sodium 141 mmol/L (136-145) 03/22/19 05:25 Corrected Sodium TNP 03/22/19 05:25 Potassium 4.0 mmol/L (3.5-5.1) 03/22/19 05:25 Chloride 107 mmol/L (98-107) 03/22/19 05:25 Carbon Dioxide 26.0 mmol/L (21-32) 03/22/19 05:25 BUN 19 mg/dL (7-18) H 03/22/19 05:25 Creatinine 1.45 mg/dL (0.70-1.30) H 03/22/19 05:25 Est GFR (MDRD) Af Amer > 60 (>60) 03/22/19 05:25 Est GFR (MDRD) Non-Af 52 (>60) L 03/22/19 05:25 Glucose 100 mg/dL (65-99) H 03/22/19 05:25 Calcium 8.4 mg/dL (8.5-10.1) L 03/22/19 05:25 Corrected Calcium 9.8 mg/dL (8.5-10.1) 03/21/19 05:20 Magnesium 1.9 mg/dL (1.7-2.9) 03/20/19 04:46 Total Bilirubin 0.40 mg/dL (0.2-1.0) 03/21/19 05:20 AST 16 Units/L (15-37) 03/21/19 05:20 ALT 37 Units/L (12-78) 03/21/19 05:20 Alkaline Phosphatase 95 Units/L (46-116) 03/21/19 05:20 Creatine Kinase 52 Units/L (39-308) 03/20/19 11:53 CK-MB (CK-2) 1.4 ng/mL (0-4.0) 03/20/19 11:53 CK/CKMB % Calc 2.7 % (<4) 03/20/19 11:53 Troponin I 0.06 ng/mL (0-1.5) 03/20/19 11:53 B-Natriuretic Peptide 1590 pg/mL (0-79) H* 03/19/19 13:10 Total Protein 6.7 g/dL (6.4-8.2) 03/21/19 05:20 Albumin 2.9 g/dL (3.4-5.0) L 03/21/19 05:20 Globulin 3.8 g/dL (2.5-4.5) 03/21/19 05:20 Albumin/Globulin Ratio 0.8 Ratio (1.1-2.1) L 03/21/19 05:20 Triglycerides 66 mg/dL (0-150) 03/20/19 04:46 Cholesterol 159 mg/dL (0-200) 03/20/19 04:46 LDL Cholesterol, Calc 106 mg/dL (0-100) H 03/20/19 04:46 HDL Cholesterol 40 mg/dL (40-60) 03/20/19 04:46 Cholesterol/HDL Ratio 4.0 (0.0-5.0) 03/20/19 04:46 Specimen Type Clean catch urine 03/20/19 00:30 Urine Color Yellow (YELLOW) 03/20/19 00:30 Urine Appearance Clear (CLEAR) 03/20/19 00:30 Urine pH 6.5 (5.0 - 8.0) 03/20/19 00:30 Ur Specific [place] 1.015 (1.000-1.030) 03/20/19 00:30 Urine Protein 2+ (NEGATIVE) 03/20/19 00:30 Urine Glucose (UA) Negative (NEGATIVE) 03/20/19 00:30 Urine Ketones Negative (NEGATIVE) 03/20/19 00:30 Urine Occult Blood 2+ (NEGATIVE) 03/20/19 00:30 Urine Nitrite Negative (NEGATIVE) 03/20/19 00:30 Urine Bilirubin Negative (NEGATIVE) 03/20/19 00:30 Urine Urobilinogen 2+ (NORMAL) 03/20/19 00:30 Ur Leukocyte Esterase 1+ (NEGATIVE) 03/20/19 00:30 Urine RBC 5-10 /HPF (0-3) A 03/20/19 00:30 Urine WBC 0-2 /HPF (0-5) 03/20/19 00:30 Ur Squamous Epith Cells Few /HPF (NEGATIVE) 03/20/19 00:30 Urine Bacteria Negative /HPF (NEGATIVE) 03/20/19 00:30 Ur Culture Indicated? No/not indicated 03/20/19 00:30 Plan (1) SOB (shortness of breath): Status: Acute Plan: Due to severe dilated cardiomyopathy. CXR yesterday with no significant change, no effusions. Continue home dose Lasix. (2) Acute exacerbation of congestive heart failure: Status: Acute Qualifiers: Heart failure type: combined systolic and diastolic Qualified Code(s): I50.43 - Acute on chronic combined systolic (congestive) and diastolic (congestive) heart failure Plan: Improved, continues to have LEDESMA. ECHO 09/02/18: Dilated cardiomyopathy, Grade 3 Diastolic dysfunction, mod-severe Pulmonary HTN, EF 20-25%. Continue Lasix, entreso, metoprolol. Continue low dose aldactone due to low EF. Outpatient cardiology, Appointment in [facility] for as per patient. (3) CAD (coronary artery disease): Status: Acute Qualifiers: Coronary Disease-Associated Artery/Lesion type: unspecified vessel or lesion type [place] vs. transplanted heart: [place] heart Associated angina: without angina Qualified Code(s): I25.10 - Atherosclerotic heart disease of [place] coronary artery without angina pectoris (4) COPD (chronic obstructive pulmonary disease): Status: Acute Qualifiers: COPD type: unspecified COPD Qualified Code(s): J44.9 - Chronic obstructive pulmonary disease, unspecified Plan: continue Rocephin, received 3 doses of Solumedrol Continue bronchodilators Will add oral prednisone (5) GERD (gastroesophageal reflux disease): Status: Acute Qualifiers: Esophagitis presence: without esophagitis Qualified Code(s): K21.9 - Gastro-esophageal reflux disease without esophagitis (6) CKD (chronic kidney disease): Status: Acute Qualifiers: Chronic kidney disease stage: unspecified stage Qualified Code(s): N18.9 - Chronic kidney disease, unspecified Plan: Cr trending down, 1.45. Baseline between 1.3-1.4 Monitor AM labs.
[2019-03-22] MEDS: ENTRESTO 24/26 MG TAB PO SCH ×2 (11:40→20:46)
[2019-03-22] MEDS: PREDNISONE TAB 20 MG PO SCH (11:41)
[2019-03-22] MEDS: PRAVACHOL PO SCH (20:47)
[2019-03-23] MEDS ORDERED: ZOFRAN INJ 4 MG VIAL IVP PRN (01:30)
[2019-03-23] MEDS ORDERED: ZOFRAN INJ 4 MG VIAL ONE (01:32)
[2019-03-23] MEDS: NEURONTIN CAP 300 MG PO SCH (06:01)
[2019-03-23 06:25] LABS: BASOPHILS % (AUTO) 0.5 % (0.2-1.0); HEMATOCRIT 43.7 % (42.0-54.0); HEMOGLOBIN 14.6 g/dL (13.5-18.0); LYMPHOCYTES # (AUTO) 1.3 X10^3/uL (1.3-2.9); LYMPHOCYTES % (AUTO) 14.1 % (21.0-51.0); MEAN CORPUSCULAR HEMOGLOBIN 26.7 pg (27.0-34.0); MEAN CORPUSCULAR HGB CONC 33.3 g/dL (33.0-35.0); MEAN CORPUSCULAR VOLUME 80.1 fL (80.0-100.0); MEAN PLATELET VOLUME 8.8 fL (7.4-11.0); MONOCYTES # (AUTO) 0.5 x10^3/uL (0.3-0.8); MONOCYTES % (AUTO) 5.9 % (0.0-13.0); NEUTROPHILS # (AUTO) 7.3 x10^3/uL (2.2-4.8); NEUTROPHILS % (AUTO) 79.5 % (42.0-75.0); PLATELET COUNT 214 X10^3/uL (150.0-450.0); RED BLOOD COUNT 5.46 X10^6/uL (4.7-6.0); WHITE BLOOD COUNT 9.2 X10^3/uL (3.6-10.0)
[2019-03-23 06:31] LABS: BLOOD UREA NITROGEN 26 mg/dL (7-18); CALCIUM 8.7 mg/dL (8.5-10.1); CARBON DIOXIDE 27.6 mmol/L (21-32); CHLORIDE 107 mmol/L (98-107); CREATININE 1.55 mg/dL (0.70-1.30); SODIUM 142 mmol/L (136-145); eGFR NON BLACK RACES 48 (>60)
[2019-03-23] MEDS: MICRO K EXTEN CAP 10 MEQ PO SCH (08:59)
[2019-03-23] MEDS: ALDACTONE TAB 25 MG PO SCH (09:00)
[2019-03-23] MEDS: ASPIRIN EC 81 MG PO SCH (09:00)
[2019-03-23] MEDS: PREDNISONE TAB 20 MG PO SCH (09:01)
[2019-03-23] MEDS: LOPRESSOR TAB 25 MG PO SCH (09:01)
[2019-03-23] MEDS: LASIX PO SCH (09:02)
[2019-03-23] MEDS: ROCEPHIN VIAL 1 GRAM 1 G in NS 100 ML IV + SPIKE MINIBAG* 100 ML IV SCH (09:16)
[2019-03-23] MEDS: ENTRESTO 24/26 MG TAB PO SCH (09:16)
[2019-03-23] MEDS: LOVENOX INJ 40 MG SYR SC SCH (09:17)
[2019-03-23] MEDS: PULMICORT NEB TX 0.5 MG NEB SCH (09:21)
[2019-03-23 10:46] VITALS: BP 155/96
== END 2019-03-23 10:35 | disposition home or self-care (01) ==
LOC: ER 11:36 → MED/SURG 18:47 → INTOOBSV 18:47 → MED/SURG 19:18
PROVIDERS: ADMIT Internal Medicine; ATTEND Internal Medicine
DX: Z79.899 Other long term (current) drug therapy; J44.9 Chronic obstructive pulmonary disease, unspecified; I50.43 Acute on chronic combined systolic (congestive) and diastolic (congestive) heart failure; K21.9 Gastro-esophageal reflux disease without esophagitis; I25.10 Atherosclerotic heart disease of native coronary artery without angina pectoris; R60.0 Localized edema; R94.31 Abnormal electrocardiogram [ECG] [EKG]; R06.02 Shortness of breath
CPT/HCPCS: 36415; 36600; 71010; 71045; 80048; 80053; 80061; 81001; 82550; 82553; 82803; 83735; 83880; 84484; 85025; 93005; 94640; 94760; 96365; 96367; 96372; 96374; 99285; A4222; G0378; J0696; J1650; J1940; J2405; J2920; J7040; J7050; J7512; J7626

== ENCOUNTER 2019-05-07 00:40 | Inpatient (IN) ==
[2019-05-07] MEDS ORDERED: DUONEB 0.5 MG/3 MG (3 mL) NEB ONE ×2 (00:49→00:52)
[2019-05-07] MEDS ORDERED: LASIX IVP STA (00:49)
[2019-05-07 00:50] VITALS: BMI 19.6
--- NOTE | 2019-05-07 00:53 | DR.SOBA ---
HPI Time Seen Time Seen by Provider: 05/07/19 00:49 HPI Comment HPI Comment: Worsening sob over the past week to the point that he couldn't take it anymore; he sat in parking lot an hour before calling to have someone come get him from the car; occasional cough, no fever or chills; wheezing with pers istent swelling in both legs which has not improved over the past few weeks. PMH PMH Past Medical History: CHF, COPD, Coronary Artery Disease and Hypertension Past Surgical History: Yes Surgical History: Angioplasty/Stents and Ortho Surgery Family History Family Medical History: Diabetes Mellitus and Hypertension Social History Do you use any recreational Drugs:: No infectious screening Isolation: Standard ROS Review of Systems Constitutional: See HPI, Malaise and Fatigue Eyes: No Symptoms Reported ENTM: No Symptoms Reported Respiratoy: See HPI, Orthopnea, Short of Breath and Wheezing Cardiovascular: No Symptoms Reported Gastrointestinal/Abdominal: No Symptoms Reported Neurological: No Symptoms Reported Musculoskeletal: No Symptoms Reported Integumentary: No Symptoms Reported PE Vital Signs Vitals: Temperature 99.3 F Pulse Rate [Apical] 82 Pulse Rate 83 Respiratory Rate 41 Blood Pressure [Right Arm] 181/101 Blood Pressure [Left Arm] 177/80 Blood Pressure [Right Arm] 145/78 Blood Pressure 176/106 O2 Sat by Pulse Oximetry 92 General Limitations: No Limitations General Appearance: Alert and In Distress (mild increase in wob) Head Head Exam: Normal Inspection, Atraumatic and Normocephalic Eyes Eye exam: Normal Appearance, PERRL and EOMI Neck Neck Exam: Normal Inspection, Full ROM and Trachea Midline Chest Chest Inspection: Normal Inspection and Symmetric Chest Wall Rise Respiratory Respiratory Exam: Accessory Muscle Use Respiratory Exam: Bilateral: Decreased Breath Sounds Cardiovascular Cardiovascular Exam: Regular Rate and Normal Rhythm Abdominal Exam Abdominal Exam: Normal Inspection, Normal Bowel Sounds and Soft Extremities Extremities Exam: Edema (2+ pitting edema bilaterally, shiny skin) Neurologic Neurological Exam: Alert and Oriented X3 Psychiatric Psychiatric Exam: Normal Affect COURSE Reevaluation 1st: Improved (0740 somewhat better but still sob) Consultation Called: 07:40 (s/w Dr Pak who agrees with admission) ROR Labs Reviewed Result Diagrams: 05/07/19 00:55 05/07/19 01:21 Laboratory: WBC 11.8 X10^3/uL (3.6-10.0) H 05/07/19 00:55 RBC 4.84 X10^6/uL (4.7-6.0) 05/07/19 00:55 Hgb 12.8 g/dL (13.5-18.0) L 05/07/19 00:55 Hct 39.3 % (42.0-54.0) L 05/07/19 00:55 MCV 81.2 fL (80.0-100.0) 05/07/19 00:55 MCH 26.5 pg (27.0-34.0) L 05/07/19 00:55 MCHC 32.6 g/dL (33.0-35.0) L 05/07/19 00:55 RDW 16.1 % (11.6-16.5) 05/07/19 00:55 Plt Count 289 X10^3/uL (150.0-450.0) 05/07/19 00:55 MPV 9.1 fL (7.4-11.0) 05/07/19 00:55 Neut % (Auto) 80.4 % (42.0-75.0) H 05/07/19 00:55 Lymph % (Auto) 13.3 % (21.0-51.0) L 05/07/19 00:55 [place] % (Auto) 4.9 % (0.0-13.0) 05/07/19 00:55 Eos % (Auto) 0.6 % (0.9-2.9) L 05/07/19 00:55 Baso % (Auto) 0.8 % (0.2-1.0) 05/07/19 00:55 Neut # (Auto) 9.5 x10^3/uL (2.2-4.8) H 05/07/19 00:55 Lymph # (Auto) 1.6 X10^3/uL (1.3-2.9) 05/07/19 00:55 Jay # (Auto) 0.6 x10^3/uL (0.3-0.8) 05/07/19 00:55 Eos # (Auto) 0.1 x10^3/uL (0.0-0.2) 05/07/19 00:55 Baso # (Auto) 0.1 X10^3/uL (0.0-0.1) 05/07/19 00:55 Absolute Nucleated RBC 0.1 /100WBC 05/07/19 00:55 Sample Site Rbra 05/07/19 01:32 ABG pH 7.500 (7.35-7.45) H 05/07/19 01:32 ABG pCO2 34.0 mmHg (35.0-45.0) L 05/07/19 01:32 ABG pO2 65.0 mmHg (80.0-100.0) L 05/07/19 01:32 ABG HCO3 26.5 mmol/L (22-26) H 05/07/19 01:32 ABG O2 Saturation 94.0 % (90-100) 05/07/19 01:32 ABG Base Excess 3.5 mmol/L (-2.0-2.0) H 05/07/19 01:32 Shawn Test Na 05/07/19 01:32 A-a Gradient 92.0 mmHg 05/07/19 01:32 FiO2 28.0 05/07/19 01:32 Blood Gas Comments Andrew abg well-mtf 05/07/19 01:32 Sodium 143 mmol/L (136-145) 05/07/19 01:21 Corrected Sodium 143 mmol/L (136-145) 05/07/19 01:21 Potassium 4.5 mmol/L (3.5-5.1) 05/07/19 01:21 Chloride 107 mmol/L (98-107) 05/07/19 01:21 Carbon Dioxide 28.3 mmol/L (21-32) 05/07/19 01:21 BUN 21 mg/dL (7-18) H 05/07/19 01:21 Creatinine 1.61 mg/dL (0.70-1.30) H 05/07/19 01:21 Est GFR (MDRD) Af Amer 55 (>60) L 05/07/19 01:21 Est GFR (MDRD) Non-Af 46 (>60) L 05/07/19 01:21 Glucose 118 mg/dL (65-99) H 05/07/19 01:21 Calcium 8.4 mg/dL (8.5-10.1) L 05/07/19 01:21 Corrected Calcium 9.4 mg/dL (8.5-10.1) 05/07/19 01:21 Total Bilirubin 0.70 mg/dL (0.2-1.0) 05/07/19 01:21 AST 16 Units/L (15-37) 05/07/19 01:21 ALT 21 Units/L (12-78) 05/07/19 01:21 Alkaline Phosphatase 108 Units/L (46-116) 05/07/19 01:21 Creatine Kinase 47 Units/L (39-308) 05/07/19 01:21 CK-MB (CK-2) < 1.0 ng/mL (0-4.0) 05/07/19 01:21 CK/CKMB % Calc 2.1 % (<4) 05/07/19 01:21 Troponin I 0.05 ng/mL (0-1.5) 05/07/19 01:21 B-Natriuretic Peptide 3860 pg/mL (0-79) H* 05/07/19 00:55 Total Protein 7.3 g/dL (6.4-8.2) 05/07/19 01:21 Albumin 2.8 g/dL (3.4-5.0) L 05/07/19 01:21 Globulin 4.5 g/dL (2.5-4.5) 05/07/19 01:21 Albumin/Globulin Ratio 0.6 Ratio (1.1-2.1) L 05/07/19 01:21 Influenza Type A (PCR) Negative (NEGATIVE) 05/07/19 01:04 Influenza Type B (PCR) Negative (NEGATIVE) 05/07/19 01:04 Other Results Comments: Cardiomegaly with increased interstitial markings and probable right lung pneumonia. Follow-up to resolution to exclude underlying lesion. Background CHF possible. XRAY XRAY Interpreted by: Radiologist Opioid Opioid Risk Tool Age (Gil box if 16-45): No History of Preadolescent Sexual Abuse: No Total: 0 Total Score Risk Category: Low Risk Copyright: Ron HANKS predicting aberrant behaviors Diagnosis Discharge Problem: Acute dyspnea Acute exacerbation of CHF (congestive heart failure) Qualifiers: Heart failure type: unspecified Qualified Code(s): I50.9 - Heart failure, unspecified Pneumonia Qualifiers: Pneumonia type: due to unspecified organism Laterality: right Lung location: middle lobe of lung Qualified Code(s): J18.9 - Pneumonia, unspecified organism Instructions Instructions: Community-Acquired Pneumonia, Adult Forms: Patient Portal
[2019-05-07] MEDS ORDERED: LASIX ONE (00:57)
[2019-05-07] MEDS ORDERED: LASIX IVP ONE (00:57)
[2019-05-07 01:05] LABS: BASOPHILS # (AUTO) 0.1 X10^3/uL (0.0-0.1); BASOPHILS % (AUTO) 0.8 % (0.2-1.0); EOSINOPHILS # (AUTO) 0.1 x10^3/uL (0.0-0.2); EOSINOPHILS % (AUTO) 0.6 % (0.9-2.9); HEMATOCRIT 39.3 % (42.0-54.0); HEMOGLOBIN 12.8 g/dL (13.5-18.0); LYMPHOCYTES # (AUTO) 1.6 X10^3/uL (1.3-2.9); LYMPHOCYTES % (AUTO) 13.3 % (21.0-51.0); MEAN CORPUSCULAR HEMOGLOBIN 26.5 pg (27.0-34.0); MEAN CORPUSCULAR HGB CONC 32.6 g/dL (33.0-35.0); MEAN CORPUSCULAR VOLUME 81.2 fL (80.0-100.0); MEAN PLATELET VOLUME 9.1 fL (7.4-11.0); MONOCYTES # (AUTO) 0.6 x10^3/uL (0.3-0.8); MONOCYTES % (AUTO) 4.9 % (0.0-13.0); NEUTROPHILS # (AUTO) 9.5 x10^3/uL (2.2-4.8); NEUTROPHILS % (AUTO) 80.4 % (42.0-75.0); PLATELET COUNT 289 X10^3/uL (150.0-450.0); RED BLOOD COUNT 4.84 X10^6/uL (4.7-6.0); RED CELL DISTRIBUTION WIDTH 16.1 % (11.6-16.5); WHITE BLOOD COUNT 11.8 X10^3/uL (3.6-10.0)
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
[2019-05-07 01:53] LABS: BLOOD UREA NITROGEN 21 mg/dL (7-18); CALCIUM 8.4 mg/dL (8.5-10.1); CARBON DIOXIDE 28.3 mmol/L (21-32); CHLORIDE 107 mmol/L (98-107); COR NA(FOR HYPERGLY) 143 mmol/L (136-145); CREATININE 1.61 mg/dL (0.70-1.30); SODIUM 143 mmol/L (136-145); TROPONIN I 0.05 ng/mL (0-1.5); eGFR NON BLACK RACES 46 (>60)
[2019-05-07 01:54] LABS: ABG BASE EXCESS 3.5 mmol/L (-2.0-2.0); ABG HCO3 26.5 mmol/L (22-26)
[2019-05-07 01:54] LABS: ALANINE AMINOTRANSFERASE 21 Units/L (12-78); ALBUMIN 2.8 g/dL (3.4-5.0); ALKALINE PHOSPHATASE 108 Units/L (46-116); ASPARTATE AMINO TRANSFERASE 16 Units/L (15-37); CKMB % 2.1 % (<4); COR CA(FOR HYPOALB) 9.4 mg/dL (8.5-10.1); CREATINE KINASE 47 Units/L (39-308); CREATINE KINASE MB < 1.0 ng/mL (0-4.0); TOTAL PROTEIN 7.3 g/dL (6.4-8.2)
[2019-05-07] MEDS ORDERED: ROCEPHIN VIAL 1 GRAM 1 G in NS 100 ML IV + SPIKE MINIBAG* 100 ML IV ONE (01:56)
[2019-05-07] MEDS ORDERED: ROCEPHIN VIAL 1 GRAM ONE (01:58)
[2019-05-07] MEDS ORDERED: NS 100 ML IV + SPIKE MINIBAG* 100 ML IV ONE (01:58)
[2019-05-07] MEDS ORDERED: ZITHROMAX INJ 500 MG VIAL IV ONE (08:04)
[2019-05-07] MEDS ORDERED: NS 250 ML IV 250 ML IV ONE (08:04)
[2019-05-07 08:07] LABS: BASOPHILS # (AUTO) 0.1 X10^3/uL (0.0-0.1); BASOPHILS % (AUTO) 0.6 % (0.2-1.0); EOSINOPHILS # (AUTO) 0.1 x10^3/uL (0.0-0.2); EOSINOPHILS % (AUTO) 0.5 % (0.9-2.9); HEMATOCRIT 43.1 % (42.0-54.0); HEMOGLOBIN 13.8 g/dL (13.5-18.0); LYMPHOCYTES # (AUTO) 1.4 X10^3/uL (1.3-2.9); LYMPHOCYTES % (AUTO) 11.4 % (21.0-51.0); MEAN CORPUSCULAR HEMOGLOBIN 25.7 pg (27.0-34.0); MEAN CORPUSCULAR VOLUME 80.4 fL (80.0-100.0); MEAN PLATELET VOLUME 8.4 fL (7.4-11.0); MONOCYTES # (AUTO) 0.7 x10^3/uL (0.3-0.8); MONOCYTES % (AUTO) 5.6 % (0.0-13.0); NEUTROPHILS # (AUTO) 10.4 x10^3/uL (2.2-4.8); NEUTROPHILS % (AUTO) 81.9 % (42.0-75.0); PLATELET COUNT 300 X10^3/uL (150.0-450.0); RED BLOOD COUNT 5.36 X10^6/uL (4.7-6.0); RED CELL DISTRIBUTION WIDTH 16.5 % (11.6-16.5); WHITE BLOOD COUNT 12.7 X10^3/uL (3.6-10.0)
[2019-05-07] MEDS: ZITHROMAX INJ 500 MG VIAL 500 MG in NS 250 ML IV 250 ML IV SCH ×2 (08:16→09:00)
[2019-05-07 08:17] LABS: ALANINE AMINOTRANSFERASE 18 Units/L (12-78); ALBUMIN 2.8 g/dL (3.4-5.0); ALKALINE PHOSPHATASE 103 Units/L (46-116); ASPARTATE AMINO TRANSFERASE 15 Units/L (15-37); BLOOD UREA NITROGEN 20 mg/dL (7-18); CALCIUM 8.7 mg/dL (8.5-10.1); CARBON DIOXIDE 29.4 mmol/L (21-32); CHLORIDE 105 mmol/L (98-107); COR CA(FOR HYPOALB) 9.7 mg/dL (8.5-10.1); CREATININE 1.62 mg/dL (0.70-1.30); SODIUM 143 mmol/L (136-145); TOTAL PROTEIN 7.5 g/dL (6.4-8.2); eGFR NON BLACK RACES 45 (>60)
[2019-05-07 08:31] LABS: HYPOCHROMASIA SLIGHT; PLATELET MORPHOLOGY COMMENT NORMAL (NORMAL)
[2019-05-07] MEDS ORDERED: MICRO K EXTEN CAP 10 MEQ PO ONE (09:31)
[2019-05-07] MEDS ORDERED: ASPIRIN 81 MG CHEWTAB ONE (09:31)
[2019-05-07] MEDS: ASPIRIN EC 81 MG PO SCH ×3 (10:28→11:25)
[2019-05-07] MEDS: LOPRESSOR TAB 25 MG PO SCH ×2 (10:28→20:36)
[2019-05-07] MEDS: PATIENT'S HOME MEDICATION (Sacubitril-Valsartan [Entresto] 1 TAB) PO SCH ×2 (10:29→21:32)
[2019-05-07] MEDS: MICRO K EXTEN CAP 10 MEQ PO SCH ×2 (10:29→20:36)
[2019-05-07] MEDS ORDERED: SALINE 3% 15 ML NEB TX NEB ONE (11:02)
[2019-05-07] MEDS: XOPENEX 1.25 MG/3 ML NEBULE NEB SCH ×2 (11:37→17:00)
[2019-05-07] MEDS: LASIX IVP SCH ×2 (14:23→20:37)
--- NOTE | 2019-05-07 17:48 | DR.H&P ---
H&P - History & Physical for Day of: H&P Date: 05/07/19 - Chief Complaint Chief Complaint: SOB, WEAKNESS, WHEEZING - History of Present Illness History of Present Illness: PT HIS 69 BM ER ADMISSION AFTER PRESENTING WITH CO COUGH, SOB, LOWER LEG SWELLING. PT HAD PMH OF CHF AND STATES HE HAS BEEN TAKING PRESCRIPTION MEDICATION ORDERED. PT ALSO HAD BPH AND COPD. PT HAD PNEUMONIA ON CXR IN ER. PT ADMITTED FOR TREATMENT OF ACUTE RESP DISTRESS, PNEUMONIA, CHF. - Past Medical History Past Medical History: Coronary Artery Disease, Hypertension, COPD, CHF - Past Surgical History Surgical History: Angioplasty/Stents, Ortho Surgery - Family History Family Medical History: Diabetes Mellitus, Hypertension - Social History Does patient currently use any type of tobacco product: No (quit 2 months ago) Have you used tobacco products in the last 12 months: Yes Type of Tobacco Use: None How many years tobacco product used: 30 Does any household member use tobacco: No Alcohol Use: None Drug Use: None - Medications Home Medications: No Known Drug Allergies Allergy (Verified 04/02/19 15:27) CONTINUE taking the following medications meloxicam 7.5 mg PO DAILY 05/07/19 [History] sacubitril-valsartan [Entresto] 1 tab PO BID 05/07/19 [History] - Review of Systems Constitutional: Weakness Eyes: No Symptoms Reported ENT: No Symptoms Reported Respiratory: Shortness of Breath, SOB with Excertion, Wheezing Cardiovascular: No Symptoms Reported Gastrointestinal: No Symptoms Reported Genitourinary: No Symptoms Reported Musculoskeletal: Back Pain Skin: No Symptoms Reported Neurological: Weakness - Physical Exam Vital Signs: Temperature 98.1 F Pulse Rate [Left Brachial] 76 Pulse Rate [Apical] 82 Pulse Rate 91 Respiratory Rate 20 Blood Pressure [Right Arm] 181/101 Blood Pressure [Left Arm] 165/83 Blood Pressure [Right Arm] 145/78 Blood Pressure 145/96 O2 Sat by Pulse Oximetry 94 Oriented: Normal Eyes: Normal Ear: Normal Nose: Normal Throat: Normal Respiratory: Wheezes Throughout, RLL Diminished, LLL Diminished Cardiovascular: Normal, Edema : Normal Auscultation: Bowel Sounds: Normal Tenderness: Normal Skin: Decreased [place] Musculoskeletal: Back:Lumbar Psychiatric: Anxiety Affect: Anxious Speech Pattern: Clear, Appropriate - Assessment/Plan (1) Pneumonia Qualifiers: Pneumonia type: due to unspecified organism Laterality: right Lung location: middle lobe of lung Qualified Code(s): J18.9 - Pneumonia, unspecified organism Status: Acute Plan: BLOOD AND SPUTUM CULTURE ON ADMISSION. GENTLE IV HYDRATION WITH STRICT I &OS. RESUME HOME MEDICATION. IV ATBX, RESP THERAPY, SUPPLEMENTAL O2. REPEAT CXR, AM LABS (2) Acute exacerbation of CHF (congestive heart failure) Qualifiers: Heart failure type: unspecified Qualified Code(s): I50.9 - Heart failure, unspecified Status: Acute (3) CAD (coronary artery disease) Qualifiers: Coronary Disease-Associated Artery/Lesion type: unspecified vessel or lesion type [place] vs. transplanted heart: [place] heart Associated angina: without angina Qualified Code(s): I25.10 - Atherosclerotic heart disease of [place] coronary artery without angina pectoris Status: Acute (4) GERD (gastroesophageal reflux disease) Qualifiers: Esophagitis presence: without esophagitis Qualified Code(s): K21.9 - Gastro-esophageal reflux disease without esophagitis Status: Acute (5) Degenerative disc disease Status: Chronic (6) Essential hypertension Status: Chronic - Allergies Allergies/Adverse Reactions: Allergies Allergy/AdvReac Type Severity Reaction Status Date / Time No Known Drug Allergies Allergy Verified 04/02/19 15:27
[2019-05-08] MEDS: XOPENEX 1.25 MG/3 ML NEBULE NEB SCH ×4 (00:35→17:04)
[2019-05-08 06:11] LABS: BASOPHILS # (AUTO) 0.1 X10^3/uL (0.0-0.1); BASOPHILS % (AUTO) 0.6 % (0.2-1.0); EOSINOPHILS % (AUTO) 0.1 % (0.9-2.9); HEMATOCRIT 37.5 % (42.0-54.0); HEMOGLOBIN 12.2 g/dL (13.5-18.0); LYMPHOCYTES # (AUTO) 1.4 X10^3/uL (1.3-2.9); LYMPHOCYTES % (AUTO) 10.1 % (21.0-51.0); MEAN CORPUSCULAR HGB CONC 32.6 g/dL (33.0-35.0); MEAN CORPUSCULAR VOLUME 79.9 fL (80.0-100.0); MEAN PLATELET VOLUME 8.4 fL (7.4-11.0); MONOCYTES % (AUTO) 7.6 % (0.0-13.0); NEUTROPHILS % (AUTO) 81.6 % (42.0-75.0); PLATELET COUNT 254 X10^3/uL (150.0-450.0); RED CELL DISTRIBUTION WIDTH 16.1 % (11.6-16.5); WHITE BLOOD COUNT 13.5 X10^3/uL (3.6-10.0)
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
[2019-05-08 06:26] LABS: ALBUMIN 2.4 g/dL (3.4-5.0); CALCIUM 8.3 mg/dL (8.5-10.1); CARBON DIOXIDE 29.5 mmol/L (21-32); COR CA(FOR HYPOALB) 9.6 mg/dL (8.5-10.1); CREATININE 1.62 mg/dL (0.70-1.30); TOTAL PROTEIN 6.4 g/dL (6.4-8.2)
[2019-05-08] MEDS: ASPIRIN EC 81 MG PO SCH (09:08)
[2019-05-08] MEDS: MICRO K EXTEN CAP 10 MEQ PO SCH ×2 (09:08→20:20)
[2019-05-08] MEDS: ZITHROMAX INJ 500 MG VIAL 500 MG in NS 250 ML IV 250 ML IV SCH (09:08)
[2019-05-08] MEDS: PATIENT'S HOME MEDICATION (Sacubitril-Valsartan [Entresto] 1 TAB) PO SCH ×2 (09:09→20:19)
[2019-05-08] MEDS: LOPRESSOR TAB 25 MG PO SCH ×2 (09:09→20:19)
[2019-05-08] MEDS ORDERED: NS 250 ML IV 250 ML IV ONE (09:11)
--- NOTE | 2019-05-08 14:05 | PCM.PROG ---
Progress Note - Progress Note for Day of Date of Exam: 05/08/19 - Subjective Subjective: 69 BM ER ADMISSION ON 05/07 WITH PNEUMONIA. PT IS CURRENTLY ON IV ATBX, RESP THERAPY. PT CXR WITH RIGHT UPPER LOBE INFILTRATE THIS AM. PT ENCOURAGED TO USE IS, SPUTUM PRODUCTION. PT HAS PMH OF CAD AND CHF, IV LASIX GIVEN ALONG RESUMED HOME MEDICATION. PT CONTINUES WITH BILATERAL LOWER EXTREMITY EDEMA CO OF DECREASED URINE OUTPT, WILL RESTART PO FLOMAX, ALEXANDER PRN - Past Medical Family Social History Past Med/Fam/Surg Hx: No changes since H&P Allergies: Allergies No Known Drug Allergies Allergy (Verified 04/02/19 15:27) - Vital Signs and I&O's Vital Signs: Temperature 98.2 F Pulse Rate [Left Brachial] 84 Pulse Rate [Apical] 82 Pulse Rate 94 Respiratory Rate 20 Blood Pressure [Right Arm] 181/101 Blood Pressure [Left Arm] 147/87 Blood Pressure [Right Arm] 145/78 Blood Pressure 145/96 O2 Sat by Pulse Oximetry 90 Intake and Output: Intake & Output 05/06/19 05/07/19 05/08/19 05/09/19 11:59 11:59 11:59 11:59 Intake Total 322 / 322 1610 / 1610 Output Total 1800 / 1800 450 / 450 Balance -1478 / -1478 1160 / 1160 - Physical Exam Oriented: Normal Eyes: Normal Ear: Normal Nose: Normal Throat: Normal Respiratory: Diminished, Wheezes Cardiovascular: Normal, Edema : Normal Auscultation: Bowel Sounds: Normal Tenderness: Normal Skin: Decreased Turgur Musculoskeletal: Back:Lumbar Psychiatric: Anxiety Affect: Anxious Speech Pattern: Clear, Appropriate - Laboratory and Diagnostics Result Diagrams: 05/08/19 05:53 05/08/19 05:53 Labs: 05/07/19 11:39 Sputum - Expectorated Sputum Sputum Culture - Preliminary 05/07/19 11:39 Sputum - Expectorated Sputum - Final Laboratory WBC 13.5 X10^3/uL (3.6-10.0) H 05/08/19 05:53 RBC 4.70 X10^6/uL (4.7-6.0) 05/08/19 05:53 Hgb 12.2 g/dL (13.5-18.0) L 05/08/19 05:53 Hct 37.5 % (42.0-54.0) L 05/08/19 05:53 MCV 79.9 fL (80.0-100.0) L 05/08/19 05:53 MCH 26.0 pg (27.0-34.0) L 05/08/19 05:53 MCHC 32.6 g/dL (33.0-35.0) L 05/08/19 05:53 RDW 16.1 % (11.6-16.5) 05/08/19 05:53 Plt Count 254 X10^3/uL (150.0-450.0) 05/08/19 05:53 Plt Count Comment Adequate (ADEQUATE) 05/07/19 07:58 MPV 8.4 fL (7.4-11.0) 05/08/19 05:53 Neut % (Auto) 81.6 % (42.0-75.0) H 05/08/19 05:53 Lymph % (Auto) 10.1 % (21.0-51.0) L 05/08/19 05:53 [place] % (Auto) 7.6 % (0.0-13.0) 05/08/19 05:53 Eos % (Auto) 0.1 % (0.9-2.9) L 05/08/19 05:53 Baso % (Auto) 0.6 % (0.2-1.0) 05/08/19 05:53 Neut # (Auto) 11.0 x10^3/uL (2.2-4.8) H 05/08/19 05:53 Lymph # (Auto) 1.4 X10^3/uL (1.3-2.9) 05/08/19 05:53 [place] # (Auto) 1.0 x10^3/uL (0.3-0.8) H 05/08/19 05:53 Eos # (Auto) 0.0 x10^3/uL (0.0-0.2) 05/08/19 05:53 Baso # (Auto) 0.1 X10^3/uL (0.0-0.1) 05/08/19 05:53 Absolute Nucleated RBC 0.0 /100WBC 05/08/19 05:53 Plt Morphology Comment Normal (NORMAL) 05/07/19 07:58 RBC Morphology Abnormal (NORMAL) 05/07/19 07:58 Hypochromasia Slight A 05/07/19 07:58 Sample Site Rbra 05/07/19 01:32 ABG pH 7.500 (7.35-7.45) H 05/07/19 01:32 ABG pCO2 34.0 mmHg (35.0-45.0) L 05/07/19 01:32 ABG pO2 65.0 mmHg (80.0-100.0) L 05/07/19 01:32 ABG HCO3 26.5 mmol/L (22-26) H 05/07/19 01:32 ABG O2 Saturation 94.0 % (90-100) 05/07/19 01:32 ABG Base Excess 3.5 mmol/L (-2.0-2.0) H 05/07/19 01:32 Shawn Test Na 05/07/19 01:32 A-a Gradient 92.0 mmHg 05/07/19 01:32 FiO2 28.0 05/07/19 01:32 Blood Gas Comments Andrew abg well-mtf 05/07/19 01:32 Sodium 142 mmol/L (136-145) 05/08/19 05:53 Corrected Sodium 143 mmol/L (136-145) 05/08/19 05:53 Potassium 3.9 mmol/L (3.5-5.1) 05/08/19 05:53 Chloride 105 mmol/L (98-107) 05/08/19 05:53 Carbon Dioxide 29.5 mmol/L (21-32) 05/08/19 05:53 BUN 19 mg/dL (7-18) H 05/08/19 05:53 Creatinine 1.62 mg/dL (0.70-1.30) H 05/08/19 05:53 Est GFR (MDRD) Af Amer 55 (>60) L 05/08/19 05:53 Est GFR (MDRD) Non-Af 45 (>60) L 05/08/19 05:53 Glucose 131 mg/dL (65-99) H 05/08/19 05:53 Calcium 8.3 mg/dL (8.5-10.1) L 05/08/19 05:53 Corrected Calcium 9.6 mg/dL (8.5-10.1) 05/08/19 05:53 Total Bilirubin 1.30 mg/dL (0.2-1.0) H 05/08/19 05:53 AST 17 Units/L (15-37) 05/08/19 05:53 ALT 14 Units/L (12-78) 05/08/19 05:53 Alkaline Phosphatase 83 Units/L (46-116) 05/08/19 05:53 Creatine Kinase 47 Units/L (39-308) 05/07/19 01:21 CK-MB (CK-2) < 1.0 ng/mL (0-4.0) 05/07/19 01:21 CK/CKMB % Calc 2.1 % (<4) 05/07/19 01:21 Troponin I 0.05 ng/mL (0-1.5) 05/07/19 01:21 B-Natriuretic Peptide 3860 pg/mL (0-79) H* 05/07/19 00:55 Total Protein 6.4 g/dL (6.4-8.2) 05/08/19 05:53 Albumin 2.4 g/dL (3.4-5.0) L 05/08/19 05:53 Globulin 4.0 g/dL (2.5-4.5) 05/08/19 05:53 Albumin/Globulin Ratio 0.6 Ratio (1.1-2.1) L 05/08/19 05:53 Influenza Type A (PCR) Negative (NEGATIVE) 05/07/19 01:04 Influenza Type B (PCR) Negative (NEGATIVE) 05/07/19 01:04 - Plan (1) Pneumonia Status: Acute Qualifiers: Pneumonia type: due to unspecified organism Laterality: right Lung location: middle lobe of lung Qualified Code(s): J18.9 - Pneumonia, unspecified organism Plan: SPUTUM CULTURE ON ADMISSION. GENTLE IV HYDRATION WITH STRICT I &OS. R ESUME HOME MEDICATION. IV ATBX, RESP THERAPY, SUPPLEMENTAL O2. REPEAT CXR, AM LABS (2) Acute exacerbation of CHF (congestive heart failure) Status: Acute Qualifiers: Heart failure type: unspecified Qualified Code(s): I50.9 - Heart failure, unspecified (3) CAD (coronary artery disease) Status: Acute Qualifiers: Coronary Disease-Associated Artery/Lesion type: unspecified vessel or lesion type [place] vs. transplanted heart: [place] heart Associated angina: without angina Qualified Code(s): I25.10 - Atherosclerotic heart disease of [place] co ronary artery without angina pectoris (4) GERD (gastroesophageal reflux disease) Status: Acute Qualifiers: Esophagitis presence: without esophagitis Qualified Code(s): K21.9 - Gastro-esophageal reflux disease without esophagitis (5) Degenerative disc disease Status: Chronic (6) Essential hypertension Status: Chronic
[2019-05-08] MEDS: LOVENOX INJ 40 MG SYR SC SCH (15:00)
[2019-05-08] MEDS: FLOMAX PO SCH (20:19)
[2019-05-08] MEDS: TYLENOL 325 MG TAB PO PRN (20:55)
[2019-05-09] MEDS: XOPENEX 1.25 MG/3 ML NEBULE NEB SCH ×4 (00:20→17:24)
[2019-05-09 06:45] LABS: ALANINE AMINOTRANSFERASE 16 Units/L (12-78); ALBUMIN 2.1 g/dL (3.4-5.0); ALKALINE PHOSPHATASE 99 Units/L (46-116); ASPARTATE AMINO TRANSFERASE 16 Units/L (15-37); BLOOD UREA NITROGEN 20 mg/dL (7-18); CARBON DIOXIDE 28.4 mmol/L (21-32); CHLORIDE 107 mmol/L (98-107); COR CA(FOR HYPOALB) 9.5 mg/dL (8.5-10.1); CREATININE 1.44 mg/dL (0.70-1.30); SODIUM 142 mmol/L (136-145); TOTAL PROTEIN 6.1 g/dL (6.4-8.2); eGFR NON BLACK RACES 52 (>60)
[2019-05-09] MEDS ORDERED: K-DUR TAB 20 MEQ PO PRN (06:59)
[2019-05-09] MEDS ORDERED: POTASSIUM CHL 40 MEQ/NS 0.45% 500 ML IV PRN (06:59)
[2019-05-09] MEDS ORDERED: POTASSIUM CHL 60 MEQ/NS 0.45% 500 ML IV PRN (06:59)
[2019-05-09] MEDS ORDERED: K-RIDER 10 MEQ/NS 100 ML 10 MEQ/100 ML BAG IV PRN (06:59)
[2019-05-09] MEDS ORDERED: MICRO K EXTEN CAP 10 MEQ PO PRN (06:59)
[2019-05-09] MEDS ORDERED: KLOR-CON PO PRN (06:59)
[2019-05-09] MEDS ORDERED: POTASSIUM CHLORIDE LIQ 20 MEQ UDC PO PRN (06:59)
[2019-05-09 07:15] LABS: BASOPHILS # (AUTO) 0.1 X10^3/uL (0.0-0.1); BASOPHILS % (AUTO) 0.6 % (0.2-1.0); EOSINOPHILS # (AUTO) 0.1 x10^3/uL (0.0-0.2); EOSINOPHILS % (AUTO) 1.2 % (0.9-2.9); HEMATOCRIT 34.3 % (42.0-54.0); HEMOGLOBIN 11.2 g/dL (13.5-18.0); LYMPHOCYTES # (AUTO) 1.4 X10^3/uL (1.3-2.9); LYMPHOCYTES % (AUTO) 14.5 % (21.0-51.0); MEAN CORPUSCULAR HEMOGLOBIN 26.2 pg (27.0-34.0); MEAN CORPUSCULAR HGB CONC 32.7 g/dL (33.0-35.0); MEAN CORPUSCULAR VOLUME 80.1 fL (80.0-100.0); MEAN PLATELET VOLUME 8.9 fL (7.4-11.0); MONOCYTES # (AUTO) 0.8 x10^3/uL (0.3-0.8); MONOCYTES % (AUTO) 8.7 % (0.0-13.0); NEUTROPHILS # (AUTO) 7.1 x10^3/uL (2.2-4.8); PLATELET COUNT 267 X10^3/uL (150.0-450.0); RED BLOOD COUNT 4.28 X10^6/uL (4.7-6.0); RED CELL DISTRIBUTION WIDTH 15.7 % (11.6-16.5); WHITE BLOOD COUNT 9.5 X10^3/uL (3.6-10.0)
[2019-05-09] MEDS: MAGNESIUM SULFATE 1 GRAM/100 mL PREMIX 1 GM/100 ML BAG IV PRN ×2 (08:58→10:45)
[2019-05-09] MEDS: LOVENOX INJ 40 MG SYR SC SCH (08:59)
[2019-05-09] MEDS: HYDROCHLOROTHIAZIDE 25 MG TAB PO SCH (08:59)
[2019-05-09] MEDS: LOPRESSOR TAB 25 MG PO SCH ×2 (08:59→21:27)
[2019-05-09] MEDS ORDERED: FORTAZ or TAZICEF VIAL INJ 1 G in NS 100 ML IV + SPIKE MINIBAG* 100 ML IV SCH (09:00)
[2019-05-09] MEDS: ASPIRIN EC 81 MG PO SCH (09:01)
[2019-05-09] MEDS: MICRO K EXTEN CAP 10 MEQ PO SCH ×2 (09:01→21:26)
[2019-05-09] MEDS: ALBUMIN HUMAN 25%- 100 ML 100 ML IV SCH (09:38)
[2019-05-09] MEDS: LASIX IVP SCH ×2 (09:39→21:30)
[2019-05-09] MEDS: PATIENT'S HOME MEDICATION (Sacubitril-Valsartan [Entresto] 1 TAB) PO SCH ×2 (09:40→21:27)
[2019-05-09] MEDS: LEVAQUIN PREMIX IV 500 MG 500 MG/100 ML BAG IV SCH (12:16)
[2019-05-09] MEDS: TEFLARO 600 MG in NS 100 ML IV + SPIKE MINIBAG* 100 ML IV SCH ×2 (12:16→21:29)
[2019-05-09] MEDS: ZANAFLEX PO PRN (13:29)
[2019-05-09] MEDS: NEURONTIN CAP 300 MG PO SCH ×2 (13:29→21:27)
[2019-05-09] MEDS: MOBIC TAB 15 MG PO SCH (13:29)
[2019-05-09] MEDS: FLOMAX PO SCH (21:27)
[2019-05-10] MEDS: XOPENEX 1.25 MG/3 ML NEBULE NEB SCH ×4 (01:15→17:12)
[2019-05-10] MEDS: NEURONTIN CAP 300 MG PO SCH ×3 (05:42→21:18)
[2019-05-10 06:14] LABS: BASOPHILS % (AUTO) 0.4 % (0.2-1.0); EOSINOPHILS # (AUTO) 0.3 x10^3/uL (0.0-0.2); EOSINOPHILS % (AUTO) 4.5 % (0.9-2.9); HEMATOCRIT 33.7 % (42.0-54.0); HEMOGLOBIN 10.9 g/dL (13.5-18.0); LYMPHOCYTES # (AUTO) 1.5 X10^3/uL (1.3-2.9); LYMPHOCYTES % (AUTO) 22.4 % (21.0-51.0); MEAN CORPUSCULAR HGB CONC 32.5 g/dL (33.0-35.0); MEAN PLATELET VOLUME 8.4 fL (7.4-11.0); MONOCYTES # (AUTO) 0.4 x10^3/uL (0.3-0.8); MONOCYTES % (AUTO) 6.1 % (0.0-13.0); NEUTROPHILS # (AUTO) 4.5 x10^3/uL (2.2-4.8); NEUTROPHILS % (AUTO) 66.6 % (42.0-75.0); PLATELET COUNT 284 X10^3/uL (150.0-450.0); WHITE BLOOD COUNT 6.7 X10^3/uL (3.6-10.0)
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
[2019-05-10 06:39] LABS: ALANINE AMINOTRANSFERASE 15 Units/L (12-78); ALBUMIN 2.3 g/dL (3.4-5.0); ALKALINE PHOSPHATASE 83 Units/L (46-116); ASPARTATE AMINO TRANSFERASE 12 Units/L (15-37); BLOOD UREA NITROGEN 17 mg/dL (7-18); CALCIUM 8.2 mg/dL (8.5-10.1); CARBON DIOXIDE 32.1 mmol/L (21-32); CHLORIDE 105 mmol/L (98-107); COR CA(FOR HYPOALB) 9.6 mg/dL (8.5-10.1); CREATININE 1.52 mg/dL (0.70-1.30); MAGNESIUM 2.2 mg/dL (1.7-2.9); SODIUM 142 mmol/L (136-145); TOTAL PROTEIN 6.2 g/dL (6.4-8.2); eGFR NON BLACK RACES 49 (>60)
[2019-05-10] MEDS: ALBUMIN HUMAN 25%- 100 ML 100 ML IV SCH (08:53)
[2019-05-10] MEDS: LOPRESSOR TAB 25 MG PO SCH ×2 (08:54→21:19)
[2019-05-10] MEDS: HYDROCHLOROTHIAZIDE 25 MG TAB PO SCH (08:54)
[2019-05-10] MEDS: LEVAQUIN PREMIX IV 500 MG 500 MG/100 ML BAG IV SCH (08:54)
[2019-05-10] MEDS: ASPIRIN EC 81 MG PO SCH (08:54)
[2019-05-10] MEDS: MOBIC TAB 15 MG PO SCH (08:55)
[2019-05-10] MEDS: MICRO K EXTEN CAP 10 MEQ PO SCH ×2 (08:55→21:18)
[2019-05-10] MEDS: TEFLARO 600 MG in NS 100 ML IV + SPIKE MINIBAG* 100 ML IV SCH ×2 (08:55→21:17)
[2019-05-10] MEDS: LOVENOX INJ 40 MG SYR SC SCH (09:06)
[2019-05-10] MEDS: PATIENT'S HOME MEDICATION (Sacubitril-Valsartan [Entresto] 1 TAB) PO SCH ×2 (09:07→21:19)
[2019-05-10] MEDS: LASIX IVP SCH ×2 (11:54→21:18)
--- NOTE | 2019-05-10 19:27 | PCM.PROG ---
Progress Note - Progress Note for Day of Date of Exam: 05/09/19 - Subjective Subjective: IS BEING TREATED FOR CHF EXACERBATION AND RML PNEUMONIA. TODAY, HE IS ALERT AND ORIENTED, LYING IN BED ON MONRING ROUNDS. HE CONTINUES WITH COMPLAINTS OF COUGH AND SHORTNESS OF BREATH TODAY, ON EXAMINATION, HEART IS REGULAR IN RATE AND RHYTHM. BILATERAL LUNGS ARE NOTED WITH SCATTERED WHEEZING AND DIMINISHED LUNG SOUNDS THROUGHOUT. ABDOMEN IS ROUND, SOFT, AND NON-TENDER WITH NORMAL BOWEL SOUNDS IN ALL QUADRANTS. HIS VITALS THIS MORNING ARE: 98.5-82-18-99%-161/86. LABS WERE OBTAINED. ABNORMAL LAB VALUES INCLUDE THE FOLLOWING: RBC 4.28, HGB 11.2, HCT 34.3, POTASSIUM 3.4, BUN 20, CREATININE 1.44, GLUCOSE 103, CALCIUM 8.0, TOTAL BILI 1.20, TOTAL PROTEIN 6.1, ALBUMIN 2.1. SPUTUM CULTURE REVEALED GROWTH OF MRSA. BLOOD CULTURES ARE PENDING. HE IS CURRENTLY RECEIVING AZITHROMYCIN IV, RESPIRATORY TX, SUPPLEMENTAL OXYGEN, THE POTASSIUM AND MAGNESIUM PROTOCOLS, AND HOME MEDICATIONS WERE RESUMED. TODAY, WE WILL DISCONTINUE THE AZITHROMYCIN AND START LEVAQUIN 500MG IV DAILY, TEFLARO 600MG IV Q12H, ALBUMIN 25% IV DAILY, AND LASIX 40MG IV Q12H. OTHERWISE, WE WILL FOLLOW UP WITH AM LABS AND CHEST XRAY AND CONTINUE TO MONITOR. - Past Medical Family Social History Past Med/Fam/Surg Hx: No changes since H&P Allergies: Allergies No Known Drug Allergies Allergy (Verified 04/02/19 15:27) - Vital Signs and I&O's Vital Signs: Temperature 98.4 F Pulse Rate [Left Brachial] 72 Pulse Rate [Apical] 78 Pulse Rate 85 Respiratory Rate 20 Blood Pressure [Right Arm] 181/101 Blood Pressure [Left Arm] 151/81 Blood Pressure [Right Arm] 160/66 Blood Pressure 145/96 O2 Sat by Pulse Oximetry 100 Intake and Output: Intake & Output 05/08/19 05/09/19 05/10/19 05/11/19 11:59 11:59 11:59 11:59 Intake Total 1610 / 1610 1050 / 1050 2640 / 2640 700 / 700 Output Total 450 / 450 300 / 300 4475 / 4475 700 / 700 Balance 1160 / 1160 750 / 750 -1835 / -1835 0 / 0 - Physical Exam Oriented: Normal Eyes: Normal Ear: Normal Nose: Normal Throat: Normal Respiratory: Diminished, Wheezes Cardiovascular: Normal, Edema : Normal Auscultation: Bowel Sounds: Normal Tenderness: Normal Skin: Decreased Turgur Musculoskeletal: Back:Lumbar Psychiatric: Anxiety Affect: Anxious Speech Pattern: Clear, Appropriate - Laboratory and Diagnostics Result Diagrams: 05/10/19 05:20 05/10/19 14:00 Labs: 05/08/19 20:30 Blood Blood Culture - Preliminary 05/07/19 11:39 Sputum - Expectorated Sputum Sputum Culture - Final Methicillin Resis Staph Aureus 05/07/19 11:39 Sputum - Expectorated Sputum - Final Laboratory WBC 6.7 X10^3/uL (3.6-10.0) 05/10/19 05:20 RBC 4.20 X10^6/uL (4.7-6.0) L 05/10/19 05:20 Hgb 10.9 g/dL (13.5-18.0) L 05/10/19 05:20 Hct 33.7 % (42.0-54.0) L 05/10/19 05:20 MCV 80.0 fL (80.0-100.0) 05/10/19 05:20 MCH 26.0 pg (27.0-34.0) L 05/10/19 05:20 MCHC 32.5 g/dL (33.0-35.0) L 05/10/19 05:20 RDW 16.0 % (11.6-16.5) 05/10/19 05:20 Plt Count 284 X10^3/uL (150.0-450.0) 05/10/19 05:20 Plt Count Comment Adequate (ADEQUATE) 05/07/19 07:58 MPV 8.4 fL (7.4-11.0) 05/10/19 05:20 Neut % (Auto) 66.6 % (42.0-75.0) 05/10/19 05:20 Lymph % (Auto) 22.4 % (21.0-51.0) 05/10/19 05:20 [place] % (Auto) 6.1 % (0.0-13.0) 05/10/19 05:20 Eos % (Auto) 4.5 % (0.9-2.9) H 05/10/19 05:20 Baso % (Auto) 0.4 % (0.2-1.0) 05/10/19 05:20 Neut # (Auto) 4.5 x10^3/uL (2.2-4.8) 05/10/19 05:20 Lymph # (Auto) 1.5 X10^3/uL (1.3-2.9) 05/10/19 05:20 [place] # (Auto) 0.4 x10^3/uL (0.3-0.8) 05/10/19 05:20 Eos # (Auto) 0.3 x10^3/uL (0.0-0.2) H 05/10/19 05:20 Baso # (Auto) 0.0 X10^3/uL (0.0-0.1) 05/10/19 05:20 Absolute Nucleated RBC 0.0 /100WBC 05/10/19 05:20 Plt Morphology Comment Normal (NORMAL) 05/07/19 07:58 RBC Morphology Abnormal (NORMAL) 05/07/19 07:58 Hypochromasia Slight A 05/07/19 07:58 Sample Site Rbra 05/07/19 01:32 ABG pH 7.500 (7.35-7.45) H 05/07/19 01:32 ABG pCO2 34.0 mmHg (35.0-45.0) L 05/07/19 01:32 ABG pO2 65.0 mmHg (80.0-100.0) L 05/07/19 01:32 ABG HCO3 26.5 mmol/L (22-26) H 05/07/19 01:32 ABG O2 Saturation 94.0 % (90-100) 05/07/19 01:32 ABG Base Excess 3.5 mmol/L (-2.0-2.0) H 05/07/19 01:32 Shawn Test Na 05/07/19 01:32 A-a Gradient 92.0 mmHg 05/07/19 01:32 FiO2 28.0 05/07/19 01:32 Blood Gas Comments Andrew abg well-mtf 05/07/19 01:32 Sodium 142 mmol/L (136-145) 05/10/19 05:20 Corrected Sodium TNP 05/10/19 05:20 Potassium 3.8 mmol/L (3.5-5.1) 05/10/19 14:00 Chloride 105 mmol/L (98-107) 05/10/19 05:20 Carbon Dioxide 32.1 mmol/L (21-32) H 05/10/19 05:20 BUN 17 mg/dL (7-18) 05/10/19 05:20 Creatinine 1.52 mg/dL (0.70-1.30) H 05/10/19 05:20 Est GFR (MDRD) Af Amer 59 (>60) 05/10/19 05:20 Est GFR (MDRD) Non-Af 49 (>60) L 05/10/19 05:20 Glucose 94 mg/dL (65-99) 05/10/19 05:20 Calcium 8.2 mg/dL (8.5-10.1) L 05/10/19 05:20 Corrected Calcium 9.6 mg/dL (8.5-10.1) 05/10/19 05:20 Magnesium 2.2 mg/dL (1.7-2.9) 05/10/19 05:20 Total Bilirubin 0.50 mg/dL (0.2-1.0) 05/10/19 05:20 AST 12 Units/L (15-37) L 05/10/19 05:20 ALT 15 Units/L (12-78) 05/10/19 05:20 Alkaline Phosphatase 83 Units/L (46-116) 05/10/19 05:20 Creatine Kinase 47 Units/L (39-308) 05/07/19 01:21 CK-MB (CK-2) < 1.0 ng/mL (0-4.0) 05/07/19 01:21 CK/CKMB % Calc 2.1 % (<4) 05/07/19 01:21 Troponin I 0.05 ng/mL (0-1.5) 05/07/19 01:21 B-Natriuretic Peptide 3860 pg/mL (0-79) H* 05/07/19 00:55 Total Protein 6.2 g/dL (6.4-8.2) L 05/10/19 05:20 Albumin 2.3 g/dL (3.4-5.0) L 05/10/19 05:20 Globulin 3.9 g/dL (2.5-4.5) 05/10/19 05:20 Albumin/Globulin Ratio 0.6 Ratio (1.1-2.1) L 05/10/19 05:20 Influenza Type A (PCR) Negative (NEGATIVE) 05/07/19 01:04 Influenza Type B (PCR) Negative (NEGATIVE) 05/07/19 01:04 - Plan (1) Pneumonia Status: Acute Qualifiers: Pneumonia type: due to methicillin-resistant Staphylococcus aureus (MRSA) Laterality: right Lung location: middle lobe of lung Qualified Code(s): J15.212 - Pneumonia due to Methicillin resistant Staphylococcus aureus Plan: SPUTUM CULTURE ON ADMISSION. GENTLE IV HYDRATION WITH STRICT I &OS. RESUME HOME MEDICATION. IV ATBX, RESP THERAPY, SUPPLEMENTAL O2. REPEAT CXR, AM LABS (2) Acute dyspnea Status: Acute (3) Acute exacerbation of CHF (congestive heart failure) Status: Acute Qualifiers: Heart failure type: unspecified Qualified Code(s): I50.9 - Heart failure, unspecified Plan: LASIX 40MG IV Q12H, CONTINUE TO MONITOR
[2019-05-10] MEDS: FLOMAX PO SCH (21:18)
[2019-05-10] MEDS: ZANAFLEX PO PRN (21:34)
--- NOTE | 2019-05-10 22:22 | PCM.PROG ---
Progress Note - Progress Note for Day of Date of Exam: 05/10/19 - Subjective Subjective: IS BEING TREATED FOR CHF EXACERBATION AND RML PNEUMONIA. TODAY, HE IS ALERT AND ORIENTED, LYING IN BED ON MONRING ROUNDS. HE CONTINUES WITH COMPLAINTS OF COUGH AND SHORTNESS OF BREATH TODAY, BUT REPORTS SLIGHT IMPROVEMENT. ON EXAMINATION, HEART IS REGULAR IN RATE AND RHYTHM. BILATERAL LUNGS ARE NOTED WITH SCATTERED WHEEZING AND DIMINISHED LUNG SOUNDS THROUGHOUT. ABDOMEN IS ROUND, SOFT, AND NON-TENDER WITH NORMAL BOWEL SOUNDS IN ALL QUADRANTS. HIS VITALS THIS MORNING ARE: 97.4-78-22-100%-160/66. LABS WERE OBTAINED. ABNORMAL LAB VALUES INCLUDE THE FOLLOWING: RBC 4.20, HGB 10.9, HCT 33.7, POTASSIUM 3.1, CARBON DIOIXDE 32.1, CREATININE 1.52, CALCIUM 8.2, AST 12, TOTAL PROTEIN 6.2, ALBUMIN 2.3. SPUTUM CULTURE REVEALED GROWTH OF MRSA. BLOOD CULTURES ARE PENDING. HE IS CURRENTLY RECEIVING LEVAQUIN 500MG IV DAILY, TEFLARO 600MG IV Q12H, ALBUMIN 25% IV DAILY, LASIX 40MG IV Q12H, RESPIRATORY TX, SUPPLEMENTAL OXYGEN, THE POTASSIUM AND MAGNESIUM PROTOCOLS, AND HOME MEDICATIONS WERE RESUMED. WE WILL CONTINUE WITH CURRENT PLAN OF CARE TODAY. OTHERWISE, WE WILL FOLLOW UP WITH AM LABS AND CHEST XRAY AND CONTINUE TO MONITOR. - Past Medical Family Social History Past Med/Fam/Surg Hx: No changes since H&P Allergies: Allergies No Known Drug Allergies Allergy (Verified 04/02/19 15:27) - Vital Signs and I&O's Vital Signs: Temperature 98.4 F Pulse Rate [Left Brachial] 72 Pulse Rate [Apical] 78 Pulse Rate 85 Respiratory Rate 20 Blood Pressure [Right Arm] 181/101 Blood Pressure [Left Arm] 151/81 Blood Pressure [Right Arm] 160/66 Blood Pressure 145/96 O2 Sat by Pulse Oximetry 100 Intake and Output: Intake & Output 05/08/19 05/09/19 05/10/19 05/11/19 11:59 11:59 11:59 11:59 Intake Total 1610 / 1610 1050 / 1050 2640 / 2640 700 / 700 Output Total 450 / 450 300 / 300 4475 / 4475 700 / 700 Balance 1160 / 1160 750 / 750 -1835 / -1835 0 / 0 - Physical Exam Oriented: Normal Eyes: Normal Ear: Normal Nose: Normal Throat: Normal Respiratory: Diminished, Wheezes Cardiovascular: Normal, Edema : Normal Auscultation: Bowel Sounds: Normal Tenderness: Normal Skin: Decreased Turgur Musculoskeletal: Back:Lumbar Psychiatric: Anxiety Affect: Anxious Speech Pattern: Clear, Appropriate - Laboratory and Diagnostics Result Diagrams: 05/10/19 05:20 05/10/19 14:00 Labs: 05/08/19 20:30 Blood Blood Culture - Preliminary 05/07/19 11:39 Sputum - Expectorated Sputum Sputum Culture - Final Methicillin Resis Staph Aureus 05/07/19 11:39 Sputum - Expectorated Sputum - Final Laboratory WBC 6.7 X10^3/uL (3.6-10.0) 05/10/19 05:20 RBC 4.20 X10^6/uL (4.7-6.0) L 05/10/19 05:20 Hgb 10.9 g/dL (13.5-18.0) L 05/10/19 05:20 Hct 33.7 % (42.0-54.0) L 05/10/19 05:20 MCV 80.0 fL (80.0-100.0) 05/10/19 05:20 MCH 26.0 pg (27.0-34.0) L 05/10/19 05:20 MCHC 32.5 g/dL (33.0-35.0) L 05/10/19 05:20 RDW 16.0 % (11.6-16.5) 05/10/19 05:20 Plt Count 284 X10^3/uL (150.0-450.0) 05/10/19 05:20 Plt Count Comment Adequate (ADEQUATE) 05/07/19 07:58 MPV 8.4 fL (7.4-11.0) 05/10/19 05:20 Neut % (Auto) 66.6 % (42.0-75.0) 05/10/19 05:20 Lymph % (Auto) 22.4 % (21.0-51.0) 05/10/19 05:20 [place] % (Auto) 6.1 % (0.0-13.0) 05/10/19 05:20 Eos % (Auto) 4.5 % (0.9-2.9) H 05/10/19 05:20 Baso % (Auto) 0.4 % (0.2-1.0) 05/10/19 05:20 Neut # (Auto) 4.5 x10^3/uL (2.2-4.8) 05/10/19 05:20 Lymph # (Auto) 1.5 X10^3/uL (1.3-2.9) 05/10/19 05:20 [place] # (Auto) 0.4 x10^3/uL (0.3-0.8) 05/10/19 05:20 Eos # (Auto) 0.3 x10^3/uL (0.0-0.2) H 05/10/19 05:20 Baso # (Auto) 0.0 X10^3/uL (0.0-0.1) 05/10/19 05:20 Absolute Nucleated RBC 0.0 /100WBC 05/10/19 05:20 Plt Morphology Comment Normal (NORMAL) 05/07/19 07:58 RBC Morphology Abnormal (NORMAL) 05/07/19 07:58 Hypochromasia Slight A 05/07/19 07:58 Sample Site Rbra 05/07/19 01:32 ABG pH 7.500 (7.35-7.45) H 05/07/19 01:32 ABG pCO2 34.0 mmHg (35.0-45.0) L 05/07/19 01:32 ABG pO2 65.0 mmHg (80.0-100.0) L 05/07/19 01:32 ABG HCO3 26.5 mmol/L (22-26) H 05/07/19 01:32 ABG O2 Saturation 94.0 % (90-100) 05/07/19 01:32 ABG Base Excess 3.5 mmol/L (-2.0-2.0) H 05/07/19 01:32 Shawn Test Na 05/07/19 01:32 A-a Gradient 92.0 mmHg 05/07/19 01:32 FiO2 28.0 05/07/19 01:32 Blood Gas Comments Andrew abg well-mtf 05/07/19 01:32 Sodium 142 mmol/L (136-145) 05/10/19 05:20 Corrected Sodium TNP 05/10/19 05:20 Potassium 3.8 mmol/L (3.5-5.1) 05/10/19 14:00 Chloride 105 mmol/L (98-107) 05/10/19 05:20 Carbon Dioxide 32.1 mmol/L (21-32) H 05/10/19 05:20 BUN 17 mg/dL (7-18) 05/10/19 05:20 Creatinine 1.52 mg/dL (0.70-1.30) H 05/10/19 05:20 Est GFR (MDRD) Af Amer 59 (>60) 05/10/19 05:20 Est GFR (MDRD) Non-Af 49 (>60) L 05/10/19 05:20 Glucose 94 mg/dL (65-99) 05/10/19 05:20 Calcium 8.2 mg/dL (8.5-10.1) L 05/10/19 05:20 Corrected Calcium 9.6 mg/dL (8.5-10.1) 05/10/19 05:20 Magnesium 2.2 mg/dL (1.7-2.9) 05/10/19 05:20 Total Bilirubin 0.50 mg/dL (0.2-1.0) 05/10/19 05:20 AST 12 Units/L (15-37) L 05/10/19 05:20 ALT 15 Units/L (12-78) 05/10/19 05:20 Alkaline Phosphatase 83 Units/L (46-116) 05/10/19 05:20 Creatine Kinase 47 Units/L (39-308) 05/07/19 01:21 CK-MB (CK-2) < 1.0 ng/mL (0-4.0) 05/07/19 01:21 CK/CKMB % Calc 2.1 % (<4) 05/07/19 01:21 Troponin I 0.05 ng/mL (0-1.5) 05/07/19 01:21 B-Natriuretic Peptide 3860 pg/mL (0-79) H* 05/07/19 00:55 Total Protein 6.2 g/dL (6.4-8.2) L 05/10/19 05:20 Albumin 2.3 g/dL (3.4-5.0) L 05/10/19 05:20 Globulin 3.9 g/dL (2.5-4.5) 05/10/19 05:20 Albumin/Globulin Ratio 0.6 Ratio (1.1-2.1) L 05/10/19 05:20 Influenza Type A (PCR) Negative (NEGATIVE) 05/07/19 01:04 Influenza Type B (PCR) Negative (NEGATIVE) 05/07/19 01:04 - Plan (1) Pneumonia Status: Acute Qualifiers: Pneumonia type: due to methicillin-resistant Staphylococcus aureus (MRSA) Laterality: right Lung location: middle lobe of lung Qualified Code(s): J15.212 - Pneumonia due to Methicillin resistant Staphylococcus aureus Plan: SPUTUM CULTURE ON ADMISSION. GENTLE IV HYDRATION WITH STRICT I &OS. RESUME HOME MEDICATION. IV ATBX, RESP THERAPY, SUPPLEMENTAL O2. REPEAT CXR, AM LABS (2) Acute dyspnea Status: Acute (3) Acute exacerbation of CHF (congestive heart failure) Status: Acute Qualifiers: Heart failure type: unspecified Qualified Code(s): I50.9 - Heart failure, unspecified Plan: LASIX 40MG IV Q12H, CONTINUE TO MONITOR
[2019-05-11] MEDS: XOPENEX 1.25 MG/3 ML NEBULE NEB SCH ×4 (00:36→17:24)
[2019-05-11] MEDS: NEURONTIN CAP 300 MG PO SCH ×3 (06:05→21:06)
[2019-05-11 06:55] LABS: BASOPHILS % (AUTO) 1.2 % (0.2-1.0); EOSINOPHILS # (AUTO) 0.3 x10^3/uL (0.0-0.2); EOSINOPHILS % (AUTO) 7.7 % (0.9-2.9); HEMATOCRIT 33.9 % (42.0-54.0); HEMOGLOBIN 11.1 g/dL (13.5-18.0); LYMPHOCYTES # (AUTO) 1.2 X10^3/uL (1.3-2.9); LYMPHOCYTES % (AUTO) 29.1 % (21.0-51.0); MEAN CORPUSCULAR HEMOGLOBIN 26.2 pg (27.0-34.0); MEAN CORPUSCULAR HGB CONC 32.8 g/dL (33.0-35.0); MEAN CORPUSCULAR VOLUME 79.8 fL (80.0-100.0); MEAN PLATELET VOLUME 8.5 fL (7.4-11.0); MONOCYTES # (AUTO) 0.4 x10^3/uL (0.3-0.8); MONOCYTES % (AUTO) 9.3 % (0.0-13.0); NEUTROPHILS # (AUTO) 2.2 x10^3/uL (2.2-4.8); NEUTROPHILS % (AUTO) 52.7 % (42.0-75.0); PLATELET COUNT 281 X10^3/uL (150.0-450.0); RED BLOOD COUNT 4.24 X10^6/uL (4.7-6.0); RED CELL DISTRIBUTION WIDTH 16.3 % (11.6-16.5); WHITE BLOOD COUNT 4.1 X10^3/uL (3.6-10.0)
[2019-05-11 07:24] LABS: ALANINE AMINOTRANSFERASE 14 Units/L (12-78); ALBUMIN 2.5 g/dL (3.4-5.0); ALKALINE PHOSPHATASE 75 Units/L (46-116); ASPARTATE AMINO TRANSFERASE 13 Units/L (15-37); BLOOD UREA NITROGEN 17 mg/dL (7-18); CALCIUM 8.5 mg/dL (8.5-10.1); CHLORIDE 105 mmol/L (98-107); COR CA(FOR HYPOALB) 9.7 mg/dL (8.5-10.1); CREATININE 1.51 mg/dL (0.70-1.30); SODIUM 141 mmol/L (136-145); TOTAL PROTEIN 6.3 g/dL (6.4-8.2); eGFR NON BLACK RACES 49 (>60)
--- NOTE | 2019-05-11 07:44 | RAD ---
HISTORYCOUGH, CONGESTION, SOBSTUDYPortable AP chestCOMPARISONThe May 10 2019FINDINGSThe lungs remain hyperinflated. The heart size is prominent. The lungs are now essentially clear. There is no edema or effusion.IMPRESSIONProbable COPD, no current evidence for acute cardiopulmonary diseaseElectronically signed by: MARCIN MERA (May 11, 2019 07:43:45)
[2019-05-11] MEDS: MICRO K EXTEN CAP 10 MEQ PO SCH ×2 (08:01→21:07)
[2019-05-11] MEDS: HYDROCHLOROTHIAZIDE 25 MG TAB PO SCH (08:01)
[2019-05-11] MEDS: LASIX IVP SCH ×2 (08:01→21:08)
[2019-05-11] MEDS: MOBIC TAB 15 MG PO SCH (08:01)
[2019-05-11] MEDS: LOPRESSOR TAB 25 MG PO SCH ×2 (08:01→21:07)
[2019-05-11] MEDS: ASPIRIN EC 81 MG PO SCH (08:02)
[2019-05-11] MEDS: ALBUMIN HUMAN 25%- 100 ML 100 ML IV SCH (08:02)
[2019-05-11] MEDS: LOVENOX INJ 40 MG SYR SC SCH (08:09)
[2019-05-11] MEDS: TEFLARO 600 MG in NS 100 ML IV + SPIKE MINIBAG* 100 ML IV SCH ×2 (09:27→21:08)
[2019-05-11] MEDS: PATIENT'S HOME MEDICATION (Sacubitril-Valsartan [Entresto] 1 TAB) PO SCH ×2 (09:27→21:08)
[2019-05-11] MEDS: LEVAQUIN PREMIX IV 500 MG 500 MG/100 ML BAG IV SCH (10:42)
[2019-05-11] MEDS: TYLENOL 325 MG TAB PO PRN (16:47)
[2019-05-11] MEDS ORDERED: NORCO 5/325 MG TAB PO PRN (20:44)
[2019-05-11] MEDS: FLOMAX PO SCH (21:06)
[2019-05-11] MEDS: ZANAFLEX PO PRN (21:07)
[2019-05-12] MEDS: XOPENEX 1.25 MG/3 ML NEBULE NEB SCH ×3 (00:43→14:30)
[2019-05-12] MEDS: NEURONTIN CAP 300 MG PO SCH ×2 (05:41→14:06)
[2019-05-12 06:16] LABS: EOSINOPHILS # (AUTO) 0.3 x10^3/uL (0.0-0.2); EOSINOPHILS % (AUTO) 7.7 % (0.9-2.9); LYMPHOCYTES # (AUTO) 1.2 X10^3/uL (1.3-2.9); MEAN CORPUSCULAR HEMOGLOBIN 26.1 pg (27.0-34.0); MEAN CORPUSCULAR HGB CONC 32.5 g/dL (33.0-35.0); MEAN CORPUSCULAR VOLUME 80.3 fL (80.0-100.0); MEAN PLATELET VOLUME 8.3 fL (7.4-11.0); MONOCYTES # (AUTO) 0.5 x10^3/uL (0.3-0.8); MONOCYTES % (AUTO) 10.5 % (0.0-13.0); NEUTROPHILS # (AUTO) 2.2 x10^3/uL (2.2-4.8); NEUTROPHILS % (AUTO) 51.8 % (42.0-75.0); PLATELET COUNT 305 X10^3/uL (150.0-450.0); RED BLOOD COUNT 4.61 X10^6/uL (4.7-6.0); RED CELL DISTRIBUTION WIDTH 16.1 % (11.6-16.5); WHITE BLOOD COUNT 4.3 X10^3/uL (3.6-10.0)
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
[2019-05-12 06:28] LABS: ALANINE AMINOTRANSFERASE 14 Units/L (12-78); ALBUMIN 2.9 g/dL (3.4-5.0); ALKALINE PHOSPHATASE 84 Units/L (46-116); ASPARTATE AMINO TRANSFERASE 11 Units/L (15-37); BLOOD UREA NITROGEN 17 mg/dL (7-18); CALCIUM 8.8 mg/dL (8.5-10.1); CARBON DIOXIDE 33.1 mmol/L (21-32); CHLORIDE 102 mmol/L (98-107); COR CA(FOR HYPOALB) 9.7 mg/dL (8.5-10.1); CREATININE 1.43 mg/dL (0.70-1.30); SODIUM 142 mmol/L (136-145); TOTAL PROTEIN 6.9 g/dL (6.4-8.2); eGFR NON BLACK RACES 52 (>60)
[2019-05-12] MEDS: LOVENOX INJ 40 MG SYR SC SCH (08:14)
[2019-05-12] MEDS: LOPRESSOR TAB 25 MG PO SCH (08:14)
[2019-05-12] MEDS: MOBIC TAB 15 MG PO SCH (08:14)
[2019-05-12] MEDS: HYDROCHLOROTHIAZIDE 25 MG TAB PO SCH (08:14)
[2019-05-12] MEDS: MICRO K EXTEN CAP 10 MEQ PO SCH (08:15)
[2019-05-12] MEDS: ASPIRIN EC 81 MG PO SCH (08:15)
[2019-05-12] MEDS: PATIENT'S HOME MEDICATION (Sacubitril-Valsartan [Entresto] 1 TAB) PO SCH (08:15)
[2019-05-12] MEDS: LEVAQUIN PREMIX IV 500 MG 500 MG/100 ML BAG IV SCH (08:16)
[2019-05-12] MEDS: TEFLARO 600 MG in NS 100 ML IV + SPIKE MINIBAG* 100 ML IV SCH (08:17)
[2019-05-12] MEDS: LASIX IVP SCH (09:45)
[2019-05-12 15:46] VITALS: BP 141/69
== END 2019-05-12 18:25 | disposition short-term general hospital (02) | DRG 179 ==
LOC: ER 00:42 → MED/SURG 07:41
PROVIDERS: ADMIT Internal Medicine; ATTEND Internal Medicine
DX: R26.89 Other abnormalities of gait and mobility; J44.9 Chronic obstructive pulmonary disease, unspecified; M19.90 Unspecified osteoarthritis, unspecified site; I11.0 Hypertensive heart disease with heart failure; R94.31 Abnormal electrocardiogram [ECG] [EKG]; K21.9 Gastro-esophageal reflux disease without esophagitis; M51.36 Other intervertebral disc degeneration, lumbar region; R94.4 Abnormal results of kidney function studies; R60.0 Localized edema; I50.9 Heart failure, unspecified; I25.10 Atherosclerotic heart disease of native coronary artery without angina pectoris; J15.212 Pneumonia due to Methicillin resistant Staphylococcus aureus
CPT/HCPCS: 36415; 36600; 71010; 71045; 80053; 82550; 82553; 82803; 83735; 83880; 84132; 84484; 85025; 87040; 87070; 87077; 87186; 87205; 87502; 93005; 93306; 94640; 94760; 96365; 96374; 96375; 97110; 97116; 97162; 97166; 99284; A4216; A4222; J0456; J0696; J0712; J1650; J1940; J1956; J3475; J3490; J7050; J7620; P9047

== ENCOUNTER 2019-05-26 09:05 | Inpatient (IN) ==
[2019-05-26] MEDS ORDERED: DUONEB 0.5 MG/3 MG (3 mL) NEB ONE ×2 (09:12→09:15)
[2019-05-26] MEDS ORDERED: SOLU-Medrol 125 MG VIAL IVP ONE (09:12)
--- NOTE | 2019-05-26 09:12 | DR.SOBA ---
HPI Time Seen Time Seen by Provider: 05/26/19 09:05 Primary Care Physician Primary Care Physician: KELLY GERBER HPI Comment HPI Comment: PATIENT IS 69YR OLD MALE IN ER WITH INCREASING SOB AND PERIPHERAL EDEMA TIMES SEVERAL DAYS BUT WORSE PAST 2 DAYS. COUGHING, NONPRODUCTIVE WITH CHEST TIGHTNESS AND WHEEZING. DENIES FEVER. HISTORY COPD AND CHF(ECHO , EF 11%). Complaints Chief Complaint Doctors Comments: INCREASING SOB AND EDEMA OF LOWER EXTREMITIES TIMES SEVERAL DAYS. Chief Complaint:: PT C/O SOB FOR SEVERAL DAYS ,PT IS HAVING LEDESMA, RESP LABORDED NOTED , PT LUNGS CLEAR , BR Reviewed Nurses Notes Reviewed: Yes Source History Provided: Patient Mode of Arrival Mode of Arrival: Wheelchair Timing Onset of Chief Complaint: 05/24/19 Duration Duration: Days Context Onset:: At Rest PE Risk Factors:: None History of:: COPD and CHF Currently on:: Inhaled Bronchodilators Prehospital Care:: Inhaled B2 Modifying Factors Worsens:: Exertion and Lying Flat Improves:: Rest and Sitting Up Associated Signs and Symptoms Associated Signs and Symptoms: Wheeze, Cough and Leg Swelling If Chest Pain Quality: Pleuritic (TIGHTNESS.) Location: Substernal If Cough Cough: Nonproductive PMH PMH Past Medical History: Yes Past Medical History: CHF, COPD, Coronary Artery Disease and Hypertension Past Surgical History: Yes Surgical History: Angioplasty/Stents and Ortho Surgery Family History History of Family Medical Conditions: Yes Family Medical History: Diabetes Mellitus and Hypertension Social History Does patient currently use any type of tobacco product: No Have you used tobacco products in the last 12 months: No Type of Tobacco Use: None Does any household member use tobacco: No Alcohol Use: None Do you use any recreational Drugs:: No Lives With: Family Lives Where: Home infectious screening In the last 2 months have you had wt loss of >10#?: NO Have you had fever, night sweats or hemotysis?: No Have you traveled outside the country in the last 6 months?: No Isolation: Standard ROS Review of Systems Constitutional: See HPI, Weakness and Fatigue; negative Fever Eyes: No Symptoms Reported and See HPI; negative Blurred Vision and Diplopia ENTM: No Symptoms Reported and See HPI; negative Ear Pain, Nose Discharge, Nose Congestion and Throat Pain Respiratoy: See HPI, Non-Productive Cough, Short of Breath and Wheezing Cardiovascular: No Symptoms Reported, See HPI, Chest Pain (TIGHTNESSS.) and Edema Gastrointestinal/Abdominal: No Symptoms Reported; negative Abdominal Pain, Diarrhea, Nausea and Vomiting Genitourinary: No Symptoms Reported; negative Dysuria, Frequency and Hematuria Neurological: See HPI and Weakness; negative Headache and Dizziness Musculoskeletal: No Symptoms Reported and See HPI; negative Back Pain Integumentary: No Symptoms Reported and See HPI; negative Change in Color, Rash and Juandice Hematologic/Lymphatic: No Symptoms Reported and See HPI; negative Easy Bruising and Swollen Glands Endocrine: No Symptoms Reported and See HPI; negative Increased Thirst and Increased Urine Psychiatric: No Symptoms Reported and See HPI All Other Systems: Reviewed and Negative PE Vital Signs Vitals: Temperature 98.2 F Pulse Rate 75 Respiratory Rate 14 Blood Pressure [Right Arm] 181/101 Blood Pressure [Left Arm] 141/69 Blood Pressure 199/97 O2 Sat by Pulse Oximetry 97 General Limitations: No Limitations General Appearance: Alert and In No Apparent Distress Head Head Exam: Normal Inspection and Atraumatic Eyes Eye exam: Normal Appearance, PERRL and EOMI; negative Scleral Icterus and Conjunctival Injection ENT ENT Exam: Normal Exam, Normal Oropharynx, Normal External Ear Exam and TM's Normal Bilaterally Neck Neck Exam: Normal Inspection and Trachea Midline; negative Tenderness and Lymphadenopathy Chest Chest Inspection: Normal Inspection and Symmetric Chest Wall Rise; negative Tenderness Respiratory Respiratory Exam: Normal Lung Sounds Bilat; negative Accessory Muscle Use, Chest Wall Tenderness and Respiratory Distress Respiratory Exam: Bilateral: Wheezing and Bilateral: Rhonchi, Upper: Wheezing and Lower: Wheezing and Lower: Rhonchi Cardiovascular Cardiovascular Exam: Regular Rate, Normal Rhythm and Normal Heart Sounds; negative Systolic Murmur and Diastolic Murmur Abdominal Exam Abdominal Exam: Normal Inspection, Normal Bowel Sounds and Soft; negative Tenderness Extremities Extremities Exam: Normal Capillary Refill and Edema; negative Tenderness and Calf Tenderness Back Back Exam: Normal Inspection; negative Tenderness, (R) CVA Tenderness and (L) CVA Tenderness Neurologic Neurological Exam: Alert, Oriented X3 and CN II-XII Intact; negative Motor Sensory Deficit Psychiatric Psychiatric Exam: Normal Affect and Anxious Skin Skin Exam: Warm, Dry, Intact, Normal Color and Other (EDEMA.) COURSE Treatment Treatment: SEE ORDERS. DUO NEB 0.5MG, LASIX 40MGIV AND SOLUMEDROL 125MG IV. Consultation Consultation Comments: DISCUSSED PATIENT WITH DR. MENDOZA. HE WILL ADMIT PATIENT. Education/Counseling Education/Counseling: Patient Educated On: Diagnosis ROR Labs Reviewed Laboratory Results Reviewed?: Yes Result Diagrams: 05/26/19 09:23 05/26/19 09:23 Laboratory: WBC 10.9 X10^3/uL (3.6-10.0) H 05/26/19 09:23 RBC 5.11 X10^6/uL (4.7-6.0) 05/26/19 09: Hgb 13.1 g/dL (13.5-18.0) L 05/26/19 09:23 Hct 40.6 % (42.0-54.0) L 05/26/19 09: MCV 79.4 fL (80.0-100.0) L 05/26/19 09: MCH 25.7 pg (27.0-34.0) L 05/26/19 09: MCHC 32.3 g/dL (33.0-35.0) L 05/26/19 09: RDW 16.5 % (11.6-16.5) 05/26/19 09: Plt Count 258 X10^3/uL (150.0-450.0) 05/26/19 09: Plt Count Comment Adequate (ADEQUATE) 05/26/19 09: MPV 8.6 fL (7.4-11.0) 05/26/19 09:23 Neut % (Auto) 76.8 % (42.0-75.0) H 05/26/19 09: Lymph % (Auto) 17.5 % (21.0-51.0) L 05/26/19 09:23 [place] % (Auto) 3.9 % (0.0-13.0) 05/26/19 09:23 Eos % (Auto) 0.8 % (0.9-2.9) L 05/26/19 09:23 Baso % (Auto) 1.0 % (0.2-1.0) 05/26/19 09:23 Neut # (Auto) 8.4 x10^3/uL (2.2-4.8) H 05/26/19 09:23 Lymph # (Auto) 1.9 X10^3/uL (1.3-2.9) 05/26/19 09:23 [place] # (Auto) 0.4 x10^3/uL (0.3-0.8) 05/26/19 09:23 Eos # (Auto) 0.1 x10^3/uL (0.0-0.2) 05/26/19 09:23 Baso # (Auto) 0.1 X10^3/uL (0.0-0.1) 05/26/19 09:23 Absolute Nucleated RBC 0.0 /100WBC 05/26/19 09:23 Plt Morphology Comment Normal (NORMAL) 05/26/19 09:23 RBC Morphology Normal (NORMAL) 05/26/19 09:23 Sodium 141 mmol/L (136-145) 05/26/19 09:23 Corrected Sodium 141 mmol/L (136-145) 05/26/19 09:23 Potassium 4.1 mmol/L (3.5-5.1) 05/26/19 09:23 Chloride 106 mmol/L (98-107) 05/26/19 09:23 Carbon Dioxide 30.0 mmol/L (21-32) 05/26/19 09:23 BUN 28 mg/dL (7-18) H 05/26/19 09:23 Creatinine 1.77 mg/dL (0.70-1.30) H 05/26/19 09:23 Est GFR (MDRD) Af Amer 50 (>60) L 05/26/19 09:23 Est GFR (MDRD) Non-Af 41 (>60) L 05/26/19 09:23 Glucose 111 mg/dL (65-99) H 05/26/19 09:23 Lactic Acid 1.8 mmol/L (0.4-2.0) 05/26/19 09:23 Calcium 8.8 mg/dL (8.5-10.1) 05/26/19 09:23 Corrected Calcium 9.4 mg/dL (8.5-10.1) 05/26/19 09:23 Total Bilirubin 0.60 mg/dL (0.2-1.0) 05/26/19 09:23 AST 25 Units/L (15-37) 05/26/19 09:23 ALT 44 Units/L (12-78) 05/26/19 09:23 Alkaline Phosphatase 88 Units/L (46-116) 05/26/19 09:23 Creatine Kinase 45 Units/L (39-308) 05/26/19 09:23 CK-MB (CK-2) 1.6 ng/mL (0-4.0) 05/26/19 09:23 CK/CKMB % Calc 3.6 % (<4) 05/26/19 09:23 Troponin I 0.05 ng/mL (0-1.5) 05/26/19 09: B-Natriuretic Peptide 3610 pg/mL (0-79) H* 05/26/19 09:23 Total Protein 7.2 g/dL (6.4-8.2) 05/26/19 09: Albumin 3.2 g/dL (3.4-5.0) L 05/26/19 09: Globulin 4.0 g/dL (2.5-4.5) 05/26/19 09: Albumin/Globulin Ratio 0.8 Ratio (1.1-2.1) L 05/26/19 09:23 Specimen Type Random urine 05/26/19 10:04 Urine Color Yellow (YELLOW) 05/26/19 10:04 Urine Appearance Hazy (CLEAR) 05/26/19 10:04 Urine pH 6.0 (5.0 - 8.0) 05/26/19 10:04 Ur Specific [place] 1.015 (1.000-1.030) 05/26/19 10:04 Urine Protein 3+ (NEGATIVE) 05/26/19 10:04 Urine Glucose (UA) Negative (NEGATIVE) 05/26/19 10:04 Urine Ketones Negative (NEGATIVE) 05/26/19 10:04 Urine Occult Blood 1+ (NEGATIVE) 05/26/19 10:04 Urine Nitrite Negative (NEGATIVE) 05/26/19 10:04 Urine Bilirubin Negative (NEGATIVE) 05/26/19 10:04 Urine Urobilinogen 1+ (NORMAL) 05/26/19 10:04 Ur Leukocyte Esterase 1+ (NEGATIVE) 05/26/19 10:04 Urine RBC 0-2 /HPF (0-3) 05/26/19 10:04 Urine WBC 0-2 /HPF (0-5) 05/26/19 10:04 Ur Squamous Epith Cells Rare /HPF (NEGATIVE) 05/26/19 10:04 Urine Bacteria Negative /HPF (NEGATIVE) 05/26/19 10:04 Urine Mucus Few /HPF (NEGATIVE) 05/26/19 10:04 Ur Culture Indicated? No/not indicated 05/26/19 10:04 Other Results Comments: IMPRESSION Interval appearance of indistinct right midlung infiltrate consistent with pneumonia XRAY XRAY Interpreted by: Radiologist (REPORT NOTED AND DISCUSSED WITH PATIENT.) and Self (RML INFILTRATE.) EKG Rate: 87 [place]: Normal Rhythm: NSR Block: None Hypertrophy: LAE and LVH ST: Nonsp Opioid Opioid Risk Tool Age (Gil box if 16-45): No History of Preadolescent Sexual Abuse: No Total: 0 Total Score Risk Category: Low Risk Copyright: [facility] predicting aberrant behaviors Diagnosis Discharge Problem: COPD exacerbation RML pneumonia Qualifiers: Pneumonia type: due to unspecified organism Qualified Code(s): J18.9 - Pneumonia, unspecified organism CHF (congestive heart failure) Qualifiers: Heart failure type: combined systolic and diastolic Heart failure chronicity: acute on chronic Qualified Code(s): I50.43 - Acute on chronic combined systolic (congestive) and diastolic (congestive) heart failure Instructions Forms: Excuse From Work Patient Portal
[2019-05-26] MEDS ORDERED: LASIX IVP ONE ×2 (09:16→09:23)
[2019-05-26] MEDS ORDERED: SOLU-Medrol 125 MG VIAL ONE (09:23)
[2019-05-26 09:34] LABS: BASOPHILS # (AUTO) 0.1 X10^3/uL (0.0-0.1); EOSINOPHILS # (AUTO) 0.1 x10^3/uL (0.0-0.2); EOSINOPHILS % (AUTO) 0.8 % (0.9-2.9); HEMATOCRIT 40.6 % (42.0-54.0); HEMOGLOBIN 13.1 g/dL (13.5-18.0); LYMPHOCYTES # (AUTO) 1.9 X10^3/uL (1.3-2.9); LYMPHOCYTES % (AUTO) 17.5 % (21.0-51.0); MEAN CORPUSCULAR HEMOGLOBIN 25.7 pg (27.0-34.0); MEAN CORPUSCULAR HGB CONC 32.3 g/dL (33.0-35.0); MEAN CORPUSCULAR VOLUME 79.4 fL (80.0-100.0); MEAN PLATELET VOLUME 8.6 fL (7.4-11.0); MONOCYTES # (AUTO) 0.4 x10^3/uL (0.3-0.8); MONOCYTES % (AUTO) 3.9 % (0.0-13.0); NEUTROPHILS # (AUTO) 8.4 x10^3/uL (2.2-4.8); NEUTROPHILS % (AUTO) 76.8 % (42.0-75.0); PLATELET COUNT 258 X10^3/uL (150.0-450.0); RED BLOOD COUNT 5.11 X10^6/uL (4.7-6.0); RED CELL DISTRIBUTION WIDTH 16.5 % (11.6-16.5); WHITE BLOOD COUNT 10.9 X10^3/uL (3.6-10.0)
--- NOTE | 2019-05-26 09:47 | RAD ---
HISTORYSOBSTUDYAP chestCOMPARISONFebruary 2019FINDINGSStable cardiomegaly with clear left chest. There is a mild diffuse infiltrate in the right midlung. No discrete mass or consolidation is otherwise seen. The pleural spaces are well defined.IMPRESSIONInterval appearance of indistinct right midlung infiltrate consistent with pneumonia.Electronically signed by: AMILCAR STARR (May 26, 2019 09:46:32)
[2019-05-26 09:52] LABS: CALCIUM 8.8 mg/dL (8.5-10.1); CREATININE 1.77 mg/dL (0.70-1.30); TROPONIN I 0.05 ng/mL (0-1.5)
[2019-05-26 09:57] LABS: ALBUMIN 3.2 g/dL (3.4-5.0); CKMB % 3.6 % (<4); COR CA(FOR HYPOALB) 9.4 mg/dL (8.5-10.1); CREATINE KINASE MB 1.6 ng/mL (0-4.0); TOTAL PROTEIN 7.2 g/dL (6.4-8.2)
[2019-05-26] MEDS ORDERED: CATAPRES TAB 0.2 MG PO ONE (10:00)
[2019-05-26] MEDS ORDERED: ROCEPHIN VIAL 1 GRAM 1 G in NS 100 ML IV + SPIKE MINIBAG* 100 ML IV ONE (10:02)
[2019-05-26 10:04] LABS: LACTIC ACID 1.8 mmol/L (0.4-2.0)
[2019-05-26 10:05] LABS: PLATELET MORPHOLOGY COMMENT NORMAL (NORMAL)
[2019-05-26] MEDS ORDERED: CATAPRES TAB 0.2 MG ONE (10:05)
[2019-05-26] MEDS ORDERED: NS 100 ML IV 100 ML IV ONE (10:06)
[2019-05-26] MEDS ORDERED: NS 250 ML IV 250 ML IV ONE (10:07)
[2019-05-26] MEDS ORDERED: ROCEPHIN VIAL 1 GRAM ONE (10:07)
[2019-05-26 10:15] LABS: BILIRUBIN,URINE NEGATIVE (NEGATIVE); BLOOD/HEMOGLOBIN,URINE 1+ (NEGATIVE); GLUCOSE, URINE NEGATIVE (NEGATIVE); KETONES,URINE NEGATIVE (NEGATIVE); LEUKOCYTE ESTERASE ,URINE 1+ (NEGATIVE); NITRITES,URINE NEGATIVE (NEGATIVE); PROTEIN,URINE 3+ (NEGATIVE); UROBILINOGEN,URINE 1+ (NORMAL)
[2019-05-26 10:18] LABS: APPEARANCE,URINE HAZY (CLEAR); COLOR,URINE YELLOW (YELLOW)
[2019-05-26 10:22] LABS: BACTERIA,URINE NEGATIVE /HPF (NEGATIVE); MUCUS,URINE FEW /HPF (NEGATIVE); RBC,URINE 0-2 /HPF (0-3); SQUAMOUS EPITHELIAL CELL,UR RARE /HPF (NEGATIVE)
[2019-05-26] MEDS ORDERED: NS 250 ML IV 250 ML IV SCH ×2 (10:30)
[2019-05-26 11:06] LABS: ABG BASE EXCESS 2.8 mmol/L (-2.0-2.0); ABG HCO3 26.1 mmol/L (22-26)
[2019-05-26 11:07] LABS: ABG ALLEN TEST POS
[2019-05-26] MEDS ORDERED: TUSSIONEX PENNKINETIC SUSP PO PRN (11:25)
[2019-05-26] MEDS ORDERED: ZANAFLEX PO PRN (11:25)
[2019-05-26] MEDS: DUONEB 0.5 MG/3 MG (3 mL) NEB SCH ×2 (11:49→18:13)
[2019-05-26 12:09] VITALS: BMI 18.4
[2019-05-26] MEDS: ZITHROMAX INJ 500 MG VIAL 250 MG in D5W 250 ML IV 250 ML IV SCH (12:21)
[2019-05-26] MEDS: ROBITUSSIN DM PO SCH ×3 (12:21→20:24)
[2019-05-26] MEDS: NEURONTIN CAP 300 MG PO SCH ×3 (12:22→22:00)
[2019-05-26] MEDS ORDERED: SALINE 3% 15 ML NEB TX NEB ONE (14:11)
[2019-05-26 15:46] LABS: CKMB % 3.2 % (<4); CREATINE KINASE MB 1.1 ng/mL (0-4.0); TROPONIN I 0.06 ng/mL (0-1.5)
[2019-05-26] MEDS: LASIX IVP SCH (17:25)
[2019-05-26] MEDS: ENTRESTO 24/26 MG TAB PO SCH (20:23)
[2019-05-26] MEDS: PRAVACHOL PO SCH (20:24)
[2019-05-26] MEDS: LOPRESSOR TAB 25 MG PO SCH (20:24)
[2019-05-26] MEDS: MICRO K EXTEN CAP 10 MEQ PO SCH (20:24)
[2019-05-26 22:04] LABS: CKMB % 3.4 % (<4); CREATINE KINASE MB 1.1 ng/mL (0-4.0); TROPONIN I 0.04 ng/mL (0-1.5)
[2019-05-27] MEDS: DUONEB 0.5 MG/3 MG (3 mL) NEB SCH ×4 (00:30→17:00)
[2019-05-27] MEDS: NEURONTIN CAP 300 MG PO SCH ×3 (05:19→21:47)
[2019-05-27 06:49] LABS: BASOPHILS % (AUTO) 0.4 % (0.2-1.0); EOSINOPHILS % (AUTO) 0.2 % (0.9-2.9); HEMATOCRIT 33.4 % (42.0-54.0); HEMOGLOBIN 10.9 g/dL (13.5-18.0); LYMPHOCYTES % (AUTO) 20.7 % (21.0-51.0); MEAN CORPUSCULAR HEMOGLOBIN 25.7 pg (27.0-34.0); MEAN CORPUSCULAR HGB CONC 32.6 g/dL (33.0-35.0); MEAN CORPUSCULAR VOLUME 78.8 fL (80.0-100.0); MEAN PLATELET VOLUME 9.1 fL (7.4-11.0); MONOCYTES # (AUTO) 0.6 x10^3/uL (0.3-0.8); MONOCYTES % (AUTO) 6.6 % (0.0-13.0); NEUTROPHILS # (AUTO) 6.8 x10^3/uL (2.2-4.8); NEUTROPHILS % (AUTO) 72.1 % (42.0-75.0); PLATELET COUNT 235 X10^3/uL (150.0-450.0); RED BLOOD COUNT 4.24 X10^6/uL (4.7-6.0); RED CELL DISTRIBUTION WIDTH 16.3 % (11.6-16.5); WHITE BLOOD COUNT 9.5 X10^3/uL (3.6-10.0)
[2019-05-27 07:08] LABS: ALANINE AMINOTRANSFERASE 28 Units/L (12-78); ALBUMIN 2.6 g/dL (3.4-5.0); ALKALINE PHOSPHATASE 64 Units/L (46-116); ASPARTATE AMINO TRANSFERASE 14 Units/L (15-37); BLOOD UREA NITROGEN 29 mg/dL (7-18); CALCIUM 8.5 mg/dL (8.5-10.1); CARBON DIOXIDE 29.8 mmol/L (21-32); CHLORIDE 107 mmol/L (98-107); COR CA(FOR HYPOALB) 9.6 mg/dL (8.5-10.1); SODIUM 144 mmol/L (136-145); eGFR NON BLACK RACES 46 (>60)
[2019-05-27 07:20] LABS: PLATELET MORPHOLOGY COMMENT NORMAL (NORMAL)
[2019-05-27] MEDS: ZITHROMAX INJ 500 MG VIAL 250 MG in D5W 250 ML IV 250 ML IV SCH (10:40)
[2019-05-27] MEDS: LASIX IVP SCH ×2 (10:42→18:15)
[2019-05-27] MEDS: ENTRESTO 24/26 MG TAB PO SCH ×2 (10:48→21:45)
[2019-05-27] MEDS: ROBITUSSIN DM PO SCH ×4 (10:48→21:47)
[2019-05-27] MEDS: ASPIRIN EC 81 MG PO SCH (10:49)
[2019-05-27] MEDS: MICRO K EXTEN CAP 10 MEQ PO SCH ×2 (10:49→21:45)
[2019-05-27] MEDS: MOBIC TAB 15 MG PO SCH (10:50)
[2019-05-27] MEDS: PROTONIX INJ 40 MG VIAL IVP SCH (11:07)
[2019-05-27] MEDS: LEVSIN/MAALOX/LIDOC VISC PO SCH ×4 (11:08→21:46)
[2019-05-27] MEDS: LOVENOX INJ 40 MG SYR SC SCH (11:12)
[2019-05-27] MEDS: SOLU-Medrol 40 MG VIAL IVP SCH ×3 (11:12→21:45)
[2019-05-27] MEDS: LOPRESSOR TAB 25 MG PO SCH ×2 (11:13→21:46)
[2019-05-27] MEDS: VSL#3 PO SCH (11:18)
[2019-05-27] MEDS: ROCEPHIN VIAL 1 GRAM 1 G in NS 100 ML IV + SPIKE MINIBAG* 100 ML IV SCH (12:15)
--- NOTE | 2019-05-27 13:30 | DR.H&P ---
H&P - History & Physical for Day of: H&P Date: 05/26/19 - Chief Complaint Chief Complaint: SOB - History of Present Illness History of Present Illness: PT IS 69 BM ER ADMISSION WITH CO SOB AND CCC. PT HAD PMH OF COPD, CAD, AND CHF. PT RECENTLY HAD HEART CATH W/O INTERVENTION REQUIRED. PT DOES HAVE CHF ON ENSTRESTO, BB AND PLAVIX. CXR IN ER WITH PNEUMONIA. PT HAD ELEVATED BNP AND DECREASED RENAL FUNCTION. PT ADMITTED FOR TREATMENT OF ACUTE ILLNESS. - Past Medical History Past Medical History: Coronary Artery Disease, Hypertension, COPD, CHF - Past Surgical History Surgical History: Angioplasty/Stents, Ortho Surgery - Family History Family Medical History: Diabetes Mellitus, Hypertension - Social History Does patient currently use any type of tobacco product: No Have you used tobacco products in the last 12 months: No Type of Tobacco Use: None Does any household member use tobacco: No Alcohol Use: None Drug Use: None - Medications Home Medications: No Known Drug Allergies Allergy (Verified 04/02/19 15:27) - Review of Systems Constitutional: Chills, Weakness Eyes: No Symptoms Reported ENT: No Symptoms Reported Respiratory: SOB with Excertion, Wheezing Cardiovascular: Edema. denies: Chest Pain, Palpitations Gastrointestinal: Nausea Genitourinary: No Symptoms Reported Musculoskeletal: Back Pain, Neck Pain Skin: No Symptoms Reported Neurological: Weakness (MILD GENERALIZED) - Physical Exam Vital Signs: Temperature 98.2 F Pulse Rate [Left Brachial] 63 Pulse Rate 63 Respiratory Rate 18 Blood Pressure [Right Arm] 181/101 Blood Pressure [Left Arm] 148/74 Blood Pressure 168/106 O2 Sat by Pulse Oximetry 99 Oriented: Person Eyes: Normal Ear: Normal Nose: Normal Throat: Normal Respiratory: Wheezes Throughout, RLL Diminished, LLL Diminished Cardiovascular: Normal, Edema : Normal Auscultation: Bowel Sounds: Normal Palpation: Normal Tenderness: Normal Skin: Decreased Turgur Musculoskeletal: Back:Lumbar Mood Description: Calm Speech Pattern: Clear, Appropriate - Assessment/Plan (1) RML pneumonia Qualifiers: Pneumonia type: due to unspecified organism Qualified Code(s): J18.9 - Pneumonia, unspecified organism Status: Acute Plan: ADMIT, PNEUMONIA PROTOCOL. IV ABTX, RESP THERAPY. SPUTUM CULTURE, SERIAL CE AND EKG. CXR ON ADMISSION, IV LASIX WITH STRICT I&OS, SUPPLEMENTAL O2. VERIFY AND RESUME HOME MEDICATION (2) CHF (congestive heart failure) Qualifiers: Heart failure type: combined systolic and diastolic Heart failure chronicity: acute on chronic Qualified Code(s): I50.43 - Acute on chronic combined systolic (congestive) and diastolic (congestive) heart failure Status: Acute (3) COPD exacerbation Status: Acute (4) Acute dyspnea Status: Acute (5) CKD (chronic kidney disease) Qualifiers: Chronic kidney disease stage: unspecified stage Qualified Code(s): N18.9 - Chronic kidney disease, unspecified Status: Acute - Allergies Allergies/Adverse Reactions: Allergies Allergy/AdvReac Type Severity Reaction Status Date / Time No Known Drug Allergies Allergy Verified 04/02/19 15:27
[2019-05-27] MEDS: PRAVACHOL PO SCH (21:46)
[2019-05-28] MEDS: DUONEB 0.5 MG/3 MG (3 mL) NEB SCH ×4 (00:35→17:59)
[2019-05-28] MEDS: NEURONTIN CAP 300 MG PO SCH ×3 (06:20→22:00)
[2019-05-28 06:48] LABS: BASOPHILS % (AUTO) 0.1 % (0.2-1.0); HEMATOCRIT 36.2 % (42.0-54.0); HEMOGLOBIN 11.8 g/dL (13.5-18.0); LYMPHOCYTES # (AUTO) 0.7 X10^3/uL (1.3-2.9); LYMPHOCYTES % (AUTO) 6.3 % (21.0-51.0); MEAN CORPUSCULAR HEMOGLOBIN 25.7 pg (27.0-34.0); MEAN CORPUSCULAR HGB CONC 32.5 g/dL (33.0-35.0); MEAN CORPUSCULAR VOLUME 78.9 fL (80.0-100.0); MONOCYTES # (AUTO) 0.2 x10^3/uL (0.3-0.8); MONOCYTES % (AUTO) 1.5 % (0.0-13.0); NEUTROPHILS # (AUTO) 10.4 x10^3/uL (2.2-4.8); NEUTROPHILS % (AUTO) 92.1 % (42.0-75.0); PLATELET COUNT 256 X10^3/uL (150.0-450.0); RED BLOOD COUNT 4.58 X10^6/uL (4.7-6.0); RED CELL DISTRIBUTION WIDTH 16.4 % (11.6-16.5); WHITE BLOOD COUNT 11.3 X10^3/uL (3.6-10.0)
[2019-05-28 07:02] LABS: ALBUMIN 2.8 g/dL (3.4-5.0); CALCIUM 8.7 mg/dL (8.5-10.1); CARBON DIOXIDE 30.2 mmol/L (21-32); COR CA(FOR HYPOALB) 9.7 mg/dL (8.5-10.1); CREATININE 1.51 mg/dL (0.70-1.30); TOTAL PROTEIN 6.6 g/dL (6.4-8.2)
[2019-05-28 07:27] LABS: PLATELET MORPHOLOGY COMMENT NORMAL (NORMAL)
--- NOTE | 2019-05-28 07:34 | RAD ---
HISTORYCHF, PNEUMONIASTUDYCHEST, 1 VIEWCOMPARISONMarch 2019.FINDINGSThe trachea is midline. The cardiac silhouette is mildly enlarged. The lungs are clear without focal infiltrate or effusion. The central vascular congestion in central interstitial infiltrate that was present on May 26, 2019 has resolved. The bony thorax is unremarkable.IMPRESSIONStable mild cardiomegaly but the right perihilar interstitial infiltrate was present 2 days ago has completely resolved.Electronically signed by: LEE TOBAR (May 28, 2019 07:33:24)
[2019-05-28] MEDS: ROCEPHIN VIAL 1 GRAM 1 G in NS 100 ML IV + SPIKE MINIBAG* 100 ML IV SCH (09:19)
[2019-05-28] MEDS: ROBITUSSIN DM PO SCH ×4 (09:20→20:55)
[2019-05-28] MEDS: LOVENOX INJ 40 MG SYR SC SCH (09:20)
[2019-05-28] MEDS: MOBIC TAB 15 MG PO SCH (09:21)
[2019-05-28] MEDS: LEVSIN/MAALOX/LIDOC VISC PO SCH ×4 (09:22→20:55)
[2019-05-28] MEDS: LASIX IVP SCH ×2 (09:23→17:13)
[2019-05-28] MEDS: ASPIRIN EC 81 MG PO SCH (09:23)
[2019-05-28] MEDS: VSL#3 PO SCH (09:23)
[2019-05-28] MEDS: PROTONIX INJ 40 MG VIAL IVP SCH (09:24)
[2019-05-28] MEDS: LOPRESSOR TAB 25 MG PO SCH ×2 (09:24→20:57)
[2019-05-28] MEDS: ENTRESTO 24/26 MG TAB PO SCH ×2 (09:24→20:57)
[2019-05-28] MEDS: MICRO K EXTEN CAP 10 MEQ PO SCH ×2 (09:24→20:57)
[2019-05-28] MEDS: ZITHROMAX INJ 500 MG VIAL 250 MG in D5W 250 ML IV 250 ML IV SCH (10:30)
--- NOTE | 2019-05-28 18:00 | PCM.PROG ---
Progress Note - Progress Note for Day of Date of Exam: 05/28/19 - Subjective Subjective: Mr. Conteh is a 69-year-old black male, who is a patient of our private practice, who was admitted with right middle lobe pneumonia after he presented with complaints of shortness of breath. He does have a history of congestive heart failure. The patient recently had a heart catheterization just a few weeks ago. We transferred him from [facility] where he had a heart catheterization requiring no intervention. The patients ejection fraction was around 20-25%. He has been on Entresto, as well as beta-max, Plavix. He reports that he has been taking his medication as needed. He was noted to have an elevated BNP as well. The abdominal pain did receive some IV Lasix in the ER. He has been on IV antibiotics, respiratory therapy, supplemental oxygen, and pulmonary toileting. The patient denies any productive cough. We have encouraged sputum production. Pt wbc 11.3 this am, BUN 27, creat 1.51. Pt reports improving lower leg swelling, continues with wheezing worse on exertion and generalized weakness. - Past Medical Family Social History Past Med/Fam/Surg Hx: No changes since H&P Allergies: Allergies No Known Drug Allergies Allergy (Verified 04/02/19 15:27) - Review of Systems ROS: No change since H&P - Vital Signs and I&O's Vital Signs: Temperature 98.7 F Pulse Rate [Left Brachial] 81 Pulse Rate 67 Respiratory Rate 20 Blood Pressure [Right Arm] 181/101 Blood Pressure [Left Arm] 164/92 Blood Pressure 168/106 O2 Sat by Pulse Oximetry 98 Intake and Output: Intake & Output 05/26/19 05/27/19 05/28/19 05/29/19 11:59 11:59 11:59 11:59 Intake Total 730 / 730 950 / 950 1240 / 1240 Output Total 1100 / 1100 1925 / 1925 3700 / 3700 1750 / 1750 Balance -1100 / -1100 -1195 / -1195 -2750 / -2750 -510 / -510 - Physical Exam Oriented: Person Eyes: Normal Ear: Normal Nose: Normal Throat: Normal Respiratory: Diminished, Wheezes Cardiovascular: Normal, Edema : Normal Auscultation: Bowel Sounds: Normal Tenderness: Normal Skin: Decreased Turgur Musculoskeletal: Back:Lumbar Mood Description: Calm Speech Pattern: Clear, Appropriate - Laboratory and Diagnostics Result Diagrams: 05/28/19 05:40 05/28/19 05:40 Labs: 05/26/19 09:23 Blood Blood Culture - Preliminary 05/26/19 09:20 Blood Blood Culture - Preliminary Laboratory WBC 11.3 X10^3/uL (3.6-10.0) H 05/28/19 05:40 RBC 4.58 X10^6/uL (4.7-6.0) L 05/28/19 05:40 Hgb 11.8 g/dL (13.5-18.0) L 05/28/19 05:40 Hct 36.2 % (42.0-54.0) L 05/28/19 05:40 MCV 78.9 fL (80.0-100.0) L 05/28/19 05:40 MCH 25.7 pg (27.0-34.0) L 05/28/19 05:40 MCHC 32.5 g/dL (33.0-35.0) L 05/28/19 05:40 RDW 16.4 % (11.6-16.5) 05/28/19 05:40 Plt Count 256 X10^3/uL (150.0-450.0) 05/28/19 05:40 Plt Count Comment Adequate (ADEQUATE) 05/28/19 05:40 MPV 9.0 fL (7.4-11.0) 05/28/19 05:40 Neut % (Auto) 92.1 % (42.0-75.0) H 05/28/19 05:40 Lymph % (Auto) 6.3 % (21.0-51.0) L 05/28/19 05:40 [place] % (Auto) 1.5 % (0.0-13.0) 05/28/19 05:40 Eos % (Auto) 0.0 % (0.9-2.9) L 05/28/19 05:40 Baso % (Auto) 0.1 % (0.2-1.0) L 05/28/19 05:40 Neut # (Auto) 10.4 x10^3/uL (2.2-4.8) H 05/28/19 05:40 Lymph # (Auto) 0.7 X10^3/uL (1.3-2.9) L 05/28/19 05:40 [place] # (Auto) 0.2 x10^3/uL (0.3-0.8) L 05/28/19 05:40 Eos # (Auto) 0.0 x10^3/uL (0.0-0.2) 05/28/19 05:40 Baso # (Auto) 0.0 X10^3/uL (0.0-0.1) 05/28/19 05:40 Absolute Nucleated RBC 0.1 /100WBC 05/28/19 05:40 Total Counted 100 05/28/19 05:40 Neutrophils % (Manual) 91 % (39-76) H 05/28/19 05:40 Lymphocytes % (Manual) 7 % (13-43) L 05/28/19 05:40 Monocytes % (Manual) 2 % (4-9) L 05/28/19 05:40 Plt Morphology Comment Normal (NORMAL) 05/28/19 05:40 RBC Morphology Normal (NORMAL) 05/28/19 05:40 Sample Site Right radial 05/26/19 10:57 ABG pH 7.480 (7.35-7.45) H 05/26/19 10:57 ABG pCO2 35.0 mmHg (35.0-45.0) 05/26/19 10:57 ABG pO2 70.0 mmHg (80.0-100.0) L 05/26/19 10:57 ABG HCO3 26.1 mmol/L (22-26) H 05/26/19 10:57 ABG O2 Saturation 95.0 % (90-100) 05/26/19 10:57 ABG Base Excess 2.8 mmol/L (-2.0-2.0) H 05/26/19 10:57 Shawn Test Pos 05/26/19 10:57 A-a Gradient 36.0 mmHg 05/26/19 10:57 FiO2 21.0 05/26/19 10:57 Blood Gas Comments Andrew well aw 05/26/19 10:57 Sodium 142 mmol/L (136-145) 05/28/19 05:40 Corrected Sodium 143 mmol/L (136-145) 05/28/19 05:40 Potassium 4.0 mmol/L (3.5-5.1) 05/28/19 05:40 Chloride 105 mmol/L (98-107) 05/28/19 05:40 Carbon Dioxide 30.2 mmol/L (21-32) 05/28/19 05:40 BUN 27 mg/dL (7-18) H 05/28/19 05:40 Creatinine 1.51 mg/dL (0.70-1.30) H 05/28/19 05:40 Est GFR (MDRD) Af Amer 60 (>60) 05/28/19 05:40 Est GFR (MDRD) Non-Af 49 (>60) L 05/28/19 05:40 Glucose 130 mg/dL (65-99) H 05/28/19 05:40 Lactic Acid 1.8 mmol/L (0.4-2.0) 05/26/19 09:23 Calcium 8.7 mg/dL (8.5-10.1) 05/28/19 05:40 Corrected Calcium 9.7 mg/dL (8.5-10.1) 05/28/19 05:40 Total Bilirubin 0.40 mg/dL (0.2-1.0) 05/28/19 05:40 AST 10 Units/L (15-37) L 05/28/19 05:40 ALT 24 Units/L (12-78) 05/28/19 05:40 Alkaline Phosphatase 81 Units/L (46-116) 05/28/19 05:40 Creatine Kinase 32 Units/L (39-308) L 05/26/19 21:30 CK-MB (CK-2) 1.1 ng/mL (0-4.0) 05/26/19 21:30 CK/CKMB % Calc 3.4 % (<4) 05/26/19 21:30 Troponin I 0.04 ng/mL (0-1.5) 05/26/19 21:30 B-Natriuretic Peptide 3610 pg/mL (0-79) H* 05/26/19 09:23 Total Protein 6.6 g/dL (6.4-8.2) 05/28/19 05:40 Albumin 2.8 g/dL (3.4-5.0) L 05/28/19 05:40 Globulin 3.8 g/dL (2.5-4.5) 05/28/19 05:40 Albumin/Globulin Ratio 0.7 Ratio (1.1-2.1) L 05/28/19 05:40 Specimen Type Random urine 05/26/19 10:04 Urine Color Yellow (YELLOW) 05/26/19 10:04 Urine Appearance Hazy (CLEAR) 05/26/19 10:04 Urine pH 6.0 (5.0 - 8.0) 05/26/19 10:04 Ur Specific [place] 1.015 (1.000-1.030) 05/26/19 10:04 Urine Protein 3+ (NEGATIVE) 05/26/19 10:04 Urine Glucose (UA) Negative (NEGATIVE) 05/26/19 10:04 Urine Ketones Negative (NEGATIVE) 05/26/19 10:04 Urine Occult Blood 1+ (NEGATIVE) 05/26/19 10:04 Urine Nitrite Negative (NEGATIVE) 05/26/19 10:04 Urine Bilirubin Negative (NEGATIVE) 05/26/19 10:04 Urine Urobilinogen 1+ (NORMAL) 05/26/19 10:04 Ur Leukocyte Esterase 1+ (NEGATIVE) 05/26/19 10:04 Urine RBC 0-2 /HPF (0-3) 05/26/19 10:04 Urine WBC 0-2 /HPF (0-5) 05/26/19 10:04 Ur Squamous Epith Cells Rare /HPF (NEGATIVE) 05/26/19 10:04 Urine Bacteria Negative /HPF (NEGATIVE) 05/26/19 10:04 Urine Mucus Few /HPF (NEGATIVE) 05/26/19 10:04 Ur Culture Indicated? No/not indicated 05/26/19 10:04 - Plan (1) RML pneumonia Status: Acute Qualifiers: Pneumonia type: due to unspecified organism Qualified Code(s): J18.9 - Pneumonia, unspecified organism Plan: PNEUMONIA PROTOCOL. IV ABTX, RESP THERAPY. SPUTUM CULTURE, SERIAL CE AND EKG. CXR THIS AM, IV LASIX WITH STRICT I&OS, SUPPLEMENTAL O2. VERIFIED AND RESUMED HOME MEDICATION (2) CHF (congestive heart failure) Status: Acute Qualifiers: Heart failure type: combined systolic and diastolic Heart failure chronicity: acute on chronic Qualified Code(s): I50.43 - Acute on chronic combined systolic (congestive) and diastolic (congestive) heart failure (3) COPD exacerbation Status: Acute (4) Acute dyspnea Status: Acute (5) CKD (chronic kidney disease) Status: Acute Qualifiers: Chronic kidney disease stage: unspecified stage Qualified Code(s): N18.9 - Chronic kidney disease, unspecified
[2019-05-28] MEDS: PRAVACHOL PO SCH (20:57)
[2019-05-29] MEDS: DUONEB 0.5 MG/3 MG (3 mL) NEB SCH ×5 (00:46→16:08)
[2019-05-29] MEDS: NEURONTIN CAP 300 MG PO SCH ×3 (05:22→22:05)
[2019-05-29 06:57] LABS: BASOPHILS # (AUTO) 0.1 X10^3/uL (0.0-0.1); BASOPHILS % (AUTO) 0.6 % (0.2-1.0); EOSINOPHILS # (AUTO) 0.2 x10^3/uL (0.0-0.2); EOSINOPHILS % (AUTO) 1.7 % (0.9-2.9); HEMATOCRIT 39.3 % (42.0-54.0); HEMOGLOBIN 12.6 g/dL (13.5-18.0); LYMPHOCYTES # (AUTO) 2.4 X10^3/uL (1.3-2.9); LYMPHOCYTES % (AUTO) 22.3 % (21.0-51.0); MEAN CORPUSCULAR HEMOGLOBIN 25.4 pg (27.0-34.0); MEAN CORPUSCULAR HGB CONC 32.2 g/dL (33.0-35.0); MEAN CORPUSCULAR VOLUME 78.7 fL (80.0-100.0); MEAN PLATELET VOLUME 8.3 fL (7.4-11.0); MONOCYTES # (AUTO) 0.7 x10^3/uL (0.3-0.8); MONOCYTES % (AUTO) 6.8 % (0.0-13.0); NEUTROPHILS # (AUTO) 7.4 x10^3/uL (2.2-4.8); NEUTROPHILS % (AUTO) 68.6 % (42.0-75.0); PLATELET COUNT 255 X10^3/uL (150.0-450.0); RED BLOOD COUNT 4.99 X10^6/uL (4.7-6.0); RED CELL DISTRIBUTION WIDTH 16.3 % (11.6-16.5); WHITE BLOOD COUNT 10.8 X10^3/uL (3.6-10.0)
[2019-05-29 07:04] LABS: ALANINE AMINOTRANSFERASE 23 Units/L (12-78); ALBUMIN 2.8 g/dL (3.4-5.0); ALKALINE PHOSPHATASE 66 Units/L (46-116); ASPARTATE AMINO TRANSFERASE 14 Units/L (15-37); BLOOD UREA NITROGEN 21 mg/dL (7-18); CALCIUM 8.4 mg/dL (8.5-10.1); CHLORIDE 102 mmol/L (98-107); COR CA(FOR HYPOALB) 9.4 mg/dL (8.5-10.1); CREATININE 1.43 mg/dL (0.70-1.30); SODIUM 140 mmol/L (136-145); TOTAL PROTEIN 6.6 g/dL (6.4-8.2); eGFR NON BLACK RACES 52 (>60)
[2019-05-29 07:12] LABS: PLATELET MORPHOLOGY COMMENT NORMAL (NORMAL)
[2019-05-29] MEDS: ROCEPHIN VIAL 1 GRAM 1 G in NS 100 ML IV + SPIKE MINIBAG* 100 ML IV SCH (09:34)
[2019-05-29] MEDS: LASIX IVP SCH ×2 (09:37→17:00)
[2019-05-29] MEDS: VSL#3 PO SCH (09:39)
[2019-05-29] MEDS: ZITHROMAX INJ 500 MG VIAL 250 MG in D5W 250 ML IV 250 ML IV SCH (09:39)
[2019-05-29] MEDS: LOVENOX INJ 40 MG SYR SC SCH (09:40)
[2019-05-29] MEDS: MOBIC TAB 15 MG PO SCH (09:41)
[2019-05-29] MEDS: ENTRESTO 24/26 MG TAB PO SCH ×2 (09:41→20:48)
[2019-05-29] MEDS: MICRO K EXTEN CAP 10 MEQ PO SCH ×2 (09:41→20:48)
[2019-05-29] MEDS: LOPRESSOR TAB 25 MG PO SCH ×2 (09:41→20:48)
[2019-05-29] MEDS: ASPIRIN EC 81 MG PO SCH (09:41)
[2019-05-29] MEDS: LEVSIN/MAALOX/LIDOC VISC PO SCH ×4 (09:42→20:47)
[2019-05-29] MEDS: PROTONIX INJ 40 MG VIAL IVP SCH (09:43)
[2019-05-29] MEDS: ROBITUSSIN DM PO SCH ×4 (09:43→20:39)
[2019-05-29] MEDS ORDERED: NS 250 ML IV 250 ML IV ONE (11:36)
[2019-05-29] MEDS: PRAVACHOL PO SCH (20:49)
[2019-05-30] MEDS: DUONEB 0.5 MG/3 MG (3 mL) NEB SCH ×4 (00:45→17:10)
[2019-05-30] MEDS: NEURONTIN CAP 300 MG PO SCH ×3 (05:47→21:10)
[2019-05-30 06:16] LABS: BASOPHILS % (AUTO) 0.6 % (0.2-1.0); EOSINOPHILS # (AUTO) 0.6 x10^3/uL (0.0-0.2); EOSINOPHILS % (AUTO) 7.8 % (0.9-2.9); HEMATOCRIT 39.4 % (42.0-54.0); HEMOGLOBIN 12.6 g/dL (13.5-18.0); LYMPHOCYTES # (AUTO) 2.3 X10^3/uL (1.3-2.9); LYMPHOCYTES % (AUTO) 31.7 % (21.0-51.0); MEAN CORPUSCULAR HEMOGLOBIN 25.5 pg (27.0-34.0); MEAN CORPUSCULAR HGB CONC 31.9 g/dL (33.0-35.0); MEAN CORPUSCULAR VOLUME 80.2 fL (80.0-100.0); MEAN PLATELET VOLUME 9.1 fL (7.4-11.0); MONOCYTES # (AUTO) 0.5 x10^3/uL (0.3-0.8); MONOCYTES % (AUTO) 6.8 % (0.0-13.0); NEUTROPHILS # (AUTO) 3.9 x10^3/uL (2.2-4.8); NEUTROPHILS % (AUTO) 53.1 % (42.0-75.0); PLATELET COUNT 241 X10^3/uL (150.0-450.0); RED BLOOD COUNT 4.92 X10^6/uL (4.7-6.0); RED CELL DISTRIBUTION WIDTH 16.1 % (11.6-16.5); WHITE BLOOD COUNT 7.3 X10^3/uL (3.6-10.0)
[2019-05-30 06:46] LABS: ALANINE AMINOTRANSFERASE 18 Units/L (12-78); ALBUMIN 2.7 g/dL (3.4-5.0); ALKALINE PHOSPHATASE 68 Units/L (46-116); ASPARTATE AMINO TRANSFERASE 10 Units/L (15-37); BLOOD UREA NITROGEN 24 mg/dL (7-18); CALCIUM 8.6 mg/dL (8.5-10.1); CARBON DIOXIDE 34.7 mmol/L (21-32); CHLORIDE 104 mmol/L (98-107); COR CA(FOR HYPOALB) 9.6 mg/dL (8.5-10.1); CREATININE 1.42 mg/dL (0.70-1.30); SODIUM 142 mmol/L (136-145); TOTAL PROTEIN 6.2 g/dL (6.4-8.2); eGFR NON BLACK RACES 53 (>60)
[2019-05-30 07:01] LABS: HYPOCHROMASIA SLIGHT; PLATELET MORPHOLOGY COMMENT NORMAL (NORMAL)
[2019-05-30] MEDS: PROTONIX INJ 40 MG VIAL IVP SCH (09:28)
[2019-05-30] MEDS: MICRO K EXTEN CAP 10 MEQ PO SCH ×2 (09:29→20:46)
[2019-05-30] MEDS: LOPRESSOR TAB 25 MG PO SCH ×2 (09:30→20:46)
[2019-05-30] MEDS: VSL#3 PO SCH (09:30)
[2019-05-30] MEDS: MOBIC TAB 15 MG PO SCH (09:30)
[2019-05-30] MEDS: ENTRESTO 24/26 MG TAB PO SCH ×2 (09:31→20:49)
[2019-05-30] MEDS: LASIX IVP SCH ×2 (09:31→17:31)
[2019-05-30] MEDS: ASPIRIN EC 81 MG PO SCH (09:32)
[2019-05-30] MEDS: LOVENOX INJ 40 MG SYR SC SCH (09:37)
[2019-05-30] MEDS: LEVSIN/MAALOX/LIDOC VISC PO SCH ×4 (09:43→20:46)
[2019-05-30] MEDS: ROBITUSSIN DM PO SCH ×4 (09:44→20:49)
[2019-05-30] MEDS: ROCEPHIN VIAL 1 GRAM 1 G in NS 100 ML IV + SPIKE MINIBAG* 100 ML IV SCH (10:46)
[2019-05-30] MEDS: ZITHROMAX INJ 500 MG VIAL 250 MG in D5W 250 ML IV 250 ML IV SCH (10:57)
--- NOTE | 2019-05-30 12:01 | PCM.PROG ---
Progress Note Progress Note for Day of Date of Exam: 05/30/19 Subjective Subjective: Pt is a 69 yo m, admitted for right middle lobe pneumonia and HFrEF(EF 20-25%) exacerbation. He reports feeling a little better this morning. He has been on IV antibiotics, respiratory therapy, supplemental oxygen, and pulmonary toileting. Labs:Wbc 7.3, Cr 1.42. Weight on admission 145lb, today 139lb. Continue home medications, Azithromycin, and Lasix. Follow up labs in morning. Past Medical Family Social History Past Med/Fam/Surg Hx: No changes since H&P Allergies: Allergies No Known Drug Allergies Allergy (Verified 04/02/19 15:27) Review of Systems ROS: No change since H&P Vital Signs and I&O's Vital Signs: Temperature 98 F Pulse Rate [Left Brachial] 64 Pulse Rate 68 Respiratory Rate 22 Blood Pressure [Right Arm] 146/90 Blood Pressure [Left Arm] 164/92 Blood Pressure 168/106 O2 Sat by Pulse Oximetry 98 Intake and Output: Intake & Output 05/27/19 05/28/19 05/29/19 05/30/19 23:59 23:59 23:59 23:59 Intake Total 830 / 830 4002 / 4002 2396 / 2396 60 / 60 Output Total 3525 / 3525 2700 / 2700 2800 / 2800 300 / 300 Balance -2695 / -2695 1302 / 1302 -404 / -404 -240 / -240 Physical Exam Oriented: Person Eyes: Normal Ear: Normal Nose: Normal Throat: Normal Respiratory: Diminished and Wheezes Cardiovascular: Normal and Edema : Normal Auscultation: Bowel Sounds: Normal Tenderness: Normal Skin: Decreased Turgur Musculoskeletal: Back:Lumbar Mood Description: Calm Speech Pattern: Clear and Appropriate Laboratory and Diagnostics Result Diagrams: 05/30/19 05:19 05/30/19 05:19 Labs: 05/26/19 09:23 Blood Blood Culture - Preliminary 05/26/19 09:20 Blood Blood Culture - Preliminary Laboratory WBC 7.3 X10^3/uL (3.6-10.0) 05/30/19 05:19 RBC 4.92 X10^6/uL (4.7-6.0) 05/30/19 05:19 Hgb 12.6 g/dL (13.5-18.0) L 05/30/19 05:19 Hct 39.4 % (42.0-54.0) L 05/30/19 05:19 MCV 80.2 fL (80.0-100.0) 05/30/19 05:19 MCH 25.5 pg (27.0-34.0) L 05/30/19 05:19 MCHC 31.9 g/dL (33.0-35.0) L 05/30/19 05:19 RDW 16.1 % (11.6-16.5) 05/30/19 05:19 Plt Count 241 X10^3/uL (150.0-450.0) 05/30/19 05:19 Plt Count Comment Adequate (ADEQUATE) 05/30/19 05:19 MPV 9.1 fL (7.4-11.0) 05/30/19 05:19 Neut % (Auto) 53.1 % (42.0-75.0) 05/30/19 05:19 Lymph % (Auto) 31.7 % (21.0-51.0) 05/30/19 05:19 [place] % (Auto) 6.8 % (0.0-13.0) 05/30/19 05:19 Eos % (Auto) 7.8 % (0.9-2.9) H 05/30/19 05:19 Baso % (Auto) 0.6 % (0.2-1.0) 05/30/19 05:19 Neut # (Auto) 3.9 x10^3/uL (2.2-4.8) 05/30/19 05:19 Lymph # (Auto) 2.3 X10^3/uL (1.3-2.9) 05/30/19 05:19 [place] # (Auto) 0.5 x10^3/uL (0.3-0.8) 05/30/19 05:19 Eos # (Auto) 0.6 x10^3/uL (0.0-0.2) H 05/30/19 05:19 Baso # (Auto) 0.0 X10^3/uL (0.0-0.1) 05/30/19 05:19 Absolute Nucleated RBC 0.1 /100WBC 05/30/19 05:19 Total Counted 100 05/28/19 05:40 Neutrophils % (Manual) 91 % (39-76) H 05/28/19 05:40 Lymphocytes % (Manual) 7 % (13-43) L 05/28/19 05:40 Monocytes % (Manual) 2 % (4-9) L 05/28/19 05:40 Plt Morphology Comment Normal (NORMAL) 05/30/19 05:19 RBC Morphology Abnormal (NORMAL) 05/30/19 05:19 Hypochromasia Slight A 05/30/19 05:19 Sample Site Right radial 05/26/19 10:57 ABG pH 7.480 (7.35-7.45) H 05/26/19 10:57 ABG pCO2 35.0 mmHg (35.0-45.0) 05/26/19 10:57 ABG pO2 70.0 mmHg (80.0-100.0) L 05/26/19 10:57 ABG HCO3 26.1 mmol/L (22-26) H 05/26/19 10:57 ABG O2 Saturation 95.0 % (90-100) 05/26/19 10:57 ABG Base Excess 2.8 mmol/L (-2.0-2.0) H 05/26/19 10:57 Shawn Test Pos 05/26/19 10:57 A-a Gradient 36.0 mmHg 05/26/19 10:57 FiO2 21.0 05/26/19 10:57 Blood Gas Comments Andrew well aw 05/26/19 10:57 Sodium 142 mmol/L (136-145) 05/30/19 05:19 Corrected Sodium TNP 05/30/19 05:19 Potassium 4.1 mmol/L (3.5-5.1) 05/30/19 05:19 Chloride 104 mmol/L (98-107) 05/30/19 05:19 Carbon Dioxide 34.7 mmol/L (21-32) H 05/30/19 05:19 BUN 24 mg/dL (7-18) H 05/30/19 05:19 Creatinine 1.42 mg/dL (0.70-1.30) H 05/30/19 05:19 Est GFR (MDRD) Af Amer > 60 (>60) 05/30/19 05:19 Est GFR (MDRD) Non-Af 53 (>60) L 05/30/19 05:19 Glucose 88 mg/dL (65-99) 05/30/19 05:19 Lactic Acid 1.8 mmol/L (0.4-2.0) 05/26/19 09:23 Calcium 8.6 mg/dL (8.5-10.1) 05/30/19 05:19 Corrected Calcium 9.6 mg/dL (8.5-10.1) 05/30/19 05:19 Total Bilirubin 0.30 mg/dL (0.2-1.0) 05/30/19 05:19 AST 10 Units/L (15-37) L 05/30/19 05:19 ALT 18 Units/L (12-78) 05/30/19 05:19 Alkaline Phosphatase 68 Units/L (46-116) 05/30/19 05:19 Creatine Kinase 32 Units/L (39-308) L 05/26/19 21:30 CK-MB (CK-2) 1.1 ng/mL (0-4.0) 05/26/19 21:30 CK/CKMB % Calc 3.4 % (<4) 05/26/19 21:30 Troponin I 0.04 ng/mL (0-1.5) 05/26/19 21:30 B-Natriuretic Peptide 3610 pg/mL (0-79) H* 05/26/19 09:23 Total Protein 6.2 g/dL (6.4-8.2) L 05/30/19 05:19 Albumin 2.7 g/dL (3.4-5.0) L 05/30/19 05:19 Globulin 3.5 g/dL (2.5-4.5) 05/30/19 05:19 Albumin/Globulin Ratio 0.8 Ratio (1.1-2.1) L 05/30/19 05:19 Specimen Type Random urine 05/26/19 10:04 Urine Color Yellow (YELLOW) 05/26/19 10:04 Urine Appearance Hazy (CLEAR) 05/26/19 10:04 Urine pH 6.0 (5.0 - 8.0) 05/26/19 10:04 Ur Specific [place] 1.015 (1.000-1.030) 05/26/19 10:04 Urine Protein 3+ (NEGATIVE) 05/26/19 10:04 Urine Glucose (UA) Negative (NEGATIVE) 05/26/19 10:04 Urine Ketones Negative (NEGATIVE) 05/26/19 10:04 Urine Occult Blood 1+ (NEGATIVE) 05/26/19 10:04 Urine Nitrite Negative (NEGATIVE) 05/26/19 10:04 Urine Bilirubin Negative (NEGATIVE) 05/26/19 10:04 Urine Urobilinogen 1+ (NORMAL) 05/26/19 10:04 Ur Leukocyte Esterase 1+ (NEGATIVE) 05/26/19 10:04 Urine RBC 0-2 /HPF (0-3) 05/26/19 10:04 Urine WBC 0-2 /HPF (0-5) 05/26/19 10:04 Ur Squamous Epith Cells Rare /HPF (NEGATIVE) 05/26/19 10:04 Urine Bacteria Negative /HPF (NEGATIVE) 05/26/19 10:04 Urine Mucus Few /HPF (NEGATIVE) 05/26/19 10:04 Ur Culture Indicated? No/not indicated 05/26/19 10:04 Plan (1) RML pneumonia: Status: Acute Qualifiers: Pneumonia type: due to unspecified organism Qualified Code(s): J18.9 - Pneumonia, unspecified organism Plan: PNEUMONIA PROTOCOL IV ABTX, RESP THERAPY SPUTUM CULTURE, SERIAL CE AND EKG IV LASIX WITH STRICT I&OS, SUPPLEMENTAL O2 VERIFIED AND RESUMED HOME MEDICATION (2) CHF (congestive heart failure): Status: Acute Qualifiers: Heart failure chronicity: acute on chronic Heart failure type: combined systolic and diastolic Qualified Code(s): I50.43 - Acute on chronic combined systolic (congestive) and diastolic (congestive) heart failure (3) COPD exacerbation: Status: Acute (4) Acute dyspnea: Status: Acute (5) CKD (chronic kidney disease): Status: Acute Qualifiers: Chronic kidney disease stage: unspecified stage Qualified Code(s): N18.9 - Chronic kidney disease, unspecified
[2019-05-30] MEDS: PRAVACHOL PO SCH (20:46)
[2019-05-31] MEDS: DUONEB 0.5 MG/3 MG (3 mL) NEB SCH ×4 (00:30→17:03)
[2019-05-31] MEDS: NEURONTIN CAP 300 MG PO SCH ×3 (05:08→21:18)
[2019-05-31 06:34] LABS: BLOOD UREA NITROGEN 25 mg/dL (7-18); CALCIUM 8.6 mg/dL (8.5-10.1); CARBON DIOXIDE 32.2 mmol/L (21-32); CHLORIDE 104 mmol/L (98-107); CREATININE 1.52 mg/dL (0.70-1.30); SODIUM 141 mmol/L (136-145); eGFR NON BLACK RACES 49 (>60)
[2019-05-31 06:48] LABS: BASOPHILS % (AUTO) 0.7 % (0.2-1.0); EOSINOPHILS # (AUTO) 0.7 x10^3/uL (0.0-0.2); EOSINOPHILS % (AUTO) 10.4 % (0.9-2.9); HEMATOCRIT 37.8 % (42.0-54.0); HEMOGLOBIN 12.2 g/dL (13.5-18.0); LYMPHOCYTES # (AUTO) 2.2 X10^3/uL (1.3-2.9); LYMPHOCYTES % (AUTO) 30.9 % (21.0-51.0); MEAN CORPUSCULAR HEMOGLOBIN 25.5 pg (27.0-34.0); MEAN CORPUSCULAR HGB CONC 32.2 g/dL (33.0-35.0); MEAN CORPUSCULAR VOLUME 79.1 fL (80.0-100.0); MONOCYTES # (AUTO) 0.7 x10^3/uL (0.3-0.8); MONOCYTES % (AUTO) 9.5 % (0.0-13.0); NEUTROPHILS # (AUTO) 3.4 x10^3/uL (2.2-4.8); NEUTROPHILS % (AUTO) 48.5 % (42.0-75.0); PLATELET COUNT 229 X10^3/uL (150.0-450.0); RED BLOOD COUNT 4.78 X10^6/uL (4.7-6.0); RED CELL DISTRIBUTION WIDTH 15.9 % (11.6-16.5)
[2019-05-31 07:04] LABS: PLATELET MORPHOLOGY COMMENT NORMAL (NORMAL)
[2019-05-31 07:05] LABS: HYPOCHROMASIA SLIGHT
[2019-05-31] MEDS: ASPIRIN EC 81 MG PO SCH (09:37)
[2019-05-31] MEDS: LOPRESSOR TAB 25 MG PO SCH ×2 (09:37→21:18)
[2019-05-31] MEDS: LASIX IVP SCH ×2 (09:38→17:30)
[2019-05-31] MEDS: VSL#3 PO SCH (09:46)
[2019-05-31] MEDS: ENTRESTO 24/26 MG TAB PO SCH ×2 (09:47→21:20)
[2019-05-31] MEDS: LOVENOX INJ 40 MG SYR SC SCH (09:48)
[2019-05-31] MEDS: LEVSIN/MAALOX/LIDOC VISC PO SCH ×4 (09:48→21:16)
[2019-05-31] MEDS: MOBIC TAB 15 MG PO SCH (09:49)
[2019-05-31] MEDS: MICRO K EXTEN CAP 10 MEQ PO SCH ×2 (09:49→21:18)
[2019-05-31] MEDS: ZITHROMAX INJ 500 MG VIAL 250 MG in D5W 250 ML IV 250 ML IV SCH (09:50)
[2019-05-31] MEDS: ROBITUSSIN DM PO SCH ×4 (09:50→21:20)
[2019-05-31] MEDS: ROCEPHIN VIAL 1 GRAM 1 G in NS 100 ML IV + SPIKE MINIBAG* 100 ML IV SCH (09:50)
[2019-05-31] MEDS: PROTONIX INJ 40 MG VIAL IVP SCH (09:50)
--- NOTE | 2019-05-31 12:39 | PCM.PROG ---
Progress Note Progress Note for Day of Date of Exam: 05/31/19 Subjective Subjective: Pt is a 69 yo m, admitted for right middle lobe pneumonia and HFrEF(EF 20-25%) exacerbation. He is sitting up in bed, stating he is doing better this morning. He has been on IV antibiotics, respiratory therapy, supplemental oxygen, and pulmonary toileting. Labs:Wbc 7.3>7, Cr 1.42>1.52. Will continue home medications, Azithromycin, and Lasix. Follow up labs in morning. Past Medical Family Social History Past Med/Fam/Surg Hx: No changes since H&P Allergies: Allergies No Known Drug Allergies Allergy (Verified 04/02/19 15:27) Review of Systems ROS: No change since H&P Vital Signs and I&O's Vital Signs: Temperature 98.5 F Pulse Rate [Left Brachial] 76 Pulse Rate 70 Respiratory Rate 18 Blood Pressure [Right Arm] 156/94 Blood Pressure [Left Arm] 164/92 Blood Pressure 168/106 O2 Sat by Pulse Oximetry 94 Intake and Output: Intake & Output 05/28/19 05/29/19 05/30/19 06/01/19 23:59 23:59 23:59 00:59 Intake Total 4002 / 4002 2396 / 2396 2790 / 2790 460 / 460 Output Total 2700 / 2700 2800 / 2800 2550 / 2550 700 / 700 Balance 1302 / 1302 -404 / -404 240 / 240 -240 / -240 Physical Exam Oriented: Person Eyes: Normal Ear: Normal Nose: Normal Throat: Normal Respiratory: Diminished and Wheezes Cardiovascular: Normal and Edema : Normal Auscultation: Bowel Sounds: Normal Tenderness: Normal Skin: Decreased Turgur Musculoskeletal: Back:Lumbar Mood Description: Calm Speech Pattern: Clear and Appropriate Laboratory and Diagnostics Result Diagrams: 05/31/19 05:48 05/31/19 05:48 Labs: 05/26/19 09:23 Blood Blood Culture - Preliminary 05/26/19 09:20 Blood Blood Culture - Preliminary Laboratory WBC 7.0 X10^3/uL (3.6-10.0) 05/31/19 05:48 RBC 4.78 X10^6/uL (4.7-6.0) 05/31/19 05:48 Hgb 12.2 g/dL (13.5-18.0) L 05/31/19 05:48 Hct 37.8 % (42.0-54.0) L 05/31/19 05:48 MCV 79.1 fL (80.0-100.0) L 05/31/19 05:48 MCH 25.5 pg (27.0-34.0) L 05/31/19 05:48 MCHC 32.2 g/dL (33.0-35.0) L 05/31/19 05:48 RDW 15.9 % (11.6-16.5) 05/31/19 05:48 Plt Count 229 X10^3/uL (150.0-450.0) 05/31/19 05:48 Plt Count Comment Adequate (ADEQUATE) 05/31/19 05:48 MPV 9.0 fL (7.4-11.0) 05/31/19 05:48 Neut % (Auto) 48.5 % (42.0-75.0) 05/31/19 05:48 Lymph % (Auto) 30.9 % (21.0-51.0) 05/31/19 05:48 [place] % (Auto) 9.5 % (0.0-13.0) 05/31/19 05:48 Eos % (Auto) 10.4 % (0.9-2.9) H 05/31/19 05:48 Baso % (Auto) 0.7 % (0.2-1.0) 05/31/19 05:48 Neut # (Auto) 3.4 x10^3/uL (2.2-4.8) 05/31/19 05:48 Lymph # (Auto) 2.2 X10^3/uL (1.3-2.9) 05/31/19 05:48 [place] # (Auto) 0.7 x10^3/uL (0.3-0.8) 05/31/19 05:48 Eos # (Auto) 0.7 x10^3/uL (0.0-0.2) H 05/31/19 05:48 Baso # (Auto) 0.0 X10^3/uL (0.0-0.1) 05/31/19 05:48 Absolute Nucleated RBC 0.1 /100WBC 05/31/19 05:48 Total Counted 100 05/28/19 05:40 Neutrophils % (Manual) 91 % (39-76) H 05/28/19 05:40 Lymphocytes % (Manual) 7 % (13-43) L 05/28/19 05:40 Monocytes % (Manual) 2 % (4-9) L 05/28/19 05:40 Plt Morphology Comment Normal (NORMAL) 05/31/19 05:48 RBC Morphology Abnormal (NORMAL) 05/31/19 05:48 Hypochromasia Slight A 05/31/19 05:48 Sample Site Right radial 05/26/19 10:57 ABG pH 7.480 (7.35-7.45) H 05/26/19 10:57 ABG pCO2 35.0 mmHg (35.0-45.0) 05/26/19 10:57 ABG pO2 70.0 mmHg (80.0-100.0) L 05/26/19 10:57 ABG HCO3 26.1 mmol/L (22-26) H 05/26/19 10:57 ABG O2 Saturation 95.0 % (90-100) 05/26/19 10:57 ABG Base Excess 2.8 mmol/L (-2.0-2.0) H 05/26/19 10:57 Shawn Test Pos 05/26/19 10:57 A-a Gradient 36.0 mmHg 05/26/19 10:57 FiO2 21.0 05/26/19 10:57 Blood Gas Comments Andrew well aw 05/26/19 10:57 Sodium 141 mmol/L (136-145) 05/31/19 05:48 Corrected Sodium TNP 05/31/19 05:48 Potassium 4.1 mmol/L (3.5-5.1) 05/31/19 05:48 Chloride 104 mmol/L (98-107) 05/31/19 05:48 Carbon Dioxide 32.2 mmol/L (21-32) H 05/31/19 05:48 BUN 25 mg/dL (7-18) H 05/31/19 05:48 Creatinine 1.52 mg/dL (0.70-1.30) H 05/31/19 05:48 Est GFR (MDRD) Af Amer 59 (>60) 05/31/19 05:48 Est GFR (MDRD) Non-Af 49 (>60) L 05/31/19 05:48 Glucose 81 mg/dL (65-99) 05/31/19 05:48 Lactic Acid 1.8 mmol/L (0.4-2.0) 05/26/19 09:23 Calcium 8.6 mg/dL (8.5-10.1) 05/31/19 05:48 Corrected Calcium 9.6 mg/dL (8.5-10.1) 05/30/19 05:19 Total Bilirubin 0.30 mg/dL (0.2-1.0) 05/30/19 05:19 AST 10 Units/L (15-37) L 05/30/19 05:19 ALT 18 Units/L (12-78) 05/30/19 05:19 Alkaline Phosphatase 68 Units/L (46-116) 05/30/19 05:19 Creatine Kinase 32 Units/L (39-308) L 05/26/19 21:30 CK-MB (CK-2) 1.1 ng/mL (0-4.0) 05/26/19 21:30 CK/CKMB % Calc 3.4 % (<4) 05/26/19 21:30 Troponin I 0.04 ng/mL (0-1.5) 05/26/19 21:30 B-Natriuretic Peptide 3610 pg/mL (0-79) H* 05/26/19 09:23 Total Protein 6.2 g/dL (6.4-8.2) L 05/30/19 05:19 Albumin 2.7 g/dL (3.4-5.0) L 05/30/19 05:19 Globulin 3.5 g/dL (2.5-4.5) 05/30/19 05:19 Albumin/Globulin Ratio 0.8 Ratio (1.1-2.1) L 05/30/19 05:19 Specimen Type Random urine 05/26/19 10:04 Urine Color Yellow (YELLOW) 05/26/19 10:04 Urine Appearance Hazy (CLEAR) 05/26/19 10:04 Urine pH 6.0 (5.0 - 8.0) 05/26/19 10:04 Ur Specific [place] 1.015 (1.000-1.030) 05/26/19 10:04 Urine Protein 3+ (NEGATIVE) 05/26/19 10:04 Urine Glucose (UA) Negative (NEGATIVE) 05/26/19 10:04 Urine Ketones Negative (NEGATIVE) 05/26/19 10:04 Urine Occult Blood 1+ (NEGATIVE) 05/26/19 10:04 Urine Nitrite Negative (NEGATIVE) 05/26/19 10:04 Urine Bilirubin Negative (NEGATIVE) 05/26/19 10:04 Urine Urobilinogen 1+ (NORMAL) 05/26/19 10:04 Ur Leukocyte Esterase 1+ (NEGATIVE) 05/26/19 10:04 Urine RBC 0-2 /HPF (0-3) 05/26/19 10:04 Urine WBC 0-2 /HPF (0-5) 05/26/19 10:04 Ur Squamous Epith Cells Rare /HPF (NEGATIVE) 05/26/19 10:04 Urine Bacteria Negative /HPF (NEGATIVE) 05/26/19 10:04 Urine Mucus Few /HPF (NEGATIVE) 05/26/19 10:04 Ur Culture Indicated? No/not indicated 05/26/19 10:04 Plan (1) RML pneumonia: Status: Acute Qualifiers: Pneumonia type: due to unspecified organism Qualified Code(s): J18.9 - Pneumonia, unspecified organism Plan: PNEUMONIA PROTOCOL IV ABTX, RESP THERAPY SPUTUM CULTURE, SERIAL CE AND EKG IV LASIX WITH STRICT I&OS, SUPPLEMENTAL O2 (2) CHF (congestive heart failure): Status: Acute Qualifiers: Heart failure chronicity: acute on chronic Heart failure type: combined systolic and diastolic Qualified Code(s): I50.43 - Acute on chronic combined systolic (congestive) and diastolic (congestive) heart failure (3) COPD exacerbation: Status: Acute (4) Acute dyspnea: Status: Acute (5) CKD (chronic kidney disease): Status: Acute Qualifiers: Chronic kidney disease stage: unspecified stage Qualified Code(s): N18.9 - Chronic kidney disease, unspecified
[2019-05-31] MEDS: PRAVACHOL PO SCH (21:18)
[2019-06-01] MEDS: DUONEB 0.5 MG/3 MG (3 mL) NEB SCH ×3 (00:59→11:37)
[2019-06-01] MEDS: NEURONTIN CAP 300 MG PO SCH (05:30)
[2019-06-01 06:29] LABS: BLOOD UREA NITROGEN 26 mg/dL (7-18); CALCIUM 8.7 mg/dL (8.5-10.1); CARBON DIOXIDE 31.9 mmol/L (21-32); CHLORIDE 104 mmol/L (98-107); CREATININE 1.31 mg/dL (0.70-1.30); SODIUM 141 mmol/L (136-145); eGFR NON BLACK RACES 58 (>60)
[2019-06-01 06:36] LABS: BASOPHILS % (AUTO) 0.4 % (0.2-1.0); EOSINOPHILS # (AUTO) 0.6 x10^3/uL (0.0-0.2); EOSINOPHILS % (AUTO) 10.9 % (0.9-2.9); HEMATOCRIT 36.8 % (42.0-54.0); HEMOGLOBIN 11.9 g/dL (13.5-18.0); LYMPHOCYTES # (AUTO) 2.5 X10^3/uL (1.3-2.9); LYMPHOCYTES % (AUTO) 42.5 % (21.0-51.0); MEAN CORPUSCULAR HEMOGLOBIN 25.6 pg (27.0-34.0); MEAN CORPUSCULAR HGB CONC 32.4 g/dL (33.0-35.0); MEAN CORPUSCULAR VOLUME 79.1 fL (80.0-100.0); MEAN PLATELET VOLUME 8.9 fL (7.4-11.0); MONOCYTES # (AUTO) 0.5 x10^3/uL (0.3-0.8); NEUTROPHILS # (AUTO) 2.2 x10^3/uL (2.2-4.8); NEUTROPHILS % (AUTO) 38.2 % (42.0-75.0); PLATELET COUNT 203 X10^3/uL (150.0-450.0); RED BLOOD COUNT 4.66 X10^6/uL (4.7-6.0); RED CELL DISTRIBUTION WIDTH 16.2 % (11.6-16.5); WHITE BLOOD COUNT 5.8 X10^3/uL (3.6-10.0)
[2019-06-01 07:00] LABS: PLATELET MORPHOLOGY COMMENT NORMAL (NORMAL)
[2019-06-01] MEDS: ROCEPHIN VIAL 1 GRAM 1 G in NS 100 ML IV + SPIKE MINIBAG* 100 ML IV SCH (09:57)
[2019-06-01] MEDS: LEVSIN/MAALOX/LIDOC VISC PO SCH (10:00)
[2019-06-01] MEDS: ASPIRIN EC 81 MG PO SCH (10:01)
[2019-06-01] MEDS: MICRO K EXTEN CAP 10 MEQ PO SCH (10:01)
[2019-06-01] MEDS: ROBITUSSIN DM PO SCH (10:01)
[2019-06-01] MEDS: LOPRESSOR TAB 25 MG PO SCH (10:02)
[2019-06-01] MEDS: ENTRESTO 24/26 MG TAB PO SCH (10:02)
[2019-06-01] MEDS: LOVENOX INJ 40 MG SYR SC SCH (10:03)
[2019-06-01] MEDS: MOBIC TAB 15 MG PO SCH (10:05)
[2019-06-01] MEDS ORDERED: LASIX ONE (10:48)
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
[2019-06-01] MEDS: LASIX IVP SCH (10:51)
[2019-06-01] MEDS: PROTONIX INJ 40 MG VIAL IVP SCH (10:51)
[2019-06-01] MEDS: VSL#3 PO SCH (10:52)
[2019-06-01] MEDS: ZITHROMAX INJ 500 MG VIAL 250 MG in D5W 250 ML IV 250 ML IV SCH (11:28)
[2019-06-01 13:08] VITALS: BP 152/78
== END 2019-06-01 13:10 | disposition home or self-care (01) | DRG 193 ==
LOC: MED/SURG 09:05 → ER 09:05 → MED/SURG 11:23
PROVIDERS: ADMIT Internal Medicine; ATTEND Internal Medicine
DX: N18.9 Chronic kidney disease, unspecified; I50.43 Acute on chronic combined systolic (congestive) and diastolic (congestive) heart failure; J18.8 Other pneumonia, unspecified organism; J44.1 Chronic obstructive pulmonary disease with (acute) exacerbation; I25.10 Atherosclerotic heart disease of native coronary artery without angina pectoris; R94.31 Abnormal electrocardiogram [ECG] [EKG]; R06.02 Shortness of breath; N17.8 Other acute kidney failure; R60.0 Localized edema; R26.89 Other abnormalities of gait and mobility
CPT/HCPCS: 36415; 36600; 71010; 71020; 71045; 71046; 80048; 80053; 81001; 82550; 82553; 82803; 83605; 83880; 84484; 85025; 87040; 93005; 94640; 94760; 96365; 96374; 96375; 97110; 97116; 97162; 99284; A4222; C9113; G0378; J0456; J0696; J1650; J1940; J2920; J2930; J7050; J7060; J7620

== ENCOUNTER 2021-09-12 22:19 | Inpatient (IN) ==
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
--- NOTE | 2021-09-12 23:00 | RAD ---
HISTORYPT IN ED VIA WHEELCHAIR WITH C/O SHORTNESS OF BREATH X 1 WEEKSTUDYCHEST, 1 VIEWCOMPARISONSeptember 2019TECHNIQUEChest radiographic imaging, AP portable projection, 1 imageFINDINGSMild cardiomegaly.Lungs are hyperinflated. No focal airspace disease.No pleural effusion.No pneumothorax.No acute osseous abnormality.IMPRESSION1. No imaging findings of acute cardiopulmonary disease.2. Lungs are hyperinflated; consistent with COPD.Electronically signed by: Vincent Kang (Sep 12, 2021 22:59:34)
[2021-09-12 23:10] LABS: BASOPHILS # (AUTO) 0.1 X10^3/uL (0.0-0.1); BASOPHILS % (AUTO) 2.3 % (0.2-1.0); EOSINOPHILS # (AUTO) 0.1 x10^3/uL (0.0-0.2); EOSINOPHILS % (AUTO) 0.9 % (0.9-2.9); HEMATOCRIT 47.8 % (42.0-54.0); HEMOGLOBIN 16.5 g/dL (13.5-18.0); LYMPHOCYTES # (AUTO) 0.6 X10^3/uL (1.3-2.9); MEAN CORPUSCULAR HEMOGLOBIN 29.1 pg (27.0-34.0); MEAN CORPUSCULAR HGB CONC 34.4 g/dL (33.0-35.0); MEAN CORPUSCULAR VOLUME 84.5 fL (80.0-100.0); MEAN PLATELET VOLUME 9.3 fL (7.4-11.0); MONOCYTES # (AUTO) 0.5 x10^3/uL (0.3-0.8); MONOCYTES % (AUTO) 7.9 % (0.0-13.0); NEUTROPHILS # (AUTO) 5.1 x10^3/uL (2.2-4.8); NEUTROPHILS % (AUTO) 79.9 % (42.0-75.0); RED BLOOD COUNT 5.66 X10^6/uL (4.7-6.0); WHITE BLOOD COUNT 6.4 X10^3/uL (3.6-10.0)
[2021-09-12 23:35] LABS: ALANINE AMINOTRANSFERASE 32 Units/L (12-78); ALBUMIN 3.1 g/dL (3.4-5.0); ALKALINE PHOSPHATASE 103 Units/L (46-116); ASPARTATE AMINO TRANSFERASE 22 Units/L (15-37); BLOOD UREA NITROGEN 21 mg/dL (7-18); CALCIUM 8.6 mg/dL (8.5-10.1); CHLORIDE 105 mmol/L (98-107); CKMB % 2.5 % (<4); COR CA(FOR HYPOALB) 9.3 mg/dL (8.5-10.1); CREATINE KINASE 59 Units/L (39-308); CREATINE KINASE MB 1.5 ng/mL (0-4.0); CREATININE 1.77 mg/dL (0.70-1.30); SODIUM 137 mmol/L (136-145); TOTAL PROTEIN 6.8 g/dL (6.4-8.2); eGFR NON BLACK RACES 41 (>60)
[2021-09-12] MEDS ORDERED: VASOTEC INJ 2.5 MG VIAL IVP ONE (23:49)
[2021-09-12] MEDS ORDERED: LASIX IVP ONE ×2 (23:49→23:57)
[2021-09-12] MEDS ORDERED: VASOTEC INJ 2.5 MG VIAL ONE (23:57)
[2021-09-13 00:05] LABS: ABG ALLEN TEST POS; ABG BASE EXCESS 3.6 mmol/L (-2.0-2.0); ABG HCO3 25.9 mmol/L (22-26)
[2021-09-13 03:27] LABS: CKMB % 1.6 % (<4); CREATINE KINASE MB 1.1 ng/mL (0-4.0)
[2021-09-13] MEDS ORDERED: LASIX ONE (08:50)
[2021-09-13] MEDS ORDERED: LASIX IVP ONE (09:12)
[2021-09-13] MEDS: ENTRESTO 24/26 MG TAB PO SCH ×2 (09:30→20:14)
[2021-09-13 10:06] LABS: ALANINE AMINOTRANSFERASE 35 Units/L (12-78); ALBUMIN 3.7 g/dL (3.4-5.0); ALKALINE PHOSPHATASE 119 Units/L (46-116); ASPARTATE AMINO TRANSFERASE 27 Units/L (15-37); BLOOD UREA NITROGEN 21 mg/dL (7-18); CARBON DIOXIDE 28.3 mmol/L (21-32); CHLORIDE 101 mmol/L (98-107); CKMB % 1.1 % (<4); COR NA(FOR HYPERGLY) 138 mmol/L (136-145); CREATINE KINASE 93 Units/L (39-308); CREATINE KINASE MB < 1.0 ng/mL (0-4.0); SODIUM 137 mmol/L (136-145); TOTAL PROTEIN 8.3 g/dL (6.4-8.2)
[2021-09-13 10:14] LABS: CREATININE 1.91 mg/dL (0.70-1.30); eGFR NON BLACK RACES 37 (>60)
[2021-09-13 10:45] LABS: BASOPHILS % (AUTO) 0.7 % (0.2-1.0); EOSINOPHILS % (AUTO) 0.2 % (0.9-2.9); HEMATOCRIT 53.8 % (42.0-54.0); LYMPHOCYTES # (AUTO) 0.8 X10^3/uL (1.3-2.9); LYMPHOCYTES % (AUTO) 12.4 % (21.0-51.0); MEAN CORPUSCULAR HEMOGLOBIN 29.3 pg (27.0-34.0); MEAN CORPUSCULAR HGB CONC 34.6 g/dL (33.0-35.0); MEAN CORPUSCULAR VOLUME 84.7 fL (80.0-100.0); MEAN PLATELET VOLUME 9.7 fL (7.4-11.0); MONOCYTES # (AUTO) 0.5 x10^3/uL (0.3-0.8); MONOCYTES % (AUTO) 8.3 % (0.0-13.0); NEUTROPHILS # (AUTO) 4.9 x10^3/uL (2.2-4.8); NEUTROPHILS % (AUTO) 78.4 % (42.0-75.0); RED BLOOD COUNT 6.36 X10^6/uL (4.7-6.0); WHITE BLOOD COUNT 6.3 X10^3/uL (3.6-10.0)
[2021-09-13 10:46] LABS: HEMOGLOBIN 18.6 g/dL (13.5-18.0)
[2021-09-13] MEDS ORDERED: LASIX IVP SCH (14:00)
--- NOTE | 2021-09-13 18:53 | DR.H&P ---
H&P - History & Physical for Day of: H&P Date: 09/13/21 - Chief Complaint Chief Complaint: SOB, CCC - History of Present Illness History of Present Illness: PT IS 71 BM, ER ADMISSION WITH CO INCREASED SOB AND CCC. PT DENIES ANY FEVER OR KNOWN COVID EXPOSURE. PT REPORTS HE HAS BEEN OUT OF HIS MEDICATION FOR SEVERAL WEEKS. PT HAD PMH OF COPD, CHF, HTN AND CAD. PT DENIES USE OF HOME O2. PT ADMITTED FOR TREATMENT OF ACUTE ILLNESS. - Past Medical History Past Medical History: Arthritis, CHF, COPD, Coronary Artery Disease, GERD, Hypertension, Renal Disease - Past Surgical History Surgical History: Angioplasty/Stents, Ortho Surgery - Family History Family Medical History: Diabetes Mellitus, Hypertension - Social History Does patient currently use any type of tobacco product: No Have you used tobacco products in the last 12 months: No Type of Tobacco Use: None How many years tobacco product used: 30 Does any household member use tobacco: No Alcohol Use: None Drug Use: None - Medications Home Medications: No Known Drug Allergies Allergy (Verified 04/02/19 15:27) CONTINUE taking the following medications NK 09/12/21 [History] - Review of Systems Constitutional: Weakness, Malaise. denies: Fever Eyes: No Symptoms Reported ENT: No Symptoms Reported Respiratory: Shortness of Breath, SOB with Excertion Cardiovascular: Edema Gastrointestinal: No Symptoms Reported Genitourinary: No Symptoms Reported Musculoskeletal: Back Pain, Leg Pain Skin: No Symptoms Reported Neurological: No Symptoms Reported - Physical Exam Vital Signs: Temperature 99.8 F Pulse Rate [Left Brachial] 87 Pulse Rate 117 Respiratory Rate 22 Blood Pressure [Left Arm] 183/97 Blood Pressure [Right Arm] 170/98 Blood Pressure 178/90 O2 Sat by Pulse Oximetry 96 Oriented: Normal Eyes: Normal Ear: Normal Nose: Normal Throat: Normal Respiratory: Diminished Throughout Cardiovascular: Tachycardia, Edema (TRACE BILATERAL LOWER EXTREMITY EDEMA) : Normal Auscultation: Bowel Sounds: Normal Palpation: Normal Tenderness: Normal Skin: Decreased Turgur Musculoskeletal: Back:Lumbar Psychiatric: Anxiety Affect: Anxious Speech Pattern: Clear, Appropriate - Assessment/Plan (1) COPD exacerbation Status: Acute Plan: ADMIT, SERIAL CE AND EKG MONITORING. CXR ON ADMISSION, STRICT I&OS. IV LASIX, RESP CONSULT, VERIFY HOME MEDICATION. OBTAIN FLP, CONTINUE ASPIRIN, STATIN THERAPY. BP MONITORING, SUPPLMENTAL O2, ABG ON ADMISSION (2) Acute exacerbation of CHF (congestive heart failure) Status: Acute (3) CKD (chronic kidney disease) Qualifiers: Chronic kidney disease stage: unspecified stage Qualified Code(s): N18.9 - Chronic kidney disease, unspecified Status: Acute (4) Essential hypertension Status: Chronic (5) Degenerative disc disease Status: Chronic (6) CAD (coronary artery disease) Qualifiers: Coronary Disease-Associated Artery/Lesion type: unspecified vessel or lesion type [place] vs. transplanted heart: [place] heart Associated angina: without angina Qualified Code(s): I25.10 - Atherosclerotic heart disease of [place] coronary artery without angina pectoris Status: Acute - Allergies Allergies/Adverse Reactions: Allergies Allergy/AdvReac Type Severity Reaction Status Date / Time No Known Drug Allergies Allergy Verified 04/02/19 15:27
[2021-09-13] MEDS ORDERED: LOVENOX INJ 40 MG SYR SC SCH (19:00)
[2021-09-13] MEDS: ASPIRIN EC 81 MG PO SCH (19:50)
[2021-09-13 19:54] LABS: CKMB % 0.9 % (<4); CREATINE KINASE MB 1.2 ng/mL (0-4.0)
[2021-09-13] MEDS: COREG TAB 6.25 MG PO SCH (20:13)
[2021-09-13] MEDS: PULMICORT NEB TX 0.5 MG NEB SCH (20:25)
[2021-09-13] MEDS: NITROSTAT SL PRN ×2 (21:11→21:24)
[2021-09-13] MEDS ORDERED: NITRO-BID OINT 2% Multi-Dose tube TD ONE (21:38)
[2021-09-13] MEDS ORDERED: NITRO-BID OINT 2% Multi-Dose tube ONE (21:40)
[2021-09-13 22:51] LABS: CKMB % 1.2 % (<4); CREATINE KINASE MB 1.3 ng/mL (0-4.0)
[2021-09-13 22:52] LABS: BILIRUBIN,URINE 1+ (NEGATIVE); BLOOD/HEMOGLOBIN,URINE 5+ (NEGATIVE); GLUCOSE, URINE NEGATIVE (NEGATIVE); KETONES,URINE NEGATIVE (NEGATIVE); LEUKOCYTE ESTERASE ,URINE 1+ (NEGATIVE); NITRITES,URINE NEGATIVE (NEGATIVE); PROTEIN,URINE 3+ (NEGATIVE); UROBILINOGEN,URINE 3+ (NORMAL)
[2021-09-13 23:07] LABS: APPEARANCE,URINE CLEAR (CLEAR); BACTERIA,URINE NEGATIVE /HPF (NEGATIVE); COLOR,URINE AMBER (YELLOW); SQUAMOUS EPITHELIAL CELL,UR RARE /HPF (NEGATIVE)
[2021-09-14] MEDS: MORPHINE SULFATE INJ 2 MG INJ IVP PRN ×3 (02:27→20:10)
[2021-09-14 02:48] LABS: CKMB % 1.1 % (<4); CREATINE KINASE MB 1.2 ng/mL (0-4.0)
[2021-09-14 05:12] LABS: BASOPHILS % (AUTO) 0.4 % (0.2-1.0); HEMATOCRIT 52.3 % (42.0-54.0); LYMPHOCYTES % (AUTO) 22.2 % (21.0-51.0); MEAN CORPUSCULAR HEMOGLOBIN 28.8 pg (27.0-34.0); MEAN CORPUSCULAR HGB CONC 34.3 g/dL (33.0-35.0); MEAN CORPUSCULAR VOLUME 83.8 fL (80.0-100.0); MEAN PLATELET VOLUME 9.9 fL (7.4-11.0); MONOCYTES # (AUTO) 0.4 x10^3/uL (0.3-0.8); MONOCYTES % (AUTO) 9.6 % (0.0-13.0); NEUTROPHILS # (AUTO) 3.2 x10^3/uL (2.2-4.8); NEUTROPHILS % (AUTO) 67.8 % (42.0-75.0); RED BLOOD COUNT 6.24 X10^6/uL (4.7-6.0); WHITE BLOOD COUNT 4.7 X10^3/uL (3.6-10.0)
[2021-09-14 05:26] LABS: CALCIUM 8.5 mg/dL (8.5-10.1); CARBON DIOXIDE 25.6 mmol/L (21-32); COR CA(FOR HYPOALB) 9.3 mg/dL (8.5-10.1); CREATININE 1.78 mg/dL (0.70-1.30)
--- NOTE | 2021-09-14 06:53 | RAD ---
HISTORYCongestive heart failure, COPDSTUDYChest AP [id number]/21/2022FINDINGSPati ent is rotated to the right. Heart size is normal. Renee are normal. Lungs are hyperinflated but free of acute infiltrates. No pleural effusions or pneumothoraces are identified. Bony thorax is unremarkable.IMPRESSIONLungs hyperinflated but clear, consistent with COPD in the appropriate clinical settingElectronically signed by: AMADOU DIAS (Sep 14, 2021 06:51:34)
[2021-09-14] MEDS ORDERED: POTASSIUM CHLORIDE LIQ 20 MEQ UDC PO PRN (07:06)
[2021-09-14] MEDS ORDERED: MAGNESIUM SULFATE 1 GRAM/100 mL PREMIX 1 G/100 ML BAG IV PRN (07:06)
[2021-09-14] MEDS ORDERED: KLOR-CON PO PRN (07:06)
[2021-09-14] MEDS ORDERED: MICRO K EXTEN CAP 10 MEQ PO PRN (07:06)
[2021-09-14] MEDS ORDERED: POTASSIUM CHL 60 MEQ/NS 0.45% 500 ML IV PRN (07:06)
[2021-09-14] MEDS ORDERED: POTASSIUM CHL 40 MEQ/NS 0.45% 500 ML IV PRN (07:06)
[2021-09-14] MEDS ORDERED: K-RIDER 10 MEQ/NS 100 ML 10 MEQ/100 ML BAG IV PRN (07:06)
[2021-09-14 08:33] LABS: CKMB % 1.1 % (<4); CREATINE KINASE MB 1.1 ng/mL (0-4.0)
[2021-09-14] MEDS ORDERED: LASIX IVP SCH (09:00)
[2021-09-14] MEDS: PULMICORT NEB TX 0.5 MG NEB SCH ×2 (09:00→20:15)
[2021-09-14] MEDS: COREG TAB 6.25 MG PO SCH ×2 (09:12→20:10)
[2021-09-14] MEDS: ASPIRIN EC 81 MG PO SCH (09:12)
[2021-09-14] MEDS: LASIX IVP SCH ×2 (09:12→17:33)
[2021-09-14] MEDS: ENTRESTO 24/26 MG TAB PO SCH ×2 (09:12→20:10)
[2021-09-14] MEDS: K-DUR TAB 20 MEQ PO PRN (09:13)
[2021-09-14 12:42] LABS: CKMB % 1.3 % (<4); CREATINE KINASE MB 1.2 ng/mL (0-4.0)
[2021-09-14] MEDS ORDERED: NEURONTIN CAP 300 MG PO PRN (15:59)
[2021-09-14 19:09] LABS: CKMB % 1.4 % (<4); CREATINE KINASE MB 1.7 ng/mL (0-4.0)
[2021-09-15] MEDS: MORPHINE SULFATE INJ 2 MG INJ IVP PRN (01:58)
[2021-09-15] MEDS: ROBITUSSIN DM PO PRN ×2 (02:15→22:17)
[2021-09-15 04:54] LABS: BASOPHILS # (AUTO) 0.2 X10^3/uL (0.0-0.1); BASOPHILS % (AUTO) 1.8 % (0.2-1.0); EOSINOPHILS # (AUTO) 0.1 x10^3/uL (0.0-0.2); EOSINOPHILS % (AUTO) 1.2 % (0.9-2.9); HEMATOCRIT 52.1 % (42.0-54.0); HEMOGLOBIN 17.8 g/dL (13.5-18.0); LYMPHOCYTES # (AUTO) 0.6 X10^3/uL (1.3-2.9); LYMPHOCYTES % (AUTO) 6.4 % (21.0-51.0); MEAN CORPUSCULAR HEMOGLOBIN 28.7 pg (27.0-34.0); MEAN CORPUSCULAR HGB CONC 34.1 g/dL (33.0-35.0); MEAN CORPUSCULAR VOLUME 84.4 fL (80.0-100.0); MEAN PLATELET VOLUME 10.4 fL (7.4-11.0); MONOCYTES # (AUTO) 0.7 x10^3/uL (0.3-0.8); MONOCYTES % (AUTO) 8.4 % (0.0-13.0); NEUTROPHILS # (AUTO) 7.3 x10^3/uL (2.2-4.8); NEUTROPHILS % (AUTO) 82.2 % (42.0-75.0); RED BLOOD COUNT 6.18 X10^6/uL (4.7-6.0); RED CELL DISTRIBUTION WIDTH 14.1 % (11.6-16.5); WHITE BLOOD COUNT 8.9 X10^3/uL (3.6-10.0)
[2021-09-15 05:15] LABS: ALBUMIN 2.9 g/dL (3.4-5.0); CALCIUM 8.1 mg/dL (8.5-10.1); CARBON DIOXIDE 28.1 mmol/L (21-32); CREATININE 1.9 mg/dL (0.70-1.30); TOTAL PROTEIN 6.9 g/dL (6.4-8.2)
[2021-09-15] MEDS ORDERED: MAALOX or MYLANTA PO PRN (08:14)
[2021-09-15] MEDS: K-DUR TAB 20 MEQ PO PRN (08:39)
[2021-09-15] MEDS: NEURONTIN CAP 100 MG PO PRN ×2 (08:39→14:42)
[2021-09-15] MEDS: ASPIRIN EC 81 MG PO SCH (08:40)
[2021-09-15] MEDS: PROTONIX INJ 40 MG VIAL IVP SCH (08:41)
[2021-09-15] MEDS: ENTRESTO 24/26 MG TAB PO SCH ×2 (08:41→21:28)
[2021-09-15] MEDS: LASIX IVP SCH (08:41)
[2021-09-15] MEDS: COREG TAB 6.25 MG PO SCH ×2 (08:41→21:28)
[2021-09-15] MEDS: PULMICORT NEB TX 0.5 MG NEB SCH ×2 (09:49→21:00)
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
[2021-09-15] MEDS ORDERED: NS 250 ML IV 250 ML IV ONE (14:35)
[2021-09-15] MEDS: ROCEPHIN VIAL 1 GRAM 1 G in NS 100 ML IV 100 ML IV SCH (14:38)
[2021-09-15] MEDS: XOPENEX 1.25 MG/3 ML NEBULE NEB PRN (21:00)
[2021-09-16] MEDS: XOPENEX 1.25 MG/3 ML NEBULE NEB PRN (01:03)
[2021-09-16 04:42] LABS: BASOPHILS % (AUTO) 0.2 % (0.2-1.0); EOSINOPHILS # (AUTO) 0.1 x10^3/uL (0.0-0.2); EOSINOPHILS % (AUTO) 1.6 % (0.9-2.9); HEMATOCRIT 46.6 % (42.0-54.0); HEMOGLOBIN 16.1 g/dL (13.5-18.0); LYMPHOCYTES # (AUTO) 1.3 X10^3/uL (1.3-2.9); LYMPHOCYTES % (AUTO) 14.6 % (21.0-51.0); MEAN CORPUSCULAR HEMOGLOBIN 29.2 pg (27.0-34.0); MEAN CORPUSCULAR HGB CONC 34.5 g/dL (33.0-35.0); MEAN CORPUSCULAR VOLUME 84.8 fL (80.0-100.0); MEAN PLATELET VOLUME 10.2 fL (7.4-11.0); MONOCYTES # (AUTO) 0.9 x10^3/uL (0.3-0.8); MONOCYTES % (AUTO) 9.7 % (0.0-13.0); NEUTROPHILS # (AUTO) 6.6 x10^3/uL (2.2-4.8); NEUTROPHILS % (AUTO) 73.9 % (42.0-75.0); WHITE BLOOD COUNT 8.9 X10^3/uL (3.6-10.0)
[2021-09-16 04:48] LABS: ALANINE AMINOTRANSFERASE 20 Units/L (12-78); ALBUMIN 2.5 g/dL (3.4-5.0); ALKALINE PHOSPHATASE 83 Units/L (46-116); ASPARTATE AMINO TRANSFERASE 12 Units/L (15-37); BLOOD UREA NITROGEN 39 mg/dL (7-18); CALCIUM 8.1 mg/dL (8.5-10.1); CARBON DIOXIDE 31.2 mmol/L (21-32); CHLORIDE 103 mmol/L (98-107); COR CA(FOR HYPOALB) 9.3 mg/dL (8.5-10.1); CREATININE 1.75 mg/dL (0.70-1.30); SODIUM 138 mmol/L (136-145); TOTAL PROTEIN 6.3 g/dL (6.4-8.2); eGFR NON BLACK RACES 41 (>60)
--- NOTE | 2021-09-16 07:00 | RAD ---
HISTORYSOBSTUDYAP [id number]/24/2022FINDINGSStable normal heart size, clear lungs and pleural spaces. There is no evidence for developing pneumonia, CHF or pleural effusion.IMPRESSIONNo change; no acute findings.Electronically signed by: AMILCAR STARR (Sep 16, 2021 06:59:00)
[2021-09-16] MEDS: PULMICORT NEB TX 0.5 MG NEB SCH ×2 (08:40→20:10)
[2021-09-16] MEDS ORDERED: NS 100 ML IV 100 ML ONE (08:55)
[2021-09-16] MEDS: ROCEPHIN VIAL 1 GRAM 1 G in NS 100 ML IV 100 ML IV SCH (09:09)
[2021-09-16] MEDS: PROTONIX INJ 40 MG VIAL IVP SCH (09:13)
[2021-09-16] MEDS: ASPIRIN EC 81 MG PO SCH (09:14)
[2021-09-16] MEDS: COREG TAB 6.25 MG PO SCH ×2 (09:15→20:19)
[2021-09-16] MEDS: ENTRESTO 24/26 MG TAB PO SCH ×2 (09:15→20:19)
[2021-09-16] MEDS: LASIX IVP SCH (09:16)
[2021-09-16] MEDS: TESSALON PERLES PO SCH ×3 (10:49→22:15)
[2021-09-16] MEDS: NEURONTIN CAP 100 MG PO PRN (15:00)
[2021-09-16] MEDS ORDERED: NS 250 ML IV 250 ML IV ONE (19:12)
[2021-09-16] MEDS: NS 100 ML IV 100 ML IV SCH (20:15)
[2021-09-17 04:58] LABS: BASOPHILS % (AUTO) 0.3 % (0.2-1.0); EOSINOPHILS # (AUTO) 0.2 x10^3/uL (0.0-0.2); EOSINOPHILS % (AUTO) 2.4 % (0.9-2.9); HEMATOCRIT 44.8 % (42.0-54.0); HEMOGLOBIN 15.2 g/dL (13.5-18.0); LYMPHOCYTES # (AUTO) 1.7 X10^3/uL (1.3-2.9); MEAN CORPUSCULAR HGB CONC 33.9 g/dL (33.0-35.0); MEAN CORPUSCULAR VOLUME 85.5 fL (80.0-100.0); MEAN PLATELET VOLUME 9.7 fL (7.4-11.0); MONOCYTES # (AUTO) 0.7 x10^3/uL (0.3-0.8); MONOCYTES % (AUTO) 11.2 % (0.0-13.0); NEUTROPHILS # (AUTO) 3.9 x10^3/uL (2.2-4.8); NEUTROPHILS % (AUTO) 60.1 % (42.0-75.0); RED BLOOD COUNT 5.24 X10^6/uL (4.7-6.0); RED CELL DISTRIBUTION WIDTH 14.1 % (11.6-16.5); WHITE BLOOD COUNT 6.5 X10^3/uL (3.6-10.0)
[2021-09-17 05:01] LABS: ALANINE AMINOTRANSFERASE 17 Units/L (12-78); ALBUMIN 2.3 g/dL (3.4-5.0); ALKALINE PHOSPHATASE 78 Units/L (46-116); ASPARTATE AMINO TRANSFERASE 13 Units/L (15-37); BLOOD UREA NITROGEN 26 mg/dL (7-18); CALCIUM 8.1 mg/dL (8.5-10.1); CARBON DIOXIDE 29.3 mmol/L (21-32); CHLORIDE 103 mmol/L (98-107); COR CA(FOR HYPOALB) 9.5 mg/dL (8.5-10.1); CREATININE 1.51 mg/dL (0.70-1.30); SODIUM 137 mmol/L (136-145); TOTAL PROTEIN 6.2 g/dL (6.4-8.2); eGFR NON BLACK RACES 49 (>60)
[2021-09-17] MEDS: TESSALON PERLES PO SCH ×3 (05:38→21:24)
[2021-09-17] MEDS: NS 100 ML IV 100 ML IV SCH ×3 (05:38→20:20)
--- NOTE | 2021-09-17 08:22 | RAD ---
HISTORYSOBSTUDYAP [id number]/25/2022FINDINGSHeart size remains normal and unchanged. The lungs are clear. There is no evidence for developing pneumonia, CHF or atelectasis. Pleural spaces are well defined.IMPRESSIONNo change or acute chest findings.Electronically signed by: AMILCAR STARR (Sep 17, 2021 08:20:52)
--- NOTE | 2021-09-17 09:02 | PCM.PROG ---
Progress Note - Progress Note for Day of Date of Exam: 09/16/21 - Subjective Subjective: IS A 71 YEAR OLD PATIENT OF . HE IS CURRENTLY BEING TREATED FOR COPD EXACERBATION, CHF, AND ACUTE RENAL FAILURE. HE ALSO HAS A HX OF GERD AND HTN. TODAY, HE IS ALERT AND ORIENTED, LYING IN BED ON MORNING ROUNDS. HE COMPLAINS OF SHORTNESS OF BREATH AND A PERSISTENT COUGH. HE DOES NOT APPEAR TO BE IN ANY RESPIRATORY DISTRESS AT THIS TIME. ON EXAMINATION, HEART IS REGULAR IN RATE AND RHYTHM. BILATERAL LUNGS NOTED WITH DIMINISHED LUNG SOUNDS THROUGHOUT. ABDOMEN IS FLAT, SOFT, AND NON-TENDER WITH NORMAL BOWEL SOUNDS NOTED IN ALL QUADRNATS. NO UPPER OR LOWER EXTREMITY EDEMA IS NOTED. MILD UPPER AND LOWER MUSCLE ATROPHY NOTED. HIS VITALS THIS MORNING ARE: 97.9-79-20-100%-85/51. LABS WERE OBTAINED. WBC 8.9, HGB 16.1, HCT 46.6, PLT COUNT 73, SODIUM 138, POTASSIUM 4.2, BUN 39, CREATININE 1.75, GLUCOSE 105, CALCIUM 8.1, AST 12, ALT 20, ALK PHOS 83, BNP 86.2, TOTAL PROTEIN 6.3, ALBUMIN 2.5. CHEST XRAY OBTAINED AND REVEALED: Stable normal heart size, clear lungs and pleural spaces. There is no evidence for developing pneumonia, CHF or pleural effusion. WE WILL JOSE NUE HIS ANTIBIOTICS, NEB TX, DIURTETICS, AND HOME MEDICATIONS TODAY. WE WILL ALSO ADD TESSALON PERLES 200MG PO TID AND TUSSIONEX 5ML PO Q12H PRN. OTHERWISE, WE WILL FOLLOW-UP WITH AM LABS AND CHEST XRAY AND CONTINUE TO MONITOR. TIME SPENT ON CLINICAL ASSESSMENT, REVIWING LABS AND IMAGING, DECISION MAKING, AND DOCUMENTATION GREATER THAN 45 MINUTES. - Past Medical Family Social History Past Med/Fam/Surg Hx: No changes since H&P Allergies: Allergies No Known Drug Allergies Allergy (Verified 04/02/19 15:27) - Review of Systems ROS: No change since H&P - Vital Signs and I&O's Vital Signs: Temperature 98.5 F Pulse Rate [Left Brachial] 92 Pulse Rate 78 Respiratory Rate 24 Blood Pressure [Left Arm] 128/77 Blood Pressure [Right Arm] 117/64 Blood Pressure 154/77 O2 Sat by Pulse Oximetry 99 Intake and Output: Intake & Output 09/14/21 09/15/21 09/16/21 09/17/21 11:59 11:59 11:59 11:59 Intake Total 190 / 190 1270 / 1270 1414 / 1414 2168 / 2168 Output Total 1480 / 1480 1200 / 1200 1250 / 1250 1900 / 1900 Balance -1290 / -1290 70 / 70 164 / 164 268 / 268 - Physical Exam Oriented: Normal Eyes: Normal Ear: Normal Nose: Normal Throat: Normal Respiratory: Generalized, Diminished Cardiovascular: Normal : Normal Auscultation: Bowel Sounds: Normal Palpation: Normal Tenderness: Normal Skin: Decreased Turgur Musculoskeletal: Back:Lumbar Psychiatric: Anxiety Affect: Anxious Speech Pattern: Clear, Appropriate - Laboratory and Diagnostics Result Diagrams: 09/17/21 04:20 09/17/21 04:20 Labs: Laboratory WBC 6.5 X10^3/uL (3.6-10.0) 09/17/21 04:20 RBC 5.24 X10^6/uL (4.7-6.0) 09/17/21 04:20 Hgb 15.2 g/dL (13.5-18.0) 09/17/21 04:20 Hct 44.8 % (42.0-54.0) 09/17/21 04:20 MCV 85.5 fL (80.0-100.0) 09/17/21 04:20 MCH 29.0 pg (27.0-34.0) 09/17/21 04:20 MCHC 33.9 g/dL (33.0-35.0) 09/17/21 04:20 RDW 14.1 % (11.6-16.5) 09/17/21 04:20 Plt Count 108 X10^3/uL (150.0-450.0) L 09/17/21 04:20 MPV 9.7 fL (7.4-11.0) 09/17/21 04:20 Neut % (Auto) 60.1 % (42.0-75.0) 09/17/21 04:20 Lymph % (Auto) 26.0 % (21.0-51.0) 09/17/21 04:20 [place] % (Auto) 11.2 % (0.0-13.0) 09/17/21 04:20 Eos % (Auto) 2.4 % (0.9-2.9) 09/17/21 04:20 Baso % (Auto) 0.3 % (0.2-1.0) 09/17/21 04:20 Neut # (Auto) 3.9 x10^3/uL (2.2-4.8) 09/17/21 04:20 Lymph # (Auto) 1.7 X10^3/uL (1.3-2.9) 09/17/21 04:20 [place] # (Auto) 0.7 x10^3/uL (0.3-0.8) 09/17/21 04:20 Eos # (Auto) 0.2 x10^3/uL (0.0-0.2) 09/17/21 04:20 Baso # (Auto) 0.0 X10^3/uL (0.0-0.1) 09/17/21 04:20 Absolute Nucleated RBC 0.1 /100WBC 09/17/21 04:20 D-Dimer 0.63 ug/ml (0.0-0.57) H* 09/12/21 22:50 Sample Site Rrad 09/12/21 23:58 ABG pH 7.530 (7.35-7.45) H 09/12/21 23:58 ABG pCO2 31.0 mmHg (35.0-45.0) L 09/12/21 23:58 ABG pO2 72.0 mmHg (80.0-100.0) L 09/12/21 23:58 ABG HCO3 25.9 mmol/L (22-26) 09/12/21 23:58 ABG O2 Saturation 96.0 % (90-100) 09/12/21 23:58 ABG Base Excess 3.6 mmol/L (-2.0-2.0) H 09/12/21 23:58 Shawn Test Pos 09/12/21 23:58 A-a Gradient 39.0 mmHg 09/12/21 23:58 FiO2 21.0 09/12/21 23:58 Blood Gas Comments Andrew abg well-mtf 09/12/21 23:58 Sodium 137 mmol/L (136-145) 09/17/21 04:20 Corrected Sodium TNP 09/17/21 04:20 Potassium 3.8 mmol/L (3.5-5.1) 09/17/21 04:20 Chloride 103 mmol/L (98-107) 09/17/21 04:20 Carbon Dioxide 29.3 mmol/L (21-32) 09/17/21 04:20 BUN 26 mg/dL (7-18) H 09/17/21 04:20 Creatinine 1.51 mg/dL (0.70-1.30) H 09/17/21 04:20 Est GFR (MDRD) Af Amer 59 (>60) 09/17/21 04:20 Est GFR (MDRD) Non-Af 49 (>60) L 09/17/21 04:20 Glucose 99 mg/dL (65-99) 09/17/21 04:20 POC Glucose (mg/dL) 118 mg/dL (65-99) H 09/13/21 21:37 Calcium 8.1 mg/dL (8.5-10.1) L 09/17/21 04:20 Corrected Calcium 9.5 mg/dL (8.5-10.1) 09/17/21 04:20 Total Bilirubin 0.40 mg/dL (0.2-1.0) 09/17/21 04:20 AST 13 Units/L (15-37) L 09/17/21 04:20 ALT 17 Units/L (12-78) 09/17/21 04:20 Alkaline Phosphatase 78 Units/L (46-116) 09/17/21 04:20 Creatine Kinase 121 Units/L (39-308) 09/14/21 18:20 CK-MB (CK-2) 1.7 ng/mL (0-4.0) 09/14/21 18:20 CK/CKMB % Calc 1.4 % (<4) 09/14/21 18:20 Troponin I High Sens 94.9 ng/L (4.0-60.0) H* 09/14/21 18:20 B-Natriuretic Peptide 80.6 pg/mL (0-79) H 09/17/21 04:20 Total Protein 6.2 g/dL (6.4-8.2) L 09/17/21 04:20 Albumin 2.3 g/dL (3.4-5.0) L 09/17/21 04:20 Globulin 3.9 g/dL (2.5-4.5) 09/17/21 04:20 Albumin/Globulin Ratio 0.6 Ratio (1.1-2.1) L 09/17/21 04:20 Specimen Type Catherized urine 09/13/21 22: Urine Color Regla (YELLOW) 09/13/21: Urine Appearance Clear (CLEAR) 09/13/21: Urine pH 6.0 (5.0 - 8.0) 09/13/21: Ur Specific [place] 1.025 (1.000-1.030) 09/13/21: Urine Protein 3+ (NEGATIVE) 09/13/21: Urine Glucose (UA) Negative (NEGATIVE) 09/13/21 Urine Ketones Negative (NEGATIVE) 09/13/21: Urine Blood 5+ (NEGATIVE) 09/13/21: Urine Nitrite Negative (NEGATIVE) 09/13/21: Urine Bilirubin 1+ (NEGATIVE) 09/13/21 Urine Urobilinogen 3+ (NORMAL) 09/13/21: Ur Leukocyte Esterase 1+ (NEGATIVE) 09/13/21: Urine RBC 5-10 /HPF (0-3) A 09/13/21: Urine WBC 3-5 /HPF (0-5) 09/13/21: Ur Squamous Epith Cells Rare /HPF (NEGATIVE) 09/13/21: Urine Bacteria Negative /HPF (NEGATIVE) 09/13/21: Ur Culture Indicated? No/not indicated 09/13/21: Urine Opiates Screen Negative (NEG=<300) 09/13/21 22: Urine Methadone Screen Negative (NEG=<300) 09/13/21: Ur Barbiturates Screen Negative (NEG=<200) 09/13/21: Ur Phencyclidine Scrn Negative (NEG=<25) 09/13/21 Ur Amphetamines Screen Negative (NEG=<1000) 09/13/21 U Benzodiazepines Scrn Negative (NEG=<200) 09/13/21: Urine Cocaine Screen Positive (NEG=<300) 09/13/21: U Marijuana (THC) Screen Negative (NEG=<50) 09/13/21 22:23 SARS-CoV-2 (PCR) Negative (NEGATIVE) 09/12/21 22:47 Influenza Type A (PCR) Negative (NEGATIVE) 09/12/21 22:47 Influenza Type B (PCR) Negative (NEGATIVE) 09/12/21 22:47 RSV (PCR) Negative (NEGATIVE) 09/12/21 22:47 - Plan (1) Acute exacerbation of CHF (congestive heart failure) Status: Acute Qualifiers: Heart failure type: unspecified Qualified Code(s): I50.9 - Heart failure, unspecified (2) COPD (chronic obstructive pulmonary disease) with chronic bronchitis Status: Acute (3) GERD (gastroesophageal reflux disease) Status: Chronic Qualifiers: Esophagitis presence: without esophagitis Qualified Code(s): K21.9 - Gastro-esophageal reflux disease without esophagitis (4) Essential hypertension Status: Chronic
[2021-09-17] MEDS: PULMICORT NEB TX 0.5 MG NEB SCH ×2 (09:04→21:30)
[2021-09-17] MEDS: ASPIRIN EC 81 MG PO SCH (09:36)
[2021-09-17] MEDS: ENTRESTO 24/26 MG TAB PO SCH ×2 (09:36→20:18)
[2021-09-17] MEDS: LASIX IVP SCH (09:37)
[2021-09-17] MEDS: COREG TAB 6.25 MG PO SCH ×2 (09:37→20:19)
[2021-09-17] MEDS: PROTONIX INJ 40 MG VIAL IVP SCH (09:37)
[2021-09-17] MEDS: ROCEPHIN VIAL 1 GRAM 1 G in NS 100 ML IV 100 ML IV SCH (09:38)
[2021-09-17] MEDS: TUSSIONEX PENNKINETIC SUSP PO PRN (20:22)
[2021-09-17] MEDS: NEURONTIN CAP 100 MG PO PRN (20:52)
--- NOTE | 2021-09-17 22:35 | PCM.PROG ---
Progress Note - Progress Note for Day of Date of Exam: 09/17/21 - Subjective Subjective: IS A 71 YEAR OLD PATIENT OF . HE IS CURRENTLY BEING TREATED FOR COPD EXACERBATION, CHF, AND ACUTE RENAL FAILURE. HE ALSO HAS A HX OF GERD AND HTN. TODAY, HE IS ALERT AND ORIENTED, LYING IN BED ON MORNING ROUNDS. HE CONTINUES TO COMPLAIN OF SHORTNESS OF BREATH AND A PERSISTENT COUGH. HE DOES NOT APPEAR TO BE IN ANY RESPIRATORY DISTRESS AT THIS TIME. ON EXAMINATION, HEART IS REGULAR IN RATE AND RHYTHM. BILATERAL LUNGS NOTED WITH DIMINISHED LUNG SOUNDS THROUGHOUT. ABDOMEN IS FLAT, SOFT, AND NON-TENDER WITH NORMAL BOWEL SOUNDS NOTED IN ALL QUADRNATS. NO UPPER OR LOWER EXTREMITY EDEMA IS NOTED. MILD UPPER AND LOWER MUSCLE ATROPHY NOTED. HIS VITALS THIS MORNING ARE: 9 8.0-77-30-96%-170/80. LABS WERE OBTAINED. WBC 6.5, HGB 15.2, HCT 44.8, SODIUM 137, POTASSIUM 3.8, BUN 26, CREATININE 1.51, CALCIUM 8.1, AST 13, ALT 17, ALK PHOS 78, BNP 80.6, TOTAL PROTEIN 6.2, ALBUMIN 2.3. CHEST XRAY OBTAINED AND REVEALED: Heart size remains normal and unchanged. The lungs are clear. There is no evidence for developing pneumonia, CHF or atelectasis. Pleural spaces are well defined. WE WILL CONTINUE HIS ANTIBIOTICS, NEB TX, DIURTETICS, TESSALON PERLES 200MG PO TID, TUSSIONEX 5ML PO Q12H PRN, AND HOME MEDICATIONS TODAY. OTHERWISE, WE WILL FOLLOW-UP WITH AM LABS AND CHEST XRAY AND CONTINUE TO MONITOR. TIME SPENT ON CLINICAL ASSESSMENT, REVIWING LABS AND IMAGING, DECISION MAKING, AND DOCUMENTATION GREATER THAN 45 MINUTES. - Past Medical Family Social History Past Med/Fam/Surg Hx: No changes since H&P Allergies: Allergies No Known Drug Allergies Allergy (Verified 04/02/19 15:27) - Review of Systems ROS: No change since H&P - Vital Signs and I&O's Vital Signs: Temperature 98.3 F Pulse Rate [Left Brachial] 92 Pulse Rate 64 Respiratory Rate 36 Blood Pressure [Left Arm] 128/77 Blood Pressure [Right Arm] 117/64 Blood Pressure 143/67 O2 Sat by Pulse Oximetry 99 Intake and Output: Intake & Output 0609/16/21 09/17/21 09/18/21 11:59 11:59 11:59 11:59 Intake Total 1270 / 1270 1414 / 1414 2168 / 2168 1399 / 1399 Output Total 1200 / 1200 1250 / 1250 1900 / 1900 1850 / 1850 Balance 70 / 70 164 / 164 268 / 268 -451 / -451 - Physical Exam Oriented: Normal Eyes: Normal Ear: Normal Nose: Normal Throat: Normal Respiratory: Generalized, Diminished Cardiovascular: Normal : Normal Auscultation: Bowel Sounds: Normal Tenderness: Normal Skin: Decreased Turgur Musculoskeletal: Back:Lumbar Psychiatric: Anxiety Affect: Anxious Speech Pattern: Clear, Appropriate - Laboratory and Diagnostics Result Diagrams: 09/17/21 04:20 09/17/21 04:20 Labs: Laboratory WBC 6.5 X10^3/uL (3.6-10.0) 09/17/21 04:20 RBC 5.24 X10^6/uL (4.7-6.0) 09/17/21 04:20 Hgb 15.2 g/dL (13.5-18.0) 09/17/21 04:20 Hct 44.8 % (42.0-54.0) 09/17/21 04:20 MCV 85.5 fL (80.0-100.0) 09/17/21 04:20 MCH 29.0 pg (27.0-34.0) 09/17/21 04:20 MCHC 33.9 g/dL (33.0-35.0) 09/17/21 04:20 RDW 14.1 % (11.6-16.5) 09/17/21 04:20 Plt Count 108 X10^3/uL (150.0-450.0) L 09/17/21 04:20 MPV 9.7 fL (7.4-11.0) 09/17/21 04:20 Neut % (Auto) 60.1 % (42.0-75.0) 09/17/21 04:20 Lymph % (Auto) 26.0 % (21.0-51.0) 09/17/21 04:20 [place] % (Auto) 11.2 % (0.0-13.0) 09/17/21 04:20 Eos % (Auto) 2.4 % (0.9-2.9) 09/17/21 04:20 Baso % (Auto) 0.3 % (0.2-1.0) 09/17/21 04:20 Neut # (Auto) 3.9 x10^3/uL (2.2-4.8) 09/17/21 04:20 Lymph # (Auto) 1.7 X10^3/uL (1.3-2.9) 09/17/21 04:20 [place] # (Auto) 0.7 x10^3/uL (0.3-0.8) 09/17/21 04:20 Eos # (Auto) 0.2 x10^3/uL (0.0-0.2) 09/17/21 04:20 Baso # (Auto) 0.0 X10^3/uL (0.0-0.1) 09/17/21 04:20 Absolute Nucleated RBC 0.1 /100WBC 09/17/21 04:20 D-Dimer 0.63 ug/ml (0.0-0.57) H* 09/12/21 22:50 Sample Site Rrad 09/12/21 23:58 ABG pH 7.530 (7.35-7.45) H 09/12/21 23:58 ABG pCO2 31.0 mmHg (35.0-45.0) L 09/12/21 23:58 ABG pO2 72.0 mmHg (80.0-100.0) L 09/12/21 23:58 ABG HCO3 25.9 mmol/L (22-26) 09/12/21 23:58 ABG O2 Saturation 96.0 % (90-100) 09/12/21 23:58 ABG Base Excess 3.6 mmol/L (-2.0-2.0) H 09/12/21 23:58 Shawn Test Pos 09/12/21 23:58 A-a Gradient 39.0 mmHg 09/12/21 23:58 FiO2 21.0 09/12/21 23:58 Blood Gas Comments Andrew abg well-mtf 09/12/21 23:58 Sodium 137 mmol/L (136-145) 09/17/21 04:20 Corrected Sodium TNP 09/17/21 04:20 Potassium 3.8 mmol/L (3.5-5.1) 09/17/21 04:20 Chloride 103 mmol/L (98-107) 09/17/21 04:20 Carbon Dioxide 29.3 mmol/L (21-32) 09/17/21 04:20 BUN 26 mg/dL (7-18) H 09/17/21 04:20 Creatinine 1.51 mg/dL (0.70-1.30) H 09/17/21 04:20 Est GFR (MDRD) Af Amer 59 (>60) 09/17/21 04:20 Est GFR (MDRD) Non-Af 49 (>60) L 09/17/21 04:20 Glucose 99 mg/dL (65-99) 09/17/21 04:20 POC Glucose (mg/dL) 118 mg/dL (65-99) H 09/13/21 21:37 Calcium 8.1 mg/dL (8.5-10.1) L 09/17/21 04:20 Corrected Calcium 9.5 mg/dL (8.5-10.1) 09/17/21 04:20 Total Bilirubin 0.40 mg/dL (0.2-1.0) 09/17/21 04:20 AST 13 Units/L (15-37) L 09/17/21 04:20 ALT 17 Units/L (12-78) 09/17/21 04:20 Alkaline Phosphatase 78 Units/L (46-116) 09/17/21 04:20 Creatine Kinase 121 Units/L (39-308) 09/14/21 18:20 CK-MB (CK-2) 1.7 ng/mL (0-4.0) 09/14/21 18:20 CK/CKMB % Calc 1.4 % (<4) 09/14/21 18:20 Troponin I High Sens 94.9 ng/L (4.0-60.0) H* 09/14/21 18:20 B-Natriuretic Peptide 80.6 pg/mL (0-79) H 09/17/21 04:20 Total Protein 6.2 g/dL (6.4-8.2) L 09/17/21 04:20 Albumin 2.3 g/dL (3.4-5.0) L 09/17/21 04:20 Globulin 3.9 g/dL (2.5-4.5) 09/17/21 04:20 Albumin/Globulin Ratio 0.6 Ratio (1.1-2.1) L 09/17/21 04:20 Specimen Type Catherized urine 09/13/21 22: Urine Color Regla (YELLOW) 09/13/21: Urine Appearance Clear (CLEAR) 09/13/21: Urine pH 6.0 (5.0 - 8.0) 09/13/21: Ur Specific [place] 1.025 (1.000-1.030) 09/13/21: Urine Protein 3+ (NEGATIVE) 09/13/21: Urine Glucose (UA) Negative (NEGATIVE) 09/13/21: Urine Ketones Negative (NEGATIVE) 09/13/21: Urine Blood 5+ (NEGATIVE) 09/13/21 Urine Nitrite Negative (NEGATIVE) 09/13/21: Urine Bilirubin 1+ (NEGATIVE) 09/13/21: Urine Urobilinogen 3+ (NORMAL) 09/13/21: Ur Leukocyte Esterase 1+ (NEGATIVE) 09/13/21: Urine RBC 5-10 /HPF (0-3) A 09/13/21 Urine WBC 3-5 /HPF (0-5) 09/13/21: Ur Squamous Epith Cells Rare /HPF (NEGATIVE) 09/13/21: Urine Bacteria Negative /HPF (NEGATIVE) 09/13/21: Ur Culture Indicated? No/not indicated 09/13/21: Urine Opiates Screen Negative (NEG=<300) 09/13/21: Urine Methadone Screen Negative (NEG=<300) 09/13/21: Ur Barbiturates Screen Negative (NEG=<200) 09/13/21 Ur Phencyclidine Scrn Negative (NEG=<25) 09/13/21 Ur Amphetamines Screen Negative (NEG=<1000) 09/13/21 U Benzodiazepines Scrn Negative (NEG=<200) 09/13/21: Urine Cocaine Screen Positive (NEG=<300) 09/13/21: U Marijuana (THC) Screen Negative (NEG=<50) 06/22/22 22:23 SARS-CoV-2 (PCR) Negative (NEGATIVE) 09/12/21 22:47 Influenza Type A (PCR) Negative (NEGATIVE) 09/12/21 22:47 Influenza Type B (PCR) Negative (NEGATIVE) 09/12/21 22:47 RSV (PCR) Negative (NEGATIVE) 09/12/21 22:47 - Plan (1) Acute exacerbation of CHF (congestive heart failure) Status: Acute Qualifiers: Heart failure type: unspecified Qualified Code(s): I50.9 - Heart failure, unspecified (2) COPD (chronic obstructive pulmonary disease) with chronic bronchitis Status: Acute (3) GERD (gastroesophageal reflux disease) Status: Chronic Qualifiers: Esophagitis presence: without esophagitis Qualified Code(s): K21.9 - Gastro-esophageal reflux disease without esophagitis (4) Essential hypertension Status: Chronic
[2021-09-18] MEDS: NS 100 ML IV 100 ML IV SCH ×5 (01:27→21:14)
[2021-09-18 04:42] LABS: BASOPHILS # (AUTO) 0.1 X10^3/uL (0.0-0.1); BASOPHILS % (AUTO) 1.5 % (0.2-1.0); EOSINOPHILS # (AUTO) 0.2 x10^3/uL (0.0-0.2); EOSINOPHILS % (AUTO) 3.1 % (0.9-2.9); HEMATOCRIT 42.8 % (42.0-54.0); HEMOGLOBIN 14.5 g/dL (13.5-18.0); LYMPHOCYTES # (AUTO) 1.7 X10^3/uL (1.3-2.9); LYMPHOCYTES % (AUTO) 29.8 % (21.0-51.0); MEAN CORPUSCULAR HEMOGLOBIN 28.7 pg (27.0-34.0); MEAN CORPUSCULAR VOLUME 84.6 fL (80.0-100.0); MEAN PLATELET VOLUME 9.2 fL (7.4-11.0); MONOCYTES # (AUTO) 0.5 x10^3/uL (0.3-0.8); MONOCYTES % (AUTO) 8.7 % (0.0-13.0); NEUTROPHILS # (AUTO) 3.2 x10^3/uL (2.2-4.8); NEUTROPHILS % (AUTO) 56.9 % (42.0-75.0); RED BLOOD COUNT 5.06 X10^6/uL (4.7-6.0); RED CELL DISTRIBUTION WIDTH 14.1 % (11.6-16.5); WHITE BLOOD COUNT 5.6 X10^3/uL (3.6-10.0)
[2021-09-18 04:46] LABS: ALANINE AMINOTRANSFERASE 18 Units/L (12-78); ALBUMIN 2.4 g/dL (3.4-5.0); ALKALINE PHOSPHATASE 85 Units/L (46-116); ASPARTATE AMINO TRANSFERASE 12 Units/L (15-37); BLOOD UREA NITROGEN 27 mg/dL (7-18); CALCIUM 8.4 mg/dL (8.5-10.1); CARBON DIOXIDE 30.7 mmol/L (21-32); CHLORIDE 102 mmol/L (98-107); COR CA(FOR HYPOALB) 9.7 mg/dL (8.5-10.1); CREATININE 1.43 mg/dL (0.70-1.30); MAGNESIUM 2.1 mg/dL (1.7-2.9); SODIUM 138 mmol/L (136-145); TOTAL PROTEIN 6.3 g/dL (6.4-8.2); eGFR NON BLACK RACES 52 (>60)
[2021-09-18] MEDS: TESSALON PERLES PO SCH ×3 (05:34→21:14)
--- NOTE | 2021-09-18 05:37 | RAD ---
HISTORYSOB; COPD, CHF Relevant Clinical InformationSTUDYCHEST, 1 [id number]/26/2022FINDINGSThe trachea is midline. The cardiac silhouette is unremarkable. Chronic interstitial lung changes with flattening of the diaphragm consistent with COPD is observedThe lungs are clear without focal infiltrate or effusion. The bony thorax is unremarkable.IMPRESSIONCOPD.No active cardiopulmonary disease.Electronically signed by: Loc Sr (Sep 18, 2021 05:36:26)
[2021-09-18] MEDS: PULMICORT NEB TX 0.5 MG NEB SCH ×2 (08:55→21:12)
[2021-09-18] MEDS: ASPIRIN EC 81 MG PO SCH (08:57)
[2021-09-18] MEDS: COREG TAB 6.25 MG PO SCH ×2 (08:58→20:19)
[2021-09-18] MEDS: ENTRESTO 24/26 MG TAB PO SCH ×2 (08:58→20:19)
[2021-09-18] MEDS: ROCEPHIN VIAL 1 GRAM 1 G in NS 100 ML IV 100 ML IV SCH (08:59)
[2021-09-18] MEDS: PROTONIX INJ 40 MG VIAL IVP SCH (08:59)
[2021-09-18] MEDS: LASIX IVP SCH (08:59)
[2021-09-18] MEDS: SOLU-Medrol 40 MG VIAL IVP SCH ×2 (18:32→21:14)
[2021-09-18] MEDS: NEURONTIN CAP 100 MG PO PRN (20:18)
[2021-09-18] MEDS: TUSSIONEX PENNKINETIC SUSP PO PRN (22:30)
[2021-09-19] MEDS: NS 100 ML IV 100 ML IV SCH ×4 (04:25→18:15)
[2021-09-19 05:13] LABS: BASOPHILS % (AUTO) 0.3 % (0.2-1.0); HEMATOCRIT 46.5 % (42.0-54.0); HEMOGLOBIN 15.7 g/dL (13.5-18.0); LYMPHOCYTES # (AUTO) 0.5 X10^3/uL (1.3-2.9); MEAN CORPUSCULAR HEMOGLOBIN 28.6 pg (27.0-34.0); MEAN CORPUSCULAR HGB CONC 33.7 g/dL (33.0-35.0); MEAN CORPUSCULAR VOLUME 84.8 fL (80.0-100.0); MEAN PLATELET VOLUME 8.8 fL (7.4-11.0); MONOCYTES # (AUTO) 0.1 x10^3/uL (0.3-0.8); MONOCYTES % (AUTO) 1.2 % (0.0-13.0); NEUTROPHILS # (AUTO) 4.3 x10^3/uL (2.2-4.8); NEUTROPHILS % (AUTO) 87.5 % (42.0-75.0); RED BLOOD COUNT 5.48 X10^6/uL (4.7-6.0); RED CELL DISTRIBUTION WIDTH 13.8 % (11.6-16.5)
[2021-09-19] MEDS: TESSALON PERLES PO SCH ×3 (05:28→21:03)
[2021-09-19] MEDS: SOLU-Medrol 40 MG VIAL IVP SCH (05:28)
[2021-09-19 05:32] LABS: ALANINE AMINOTRANSFERASE 17 Units/L (12-78); ALBUMIN 2.6 g/dL (3.4-5.0); ALKALINE PHOSPHATASE 93 Units/L (46-116); ASPARTATE AMINO TRANSFERASE 15 Units/L (15-37); BLOOD UREA NITROGEN 24 mg/dL (7-18); CALCIUM 8.8 mg/dL (8.5-10.1); CARBON DIOXIDE 28.6 mmol/L (21-32); CHLORIDE 103 mmol/L (98-107); CKMB % 2.2 % (<4); COR CA(FOR HYPOALB) 9.9 mg/dL (8.5-10.1); COR NA(FOR HYPERGLY) 139 mmol/L (136-145); CREATINE KINASE 45 Units/L (39-308); CREATINE KINASE MB < 1.0 ng/mL (0-4.0); CREATININE 1.34 mg/dL (0.70-1.30); SODIUM 138 mmol/L (136-145); TOTAL PROTEIN 7.1 g/dL (6.4-8.2); eGFR NON BLACK RACES 56 (>60)
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
[2021-09-19] MEDS: PROTONIX INJ 40 MG VIAL IVP SCH (08:00)
[2021-09-19] MEDS: COREG TAB 6.25 MG PO SCH ×2 (08:00→21:02)
[2021-09-19] MEDS: ASPIRIN EC 81 MG PO SCH (08:00)
[2021-09-19] MEDS: ENTRESTO 24/26 MG TAB PO SCH ×2 (08:00→21:03)
[2021-09-19] MEDS: LASIX IVP SCH (08:01)
[2021-09-19] MEDS: ROCEPHIN VIAL 1 GRAM 1 G in NS 100 ML IV 100 ML IV SCH (08:09)
[2021-09-19] MEDS: PULMICORT NEB TX 0.5 MG NEB SCH ×2 (08:52→21:24)
[2021-09-19] MEDS: TUSSIONEX PENNKINETIC SUSP PO PRN (09:29)
[2021-09-19] MEDS: MUCINEX DM PO SCH ×2 (11:20→21:02)
[2021-09-19 15:34] VITALS: BMI 16.9
[2021-09-19] MEDS: CATAPRES TAB 0.1 MG PO PRN (18:15)
[2021-09-19] MEDS: XOPENEX 1.25 MG/3 ML NEBULE NEB PRN (21:25)
[2021-09-20] MEDS: NS 100 ML IV 100 ML IV SCH ×3 (00:12→21:29)
[2021-09-20] MEDS: TUSSIONEX PENNKINETIC SUSP PO PRN (00:18)
[2021-09-20 04:20] LABS: BASOPHILS # (AUTO) 0.1 X10^3/uL (0.0-0.1); BASOPHILS % (AUTO) 0.4 % (0.2-1.0); EOSINOPHILS % (AUTO) 0.3 % (0.9-2.9); HEMATOCRIT 42.9 % (42.0-54.0); HEMOGLOBIN 14.3 g/dL (13.5-18.0); LYMPHOCYTES # (AUTO) 1.7 X10^3/uL (1.3-2.9); LYMPHOCYTES % (AUTO) 11.6 % (21.0-51.0); MEAN CORPUSCULAR HEMOGLOBIN 28.1 pg (27.0-34.0); MEAN CORPUSCULAR HGB CONC 33.3 g/dL (33.0-35.0); MEAN CORPUSCULAR VOLUME 84.3 fL (80.0-100.0); MEAN PLATELET VOLUME 8.7 fL (7.4-11.0); MONOCYTES # (AUTO) 0.9 x10^3/uL (0.3-0.8); MONOCYTES % (AUTO) 5.9 % (0.0-13.0); NEUTROPHILS # (AUTO) 11.9 x10^3/uL (2.2-4.8); NEUTROPHILS % (AUTO) 81.8 % (42.0-75.0); RED BLOOD COUNT 5.08 X10^6/uL (4.7-6.0); RED CELL DISTRIBUTION WIDTH 13.8 % (11.6-16.5); WHITE BLOOD COUNT 14.6 X10^3/uL (3.6-10.0)
[2021-09-20 04:57] LABS: ALANINE AMINOTRANSFERASE 20 Units/L (12-78); ALBUMIN 2.5 g/dL (3.4-5.0); ALKALINE PHOSPHATASE 93 Units/L (46-116); ASPARTATE AMINO TRANSFERASE 14 Units/L (15-37); BLOOD UREA NITROGEN 27 mg/dL (7-18); CALCIUM 8.5 mg/dL (8.5-10.1); CARBON DIOXIDE 31.7 mmol/L (21-32); CHLORIDE 100 mmol/L (98-107); COR CA(FOR HYPOALB) 9.7 mg/dL (8.5-10.1); CREATININE 1.36 mg/dL (0.70-1.30); SODIUM 137 mmol/L (136-145); TOTAL PROTEIN 6.5 g/dL (6.4-8.2); eGFR NON BLACK RACES 55 (>60)
[2021-09-20 05:16] LABS: ABG ALLEN TEST POS; ABG BASE EXCESS 10.2 mmol/L (-2.0-2.0); ABG HCO3 34.3 mmol/L (22-26)
--- NOTE | 2021-09-20 05:52 | RAD ---
HISTORYF/U SOB, CHF, COPD Relevant Clinical InformationSTUDYCHEST, 1 [id number]/28/2022FINDINGSThe trachea is midline. The cardiac silhouette is unremarkable. Chronic interstitial lung changes with flattening of the diaphragm consistent with COPD is observedThe lungs are clear without focal infiltrate or effusion. The bony thorax is unremarkable.IMPRESSIONCOPD.No active cardiopulmonary disease.Electronically signed by: Loc Sr (Sep 20, 2021 05:51:24)
[2021-09-20] MEDS: TESSALON PERLES PO SCH ×3 (06:11→21:31)
[2021-09-20] MEDS: ASPIRIN EC 81 MG PO SCH (09:04)
[2021-09-20] MEDS: COREG TAB 6.25 MG PO SCH ×2 (09:04→20:29)
[2021-09-20] MEDS: PROTONIX INJ 40 MG VIAL IVP SCH (09:05)
[2021-09-20] MEDS: ENTRESTO 24/26 MG TAB PO SCH ×2 (09:05→20:29)
[2021-09-20] MEDS: MUCINEX DM PO SCH ×2 (09:05→20:29)
[2021-09-20] MEDS: LASIX IVP SCH (09:05)
[2021-09-20] MEDS: ROCEPHIN VIAL 1 GRAM 1 G in NS 100 ML IV 100 ML IV SCH (09:06)
[2021-09-20] MEDS: PULMICORT NEB TX 0.5 MG NEB SCH ×2 (09:25→20:30)
[2021-09-21 04:52] LABS: ALANINE AMINOTRANSFERASE 18 Units/L (12-78); ALBUMIN 2.5 g/dL (3.4-5.0); ALKALINE PHOSPHATASE 81 Units/L (46-116); ASPARTATE AMINO TRANSFERASE 12 Units/L (15-37); BLOOD UREA NITROGEN 27 mg/dL (7-18); CALCIUM 8.4 mg/dL (8.5-10.1); CARBON DIOXIDE 34.2 mmol/L (21-32); CHLORIDE 103 mmol/L (98-107); COR CA(FOR HYPOALB) 9.6 mg/dL (8.5-10.1); CREATININE 1.47 mg/dL (0.70-1.30); SODIUM 139 mmol/L (136-145); TOTAL PROTEIN 6.2 g/dL (6.4-8.2); eGFR NON BLACK RACES 50 (>60)
[2021-09-21 05:07] LABS: BASOPHILS # (AUTO) 0.1 X10^3/uL (0.0-0.1); BASOPHILS % (AUTO) 0.8 % (0.2-1.0); EOSINOPHILS # (AUTO) 0.1 x10^3/uL (0.0-0.2); EOSINOPHILS % (AUTO) 1.8 % (0.9-2.9); HEMATOCRIT 43.2 % (42.0-54.0); HEMOGLOBIN 14.6 g/dL (13.5-18.0); LYMPHOCYTES # (AUTO) 2.3 X10^3/uL (1.3-2.9); LYMPHOCYTES % (AUTO) 30.3 % (21.0-51.0); MEAN CORPUSCULAR HEMOGLOBIN 28.9 pg (27.0-34.0); MEAN CORPUSCULAR HGB CONC 33.8 g/dL (33.0-35.0); MEAN CORPUSCULAR VOLUME 85.4 fL (80.0-100.0); MEAN PLATELET VOLUME 8.6 fL (7.4-11.0); MONOCYTES # (AUTO) 0.5 x10^3/uL (0.3-0.8); MONOCYTES % (AUTO) 6.9 % (0.0-13.0); NEUTROPHILS # (AUTO) 4.6 x10^3/uL (2.2-4.8); NEUTROPHILS % (AUTO) 60.2 % (42.0-75.0); RED BLOOD COUNT 5.06 X10^6/uL (4.7-6.0); RED CELL DISTRIBUTION WIDTH 13.8 % (11.6-16.5); WHITE BLOOD COUNT 7.6 X10^3/uL (3.6-10.0)
[2021-09-21] MEDS: TESSALON PERLES PO SCH (05:13)
[2021-09-21 05:31] LABS: ABG ALLEN TEST POS; ABG BASE EXCESS 11.1 mmol/L (-2.0-2.0); ABG HCO3 36.4 mmol/L (22-26)
[2021-09-21] MEDS: CATAPRES TAB 0.1 MG PO PRN (05:43)
[2021-09-21] MEDS: K-DUR TAB 20 MEQ PO PRN (05:43)
[2021-09-21] MEDS: PULMICORT NEB TX 0.5 MG NEB SCH (08:25)
[2021-09-21] MEDS: COREG TAB 6.25 MG PO SCH (09:29)
[2021-09-21] MEDS: ASPIRIN EC 81 MG PO SCH (09:29)
[2021-09-21] MEDS: MUCINEX DM PO SCH (09:30)
[2021-09-21] MEDS: LASIX IVP SCH (09:30)
[2021-09-21] MEDS: ENTRESTO 24/26 MG TAB PO SCH (09:30)
[2021-09-21] MEDS: ROCEPHIN VIAL 1 GRAM 1 G in NS 100 ML IV 100 ML IV SCH (09:31)
[2021-09-21] MEDS: PROTONIX INJ 40 MG VIAL IVP SCH (09:31)
[2021-09-21 13:23] VITALS: BP 146/75
== END 2021-09-21 13:20 | disposition home health service (06) | DRG 191 ==
LOC: U 22:19 → ER 22:19 → U 09-13 01:40 → UNDODISOB 09-13 09:49 → MED/SURG 09-13 10:16 → ICU 09-13 22:37
PROVIDERS: ADMIT Family Medicine; ATTEND Internal Medicine